=== PATIENT | male | born 1945 | race African-American/Black ===

== ENCOUNTER 2017-07-18 14:09 | Outpatient (CLI) | payer MEDICARE, MEDICAID ==
[~2017-07-18 14:09] MED LIST: ACETAMINOPHEN-1 EAC1 ORAL; ATIVAN2 MG ORAL; IBUPROFEN600 MG ORAL; LISINOPRIL5 MG ORAL; NORCO 10-325 T1 EACH ORAL; REMERON30 MG ORAL; TAGAMET400 MG ORAL; VALIUM5 MG ORAL; sleeping pill PO
[2017-07-18 15:18] LABS: BASOPHILS % (AUTO) 2.7 % (0.0-2.0); EOSINOPHILS % (AUTO) 3.3 % (0.0-3.0); HEMATOCRIT 39.8 % (42.0-52.0); HEMOGLOBIN 13.4 G/DL (14.2-18.0); LYMPHOCYTES % (AUTO) 46.1 % (20.0-45.0); MEAN CORPUSCULAR VOLUME 85 FL (80-99); MONOCYTES % (AUTO) 5.3 % (1.0-10.0); NEUTROPHILS % (AUTO) 42.6 % (45.0-75.0); PLATELET COUNT 197 K/UL (150-450); RED BLOOD COUNT 4.71 M/UL (4.70-6.10); RED CELL DISTRIBUTION WIDTH 11.8 % (11.6-14.8); WHITE BLOOD COUNT 6.4 K/UL (4.8-10.8)
[2017-07-18 15:56] LABS: ALANINE AMINOTRANSFERASE 28 U/L (12-78); ALBUMIN 3.4 G/DL (3.4-5.0); ALBUMIN/GLOBULIN RATIO 0.8 (1.0-2.7); ALKALINE PHOSPHATASE 64 U/L (46-116); ANION GAP 9 mmol/L (5-15); ASPARTATE AMINO TRANSFERASE 15 U/L (15-37); BILIRUBIN,TOTAL 0.6 MG/DL (0.2-1.0); BLOOD UREA NITROGEN 17 mg/dL (7-18); CARBON DIOXIDE 27 MMOL/L (21-32); CHLORIDE 99 MMOL/L (98-107); CREATININE 1.3 MG/DL (0.55-1.30); POTASSIUM 4.1 MMOL/L (3.5-5.1); SODIUM 135 MMOL/L (136-145)
== END 2017-07-18 16:09 | disposition home or self-care (01) ==
LOC: CAR 14:09
DX: M19.90 Unspecified osteoarthritis, unspecified site (principal); I70.90 Unspecified atherosclerosis
CPT/HCPCS: 36415; 80053; 82306; 82607; 83735; 84443; 85025; 85651; 93005

== ENCOUNTER 2019-10-22 18:00 | Inpatient (IN) | payer MEDICAID, MEDICARE ==
[~2019-10-22] VITALS: Ht 185.4 cm; Wt 89.8 kg
[~2019-10-22 18:00] MED LIST changes: +DOCUSATE SODIU100 MG ORAL; +FLUTICASONE PRO16 G1 NASAL; +ICY HOT CREAM35.4 GM TP; +LISINOPRIL20 MG ORAL; +MILK OF MA400 MG/51 ORAL
--- NOTE | 2019-10-22 18:24 | Emergency Room Report ---
History of Present Illness General Chief Complaint: Dyspnea/Respdistress Source: Patient, PMD Present Illness HPI Disclaimer: Please note that this report is being documented using [employer] technology. This can lead to erroneous entry secondary to incorrect interpretation by the dictating instrument. HPI: 74-year-old male with a history of prediabetes, chronic pain and anxiety presents for evaluation of shortness of breath. Patient recently tested positive for COVID-19 by PCR test and negative for antibodies by his PMD. He was at a [employer] party approximately 1 week ago and several days later developed shortness of breath, fatigue and low-grade fevers. Visiting nurse was sent to his house today found him saturating 90% on room air dropping into the 80s with ambulation. He reports dyspnea on exertion, dry cough, fatigue. Denies vomiting or diarrhea. Denies headache, sore throat, nasal congestion. Denies history of asthma, COPD. States he is a non-smoker. Currently feeling comfortable but states he is unable to perform even minimal exertion PMH: Prediabetes, chronic pain, anxiety PSH: Cholecystectomy Allergies: Denies Social Hx: Denies Allergies: Coded Allergies: No Known Allergies (Unverified , 08/10/14) Nursing Documentation-PMH Hx Cardiac Problems: No Hx Cancer: No Hx Gastrointestinal Problems: Yes Hx Neurological Problems: No Review of Systems All Other Systems: negative except mentioned in HPI Physical Exam General: Awake and alert, no acute distress HEENT: NC/AT. EOMI. PERRLA. Cardiovascular: Tachycardic. S1 and S2 normal. No murmur appreciated Resp: Mild tachypnea with respiratory rate in the low 30s, saturating 90% on room air. 96% on nasal cannula. Intermittent nonproductive cough. Bilateral rales Abdomen: Abdomen is soft, nondistended. Nontender Skin: Intact. No abrasions, laceration or rash over the exposed skin MSK: Normal tone and bulk. Moving all extremities. No obvious deformity. No significant lower extremity edema. Neuro: Awake and alert. Mentating appropriately. Medical Decision Making Diagnostic Impression: Primary Impression: COVID-19 Additional Impression: Pneumonia due to COVID-19 virus ER Course Is a 74-year-old male recently tested positive for COVID-19 presenting with hypoxia and dyspnea on exertion. Patient is currently saturating 95% on 2 L nasal cannula no respiratory distress at this time that he does, mildly tachycardic and tachypneic. Will start treatment with IV fluids, IV steroids, empiric antibiotics. Have ordered chest x-ray, broad labs including blood cultures, lactic and ABG. He will be admitted to his PMD, Dr. Jim Zee. 1920: Labs show slight decreased p.o. to and saturation on ABG, CBC within normal limits. White count and differential largely unremarkable. Chemistry shows hyponatremia, hypochloremia and elevated BUN/creatinine consistent with acute kidney injury and dehydration. Glucose elevated to 44 and elevated lactate slightly at 2.2. The patient receiving IV fluids though withheld the full 30 cc /kg sepsis bolus given the patient's chest x-ray showing signs of fluid overload and pulmonary congestion. Ferritin, CRP elevated consistent with diagnosis of COVID-19. Troponin slightly elevated 0.059 aspirin was given. Dimer slightly elevated 0.52 and patient was given Lovenox. He received ceftriaxone, azithromycin and dexamethasone. Patient will be admitted to the SDU. Laboratory Tests Test 10/22/19 18:27 10/22/19 18:30 Arterial Blood pH 7.408 (7.350-7.450) Arterial Blood Partial Pressure CO2 34.2 mmHg (35.0-45.0) L Arterial Blood Partial Pressure O2 71.3 mmHg (75.0-100.0) L Arterial Blood HCO3 21.1 mmol/L (22.0-26.0) L Arterial Blood Oxygen Saturation 94.1 % (95-100) L Arterial Blood Base Excess -2.9 (-2-2) L Sharad Test Positive White Blood Count 6.8 K/UL (4.8-10.8) Red Blood Count 4.68 M/UL (4.70-6.10) L Hemoglobin 13.2 G/DL (14.2-18.0) L Hematocrit 40.8 % (42.0-52.0) L Mean Corpuscular Volume 87 FL (80-99) Mean Corpuscular Hemoglobin 28.3 PG (27.0-31.0) Mean Corpuscular Hemoglobin Concent 32.5 G/DL (32.0-36.0) Red Cell Distribution Width 12.8 % (11.6-14.8) Platelet Count 187 K/UL (150-450) Mean Platelet Volume 7.2 FL (6.5-10.1) Neutrophils (%) (Auto) 61.2 % (45.0-75.0) Lymphocytes (%) (Auto) 31.8 % (20.0-45.0) Monocytes (%) (Auto) 6.1 % (1.0-10.0) Eosinophils (%) (Auto) 0.1 % (0.0-3.0) Basophils (%) (Auto) 0.8 % (0.0-2.0) Prothrombin Time 10.7 SEC (9.30-11.50) Prothrombin Time INR 1.0 (0.9-1.1) Activated Partial Thromboplast Time 34 SEC (23-33) H D-Dimer 0.52 mg/L FEU (0.00-0.49) H Sodium Level 128 MMOL/L (136-145) L Potassium Level 4.4 MMOL/L (3.5-5.1) Chloride Level 90 MMOL/L (98-107) L Carbon Dioxide Level 26 MMOL/L (21-32) Anion Gap 12 mmol/L (5-15) Blood Urea Nitrogen 24 mg/dL (7-18) H Creatinine 1.7 MG/DL (0.55-1.30) H Estimated Glomerular Filtration Rate 48.2 mL/min (>60) Glucose Level 244 MG/DL (74-106) H Lactic Acid Level 2.20 mmol/L (0.4-2.0) H Calcium Level 8.3 MG/DL (8.5-10.1) L Phosphorus Level 2.8 MG/DL (2.5-4.9) Magnesium Level 1.9 MG/DL (1.8-2.4) Ferritin 828 NG/ML (8-388) H Total Bilirubin 0.7 MG/DL (0.2-1.0) Aspartate Amino Transferase (AST) 100 U/L (15-37) H Alanine Aminotransferase (ALT) 58 U/L (12-78) Alkaline Phosphatase 59 U/L (46-116) Total Creatine Kinase 4625 U/L (26-308) H Creatine Kinase MB 2.9 NG/ML (0.0-3.6) Creatine Kinase MB Relative Index 0.0 Troponin I 0.059 ng/mL (0.000-0.056) C-Reactive Protein, Quantitative 24.8 mg/dL (0.00-0.90) H Pro-B-Type Natriuretic Peptide 509 pg/mL (0-125) H Total Protein 8.7 G/DL (6.4-8.2) H Albumin 3.5 G/DL (3.4-5.0) Globulin 5.2 g/dL Albumin/Globulin Ratio 0.7 (1.0-2.7) L EKG Diagnostic Results EKG Time: 18:18 Rate: normal Rhythm: NSR ST Segments: no acute changes Other Impression Sinus rhythm, normal rate, normal axis, normal intervals, no ST segment changes. PACs present. ASA given to the pt in ED: Yes Rhythm Strip Diag. Results Rhythm Strip Time: 18:18 EP Interpretation: yes Rate: 95 Rhythm: NSR, no PVC's, other - Occasional PACs Chest X-Ray Diagnostic Results Chest X-Ray Diagnostic Results : Chest X-Ray Ordered: Yes # of Views/Limited/Complete: 1 View Indication: Shortness of Breath EP Interpretation: Yes PA Xray: Interpretation reviewed Interpretation: other - Bilateral pulmonary congestion. Questionable left lower lobe effusion. Questionable consolidations bilaterally in the lower lobes. Impression: Other - Bilateral pulmonary congestion and edema, possible consolidation Electronically Signed by: Electronically signed by Dr. Bob Yang Reevaluation Time: 20:33 Reevaluation Impression Sepsis reevaluation: I, Dr. Bob Yang, reevaluated the patient Capillary refill: Less than 2 seconds MAP: 92 Heart rate: 95 Respiratory rate: 30 Initial Lactate: 2.2 Repeat Lactate: 1.6 Pressors: Not indicated No signs of fluid overload Disposition: ADMITTED INPATIENT Condition: Serious Bob Yang MD Oct 22, 2019 18:24
[2019-10-22] MEDS ORDERED: dexAMETHasone 10mg/ml Inj IV ONE (18:30)
[2019-10-22] MEDS ORDERED: Azithromycin 500 MG in NS 275 ML IV ONE (18:30)
[2019-10-22] MEDS ORDERED: cefTRIAXone 1 GM in NS 55 ML IVPB ONE (18:30)
--- NOTE | 2019-10-22 18:30 | NUR ---
ED Nurse Note: Patient walked in to ER from home due to SOB and cough since Saturday night. per pt, he attended to [employer] party on Saturday and went home and took a shower and symptoms started on Saturday night. pt aao x4 and ambulatory but was assisted by WC from waiting room due to general weakness and persistant dry cough. no cardiac issue noted but SOB and labored breathing noted. pt saturating at 95% in room air. no fever noted at this time. pt denied N/V/D or fever at home. pt is in gown and on registered nurse cardiac telemetry. the most recent vital signs reported to ERMD.
[2019-10-22] MEDS ORDERED: METFORMIN HCL500 M1 ORAL (18:35)
--- NOTE | 2019-10-22 18:38 | NUR ---
ED Nurse Note: x-ray at bedside.
[2019-10-22 18:40] VITALS: BP 126/74
[2019-10-22 18:44] LABS: BASOPHILS % (AUTO) 0.8 % (0.0-2.0); EOSINOPHILS % (AUTO) 0.1 % (0.0-3.0); HEMATOCRIT 40.8 % (42.0-52.0); HEMOGLOBIN 13.2 G/DL (14.2-18.0); LYMPHOCYTES % (AUTO) 31.8 % (20.0-45.0); MEAN CORPUSCULAR VOLUME 87 FL (80-99); MONOCYTES % (AUTO) 6.1 % (1.0-10.0); NEUTROPHILS % (AUTO) 61.2 % (45.0-75.0); PLATELET COUNT 187 K/UL (150-450); RED BLOOD COUNT 4.68 M/UL (4.70-6.10); RED CELL DISTRIBUTION WIDTH 12.8 % (11.6-14.8); WHITE BLOOD COUNT 6.8 K/UL (4.8-10.8)
--- NOTE | 2019-10-22 18:49 | NUR ---
ED Nurse Note: pt desaturated to 89 to 90% in room air. put pt on 2L/min via NC. ERMD made aware.
--- NOTE | 2019-10-22 18:50 | NUR ---
ED Nurse Note: per ERMD, we should aim for around 95% of O2 sat.
[2019-10-22 18:51] LABS: ANION GAP 12 mmol/L (5-15); BLOOD UREA NITROGEN 24 mg/dL (7-18); CALCIUM 8.3 MG/DL (8.5-10.1); CARBON DIOXIDE 26 MMOL/L (21-32); CHLORIDE 90 MMOL/L (98-107); CREATININE 1.7 MG/DL (0.55-1.30); POTASSIUM 4.4 MMOL/L (3.5-5.1); SODIUM 128 MMOL/L (136-145)
[2019-10-22] MEDS ORDERED: Aspirin Baby 81mg ORAL ONE (19:00)
[2019-10-22 19:06] LABS: ALANINE AMINOTRANSFERASE 58 U/L (12-78); ALBUMIN 3.5 G/DL (3.4-5.0); ALBUMIN/GLOBULIN RATIO 0.7 (1.0-2.7); ALKALINE PHOSPHATASE 59 U/L (46-116); ASPARTATE AMINO TRANSFERASE 100 U/L (15-37); BILIRUBIN,TOTAL 0.7 MG/DL (0.2-1.0); CKMB 2.9 NG/ML (0.0-3.6); CREATINE KINASE 4625 U/L (26-308); FERRITIN 828 NG/ML (8-388); PHOSPHORUS 2.8 MG/DL (2.5-4.9)
--- NOTE | 2019-10-22 19:08 | NUR ---
ED Nurse Note: received report from Jessi METCALF. Pt on youth nutritional monitor. IV patent and intact.
--- NOTE | 2019-10-22 19:09 | NUR ---
HAND-OFF: Report given to Mark Connelly RN. urine needs to be collected. pt has urinal and will urinate when he is able to.
[2019-10-22 19:10] VITALS: BP 132/77
--- NOTE | 2019-10-22 19:12 | Diagnostic Imaging Report ---
EXAM: XR Chest, 1 View CLINICAL HISTORY: SOB TECHNIQUE: Frontal view of the chest. COMPARISON: No relevant prior studies available. FINDINGS: Lungs: Reduced lung volumes. Mild patchy infiltrates in the lower lung lee, left greater than right. Pleural space: Unremarkable. No pneumothorax. Heart: Unremarkable. No cardiomegaly. Mediastinum: Unremarkable. Bones/joints: No acute fracture. Other findings: Query old granulomatous disease. IMPRESSION: Reduced lung volumes. Mild patchy infiltrates in the lower lung lee, left greater than right.
--- NOTE | 2019-10-22 19:52 | NUR ---
ED Nurse Note: urine and repeat lactic collected and sent to lab.
[2019-10-22] MEDS ORDERED: Promethazine Plain 6.25mg/5ml ORAL PRN (20:15)
[2019-10-22 20:34] LABS: APPEARANCE,URINE SLIGHTLY CLOUDY; BILIRUBIN, URINE NEGATIVE (NEGATIVE); GLUCOSE, URINE (UA) 2+ (NEGATIVE); KETONES,URINE NEGATIVE (NEGATIVE); LEUKOCYTE ESTERASE ,URINE 3+ (NEGATIVE); NITRITE,URINE NEGATIVE (NEGATIVE); PH,URINE 6 (4.5-8.0); PROTEIN,URINE 3+ (NEGATIVE); UROBILINOGEN,URINE NORMAL MG/DL (0.0-1.0)
[2019-10-22 20:35] LABS: COLOR,URINE YELLOW
[2019-10-22 20:37] VITALS: BP 145/81
[2019-10-22 21:00] VITALS: BP 137/83
[2019-10-22] MEDS ORDERED: Enoxaparin 100mg Inj SUBQ SCH (21:00)
--- NOTE | 2019-10-22 21:00 | NUR ---
ED Nurse Note: gave report to Kylah METCALF
--- NOTE | 2019-10-22 21:15 | NUR ---
TRANSFER TO FLOOR: Patient transferred to [facility] via [facility] in stable condition via transport 19 protocol as ordered, per dr. Zee. Report given to Kylah METCALF. Belongings sent with patient.
[2019-10-22 21:20] VITALS: BP 139/74
--- NOTE | 2019-10-22 21:20 | NUR ---
NURSE NOTES: Received report from Mark Connelly RN. Patient admitted from ED to SDU via gurney direct to room 242 bed 2. Patient is alert and oriented x4 upon assessment, and able to make needs known. PERRLA. Upon arrival on unit, patient is placed on 5-lead tele monitor. Patient noted to be SR with HR of 91. No s/s of acute distress noted. Patient observed with Nasal Canula running 2L with 96% O2 saturation. No respiratory distress noted. Right A/C 18 gauge IV noted upon arrival. Initial vitals show 139/74, 91 BPM, 96% O2, 18 RR, and afebrile at 98.9 axil. Performed 12-Lead EKG secondary to elevated troponin. EKG showed Sinus Rhythm with premature atrial complexes. Bounding pulses palpated along radial points. Cap refill <3 seconds. Diminished lung sounds heard upon auscultation of lungs. Skin is cool to touch and remains intact on upper extremities. Patient states he 'prefers to leave his pants, socks, and shoes on' and would not allow for assessment of lower extremities. Hypoactive bowel sounds auscultated on all 4 quadrants upon assessment of abdomen. Taught patient to utilize call light if needing assistance. Bed in lowest and locked position with bed alarm on and activated. Side rails up x2, call light within reach. Will call MD for admitting order. Will continue to monitor throughout shift.
--- NOTE | 2019-10-22 22:34 | NUR ---
NURSE NOTES: Spoke with Dr Zee regarding patient condition and current assessment findings. Discussed laboratory results and plan of care. Orders obtained for the following: Admit to SDU, if AM lab values improve and patient condition improves possible downgrade to tele Diet: CCHO, No added salt; no texture modifications noted to be necessary after bedside swallow assessment Code Status: Full Code O2- NC, draw ABG if RR >25/min CBC, CMP A1C, CRP and ABG 10/23/19 Repeat EKG Consult: Alkaspgraciela Troponin series Medication orders for NS, Novolog-sensitive scale, no coverage <200, Lovenox, Dexamethasone, Ativan and [place] obtained Will carry out orders. Will continue to monitor.
--- NOTE | 2019-10-22 22:54 | NUR ---
NURSE NOTES: Spoke with Dr Fraser regarding patient condition and current assessment findings. Discussed laboratory results and plan of care. Orders obtained for the following: Remdesivir 200mg IV X 1 Dose Remdesivir 100mg IV daily X 4doses Will carry out orders. Will continue to monitor.
[2019-10-22] MEDS ORDERED: LORazepam Inj 2mg/ml 1ml IV PRN (23:00)
[2019-10-22] MEDS ORDERED: HYDROcodone/Acetamin 10/325 tab ORAL PRN (23:00)
--- NOTE | 2019-10-22 23:15 | NUR ---
NURSE NOTES: Unable to located Remdesivir in [facility]. Called [facility] for assistance and was informed that we are unable to order Remdesivir without onsite pharmacy being present. Confirmed protocol with pharmacist Margie. Will contact onsite pharmacy at 0700. Will carry out orders.
[2019-10-22] MEDS ORDERED: LORazepam 1mg tab ORAL PRN (23:45)
[2019-10-22] MEDS: guaiFENesin 100mg/5ml Liq ud ORAL PRN (23:50)
[2019-10-23] VITALS (7 sets, daily range): BP systolic 120–146; BP diastolic 66–85
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
--- NOTE | 2019-10-23 01:00 | NUR ---
NURSE NOTES: Bedside assessment performed, assessed pt for pain in which he currently denies.. Pt provided with a partial bed bath and linen change. Pt tolerated care well. Pt assisted with repositioning for comfort and safety. VS noted to be stable at this time. O2 saturation of 97% noted with a RR of 22. Fall, Aspiration and Skin precautions observed. Pt remains resting in bed; Bed remains in the lowest position with the safety wheels engaged, call light within reach, side rails up x3 and bed alarm activated. Will continue plan of care. Will continue to monitor.
[2019-10-23] MEDS: guaiFENesin 100mg/5ml Liq ud ORAL PRN ×3 (05:29→20:38)
[2019-10-23] MEDS: NovoLOG Insulin Flexpen SUBQ SCH ×4 (05:30→21:04)
[2019-10-23 05:50] LABS: BASOPHILS % (AUTO) 0.4 % (0.0-2.0); HEMATOCRIT 40.3 % (42.0-52.0); HEMOGLOBIN 12.8 G/DL (14.2-18.0); LYMPHOCYTES % (AUTO) 23.9 % (20.0-45.0); MEAN CORPUSCULAR VOLUME 89 FL (80-99); MONOCYTES % (AUTO) 3.3 % (1.0-10.0); NEUTROPHILS % (AUTO) 72.4 % (45.0-75.0); PLATELET COUNT 184 K/UL (150-450); RED BLOOD COUNT 4.52 M/UL (4.70-6.10); RED CELL DISTRIBUTION WIDTH 12.7 % (11.6-14.8); WHITE BLOOD COUNT 5.7 K/UL (4.8-10.8)
--- NOTE | 2019-10-23 06:00 | NUR ---
NURSE NOTES: Bedside assessment performed, assessed pt for pain in which he currently denies. Pt requests Robitussin for cough; PRN Robitussin administered as ordered for cough. No adverse effects noted at this time. R AC IV catheter noted to be occluded. R Wrist 24g IV catheter placed on second attempt without incident. AM lab draw performed without incident. EKG performed and results consistent with previous reported EKG, ST with PAC. Pt tolerated care well. Pt assisted with repositioning for comfort and safety. VS noted to be stable at this time. Fall, Aspiration and Skin precautions observed. Pt remains resting in bed; Bed remains in the lowest position with the safety wheels engaged, call light within reach, side rails up x3 and bed alarm activated. Will continue plan of care. Will continue to monitor.
[2019-10-23 06:33] LABS: CREATINE KINASE 4820 U/L (26-308)
[2019-10-23 06:44] LABS: ALANINE AMINOTRANSFERASE 82 U/L (12-78); ALBUMIN 2.7 G/DL (3.4-5.0); ALBUMIN/GLOBULIN RATIO 0.5 (1.0-2.7); ALKALINE PHOSPHATASE 53 U/L (46-116); ANION GAP 10 mmol/L (5-15); ASPARTATE AMINO TRANSFERASE 134 U/L (15-37); BILIRUBIN,TOTAL 0.5 MG/DL (0.2-1.0); BLOOD UREA NITROGEN 25 mg/dL (7-18); CALCIUM 8.1 MG/DL (8.5-10.1); CARBON DIOXIDE 23 MMOL/L (21-32); CHLORIDE 95 MMOL/L (98-107); CREATININE 1.5 MG/DL (0.55-1.30); POTASSIUM 4.7 MMOL/L (3.5-5.1); SODIUM 128 MMOL/L (136-145)
--- NOTE | 2019-10-23 07:01 | NUR ---
NURSE NOTES: Spoke with PharmChapis Fleming. Unable to carry out order for Rendesmivir due to elevated liver enzymes. Per Lonnie, pt does not meet criteria. Left message for Dr. Gomez. Awaiting call back. Will continue to monitor.
--- NOTE | 2019-10-23 07:20 | NUR ---
HAND-OFF: Report given to TEA Cox. Pt in stable condition upon shift change.
--- NOTE | 2019-10-23 07:25 | NUR ---
NURSE NOTES: Report received from Nelli Velázquez RN/Kylah Joseph RN.Pt awake,alert sitting up on bed eating breakfast,noted no resp distress denies any c/o pain or sob,SR on the monitor,skin warm and dry ,IV site to RT Wrist intact with IVF NS at 60 ml/hr,SR up x2,call light within reach ,bed lock in lowest position will continue with plans of care.
[2019-10-23] MEDS ORDERED: Enoxaparin 100mg Inj SUBQ SCH ×2 (09:00→21:00)
[2019-10-23] MEDS ORDERED: dexAMETHasone 10mg/ml Inj IV SCH (09:00)
[2019-10-23] MEDS ORDERED: metFORMIN 500mg tab ORAL SCH (09:00)
[2019-10-23] MEDS ORDERED: Albuterol 90mcg Inhaler 8gm INH PRN ×2 (11:15→18:00)
--- NOTE | 2019-10-23 11:24 | Consultation ---
Adam Valencia TERMITE EXTERMINATOR HELPER 10/23/19 1124: History of Present Illness General Date patient seen: Oct 23, 2019 Time patient seen: 10:00 Chief Complaint: Dyspnea/Respdistress Referring physician: DR Zee Reason for Consultation: PNA, COVID 19 Present Illness HPI 74 years old male with past medical history of DM with diabetic neuropathy, hypertension, HTN, osteoarthritis, chronic pain syndrome, anxiety disorder , presented with shortness of breath and nonproductive cough . Patient apparently attended outdoor gathering about 1.5 -2 weeks ago. Patient reported wearing a mask. According to patient , one of the participant was tested positive for COVID 19. About a week ago he developed nonproductive cough, SOB, anorexia and nausea. Patient was scheduled for office visit, and in preparation was tested for COVID 19. Rapid Ab testing for IgG and IgM was negative , but positive COVID-19 by PCR Patient was apparently hypoxic with ambulation but saturation returned to normal with rest. Patient was monitored at home by home health nursing. However shortness of breath and dyspnea increased . Patient 's daughter reported pulse oximetry fropped to mid 80s . Subsequently patient was recommended by hid primary doctor to come to emergency room for evaluation. On evaluation in ED patient had no fevers. Pulse oximetry was stable on oxygen 2 L via nasal cannula , mild tachypnea with respiratory rate 23. Laboratory work-up revealed no leukocytosis, hemoglobin 13.2, hematocrit 40.8 , platelet count 187. D-dimer mildly elevated 0.52. Sodium 128. BUN 24, creatinine 1.7. This am creatinine down to 1.5 Glucose 244. Lactic acid 2.2, repeated 1.6. AST 100 , ALT 58. This am AST 134, ALT 82. Troponin 0.059 , this am down to 0.039; pro BNP 519. EKG revealed sinus rhythm , no acute ischemic changes , some PAC. CRP 24.8, this am 25.4 . ferritin 828. CK 4625. Albumin 3.5 ABG in ED and this am stable on o2 via NC, no evidence of acidosis. Chest x-ray demonstrated reduced lung volumes. Mild patchy infiltrates in the lower lung lee , left greater than right. Urinalysis revealed evidence of pyuria , moderate bacteria, +3 protein, +3 leukocyte esterase. In the emergency department patient received IV fluids, Lovenox patient , pancultured, started on empiric antibiotics /ceftriaxone and azithromycin for pneumonia as well as steroid/ dexamethasone and subsequently admitted to stepdown for further management. Pulmonology consult was requested to assist in management of this patient. Allergies: Coded Allergies: No Known Allergies (Unverified , 08/10/14) Medication History Scheduled Metformin Hcl* (Metformin Hcl*), 500 MG ORAL TWICE A DAY, (Reported) Scheduled PRN Lorazepam* (Ativan*), 2 MG ORAL Q6H PRN for For Anxiety, (Reported) Discontinued Medications Docusate Sodium* (Docusate Sodium*), 100 MG ORAL DAILY PRN for Constipation, ( Reported) Discontinued Reason: MD discontinued med Fluticasone Propionate* (Fluticasone Propionate*), 1 SPRAY NASAL TWICE A DAY, ( Reported) Discontinued Reason: MD discontinued med Hydrocodone Bit/Acetaminophen 10-325* ([place] 10-325*), 1 TAB ORAL Q6H PRN for For Pain, (Reported) Discontinued Reason: MD discontinued med Lisinopril (Lisinopril*), 20 MG ORAL DAILY, (Reported) Discontinued Reason: MD discontinued med Magnesium Hydroxide* (Milk Of Magnesia*), 5 ML ORAL DAILY PRN for Constipation, (Reported) Discontinued Reason: MD discontinued med Methyl Salicylate/Menthol (Icy Hot Cream), 35.4 GM TP for For Pain, (Reported) Discontinued Reason: MD discontinued med Mirtazapine* (Remeron*), 30 MG ORAL BEDTIME, (Reported) Discontinued Reason: MD discontinued med Patient History History Provided By: Patient, Medical Record Healthcare decision maker Resuscitation status Full code Advanced Directive on File Past Medical/Surgical History Past Medical/Surgical History: (1) Hypertension (2) Anxiety disorder (3) Chronic pain disorder (4) Diabetes type 2, uncontrolled (5) Diabetic neuropathy associated with type 2 diabetes mellitus (6) GERD (gastroesophageal reflux disease) (7) Chronic back pain Review of Systems Constitutional: Reports: weakness, other - fatigue Eye: Reports: other - hx of cataract ENT: Reports: no symptoms Respiratory: Reports: see HPI Cardiovascular: Reports: no symptoms Gastrointestinal: Reports: constipation Genitourinary: Reports: no symptoms Musculoskeletal: Reports: joint pain, other - arthritis, chr back pain Skin: Reports: no symptoms Psychiatric: Reports: no symptoms Neurological: Reports: no symptoms Endocrine: Reports: other - DM OOC Hematologic/Lymphatic: Reports: no symptoms Physical Exam General Appearance: no apparent distress, alert - awake, responsive male in NAD Lines, tubes and drains: peripheral HEENT: normocephalic, atraumatic, anicteric, mucous membranes moist, PERRL, pharynx normal, supple, no JVD Neck: non-tender, normal alignment, supple Respiratory/Chest: chest wall non-tender, no respiratory distress, no accessory muscle use, rhonchi - bilaterally - few isolated rhonchi Cardiovascular/Chest: normal peripheral pulses, normal rate Abdomen: normal bowel sounds, non tender, soft Extremities: non-tender, no calf tenderness, normal capillary refill Skin Exam: warm/dry Neurologic: no motor/sensory deficits, alert, oriented x 3, responsive Musculoskeletal: normal muscle bulk Last 24 Hour Vital Signs Date Time Temp Pulse Resp B/P (MAP) Pulse Ox O2 Delivery O2 Flow Rate FiO2 10/23/19 08:00 98.2 80 20 132/72 (92) 96 10/23/19 04:00 Nasal Cannula 2.0 10/23/19 04:00 97.5 97 18 142/85 (104) 99 10/23/19 03:31 75 10/23/19 00:00 Nasal Cannula 2.0 10/23/19 00:00 99.1 96 24 120/67 (84) 99 10/22/19 23:37 86 10/22/19 22:06 Nasal Cannula 2.0 10/22/19 21:28 96 10/22/19 21:20 98.9 91 22 139/74 (95) 95 10/22/19 21:15 98.6 91 20 145/81 95 Nasal Cannula 2.0 10/22/19 21:00 98.6 88 20 137/83 96 Nasal Cannula 2.0 10/22/19 20:37 98.6 94 20 145/81 95 Nasal Cannula 2.0 10/22/19 19:10 98.8 83 20 132/77 97 Nasal Cannula 2.0 10/22/19 18:40 91 22 Nasal Cannula 2.0 10/22/19 18:40 99.0 91 23 126/74 100 Nasal Cannula 2.0 10/22/19 18:35 99.0 93 23 127/72 (90) 100 Nasal Cannula 2.0 Intake and Output 10/22/19 10/23/19 19:00 07:00 Intake Total 1429 ml Output Total 1300 ml Balance 129 ml Intake Oral 60 ml IV Total 1369 ml Output Urine Total 1300 ml # Voids 1 Laboratory Tests Test 10/22/19 18:27 10/22/19 18:30 10/22/19 19:45 10/23/19 04:00 Arterial Blood pH 7.408 (7.350-7.450) Arterial Blood Partial Pressure CO2 34.2 mmHg (35.0-45.0) L Arterial Blood Partial Pressure O2 71.3 mmHg (75.0-100.0) L Arterial Blood HCO3 21.1 mmol/L (22.0-26.0) L Arterial Blood Oxygen Saturation 94.1 % (95-100) L Arterial Blood Base Excess -2.9 (-2-2) L Sharad Test Positive White Blood Count 6.8 K/UL (4.8-10.8) 5.7 K/UL (4.8-10.8) Red Blood Count 4.68 M/UL (4.70-6.10) L 4.52 M/UL (4.70-6.10) L Hemoglobin 13.2 G/DL (14.2-18.0) L 12.8 G/DL (14.2-18.0) L Hematocrit 40.8 % (42.0-52.0) L 40.3 % (42.0-52.0) L Mean Corpuscular Volume 87 FL (80-99) 89 FL (80-99) Mean Corpuscular Hemoglobin 28.3 PG (27.0-31.0) 28.4 PG (27.0-31.0) Mean Corpuscular Hemoglobin Concent 32.5 G/DL (32.0-36.0) 31.9 G/DL (32.0-36.0) L Red Cell Distribution Width 12.8 % (11.6-14.8) 12.7 % (11.6-14.8) Platelet Count 187 K/UL (150-450) 184 K/UL (150-450) Mean Platelet Volume 7.2 FL (6.5-10.1) 6.4 FL (6.5-10.1) L Neutrophils (%) (Auto) 61.2 % (45.0-75.0) 72.4 % (45.0-75.0) Lymphocytes (%) (Auto) 31.8 % (20.0-45.0) 23.9 % (20.0-45.0) Monocytes (%) (Auto) 6.1 % (1.0-10.0) 3.3 % (1.0-10.0) Eosinophils (%) (Auto) 0.1 % (0.0-3.0) 0.0 % (0.0-3.0) Basophils (%) (Auto) 0.8 % (0.0-2.0) 0.4 % (0.0-2.0) Prothrombin Time 10.7 SEC (9.30-11.50) Prothromb Time International Ratio 1.0 (0.9-1.1) Activated Partial Thromboplast Time 34 SEC (23-33) H D-Dimer 0.52 mg/L FEU (0.00-0.49) H Sodium Level 128 MMOL/L (136-145) L 128 MMOL/L (136-145) L Potassium Level 4.4 MMOL/L (3.5-5.1) 4.7 MMOL/L (3.5-5.1) Chloride Level 90 MMOL/L (98-107) L 95 MMOL/L (98-107) L Carbon Dioxide Level 26 MMOL/L (21-32) 23 MMOL/L (21-32) Anion Gap 12 mmol/L (5-15) 10 mmol/L (5-15) Blood Urea Nitrogen 24 mg/dL (7-18) H 25 mg/dL (7-18) H Creatinine 1.7 MG/DL (0.55-1.30) H 1.5 MG/DL (0.55-1.30) H Estimat Glomerular Filtration Rate 48.2 mL/min (>60) 55.8 mL/min (>60) Glucose Level 244 MG/DL (74-106) H 303 MG/DL (74-106) H Lactic Acid Level 2.20 mmol/L (0.4-2.0) H 1.60 mmol/L (0.66-2.22) Calcium Level 8.3 MG/DL (8.5-10.1) L 8.1 MG/DL (8.5-10.1) L Phosphorus Level 2.8 MG/DL (2.5-4.9) Magnesium Level 1.9 MG/DL (1.8-2.4) Ferritin 828 NG/ML (8-388) H Total Bilirubin 0.7 MG/DL (0.2-1.0) 0.5 MG/DL (0.2-1.0) Aspartate Amino Transf (AST/SGOT) 100 U/L (15-37) H 134 U/L (15-37) H Alanine Aminotransferase (ALT/SGPT) 58 U/L (12-78) 82 U/L (12-78) H Alkaline Phosphatase 59 U/L (46-116) 53 U/L (46-116) Total Creatine Kinase 4625 U/L (26-308) H 4820 U/L (26-308) H Creatine Kinase MB 2.9 NG/ML (0.0-3.6) Creatine Kinase MB Relative Index 0.0 Troponin I 0.059 ng/mL (0.000-0.056) 0.039 ng/mL (0.000-0.056) C-Reactive Protein, Quantitative 24.8 mg/dL (0.00-0.90) H 26.4 mg/dL (0.00-0.90) H Pro-B-Type Natriuretic Peptide 509 pg/mL (0-125) H Total Protein 8.7 G/DL (6.4-8.2) H 7.7 G/DL (6.4-8.2) Albumin 3.5 G/DL (3.4-5.0) 2.7 G/DL (3.4-5.0) L Globulin 5.2 g/dL 5.0 g/dL Albumin/Globulin Ratio 0.7 (1.0-2.7) L 0.5 (1.0-2.7) L Urine Color Yellow Urine Appearance Slightly cloudy Urine pH 6 (4.5-8.0) Urine Specific [place] 1.020 (1.005-1.035) Urine Protein 3+ (NEGATIVE) H Urine Glucose (UA) 2+ (NEGATIVE) H Urine Ketones Negative (NEGATIVE) Urine Blood 5+ (NEGATIVE) H Urine Nitrite Negative (NEGATIVE) Urine Bilirubin Negative (NEGATIVE) Urine Urobilinogen Normal MG/DL (0.0-1.0) Urine Leukocyte Esterase 3+ (NEGATIVE) H Urine RBC 15-20 /HPF (0 - 0) H Urine WBC 30-40 /HPF (0 - 0) H Urine Squamous Epithelial Cells Few /LPF (NONE/OCC) Urine Bacteria Moderate /HPF (NONE) H Hemoglobin A1c 9.1 % (4.3-6.0) H Test 10/23/19 05:04 10/23/19 07:56 10/23/19 08:40 POC Whole Blood Glucose 280 MG/DL (74-106) H Arterial Blood pH 7.415 (7.350-7.450) Arterial Blood Partial Pressure CO2 34.5 mmHg (35.0-45.0) L Arterial Blood Partial Pressure O2 69.8 mmHg (75.0-100.0) L Arterial Blood HCO3 21.6 mmol/L (22.0-26.0) L Arterial Blood Oxygen Saturation 94.0 % (95-100) L Arterial Blood Base Excess -2.3 (-2-2) L Sharad Test Positive D-Dimer 0.43 mg/L FEU (0.00-0.49) Microbiology Date/Time Source Procedure Growth Status 10/22/19 19:45 Urine,Clean Catch Urine Culture - Preliminary NO GROWTH Resulted Height (Feet): 6 Height (Inches): 1.00 Weight (Pounds): 218 Medications Current Medications Medications (Trade) Dose Ordered Sig/Jenny Route PRN Reason Start Time Stop Time Status Last Admin Dose Admin Acetaminophen/ Hydrocodone Bitart ([place] 10/325) 1 tab Q6H PRN ORAL For Pain 10/22/19 23:00 10/29/19 22:59 10/23/19 10:00 Azithromycin 500 mg/Dextrose 275 ml @ 275 mls/hr Q24HRS IV 10/23/19 20:00 10/29/19 20:59 Ceftriaxone Sodium 1 gm/ Dextrose 55 ml @ 110 mls/hr Q24H IVPB 10/23/19 18:00 10/30/19 17:59 Dexamethasone Sodium Phosphate (Decadron 10mg/ ml Inj) 6 mg DAILY IV 10/23/19 09:00 01/21/20 08:59 10/23/19 10:01 Dextrose (Dextrose 50%) 25 ml Q30M PRN IV Hypoglycemia 10/22/19 23:00 01/20/20 22:59 Dextrose (Dextrose 50%) 50 ml Q30M PRN IV Hypoglycemia 10/22/19 23:00 01/20/20 22:59 Enoxaparin Sodium (Lovenox) 100 mg Q12HR SUBQ 10/23/19 09:00 01/21/20 08:59 10/23/19 10:04 Guaifenesin (Robitussin) 100 mg Q4H PRN ORAL For Cough 10/22/19 23:15 01/20/20 23:14 10/23/19 05:29 Insulin Aspart (NovoLOG) BEFORE MEALS AND HS SUBQ 10/23/19 06:30 01/21/20 06:29 10/23/19 05:30 Lorazepam (Ativan) 2 mg Q12H PRN ORAL For Anxiety 10/22/19 23:45 10/29/19 23:44 Metformin HCl (Glucophage) 500 mg BID ORAL 10/23/19 09:00 11/22/19 08:59 10/23/19 09:59 Sodium Chloride 1,000 ml @ 60 mls/hr [id number] IV 10/22/19 23:00 11/21/19 22:59 10/22/19 23:51 Assessment/Plan Assessment/Plan: ASSESSMENT COVID 19 infection, recently diagnosed PNA, probably due to COVID 19 vs CAP Mild hypoxia Minimally elevated troponin ( resolved already) CECI with proteinuria ? diabetic nephropathy DM OOC with diabetic neuropathy Pyuria, possible UTI Hypo Na Hx of HTN Transaminitis Low albumin, possible malnutrition Chronic pain PLAN OF CARE KWAN isolation O2 titrate to keep sat > 90 ( currently on O2 via NC), aa inhaler Albuterol prn ABG stable on O2 via NC-> no acidosis fup with CXR in few days agree with empiric abx: Ceftriaxone and Azithromycin SCX if able continue steroid, can probably transitioned to oral , add GI prophylaxis repeat COVID 19 testing later fup with inflammatory markers: CRP, LDH, ferritin to access a risk for cytokine storm a/tussive prn monitor volumes full a/c with Lovenox for now , consider taper soon second troponin down to normal min elevation possibly due to CECI , hypoperfusion monitor renal parameters, avoid nephrotoxics, creat down to 1.5 hypo Na persist hypo Na w/up - per primary UCX NGTD UA+ pyuria, mod bacteria, on ceftriaxone already BS management with metformin ( lactic acid down to normal) and SSI, may need higher coverage from SSI ( given steroids) HgA1c - 9.1 not at goal, trend CK, LFT BP stable w/out any a/HTN at this tome pain management dietary eval supportive care Thank you for this consultation! case discussed and evaluated by supervising physician New Morales MD 10/23/19 1525: History of Present Illness General Chief Complaint: Dyspnea/Respdistress Present Illness Allergies: Coded Allergies: No Known Allergies (Unverified , 08/10/14) Medication History Scheduled Metformin Hcl* (Metformin Hcl*), 500 MG ORAL TWICE A DAY, (Reported) Scheduled PRN Lorazepam* (Ativan*), 2 MG ORAL Q6H PRN for For Anxiety, (Reported) Discontinued Medications Docusate Sodium* (Docusate Sodium*), 100 MG ORAL DAILY PRN for Constipation, ( Reported) Discontinued Reason: MD discontinued med Fluticasone Propionate* (Fluticasone Propionate*), 1 SPRAY NASAL TWICE A DAY, ( Reported) Discontinued Reason: MD discontinued med Hydrocodone Bit/Acetaminophen 10-325* ([place] 10-325*), 1 TAB ORAL Q6H PRN for For Pain, (Reported) Discontinued Reason: MD discontinued med Lisinopril (Lisinopril*), 20 MG ORAL DAILY, (Reported) Discontinued Reason: discontinued med Magnesium Hydroxide* (Milk Of Magnesia*), 5 ML ORAL DAILY PRN for Constipation, (Reported) Discontinued Reason: discontinued med Methyl Salicylate/Menthol (Icy Hot Cream), 35.4 GM TP for For Pain, (Reported) Discontinued Reason: discontinued med Mirtazapine* (Remeron*), 30 MG ORAL BEDTIME, (Reported) Discontinued Reason: MD discontinued med Assessment/Plan Assessment/Plan: Patient seen and examined with TERMITE EXTERMINATOR HELPER. Agree with above A&P as it reflects our joint deliberations. COVID-19 acute respiratory illness with hypoxia but only on 2lpm for now. Cont empiric abx. Has been started on dexamethasone. Remdesivir should be started, will discuss with Valencia Bueno NP Oct 23, 2019 11:24 New Morales MD Oct 23, 2019 15:25
--- NOTE | 2019-10-23 11:48 | NUR ---
CASE MANAGEMENT: INITIAL REVIEW 74 YO M PRESENTED TO OUR ED FROM HOME CC: DYSPNEA PMHx: Prediabetes, chronic pain, anxiety SI:COVID. HYPOXIA. T 99 HR 93 RR 23 B/P 127/72 SATS 100% ON 2L/NC LABS: NA 128 CL 90 BUN 24 CR 1.7 GLU 244 CA 8.3 AST 100 TOTAL CK 4625 TROPONIN 0.059 BNP 509 IS: DEXAMETHASONE IV X1 CEFTRIAXONE IV X1 AZITHROMYCIN IV X1 CXR Impression: Other - Bilateral pulmonary congestion and edema, possible consolidation PATIENT ADMITTED TO SDU 10/22/2019 @ 1836 DCP: HOME PLAN OF CARE: COVID SWAB
--- NOTE | 2019-10-23 12:00 | NUR ---
NURSE NOTES: Pt stable,noresp distress presented,with on and off non prod coughing.
--- NOTE | 2019-10-23 16:58 | Geriatric Progress Note ---
Assessment/Plan Problems: (1) Transaminasemia (2) SIRS (systemic inflammatory response syndrome) (3) Urinary tract infection (4) Chronic back pain (5) Cataract (6) Pneumonia due to COVID-19 virus (7) Diabetes type 2, uncontrolled (8) Diabetic neuropathy associated with type 2 diabetes mellitus (9) Chronic pain disorder (10) Anxiety disorder (11) Acute kidney injury (12) Rhabdomyolysis due to COVID-19 (13) Chronic rhinitis (14) Hypertension (15) Volume depletion (16) Nausea Assessment/Plan Although CK, CRP suggest ongoing inflammatory process, D-dimer slightly improved. Clinically, patient appears improved, but respiratory status still compromised. The majority of the constellation of clinical changes seem related to COVID at this point. Overall there is a mild improvement, but given the patient's underlying conditions, and the time course of of his illness, he remains in a somewhat high risk status. Therefore, the current medications and treatment will be continued. The probability of a bacterial pneumonia or UTI contributing seems somewhat lower, but antibiotics will be continued until the patient demonstrates clear improvement. The renal parameters are marginally improved and gentle IV hydration will be continued. As discussed with Dr. Luevano, a course of remdesivir seems appropriate to improve the likelihood that the patient will not develop progressive pulmonary compromise. Blood sugars remain elevated, likely in part due to dexamethasone, but will not increase coverage unless sugars drift higher. Clinical status and treatment were reviewed with the patient. Continue monitoring labs. Discussed with: patient, hospital staff Subjective Interval Events Patient feeling slightly better. Coughing with production of clear phlegm. No pain, muscle soreness, except upper abdomen when coughing. Reports feeling slightly better. Discussed with Dr. Luevano, given risk-benefit, expect to start remdesivir , despite mild elevation of transaminases. Interval laboratories reveal persistent hyperglycemia, likely associated with dexamethasone use. Troponin has normalized. Renal function mildly improved. Total CK remains the same, and transaminases are slightly higher. D-dimer now normalized. Normal WBC, without current lymphopenia. Fluid balance probably slightly negative when insensible losses are included. Constitutional: Reports: pain - chronic right hip discomfort., malaise, weakness; Denies: chills, sweats, fever Eye: Reports: no symptoms ENT: Denies: throat pain Respiratory: Reports: cough, shortness of breath, POTTER/SOB, sputum; Denies: orthopnea, stridor, wheezing, hemoptysis Cardiovascular: Denies: chest pain, edema, palpitations Gastrointestinal/Abdominal: Reports: abdominal pain - with coughing, nausea - mild; Denies: constipation, diarrhea Genitourinary: Denies: dysuria Musculoskeletal: Reports: back pain; Denies: gout Skin: Denies: ulcer/breakdown Neurologic: Denies: focal weakness Geriatric Geriatric Last 24 Hour Vital Signs Date Time Temp Pulse Resp B/P (MAP) Pulse Ox O2 Delivery O2 Flow Rate FiO2 10/23/19 16:00 Nasal Cannula 2.0 10/23/19 12:00 97.5 73 19 138/80 (99) 95 10/23/19 12:00 Nasal Cannula 2.0 10/23/19 11:51 84 10/23/19 08:00 98.2 80 20 132/72 (92) 96 10/23/19 08:00 Nasal Cannula 2.0 10/23/19 07:38 97 10/23/19 04:00 Nasal Cannula 2.0 10/23/19 04:00 97.5 97 18 142/85 (104) 99 10/23/19 03:31 75 10/23/19 00:00 Nasal Cannula 2.0 10/23/19 00:00 99.1 96 24 120/67 (84) 99 10/22/19 23:37 86 10/22/19 22:06 Nasal Cannula 2.0 10/22/19 21:28 96 10/22/19 21:20 98.9 91 22 139/74 (95) 95 10/22/19 21:15 98.6 91 20 145/81 95 Nasal Cannula 2.0 10/22/19 21:00 98.6 88 20 137/83 96 Nasal Cannula 2.0 10/22/19 20:37 98.6 94 20 145/81 95 Nasal Cannula 2.0 10/22/19 19:10 98.8 83 20 132/77 97 Nasal Cannula 2.0 10/22/19 18:40 91 22 Nasal Cannula 2.0 10/22/19 18:40 99.0 91 23 126/74 100 Nasal Cannula 2.0 10/22/19 18:35 99.0 93 23 127/72 (90) 100 Nasal Cannula 2.0 Intake and Output 10/22/19 10/23/19 19:00 07:00 Intake Total 1489 ml Output Total 1300 ml Balance 189 ml Intake Oral 60 ml IV Total 1429 ml Output Urine Total 1300 ml # Voids 1 Laboratory Tests Test 10/22/19 18:27 10/22/19 18:30 10/22/19 19:45 10/23/19 04:00 Arterial Blood pH 7.408 (7.350-7.450) Arterial Blood Partial Pressure CO2 34.2 mmHg (35.0-45.0) L Arterial Blood Partial Pressure O2 71.3 mmHg (75.0-100.0) L Arterial Blood HCO3 21.1 mmol/L (22.0-26.0) L Arterial Blood Oxygen Saturation 94.1 % (95-100) L Arterial Blood Base Excess -2.9 (-2-2) L Sharad Test Positive White Blood Count 6.8 K/UL (4.8-10.8) 5.7 K/UL (4.8-10.8) Red Blood Count 4.68 M/UL (4.70-6.10) L 4.52 M/UL (4.70-6.10) L Hemoglobin 13.2 G/DL (14.2-18.0) L 12.8 G/DL (14.2-18.0) L Hematocrit 40.8 % (42.0-52.0) L 40.3 % (42.0-52.0) L Mean Corpuscular Volume 87 FL (80-99) 89 FL (80-99) Mean Corpuscular Hemoglobin 28.3 PG (27.0-31.0) 28.4 PG (27.0-31.0) Mean Corpuscular Hemoglobin Concent 32.5 G/DL (32.0-36.0) 31.9 G/DL (32.0-36.0) L Red Cell Distribution Width 12.8 % (11.6-14.8) 12.7 % (11.6-14.8) Platelet Count 187 K/UL (150-450) 184 K/UL (150-450) Mean Platelet Volume 7.2 FL (6.5-10.1) 6.4 FL (6.5-10.1) L Neutrophils (%) (Auto) 61.2 % (45.0-75.0) 72.4 % (45.0-75.0) Lymphocytes (%) (Auto) 31.8 % (20.0-45.0) 23.9 % (20.0-45.0) Monocytes (%) (Auto) 6.1 % (1.0-10.0) 3.3 % (1.0-10.0) Eosinophils (%) (Auto) 0.1 % (0.0-3.0) 0.0 % (0.0-3.0) Basophils (%) (Auto) 0.8 % (0.0-2.0) 0.4 % (0.0-2.0) Prothrombin Time 10.7 SEC (9.30-11.50) Prothromb Time International Ratio 1.0 (0.9-1.1) Activated Partial Thromboplast Time 34 SEC (23-33) H D-Dimer 0.52 mg/L FEU (0.00-0.49) H Sodium Level 128 MMOL/L (136-145) L 128 MMOL/L (136-145) L Potassium Level 4.4 MMOL/L (3.5-5.1) 4.7 MMOL/L (3.5-5.1) Chloride Level 90 MMOL/L (98-107) L 95 MMOL/L (98-107) L Carbon Dioxide Level 26 MMOL/L (21-32) 23 MMOL/L (21-32) Anion Gap 12 mmol/L (5-15) 10 mmol/L (5-15) Blood Urea Nitrogen 24 mg/dL (7-18) H 25 mg/dL (7-18) H Creatinine 1.7 MG/DL (0.55-1.30) H 1.5 MG/DL (0.55-1.30) H Estimat Glomerular Filtration Rate 48.2 mL/min (>60) 55.8 mL/min (>60) Glucose Level 244 MG/DL (74-106) H 303 MG/DL (74-106) H Lactic Acid Level 2.20 mmol/L (0.4-2.0) H 1.60 mmol/L (0.66-2.22) Calcium Level 8.3 MG/DL (8.5-10.1) L 8.1 MG/DL (8.5-10.1) L Phosphorus Level 2.8 MG/DL (2.5-4.9) Magnesium Level 1.9 MG/DL (1.8-2.4) Ferritin 828 NG/ML (8-388) H Total Bilirubin 0.7 MG/DL (0.2-1.0) 0.5 MG/DL (0.2-1.0) Aspartate Amino Transf (AST/SGOT) 100 U/L (15-37) H 134 U/L (15-37) H Alanine Aminotransferase (ALT/SGPT) 58 U/L (12-78) 82 U/L (12-78) H Alkaline Phosphatase 59 U/L (46-116) 53 U/L (46-116) Total Creatine Kinase 4625 U/L (26-308) H 4820 U/L (26-308) H Creatine Kinase MB 2.9 NG/ML (0.0-3.6) Creatine Kinase MB Relative Index 0.0 Troponin I 0.059 ng/mL (0.000-0.056) 0.039 ng/mL (0.000-0.056) C-Reactive Protein, Quantitative 24.8 mg/dL (0.00-0.90) H 26.4 mg/dL (0.00-0.90) H Pro-B-Type Natriuretic Peptide 509 pg/mL (0-125) H Total Protein 8.7 G/DL (6.4-8.2) H 7.7 G/DL (6.4-8.2) Albumin 3.5 G/DL (3.4-5.0) 2.7 G/DL (3.4-5.0) L Globulin 5.2 g/dL 5.0 g/dL Albumin/Globulin Ratio 0.7 (1.0-2.7) L 0.5 (1.0-2.7) L Urine Color Yellow Urine Appearance Slightly cloudy Urine pH 6 (4.5-8.0) Urine Specific [place] 1.020 (1.005-1.035) Urine Protein 3+ (NEGATIVE) H Urine Glucose (UA) 2+ (NEGATIVE) H Urine Ketones Negative (NEGATIVE) Urine Blood 5+ (NEGATIVE) H Urine Nitrite Negative (NEGATIVE) Urine Bilirubin Negative (NEGATIVE) Urine Urobilinogen Normal MG/DL (0.0-1.0) Urine Leukocyte Esterase 3+ (NEGATIVE) H Urine RBC 15-20 /HPF (0 - 0) H Urine WBC 30-40 /HPF (0 - 0) H Urine Squamous Epithelial Cells Few /LPF (NONE/OCC) Urine Bacteria Moderate /HPF (NONE) H Hemoglobin A1c 9.1 % (4.3-6.0) H Test 10/23/19 05:04 10/23/19 07:56 10/23/19 08:40 10/23/19 12:08 POC Whole Blood Glucose 280 MG/DL (74-106) H Pending Arterial Blood pH 7.415 (7.350-7.450) Arterial Blood Partial Pressure CO2 34.5 mmHg (35.0-45.0) L Arterial Blood Partial Pressure O2 69.8 mmHg (75.0-100.0) L Arterial Blood HCO3 21.6 mmol/L (22.0-26.0) L Arterial Blood Oxygen Saturation 94.0 % (95-100) L Arterial Blood Base Excess -2.3 (-2-2) L Sharad Test Positive D-Dimer 0.43 mg/L FEU (0.00-0.49) Test 10/23/19 16:34 POC Whole Blood Glucose Pending Current Medications Medications (Trade) Dose Ordered Sig/Jenny Route PRN Reason Start Time Stop Time Status Last Admin Dose Admin Acetaminophen/ Hydrocodone Bitart ([place] 10/325) 1 tab Q6H PRN ORAL For Pain 10/22/19 23:00 10/29/19 22:59 10/23/19 10:00 Albuterol Sulfate (Proventil MDI) 2 puff Q4H PRN INH Shortness of Breath 10/23/19 11:15 01/21/20 11:14 Azithromycin 500 mg/Dextrose 275 ml @ 275 mls/hr Q24HRS IV 10/23/19 20:00 10/29/19 20:59 Ceftriaxone Sodium 1 gm/ Dextrose 55 ml @ 110 mls/hr Q24H IVPB 10/23/19 18:00 10/30/19 17:59 Dexamethasone Sodium Phosphate (Decadron 10mg/ ml Inj) 6 mg DAILY IV 10/23/19 09:00 01/21/20 08:59 10/23/19 10:01 Dextrose (Dextrose 50%) 25 ml Q30M PRN IV Hypoglycemia 10/22/19 23:00 01/20/20 22:59 Dextrose (Dextrose 50%) 50 ml Q30M PRN IV Hypoglycemia 10/22/19 23:00 01/20/20 22:59 Enoxaparin Sodium (Lovenox) 100 mg Q12HR SUBQ 10/23/19 09:00 01/21/20 08:59 10/23/19 10:04 Guaifenesin (Robitussin) 100 mg Q4H PRN ORAL For Cough 10/22/19 23:15 01/20/20 23:14 10/23/19 15:48 Insulin Aspart (NovoLOG) BEFORE MEALS AND HS SUBQ 10/23/19 06:30 01/21/20 06:29 10/23/19 16:38 Lorazepam (Ativan) 2 mg Q12H PRN ORAL For Anxiety 10/22/19 23:45 10/29/19 23:44 Metformin HCl (Glucophage) 500 mg BID ORAL 10/23/19 09:00 11/22/19 08:59 10/23/19 09:59 Miscellaneous Medication (Remdesivir Fact Sheet) 1 ea ONCE MISC 10/23/19 17:00 10/23/19 17:01 Pantoprazole (Protonix) 40 mg DAILY ORAL 10/24/19 09:00 11/23/19 08:59 Remdesivir 100 mg/ Sodium Chloride 250 ml @ 250 mls/hr Q24H IV 10/24/19 18:00 10/27/19 18:59 Remdesivir 200 mg/ Sodium Chloride 250 ml @ 125 mls/hr ONCE IV 10/23/19 18:00 10/23/19 19:59 Sodium Chloride 1,000 ml @ 60 mls/hr [id number] IV 10/22/19 23:00 11/21/19 22:59 10/23/19 15:49 Height (Feet): 6 Height (Inches): 1.00 Weight (Pounds): 218 General Appearance: well nourished, alert Head: normocephalic, atraumatic ENT: normal voice Neck: full range of motion, no mass Respiratory: chest non-tender, no wheezing, speaking full sentences, other - coarse breath sounds, with possibly some mild crackles in lower lung lee. Cardiovascular: regular rate, rhythm Gastrointestinal: normal bowel sounds, non tender, soft, no mass, no organomegaly Musculoskeletal: normal range of motion, no calf tenderness Edema: no edema noted Generalized Neurologic: alert, oriented x3, responsive, no new focality Jim Zee MD Oct 23, 2019 16:58
[2019-10-23] MEDS ORDERED: Remdesivir Fact Sheet MISC SCH (17:00)
--- NOTE | 2019-10-23 17:20 | NUR ---
NURSE NOTES: pt transfer from [facility] in stable condition. belonging sheet was signed for, pt has $317 cerna that does not want to put inside safe. He wants to keep wallet with him. Pt on radiation monitor no signs of cardiac or respiratory distress at this time. bed locked and in lowest position, call light within reach. urinal at bedside. will continue to monitor pt.
[2019-10-23] MEDS: metFORMIN 500mg tab ORAL SCH (17:54)
[2019-10-23] MEDS: cefTRIAXone 1 GM in D5W 55 ML IVPB SCH (17:54)
[2019-10-23] MEDS ORDERED: REMDESIVIR IV ONE (18:00)
[2019-10-23] MEDS ORDERED: NS IV ONE (18:00)
[2019-10-23] MEDS ORDERED: Loading Dose:Remdesivir 200mg/NS 210ml IV SCH ×2 (18:00)
[2019-10-23] MEDS ORDERED: cefTRIAXone 1 GM in D5W 55 ML IVPB SCH (18:00)
--- NOTE | 2019-10-23 18:24 | Infectious Diseases Prog Note ---
Assessment/Plan Assessment/Plan Full consult dictated: A) 1) covid-19 infection with pna, ? cap, ? uti, + ua, hypoxia 2) pmh noted 3) allergies - nkda P) 1) dexamethasone, remdesivir, ceftriaxone, azithromycin 2) d/w Dr. Zee 3) monitor clinically, labs and chest x-ray 4) thank you Subjective Allergies: Coded Allergies: No Known Allergies (Unverified , 08/10/14) Objective Last 24 Hour Vital Signs Date Time Temp Pulse Resp B/P (MAP) Pulse Ox O2 Delivery O2 Flow Rate FiO2 10/23/19 16:00 Nasal Cannula 2.0 10/23/19 12:00 97.5 73 19 138/80 (99) 95 10/23/19 12:00 Nasal Cannula 2.0 10/23/19 11:51 84 10/23/19 08:00 98.2 80 20 132/72 (92) 96 10/23/19 08:00 Nasal Cannula 2.0 10/23/19 07:38 97 10/23/19 04:00 Nasal Cannula 2.0 10/23/19 04:00 97.5 97 18 142/85 (104) 99 10/23/19 03:31 75 10/23/19 00:00 Nasal Cannula 2.0 10/23/19 00:00 99.1 96 24 120/67 (84) 99 10/22/19 23:37 86 10/22/19 22:06 Nasal Cannula 2.0 10/22/19 21:28 96 10/22/19 21:20 98.9 91 22 139/74 (95) 95 10/22/19 21:15 98.6 91 20 145/81 95 Nasal Cannula 2.0 10/22/19 21:00 98.6 88 20 137/83 96 Nasal Cannula 2.0 10/22/19 20:37 98.6 94 20 145/81 95 Nasal Cannula 2.0 10/22/19 19:10 98.8 83 20 132/77 97 Nasal Cannula 2.0 10/22/19 18:40 91 22 Nasal Cannula 2.0 10/22/19 18:40 99.0 91 23 126/74 100 Nasal Cannula 2.0 10/22/19 18:35 99.0 93 23 127/72 (90) 100 Nasal Cannula 2.0 Height (Feet): 6 Height (Inches): 1.00 Weight (Pounds): 218 Microbiology Date/Time Source Procedure Growth Status 10/22/19 19:45 Urine,Clean Catch Urine Culture - Preliminary NO GROWTH Resulted Laboratory Tests Test 10/22/19 18:27 10/22/19 18:30 10/22/19 19:45 10/23/19 04:00 Arterial Blood pH 7.408 (7.350-7.450) Arterial Blood Partial Pressure CO2 34.2 mmHg (35.0-45.0) L Arterial Blood Partial Pressure O2 71.3 mmHg (75.0-100.0) L Arterial Blood HCO3 21.1 mmol/L (22.0-26.0) L Arterial Blood Oxygen Saturation 94.1 % (95-100) L Arterial Blood Base Excess -2.9 (-2-2) L Sharad Test Positive White Blood Count 6.8 K/UL (4.8-10.8) 5.7 K/UL (4.8-10.8) Red Blood Count 4.68 M/UL (4.70-6.10) L 4.52 M/UL (4.70-6.10) L Hemoglobin 13.2 G/DL (14.2-18.0) L 12.8 G/DL (14.2-18.0) L Hematocrit 40.8 % (42.0-52.0) L 40.3 % (42.0-52.0) L Mean Corpuscular Volume 87 FL (80-99) 89 FL (80-99) Mean Corpuscular Hemoglobin 28.3 PG (27.0-31.0) 28.4 PG (27.0-31.0) Mean Corpuscular Hemoglobin Concent 32.5 G/DL (32.0-36.0) 31.9 G/DL (32.0-36.0) L Red Cell Distribution Width 12.8 % (11.6-14.8) 12.7 % (11.6-14.8) Platelet Count 187 K/UL (150-450) 184 K/UL (150-450) Mean Platelet Volume 7.2 FL (6.5-10.1) 6.4 FL (6.5-10.1) L Neutrophils (%) (Auto) 61.2 % (45.0-75.0) 72.4 % (45.0-75.0) Lymphocytes (%) (Auto) 31.8 % (20.0-45.0) 23.9 % (20.0-45.0) Monocytes (%) (Auto) 6.1 % (1.0-10.0) 3.3 % (1.0-10.0) Eosinophils (%) (Auto) 0.1 % (0.0-3.0) 0.0 % (0.0-3.0) Basophils (%) (Auto) 0.8 % (0.0-2.0) 0.4 % (0.0-2.0) Prothrombin Time 10.7 SEC (9.30-11.50) Prothromb Time International Ratio 1.0 (0.9-1.1) Activated Partial Thromboplast Time 34 SEC (23-33) H D-Dimer 0.52 mg/L FEU (0.00-0.49) H Sodium Level 128 MMOL/L (136-145) L 128 MMOL/L (136-145) L Potassium Level 4.4 MMOL/L (3.5-5.1) 4.7 MMOL/L (3.5-5.1) Chloride Level 90 MMOL/L (98-107) L 95 MMOL/L (98-107) L Carbon Dioxide Level 26 MMOL/L (21-32) 23 MMOL/L (21-32) Anion Gap 12 mmol/L (5-15) 10 mmol/L (5-15) Blood Urea Nitrogen 24 mg/dL (7-18) H 25 mg/dL (7-18) H Creatinine 1.7 MG/DL (0.55-1.30) H 1.5 MG/DL (0.55-1.30) H Estimat Glomerular Filtration Rate 48.2 mL/min (>60) 55.8 mL/min (>60) Glucose Level 244 MG/DL (74-106) H 303 MG/DL (74-106) H Lactic Acid Level 2.20 mmol/L (0.4-2.0) H 1.60 mmol/L (0.66-2.22) Calcium Level 8.3 MG/DL (8.5-10.1) L 8.1 MG/DL (8.5-10.1) L Phosphorus Level 2.8 MG/DL (2.5-4.9) Magnesium Level 1.9 MG/DL (1.8-2.4) Ferritin 828 NG/ML (8-388) H Total Bilirubin 0.7 MG/DL (0.2-1.0) 0.5 MG/DL (0.2-1.0) Aspartate Amino Transf (AST/SGOT) 100 U/L (15-37) H 134 U/L (15-37) H Alanine Aminotransferase (ALT/SGPT) 58 U/L (12-78) 82 U/L (12-78) H Alkaline Phosphatase 59 U/L (46-116) 53 U/L (46-116) Total Creatine Kinase 4625 U/L (26-308) H 4820 U/L (26-308) H Creatine Kinase MB 2.9 NG/ML (0.0-3.6) Creatine Kinase MB Relative Index 0.0 Troponin I 0.059 ng/mL (0.000-0.056) 0.039 ng/mL (0.000-0.056) C-Reactive Protein, Quantitative 24.8 mg/dL (0.00-0.90) H 26.4 mg/dL (0.00-0.90) H Pro-B-Type Natriuretic Peptide 509 pg/mL (0-125) H Total Protein 8.7 G/DL (6.4-8.2) H 7.7 G/DL (6.4-8.2) Albumin 3.5 G/DL (3.4-5.0) 2.7 G/DL (3.4-5.0) L Globulin 5.2 g/dL 5.0 g/dL Albumin/Globulin Ratio 0.7 (1.0-2.7) L 0.5 (1.0-2.7) L Urine Color Yellow Urine Appearance Slightly cloudy Urine pH 6 (4.5-8.0) Urine Specific [place] 1.020 (1.005-1.035) Urine Protein 3+ (NEGATIVE) H Urine Glucose (UA) 2+ (NEGATIVE) H Urine Ketones Negative (NEGATIVE) Urine Blood 5+ (NEGATIVE) H Urine Nitrite Negative (NEGATIVE) Urine Bilirubin Negative (NEGATIVE) Urine Urobilinogen Normal MG/DL (0.0-1.0) Urine Leukocyte Esterase 3+ (NEGATIVE) H Urine RBC 15-20 /HPF (0 - 0) H Urine WBC 30-40 /HPF (0 - 0) H Urine Squamous Epithelial Cells Few /LPF (NONE/OCC) Urine Bacteria Moderate /HPF (NONE) H Hemoglobin A1c 9.1 % (4.3-6.0) H Test 10/23/19 05:04 10/23/19 07:56 10/23/19 08:40 10/23/19 12:08 POC Whole Blood Glucose 280 MG/DL (74-106) H Pending Arterial Blood pH 7.415 (7.350-7.450) Arterial Blood Partial Pressure CO2 34.5 mmHg (35.0-45.0) L Arterial Blood Partial Pressure O2 69.8 mmHg (75.0-100.0) L Arterial Blood HCO3 21.6 mmol/L (22.0-26.0) L Arterial Blood Oxygen Saturation 94.0 % (95-100) L Arterial Blood Base Excess -2.3 (-2-2) L Sharad Test Positive D-Dimer 0.43 mg/L FEU (0.00-0.49) Test 10/23/19 16:34 POC Whole Blood Glucose Pending Current Medications Medications (Trade) Dose Ordered Sig/Jenny Route PRN Reason Start Time Stop Time Status Last Admin Dose Admin Acetaminophen/ Hydrocodone Bitart ([place] 10/325) 1 tab Q6H PRN ORAL For Pain 10/23/19 18:00 10/29/19 17:59 Albuterol Sulfate (Proventil MDI) 2 puff Q4H PRN INH Shortness of Breath 10/23/19 18:00 01/21/20 17:59 Azithromycin 500 mg/Dextrose 275 ml @ 275 mls/hr Q24HRS IV 10/23/19 20:00 10/29/19 20:59 Ceftriaxone Sodium 1 gm/ Dextrose 55 ml @ 110 mls/hr Q24H IVPB 10/23/19 18:00 10/30/19 17:59 10/23/19 17:54 Dexamethasone Sodium Phosphate (Decadron 4mg/ml vial) 6 mg DAILY IVP 10/24/19 09:00 01/21/20 08:59 Dextrose (Dextrose 50%) 25 ml Q30M PRN IV Hypoglycemia 10/23/19 17:30 01/20/20 22:59 Dextrose (Dextrose 50%) 50 ml Q30M PRN IV Hypoglycemia 10/23/19 17:30 01/20/20 22:59 Enoxaparin Sodium (Lovenox) 100 mg Q12HR SUBQ 10/23/19 21:00 01/21/20 08:59 Guaifenesin (Robitussin) 100 mg Q4H PRN ORAL For Cough 10/23/19 19:15 01/20/20 23:14 Insulin Aspart (NovoLOG) BEFORE MEALS AND HS SUBQ 10/23/19 21:00 01/21/20 06:29 Lorazepam (Ativan) 2 mg Q12H PRN ORAL For Anxiety 10/23/19 18:00 10/29/19 17:59 Metformin HCl (Glucophage) 500 mg BID ORAL 10/23/19 18:00 11/22/19 08:59 10/23/19 17:54 Pantoprazole (Protonix) 40 mg DAILY ORAL 10/24/19 09:00 11/23/19 08:59 Remdesivir 100 mg/ Sodium Chloride 250 ml @ 250 mls/hr Q24H IV 10/24/19 18:00 10/27/19 18:59 Remdesivir 200 mg/ Sodium Chloride 250 ml @ 125 mls/hr ONCE ONCE IV 10/23/19 18:00 10/23/19 19:59 10/23/19 17:54 Sodium Chloride 1,000 ml @ 60 mls/hr [id number] IV 10/23/19 17:30 11/21/19 22:59 10/23/19 17:30 Jayne Luevano MD Oct 23, 2019 18:24
--- NOTE | 2019-10-23 19:30 | NUR ---
HAND-OFF: Report given to Betty/RN pt in stable condition, endorsed plan of care.
--- NOTE | 2019-10-23 19:35 | NUR ---
NURSE NOTES: Received report from Felix Daniels. Patient is awake alert and oriented x4. On 2 LPM via nasal canula. No SoB. citizen participation specialist is intact and functioning. Bed is locked and at lowest position with siderails up. Call light and bedside table within reach. Will continue plan of care.
[2019-10-23] MEDS ORDERED: Azithromycin 500 MG in D5W 275 ML IV SCH (20:00)
[2019-10-23] MEDS: Enoxaparin 100mg Inj SUBQ SCH (20:41)
[2019-10-23] MEDS: Azithromycin 500 MG in D5W 275 ML IV SCH (22:19)
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
--- NOTE | 2019-10-23 23:49 | NUR ---
NURSE NOTES: Called and left a message regarding pts request for a sleeping pill. Awaiting call back.
[2019-10-24] VITALS: BP 155/77
[2019-10-24] MEDS: LORazepam 1mg tab ORAL PRN ×3 (00:02→20:51)
[2019-10-24] MEDS: guaiFENesin 100mg/5ml Liq ud ORAL PRN ×4 (01:39→20:51)
[2019-10-24 04:00] VITALS: BP 116/66
[2019-10-24] MEDS: NovoLOG Insulin Flexpen SUBQ SCH ×4 (06:57→20:54)
--- NOTE | 2019-10-24 07:20 | NUR ---
NURSE NOTES: Nurse report given by TEA Herr. Patient's in stable condition, AO x 4, c/o chest discomfort and shortness of breath. Patient's on 2L nasal cannula, saturated at 98%. Bed low and locked, call light within reach, side rails x 2, bed alarm is armed, patient fall education given. IV is running fluid, no s/s of infiltration or tenderness. Will continue to monitor.
[2019-10-24 08:00] VITALS: BP 123/67
[2019-10-24 08:02] LABS: BASOPHILS % (AUTO) 0.5 % (0.0-2.0); HEMATOCRIT 39.3 % (42.0-52.0); HEMOGLOBIN 12.6 G/DL (14.2-18.0); LYMPHOCYTES % (AUTO) 14.8 % (20.0-45.0); MEAN CORPUSCULAR VOLUME 88 FL (80-99); MONOCYTES % (AUTO) 3.7 % (1.0-10.0); NEUTROPHILS % (AUTO) 80.9 % (45.0-75.0); PLATELET COUNT 205 K/UL (150-450); RED BLOOD COUNT 4.44 M/UL (4.70-6.10); RED CELL DISTRIBUTION WIDTH 12.4 % (11.6-14.8); WHITE BLOOD COUNT 10.6 K/UL (4.8-10.8)
[2019-10-24 08:23] LABS: ALANINE AMINOTRANSFERASE 75 U/L (12-78); ALBUMIN 2.9 G/DL (3.4-5.0); ALBUMIN/GLOBULIN RATIO 0.6 (1.0-2.7); ALKALINE PHOSPHATASE 55 U/L (46-116); ANION GAP 11 mmol/L (5-15); ASPARTATE AMINO TRANSFERASE 85 U/L (15-37); BILIRUBIN,TOTAL 0.4 MG/DL (0.2-1.0); BLOOD UREA NITROGEN 28 mg/dL (7-18); CALCIUM 7.8 MG/DL (8.5-10.1); CARBON DIOXIDE 23 MMOL/L (21-32); CHLORIDE 100 MMOL/L (98-107); CREATININE 1.2 MG/DL (0.55-1.30); FERRITIN 895 NG/ML (8-388); LACTATE DEHYDROGENASE 605 U/L (81-234); POTASSIUM 4.4 MMOL/L (3.5-5.1); SODIUM 134 MMOL/L (136-145)
[2019-10-24] MEDS ORDERED: Tubing IV Blood Pump IV ONE (08:24)
[2019-10-24] MEDS ORDERED: Tubing IV Secondary IV ONE (08:24)
[2019-10-24] MEDS ORDERED: NS 275ml ONE (08:24)
[2019-10-24] MEDS: metFORMIN 500mg tab ORAL SCH ×2 (08:37→17:14)
[2019-10-24] MEDS: Enoxaparin 100mg Inj SUBQ SCH ×2 (08:37→20:52)
--- NOTE | 2019-10-24 10:12 | Pulmonology Progress Note ---
Valencia Medina COLLEGE INTERN 10/24/19 1012: Subjective Allergies: Coded Allergies: No Known Allergies (Unverified , 08/10/14) Subjective transferred to [facility] started on Remdesivir + SOB, minimally productive cough, no CP no fevers, Objective Last 24 Hour Vital Signs Date Time Temp Pulse Resp B/P (MAP) Pulse Ox O2 Delivery O2 Flow Rate FiO2 10/24/19 09:00 Nasal Cannula 2.0 10/24/19 08:00 97.9 88 18 123/67 (85) 96 88 10/24/19 08:00 88 10/24/19 04:00 Nasal Cannula 2.0 10/24/19 04:00 97.5 78 18 116/66 (83) 99 78 10/24/19 04:00 74 10/24/19 01:33 Nasal Cannula 2.0 10/24/19 00:00 96.9 85 22 155/77 (103) 96 85 10/24/19 00:00 Nasal Cannula 2.0 10/24/19 00:00 89 10/23/19 20:00 98.7 84 21 146/66 (92) 94 10/23/19 20:00 Nasal Cannula 2.0 10/23/19 20:00 84 10/23/19 16:00 75 10/23/19 16:00 98.8 88 20 140/81 (100) 93 10/23/19 16:00 Nasal Cannula 2.0 10/23/19 12:00 97.5 73 19 138/80 (99) 95 10/23/19 12:00 Nasal Cannula 2.0 10/23/19 11:51 84 Intake and Output 10/23/19 10/24/19 19:00 07:00 Intake Total 1250 ml Output Total 850 ml Balance 400 ml Intake Oral 720 ml IV Total 530 ml Output Urine Total 850 ml # Voids 4 2 Objective General Appearance: no apparent distress, alert , awake, responsive male in NAD Lines, tubes and drains: peripheral HEENT: normocephalic, atraumatic, anicteric, mucous membranes moist, PERRL, pharynx normal, supple, no JVD Neck: non-tender, normal alignment, supple Respiratory/Chest: chest wall non-tender, no respiratory distress, no accessory muscle use, few isolated rhonchi Cardiovascular/Chest: normal peripheral pulses, normal rate Abdomen: normal bowel sounds, non tender, soft Extremities: non-tender, no calf tenderness, normal capillary refill Skin Exam: warm/dry Neurologic: no motor/sensory deficits, alert, oriented x 3, responsive Musculoskeletal: normal muscle bulk Microbiology Date/Time Source Procedure Growth Status 10/22/19 18:30 Blood Blood Culture - Preliminary NO GROWTH AFTER 24 HOURS Resulted 10/22/19 18:15 Blood Blood Culture - Preliminary NO GROWTH AFTER 24 HOURS Resulted 10/22/19 19:45 Urine,Clean Catch Urine Culture - Final Complete Laboratory Tests 10/23/19 12:08: POC Whole Blood Glucose [Pending] 10/23/19 16:34: POC Whole Blood Glucose [Pending] 10/24/19 06:10: White Blood Count 10.6#, Red Blood Count 4.44L, Hemoglobin 12.6L, Hematocrit 39.3L, Mean Corpuscular Volume 88, Mean Corpuscular Hemoglobin 28.4, Mean Corpuscular Hemoglobin Concent 32.1, Red Cell Distribution Width 12.4, Platelet Count 205, Mean Platelet Volume 5.8L, Neutrophils (%) (Auto) 80.9H, Lymphocytes (%) (Auto) 14.8L, Monocytes (%) (Auto) 3.7, Eosinophils (%) (Auto) 0.0, Basophils (%) (Auto) 0.5, Sodium Level 134L, Potassium Level 4.4, Chloride Level 100, Carbon Dioxide Level 23, Anion Gap 11, Blood Urea Nitrogen 28H, Creatinine 1.2, Estimat Glomerular Filtration Rate > 60, Glucose Level 296H, Calcium Level 7.8L, Ferritin 895H, Total Bilirubin 0.4, Direct Bilirubin 0.2, Aspartate Amino Transf (AST/SGOT) 85H, Alanine Aminotransferase (ALT/SGPT) 75, Alkaline Phosphatase 55, Lactate Dehydrogenase 605H, C-Reactive Protein, Quantitative 9.7H, Total Protein 7.7, Albumin 2.9L, Globulin 4.8, Albumin/ Globulin Ratio 0.6L Current Medications Medications (Trade) Dose Ordered Sig/Jenny Route PRN Reason Start Time Stop Time Status Last Admin Dose Admin Acetaminophen/ Hydrocodone Bitart ([place] 10/325) 1 tab Q6H PRN ORAL For Pain 10/23/19 18:00 10/29/19 17:59 Albuterol Sulfate (Proventil MDI) 2 puff Q4H PRN INH Shortness of Breath 10/23/19 18:00 01/21/20 17:59 Azithromycin 500 mg/Dextrose 275 ml @ 275 mls/hr Q24HRS IV 10/23/19 20:00 10/29/19 20:59 10/23/19 22:19 Ceftriaxone Sodium 1 gm/ Dextrose 55 ml @ 110 mls/hr Q24H IVPB 10/23/19 18:00 10/30/19 17:59 10/23/19 17:54 Dexamethasone Sodium Phosphate (Decadron 4mg/ml vial) 6 mg DAILY IVP 10/24/19 09:00 01/21/20 08:59 10/24/19 08:37 Dextrose (Dextrose 50%) 25 ml Q30M PRN IV Hypoglycemia 10/23/19 17:30 01/20/20 22:59 Dextrose (Dextrose 50%) 50 ml Q30M PRN IV Hypoglycemia 10/23/19 17:30 01/20/20 22:59 Enoxaparin Sodium (Lovenox) 100 mg Q12HR SUBQ 10/23/19 21:00 01/21/20 08:59 10/24/19 08:37 Guaifenesin (Robitussin) 100 mg Q4H PRN ORAL For Cough 10/23/19 19:15 01/20/20 23:14 10/24/19 06:58 Insulin Aspart (NovoLOG) BEFORE MEALS AND HS SUBQ 10/23/19 21:00 01/21/20 06:29 10/24/19 06:57 Lorazepam (Ativan) 2 mg Q12H PRN ORAL For Anxiety 10/23/19 18:00 10/29/19 17:59 10/24/19 00:02 Metformin HCl (Glucophage) 500 mg BID ORAL 10/23/19 18:00 11/22/19 08:59 10/24/19 08:37 Pantoprazole (Protonix) 40 mg DAILY ORAL 10/24/19 09:00 11/23/19 08:59 10/24/19 08:37 Remdesivir 100 mg/ Sodium Chloride 250 ml @ 250 mls/hr Q24H IV 10/24/19 18:00 10/27/19 18:59 Sodium Chloride 1,000 ml @ 60 mls/hr [id number] IV 10/23/19 17:30 11/21/19 22:59 10/23/19 17:30 Assessment/Plan Assessment/Plan ASSESSMENT COVID 19 infection, recently diagnosed PNA, probably due to COVID 19 vs CAP Mild hypoxia Minimally elevated troponin ( resolved already) CECI with proteinuria ? diabetic nephropathy DM OOC with diabetic neuropathy Pyuria, possible UTI Hypo Na Hx of HTN Transaminitis Low albumin, possible malnutrition Chronic pain PLAN OF CARE tele isolation O2 titrate to keep sat > 90 ( currently on O2 2 L via NC), + MDI Albuterol prn ABG stable on O2 via NC-> no acidosis fup with CXR in few days agree with empiric abx: Ceftriaxone and Azithromycin SCX if able continue steroid, can probably transitioned to oral , added GI prophylaxis started on Remdesivir ID follows repeat COVID 19 testing later fup with inflammatory markers: CRP, LDH, ferritin to access a risk for cytokine storm LDH 605, ferritin 895, CRP though trending down 9.7 - still high risk for cytokine storm a/tussive prn monitor volumes full a/c with Lovenox for now , consider taper soon second troponin down to normal min elevation possibly due to CECI , hypoperfusion monitor renal parameters, avoid nephrotoxics, creat down to 1.2 Na better 134 UCX 7/2 NGTD UA+ pyuria, mod bacteria, on ceftriaxone already BCX 7/2 NGTD BS management with metformin ( lactic acid down to normal) and SSI, may need higher coverage from SSI ( given steroids) HgA1c - 9.1 not at goal, trend CK, LFT BP stable w/out any a/HTN at this tome pain management dietary eval supportive care Thank you for this consultation! case discussed and evaluated by supervising physician New Morales MD 10/25/19 1435: Subjective Allergies: Coded Allergies: No Known Allergies (Unverified , 08/10/14) Assessment/Plan Assessment/Plan Patient seen and examined with [employer]LE[employer]N. Agree with above A&P as it reflects our joint deliberations. Valencia Medina COLLEGE INTERN Oct 24, 2019 10:12 New Morales MD Oct 25, 2019 14:35
[2019-10-24 12:00] VITALS: BP 134/76
--- NOTE | 2019-10-24 14:45 | NUR ---
HAND-OFF: Report given to TEA Fermin. Patient's stable, plan of care endorsed .
--- NOTE | 2019-10-24 14:45 | NUR ---
NURSE NOTES: Received report from Nazia/RN. Patient AAO x4. Lying semi-conn's, resting comfortably. on 2L NC No signs of distress. Breathing is regular and unlabored. Able to make needs Known, Nesha pain at this time. Bed low position and locked, side rails x2 raised, call light within reach, fall education provided. Encouraged to use call light when needed. Will continue plan of care.
[2019-10-24 16:00] VITALS: BP 135/87
--- NOTE | 2019-10-24 16:15 | Geriatric Progress Note ---
Assessment/Plan Problems: (1) Transaminasemia (2) SIRS (systemic inflammatory response syndrome) (3) Urinary tract infection (4) Chronic back pain (5) Cataract (6) Pneumonia due to COVID-19 virus (7) Diabetes type 2, uncontrolled (8) Diabetic neuropathy associated with type 2 diabetes mellitus (9) Chronic pain disorder (10) Anxiety disorder (11) Acute kidney injury (12) Rhabdomyolysis due to COVID-19 (13) Chronic rhinitis (14) Hypertension (15) Volume depletion (16) Nausea Assessment/Plan Most inflammatory parameters improved, but ferritin remains in same range. Mild lymphopenia due to ? COVID or steroids. Overall picture appears to suggest improvement on present therapy. CECI essentially resolved. Hyponatremia resolved given hyperglycemia. Anxiety manifestation in closed door isolation room. No indication of bacterial sepsis in blood or urine C&S. Will recheck labs including repeat CK for rhabdomyolysis f/u. Recheck u/a to see if sediment remains active. D/c IVF tomorrow am. Patient reassured re status, care. Increase sliding scale doses slightly. Continue other treatment for now. Discussed with: patient, hospital staff Subjective Interval Events Patient somewhat anxious, c/o not quick enough response to call button. However, when directed to focus on his own symptoms, reports his chest is feeling better. Coughing at times. No other new symptoms. Fluid balance neutral to slightly negative. Cr now at baseline. LFTs improved. CRP decreased. LDH 603. Blood and urine C&S NGTD. Mild lymphopenia, 14.8%. Glucoses continue to be high in 200-300s. Respiratory rate decreased somewhat. Staff reports no other clinical changes. Constitutional: Denies: chills, pain, sweats Respiratory: Reports: cough, shortness of breath; Denies: orthopnea, wheezing Cardiovascular: Denies: chest pain Gastrointestinal/Abdominal: Denies: constipation, diarrhea, nausea Genitourinary: Denies: dysuria Geriatric Geriatric Last 24 Hour Vital Signs Date Time Temp Pulse Resp B/P (MAP) Pulse Ox O2 Delivery O2 Flow Rate FiO2 10/24/19 12:00 98.4 84 17 134/76 (95) 99 84 10/24/19 12:00 84 10/24/19 09:00 Nasal Cannula 2.0 10/24/19 08:00 97.9 88 18 123/67 (85) 96 88 10/24/19 08:00 88 10/24/19 04:00 Nasal Cannula 2.0 10/24/19 04:00 97.5 78 18 116/66 (83) 99 78 10/24/19 04:00 74 10/24/19 01:33 Nasal Cannula 2.0 10/24/19 00:00 96.9 85 22 155/77 (103) 96 85 10/24/19 00:00 Nasal Cannula 2.0 10/24/19 00:00 89 10/23/19 20:00 98.7 84 21 146/66 (92) 94 10/23/19 20:00 Nasal Cannula 2.0 10/23/19 20:00 84 Intake and Output 10/23/19 10/24/19 19:00 07:00 Intake Total 1250 ml Output Total 850 ml Balance 400 ml Intake Oral 720 ml IV Total 530 ml Output Urine Total 850 ml # Voids 4 2 Laboratory Tests Test 10/23/19 16:34 10/24/19 06:10 10/24/19 11:10 POC Whole Blood Glucose Pending 329 MG/DL (74-106) H White Blood Count 10.6 K/UL (4.8-10.8) # Red Blood Count 4.44 M/UL (4.70-6.10) L Hemoglobin 12.6 G/DL (14.2-18.0) L Hematocrit 39.3 % (42.0-52.0) L Mean Corpuscular Volume 88 FL (80-99) Mean Corpuscular Hemoglobin 28.4 PG (27.0-31.0) Mean Corpuscular Hemoglobin Concent 32.1 G/DL (32.0-36.0) Red Cell Distribution Width 12.4 % (11.6-14.8) Platelet Count 205 K/UL (150-450) Mean Platelet Volume 5.8 FL (6.5-10.1) L Neutrophils (%) (Auto) 80.9 % (45.0-75.0) H Lymphocytes (%) (Auto) 14.8 % (20.0-45.0) L Monocytes (%) (Auto) 3.7 % (1.0-10.0) Eosinophils (%) (Auto) 0.0 % (0.0-3.0) Basophils (%) (Auto) 0.5 % (0.0-2.0) Sodium Level 134 MMOL/L (136-145) L Potassium Level 4.4 MMOL/L (3.5-5.1) Chloride Level 100 MMOL/L (98-107) Carbon Dioxide Level 23 MMOL/L (21-32) Anion Gap 11 mmol/L (5-15) Blood Urea Nitrogen 28 mg/dL (7-18) H Creatinine 1.2 MG/DL (0.55-1.30) Estimat Glomerular Filtration Rate > 60 mL/min (>60) Glucose Level 296 MG/DL (74-106) H Calcium Level 7.8 MG/DL (8.5-10.1) L Ferritin 895 NG/ML (8-388) H Total Bilirubin 0.4 MG/DL (0.2-1.0) Direct Bilirubin 0.2 MG/DL (0.0-0.3) Aspartate Amino Transf (AST/SGOT) 85 U/L (15-37) H Alanine Aminotransferase (ALT/SGPT) 75 U/L (12-78) Alkaline Phosphatase 55 U/L (46-116) Lactate Dehydrogenase 605 U/L (81-234) H C-Reactive Protein, Quantitative 9.7 mg/dL (0.00-0.90) H Total Protein 7.7 G/DL (6.4-8.2) Albumin 2.9 G/DL (3.4-5.0) L Globulin 4.8 g/dL Albumin/Globulin Ratio 0.6 (1.0-2.7) L Current Medications Medications (Trade) Dose Ordered Sig/Jenny Route PRN Reason Start Time Stop Time Status Last Admin Dose Admin Acetaminophen/ Hydrocodone Bitart ([place] 10/325) 1 tab Q6H PRN ORAL For Pain 10/23/19 18:00 10/29/19 17:59 Albuterol Sulfate (Proventil MDI) 2 puff Q4H PRN INH Shortness of Breath 10/23/19 18:00 01/21/20 17:59 Azithromycin 500 mg/Dextrose 275 ml @ 275 mls/hr Q24HRS IV 10/23/19 20:00 10/29/19 20:59 10/23/19 22:19 Ceftriaxone Sodium 1 gm/ Dextrose 55 ml @ 110 mls/hr Q24H IVPB 10/23/19 18:00 10/30/19 17:59 10/23/19 17:54 Dexamethasone Sodium Phosphate (Decadron 4mg/ml vial) 6 mg DAILY IVP 10/24/19 09:00 01/21/20 08:59 10/24/19 08:37 Dextrose (Dextrose 50%) 25 ml Q30M PRN IV Hypoglycemia 10/23/19 17:30 01/20/20 22:59 Dextrose (Dextrose 50%) 50 ml Q30M PRN IV Hypoglycemia 10/23/19 17:30 01/20/20 22:59 Enoxaparin Sodium (Lovenox) 100 mg Q12HR SUBQ 10/23/19 21:00 01/21/20 08:59 10/24/19 08:37 Guaifenesin (Robitussin) 100 mg Q4H PRN ORAL For Cough 10/23/19 19:15 01/20/20 23:14 10/24/19 11:20 Insulin Aspart (NovoLOG) BEFORE MEALS AND HS SUBQ 10/23/19 21:00 01/21/20 06:29 10/24/19 11:19 Lorazepam (Ativan) 2 mg Q12H PRN ORAL For Anxiety 10/23/19 18:00 10/29/19 17:59 10/24/19 12:51 Metformin HCl (Glucophage) 500 mg BID ORAL 10/23/19 18:00 11/22/19 08:59 10/24/19 08:37 Pantoprazole (Protonix) 40 mg DAILY ORAL 10/24/19 09:00 11/23/19 08:59 10/24/19 08:37 Remdesivir 100 mg/ Sodium Chloride 250 ml @ 250 mls/hr Q24H IV 10/24/19 18:00 10/27/19 18:59 Sodium Chloride 1,000 ml @ 60 mls/hr [id number] IV 10/23/19 17:30 11/21/19 22:59 10/24/19 10:16 Height (Feet): 6 Height (Inches): 1.00 Weight (Pounds): 218 General Appearance: alert, other - slightly anxious Head: normocephalic, atraumatic Eyes: bilateral EOMI ENT: normal voice Neck: full range of motion, no mass Respiratory: other - coarse breath sounds. Cardiovascular: regular rate, rhythm, other - occasional PACs on monitor. Gastrointestinal: normal bowel sounds, non tender, no mass, no organomegaly Musculoskeletal: no calf tenderness Edema: no edema noted Generalized Neurologic: alert, oriented x3, no new focality Jim Zee MD Oct 24, 2019 16:15
[2019-10-24] MEDS: Remdesivir 100mg 100 MG in NS 230 ML IV SCH (17:14)
[2019-10-24] MEDS: cefTRIAXone 1 GM in D5W 55 ML IVPB SCH (17:14)
[2019-10-24] MEDS ORDERED: Maintenance Dose:Remdesivir 100mg/NS 230ml x 4 Doses IV SCH ×2 (18:00)
--- NOTE | 2019-10-24 19:32 | NUR ---
HAND-OFF: Report given to Caitlin/RN, Patient is in stable condition. Endorsed plan of care.
[2019-10-24 20:00] VITALS: BP 154/84
--- NOTE | 2019-10-24 20:10 | NUR ---
NURSE NOTES: Received patient report from TEA Fermin. patient shows no signs of distress or pain at the time. AOx4. Patient is on 2 L Nasal Canula. IV patent and flushed. There are no signs of erythema, infiltration, or bleeding. Bed is in the lowest position, call light within reach, side rails up x2. Patient is ambulatory.
[2019-10-24] MEDS: Azithromycin 500 MG in D5W 275 ML IV SCH (20:27)
[2019-10-25] VITALS: BP 152/79
[2019-10-25 04:00] VITALS: BP 150/71
[2019-10-25 05:38] LABS: BASOPHILS % (AUTO) 0.6 % (0.0-2.0); HEMATOCRIT 36.5 % (42.0-52.0); HEMOGLOBIN 11.7 G/DL (14.2-18.0); LYMPHOCYTES % (AUTO) 15.6 % (20.0-45.0); MEAN CORPUSCULAR VOLUME 88 FL (80-99); MONOCYTES % (AUTO) 4.1 % (1.0-10.0); NEUTROPHILS % (AUTO) 79.7 % (45.0-75.0); PLATELET COUNT 230 K/UL (150-450); RED BLOOD COUNT 4.13 M/UL (4.70-6.10); RED CELL DISTRIBUTION WIDTH 11.9 % (11.6-14.8); WHITE BLOOD COUNT 9.5 K/UL (4.8-10.8)
[2019-10-25 06:10] LABS: ALANINE AMINOTRANSFERASE 56 U/L (12-78); ALBUMIN 2.7 G/DL (3.4-5.0); ALBUMIN/GLOBULIN RATIO 0.6 (1.0-2.7); ALKALINE PHOSPHATASE 56 U/L (46-116); ANION GAP 11 mmol/L (5-15); ASPARTATE AMINO TRANSFERASE 54 U/L (15-37); BILIRUBIN,DIRECT 0.1 MG/DL (0.0-0.3); BILIRUBIN,TOTAL 0.4 MG/DL (0.2-1.0); BLOOD UREA NITROGEN 26 mg/dL (7-18); CALCIUM 7.6 MG/DL (8.5-10.1); CARBON DIOXIDE 22 MMOL/L (21-32); CHLORIDE 103 MMOL/L (98-107); CREATININE 1.2 MG/DL (0.55-1.30); POTASSIUM 4.2 MMOL/L (3.5-5.1); SODIUM 136 MMOL/L (136-145)
[2019-10-25 06:13] LABS: CREATINE KINASE 1437 U/L (26-308)
[2019-10-25] MEDS: NovoLOG Insulin Flexpen SUBQ SCH ×4 (06:39→21:36)
--- NOTE | 2019-10-25 07:15 | NUR ---
NURSE NOTES: Nurse report given by TEA Tucker. Patient's in stable condition, no s/s of distress or SOB, AO x4. Bed low and locked, call light within reach, side rails x2, bed alarm is armed. IV is running fluid, no s/s of tenderness or infiltration. Will continue to monitor.
--- NOTE | 2019-10-25 07:18 | NUR ---
HAND-OFF: Report given to TEA Mandujano. Patient shows no signs of distress or pain. Endorsed plan of care.
[2019-10-25 07:49] LABS: APPEARANCE,URINE CLEAR; BILIRUBIN, URINE NEGATIVE (NEGATIVE); COLOR,URINE PALE YELLOW; GLUCOSE, URINE (UA) 2+ (NEGATIVE); KETONES,URINE NEGATIVE (NEGATIVE); LEUKOCYTE ESTERASE ,URINE 1+ (NEGATIVE); NITRITE,URINE NEGATIVE (NEGATIVE); PH,URINE 7 (4.5-8.0); PROTEIN,URINE 3+ (NEGATIVE); UROBILINOGEN,URINE 4 MG/DL (0.0-1.0)
[2019-10-25 08:00] VITALS: BP 150/80
[2019-10-25] MEDS: LORazepam 1mg tab ORAL PRN ×3 (09:14→21:34)
[2019-10-25] MEDS: guaiFENesin 100mg/5ml Liq ud ORAL PRN ×2 (09:14→15:59)
[2019-10-25] MEDS: metFORMIN 500mg tab ORAL SCH ×2 (09:14→17:49)
[2019-10-25] MEDS: Enoxaparin 100mg Inj SUBQ SCH (09:16)
--- NOTE | 2019-10-25 09:53 | NUR ---
RD ASSESSMENT & RECOMMENDATIONS SEE CARE ACTIVITY FOR COMPLETE ASSESSMENT DAILY ESTIMATED NEEDS: Needs based on DM, pulmonary 88kg abw 25-30 kcals/kg [id number] total kcals 1-1.5 g protein/kg 88-132 g total protein 25-30 mL/kg 4492-2464 total fluid mLs NUTRITION DIAGNOSIS: Altered nutrition related lab values r/t diabetes as evidenced by A1C 9.1, BG 200's, elev POC (223-323), u glu 2+ on adm. CURRENT DIET: KHANG/ CCHO LOW PO DIET RECOMMENDATIONS: KHANG/ CCHO LOW + DOUBLE PROTEIN PORTIONS ADDITIONAL RECOMMENDATIONS: Add high pro snacks in b/w meals + Glucerna 1 tetra qdaily Obtain a standing weight as able Monitor for continued good po intake Consider additional hypoglycemics for improved BG
--- NOTE | 2019-10-25 10:33 | Pulmonology Progress Note ---
Valencia Medina GREASE PRESS HELPER 10/25/19 1033: Subjective Allergies: Coded Allergies: No Known Allergies (Unverified , 08/10/14) Subjective on tele + SOB, minimally productive cough, no CP no fevers,no leukocytosis on O2 via NC , no sign resp distress Objective Last 24 Hour Vital Signs Date Time Temp Pulse Resp B/P (MAP) Pulse Ox O2 Delivery O2 Flow Rate FiO2 10/25/19 09:00 Nasal Cannula 2.0 10/25/19 08:00 97.5 88 22 150/80 (103) 90 88 10/25/19 08:00 93 10/25/19 04:00 79 10/25/19 04:00 97.9 79 18 150/71 (97) 95 79 10/25/19 00:00 82 10/25/19 00:00 96.5 85 18 152/79 (103) 93 85 10/24/19 21:00 Nasal Cannula 2.0 10/24/19 20:00 97.5 84 20 154/84 (107) 95 84 10/24/19 20:00 88 10/24/19 16:00 80 10/24/19 16:00 97.1 116 20 135/87 (103) 99 84 10/24/19 12:00 98.4 84 17 134/76 (95) 99 84 10/24/19 12:00 84 Intake and Output 10/24/19 10/25/19 19:00 07:00 Intake Total 740 ml Output Total 850 ml Balance -110 ml Intake Oral 740 ml Output Urine Total 850 ml # Voids 2 Objective General Appearance: no apparent distress, alert , awake, responsive male in NAD Lines, tubes and drains: peripheral HEENT: normocephalic, atraumatic, anicteric, mucous membranes moist, PERRL, pharynx normal, supple, no JVD Neck: non-tender, normal alignment, supple Respiratory/Chest: chest wall non-tender, no respiratory distress, no accessory muscle use, few isolated rhonchi Cardiovascular/Chest: normal peripheral pulses, normal rate Abdomen: normal bowel sounds, non tender, soft Extremities: non-tender, no calf tenderness, normal capillary refill Skin Exam: warm/dry Neurologic: no motor/sensory deficits, alert, oriented x 3, responsive Musculoskeletal: normal muscle bulk Microbiology Date/Time Source Procedure Growth Status 10/22/19 18:30 Blood Blood Culture - Preliminary NO GROWTH AFTER 48 HOURS Resulted 10/22/19 18:15 Blood Blood Culture - Preliminary NO GROWTH AFTER 48 HOURS Resulted 10/22/19 19:45 Urine,Clean Catch Urine Culture - Final Complete Laboratory Tests 10/24/19 11:10: POC Whole Blood Glucose 329H 10/25/19 04:00: White Blood Count 9.5, Red Blood Count 4.13L, Hemoglobin 11.7L, Hematocrit 36.5L , Mean Corpuscular Volume 88, Mean Corpuscular Hemoglobin 28.4, Mean Corpuscular Hemoglobin Concent 32.1, Red Cell Distribution Width 11.9, Platelet Count 230, Mean Platelet Volume 5.6L, Neutrophils (%) (Auto) 79.7H, Lymphocytes (%) (Auto) 15.6L, Monocytes (%) (Auto) 4.1, Eosinophils (%) (Auto) 0.0, Basophils (%) (Auto) 0.6, Sodium Level 136, Potassium Level 4.2, Chloride Level 103, Carbon Dioxide Level 22, Anion Gap 11, Blood Urea Nitrogen 26H, Creatinine 1.2, Estimat Glomerular Filtration Rate > 60, Glucose Level 204H, Calcium Level 7.6L, Total Bilirubin 0.4, Direct Bilirubin 0.1, Aspartate Amino Transf (AST/ SGOT) 54H, Alanine Aminotransferase (ALT/SGPT) 56, Alkaline Phosphatase 56, Total Creatine Kinase 1437H, Total Protein 6.9, Albumin 2.7L, Globulin 4.2, Albumin/Globulin Ratio 0.6L 10/25/19 07:30: Urine Color Pale yellow, Urine Appearance Clear, Urine pH 7, Urine Specific [place] 1.010, Urine Protein 3+H, Urine Glucose (UA) 2+H, Urine Ketones Negative , Urine Blood 3+H, Urine Nitrite Negative, Urine Bilirubin Negative, Urine Urobilinogen 4H, Urine Leukocyte Esterase 1+H, Urine RBC 2-4H, Urine WBC 2-4, Urine Squamous Epithelial Cells Occasional, Urine Bacteria Occasional Current Medications Medications (Trade) Dose Ordered Sig/Jenny Route PRN Reason Start Time Stop Time Status Last Admin Dose Admin Acetaminophen/ Hydrocodone Bitart ([place] 10/325) 1 tab Q6H PRN ORAL For Pain 10/23/19 18:00 10/29/19 17:59 Albuterol Sulfate (Proventil MDI) 2 puff Q4H PRN INH Shortness of Breath 10/23/19 18:00 01/21/20 17:59 Azithromycin 500 mg/Dextrose 275 ml @ 275 mls/hr Q24HRS IV 10/23/19 20:00 10/29/19 20:59 10/24/19 20:27 Ceftriaxone Sodium 1 gm/ Dextrose 55 ml @ 110 mls/hr Q24H IVPB 10/23/19 18:00 10/30/19 17:59 10/24/19 17:14 Dexamethasone Sodium Phosphate (Decadron 4mg/ml vial) 6 mg DAILY IVP 10/24/19 09:00 01/21/20 08:59 10/25/19 09:13 Dextrose (Dextrose 50%) 25 ml Q30M PRN IV Hypoglycemia 10/23/19 17:30 01/20/20 22:59 Dextrose (Dextrose 50%) 50 ml Q30M PRN IV Hypoglycemia 10/23/19 17:30 01/20/20 22:59 Enoxaparin Sodium (Lovenox) 100 mg Q12HR SUBQ 10/23/19 21:00 01/21/20 08:59 10/25/19 09:16 Guaifenesin (Robitussin) 100 mg Q4H PRN ORAL For Cough 10/23/19 19:15 01/20/20 23:14 10/25/19 09:14 Insulin Aspart (NovoLOG) BEFORE MEALS AND HS SUBQ 10/24/19 21:00 01/21/20 06:29 10/25/19 06:39 Lorazepam (Ativan) 1 mg Q6H PRN ORAL For Anxiety 10/24/19 20:00 10/31/19 19:59 10/24/19 20:51 Lorazepam (Ativan) 2 mg Q12H PRN ORAL For Anxiety 10/23/19 18:00 10/29/19 17:59 10/25/19 09:14 Metformin HCl (Glucophage) 500 mg BID ORAL 10/23/19 18:00 11/22/19 08:59 10/25/19 09:14 Pantoprazole (Protonix) 40 mg DAILY ORAL 10/24/19 09:00 11/23/19 08:59 10/25/19 09:14 Remdesivir 100 mg/ Sodium Chloride 250 ml @ 250 mls/hr Q24H IV 10/24/19 18:00 10/27/19 18:59 10/24/19 17:14 Assessment/Plan Assessment/Plan ASSESSMENT COVID 19 infection, recently diagnosed PNA, probably due to COVID 19 vs CAP Mild hypoxia Minimally elevated troponin ( resolved already) CECI with proteinuria ? diabetic nephropathy DM OOC with diabetic neuropathy Pyuria, possible UTI Hypo Na Hx of HTN Transaminitis Low albumin, possible malnutrition Chronic pain PLAN OF CARE tele isolation O2 titrate to keep sat > 90 ( currently on O2 2 L via NC), + MDI Albuterol prn ABG stable on O2 via NC-> no acidosis fup with CXR in few days/in am 10/25 agree with empiric abx: Ceftriaxone and Azithromycin SCX if able continue steroid, can probably transitioned to oral , added GI prophylaxis continue Remdesivir ID follows repeat COVID 19 testing later fup with inflammatory markers: CRP, LDH, ferritin to access a risk for cytokine storm LDH 605, ferritin 895, CRP though trending down 9.7 - still high risk for cytokine storm a/tussive prn monitor volumes full a/c with Lovenox for now , consider taper soon second troponin down to normal min elevation possibly due to CECI , hypoperfusion monitor renal parameters, avoid nephrotoxics, creat down to 1.2 Na better UCX 7/2 NGTD UA+ pyuria, mod bacteria, on ceftriaxone already BCX 7/2 NGTD BS management with metformin ( lactic acid down to normal) and SSI, may need higher coverage from SSI ( given steroids) HgA1c - 9.1 not at goal, trend CK, LFT CK and AST trending down BP stable w/out any a/HTN at this tome pain management dietary eval supportive care Thank you for this consultation! case discussed and evaluated by supervising physician New Morales MD 10/25/19 1435: Subjective Allergies: Coded Allergies: No Known Allergies (Unverified , 08/10/14) Assessment/Plan Assessment/Plan Patient seen and examined with GREASE PRESS HELPER. Agree with above A&P as it reflects our joint deliberations. Valencia Medina NP Oct 25, 2019 10:33 New Morales MD Oct 25, 2019 14:35
--- NOTE | 2019-10-25 11:17 | NUR ---
NURSE NOTES: Spoke to Doris at Dr. Zee's office to pass message regarding patient's O2 desaturated with 2L Nasal Cannula, still saturated at 88% when increased to 4L nasal cannula. Called respiratory therapist, and RT put patient's on venturi mask at 12L, 40% FIO2. Awaiting for response from .
[2019-10-25 12:00] VITALS: BP 165/91
--- NOTE | 2019-10-25 12:00 | NUR ---
NURSE NOTES: Spoke with DR. Zee and made MD aware that patient's on Venturi mask 14L 55% Fio2. MD ordered chest Xray and stat ABG on patient; position patient on prone position. MD also said to contact Dr. 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 Dr Delong informed to call Dr. Morales for consult.
--- NOTE | 2019-10-25 12:35 | Diagnostic Imaging Report ---
EXAM: XR Chest, 1 View CLINICAL HISTORY: SOB TECHNIQUE: Frontal view of the chest. COMPARISON: Chest radiograph on 10/22/2019 FINDINGS: Hardware: None. Lungs/pleura: Increased patchy opacities throughout the lungs. Difficult to exclude small pleural effusions. Heart/mediastinum: Mild enlargement of the cardiac silhouette. Soft tissues: Unremarkable. Bones: No acute fracture. Degenerative changes of the acromioclavicular joints and spine. Upper abdomen: Cholecystectomy clips in the right upper quadrant. IMPRESSION: Increased patchy opacities throughout the lungs, concerning for infectious/inflammatory process and/or pulmonary edema. Difficult to exclude small pleural effusions.
--- NOTE | 2019-10-25 12:59 | NUR ---
NURSE NOTES: Left message to Dr. Morales regarding patient's supervisor metal hanging consult. Awaiting for response.
[2019-10-25] MEDS ORDERED: Heparin 5000 units/ml inj IV ONE (15:45)
[2019-10-25] MEDS ORDERED: Heparin 25,000u/D5W 500ml 500 ML IV SCH ×2 (15:45→16:30)
--- NOTE | 2019-10-25 16:11 | Geriatric Progress Note ---
Assessment/Plan Problems: (1) Transaminasemia (2) SIRS (systemic inflammatory response syndrome) (3) Urinary tract infection (4) Chronic back pain (5) Cataract (6) Pneumonia due to COVID-19 virus (7) Diabetes type 2, uncontrolled (8) Diabetic neuropathy associated with type 2 diabetes mellitus (9) Chronic pain disorder (10) Anxiety disorder (11) Acute kidney injury (12) Rhabdomyolysis due to COVID-19 (13) Chronic rhinitis (14) Hypertension (15) Volume depletion (16) Nausea Assessment/Plan Patient with symptomatic worsening, coinciding with worsening CXR, increased need for O2 supplementation, despite decreased inflammatory parameters, resolution of CECI and transaminasemia. Differential worsening pneumonia, possible cytokine storm, multifocal PE, or CHF. Given current labs, I&O, clinical picture first is most likely with CHF unlikely. Discussed with Dr. Luevano, pulmonology informed of change. Will check D- dimer, BNP, recheck inflammatory parameters in am. Change Lovenox to full dose heparin. CT considered, but given change to heparin, not likely to help guide therapy. Reviewed possibility of tocilizumab or anakinra with Dr. Luevano, although Dr. Morales feels that cytokine storm less likely in view of improved inflammatory markers so far, and that this represents worsening of primary viral pneumonia. Discussed with: patient, hospital staff Subjective Interval Events Patient feeling well until late morning, developed increased SOB, desaturation. Placed on ventimask at 14 l/m with adequate oxygenation. Briefly proned with sats to 96%. Now reports he feels better on ventimask, but takes off frequently per nursing. Apparently HFNC not available except in isolation rooms. Reports increased joint pain, which he ascribes to not taking [place] around the clock while in hospital. Denies chest or pleuritic pain. VS with borderline tachycardia, increased respiratory rate after increased SOB. No fever, bp mildly hypertensive. I&O net negative with insensible losses. ABG on VM 55% with mildly decreased pCO2, adequate pO2. Wbc still normal, mild leukopenia per differential still persists. CK significantly lower. BUN/Cr about the same. Repeat CXR with increase diffuse patchy opacities. Accucheks slightly improved. Constitutional: Reports: pain - joint pain; Denies: chills, sweats Respiratory: Reports: cough - intermittent, non-productive., shortness of breath; Denies: wheezing Cardiovascular: Denies: chest pain, palpitations Gastrointestinal/Abdominal: Denies: abdominal pain Genitourinary: Denies: dysuria Geriatric Geriatric Last 24 Hour Vital Signs Date Time Temp Pulse Resp B/P (MAP) Pulse Ox O2 Delivery O2 Flow Rate FiO2 10/25/19 12:00 79 10/25/19 12:00 98.7 103 22 165/91 (115) 96 103 10/25/19 09:00 Venturi Mask 12.0 10/25/19 08:00 97.5 88 22 150/80 (103) 90 88 10/25/19 08:00 93 10/25/19 04:00 79 10/25/19 04:00 97.9 79 18 150/71 (97) 95 79 10/25/19 00:00 82 10/25/19 00:00 96.5 85 18 152/79 (103) 93 85 10/24/19 21:00 Nasal Cannula 2.0 10/24/19 20:00 97.5 84 20 154/84 (107) 95 84 10/24/19 20:00 88 10/24/19 16:00 80 10/24/19 16:00 97.1 116 20 135/87 (103) 99 84 Intake and Output 10/24/19 10/25/19 19:00 07:00 Intake Total 740 ml Output Total 850 ml Balance -110 ml Intake Oral 740 ml Output Urine Total 850 ml # Voids 2 Laboratory Tests Test 10/25/19 04:00 10/25/19 07:30 10/25/19 11:28 10/25/19 12:07 White Blood Count 9.5 K/UL (4.8-10.8) Red Blood Count 4.13 M/UL (4.70-6.10) L Hemoglobin 11.7 G/DL (14.2-18.0) L Hematocrit 36.5 % (42.0-52.0) L Mean Corpuscular Volume 88 FL (80-99) Mean Corpuscular Hemoglobin 28.4 PG (27.0-31.0) Mean Corpuscular Hemoglobin Concent 32.1 G/DL (32.0-36.0) Red Cell Distribution Width 11.9 % (11.6-14.8) Platelet Count 230 K/UL (150-450) Mean Platelet Volume 5.6 FL (6.5-10.1) L Neutrophils (%) (Auto) 79.7 % (45.0-75.0) H Lymphocytes (%) (Auto) 15.6 % (20.0-45.0) L Monocytes (%) (Auto) 4.1 % (1.0-10.0) Eosinophils (%) (Auto) 0.0 % (0.0-3.0) Basophils (%) (Auto) 0.6 % (0.0-2.0) Sodium Level 136 MMOL/L (136-145) Potassium Level 4.2 MMOL/L (3.5-5.1) Chloride Level 103 MMOL/L (98-107) Carbon Dioxide Level 22 MMOL/L (21-32) Anion Gap 11 mmol/L (5-15) Blood Urea Nitrogen 26 mg/dL (7-18) H Creatinine 1.2 MG/DL (0.55-1.30) Estimat Glomerular Filtration Rate > 60 mL/min (>60) Glucose Level 204 MG/DL (74-106) H Calcium Level 7.6 MG/DL (8.5-10.1) L Total Bilirubin 0.4 MG/DL (0.2-1.0) Direct Bilirubin 0.1 MG/DL (0.0-0.3) Aspartate Amino Transf (AST/SGOT) 54 U/L (15-37) H Alanine Aminotransferase (ALT/SGPT) 56 U/L (12-78) Alkaline Phosphatase 56 U/L (46-116) Total Creatine Kinase 1437 U/L (26-308) H Total Protein 6.9 G/DL (6.4-8.2) Albumin 2.7 G/DL (3.4-5.0) L Globulin 4.2 g/dL Albumin/Globulin Ratio 0.6 (1.0-2.7) L Urine Color Pale yellow Urine Appearance Clear Urine pH 7 (4.5-8.0) Urine Specific [place] 1.010 (1.005-1.035) Urine Protein 3+ (NEGATIVE) H Urine Glucose (UA) 2+ (NEGATIVE) H Urine Ketones Negative (NEGATIVE) Urine Blood 3+ (NEGATIVE) H Urine Nitrite Negative (NEGATIVE) Urine Bilirubin Negative (NEGATIVE) Urine Urobilinogen 4 MG/DL (0.0-1.0) H Urine Leukocyte Esterase 1+ (NEGATIVE) H Urine RBC 2-4 /HPF (0 - 0) H Urine WBC 2-4 /HPF (0 - 0) Urine Squamous Epithelial Cells Occasional /LPF Urine Bacteria Occasional /HPF (NONE) POC Whole Blood Glucose Pending Arterial Blood pH 7.421 (7.350-7.450) Arterial Blood Partial Pressure CO2 33.6 mmHg (35.0-45.0) L Arterial Blood Partial Pressure O2 95.0 mmHg (75.0-100.0) Arterial Blood HCO3 21.4 mmol/L (22.0-26.0) L Arterial Blood Oxygen Saturation 96.4 % (95-100) Arterial Blood Base Excess -2.3 (-2-2) L Sharad Test Positive Current Medications Medications (Trade) Dose Ordered Sig/Jenny Route PRN Reason Start Time Stop Time Status Last Admin Dose Admin Acetaminophen/ Hydrocodone Bitart ([place] 10/325) 1 tab Q6H PRN ORAL For Pain 10/23/19 18:00 10/29/19 17:59 Albuterol Sulfate (Proventil MDI) 2 puff Q4H PRN INH Shortness of Breath 10/23/19 18:00 01/21/20 17:59 Azithromycin 500 mg/Dextrose 275 ml @ 275 mls/hr Q24HRS IV 10/23/19 20:00 10/29/19 20:59 10/24/19 20:27 Ceftriaxone Sodium 1 gm/ Dextrose 55 ml @ 110 mls/hr Q24H IVPB 10/23/19 18:00 10/30/19 17:59 10/24/19 17:14 Dexamethasone Sodium Phosphate (Decadron 4mg/ml vial) 6 mg DAILY IVP 10/24/19 09:00 01/21/20 08:59 10/25/19 09:13 Dextrose (Dextrose 50%) 25 ml Q30M PRN IV Hypoglycemia 10/23/19 17:30 01/20/20 22:59 Dextrose (Dextrose 50%) 50 ml Q30M PRN IV Hypoglycemia 10/23/19 17:30 01/20/20 22:59 Enoxaparin Sodium (Lovenox) 100 mg Q12HR SUBQ 10/23/19 21:00 01/21/20 08:59 10/25/19 09:16 Guaifenesin (Robitussin) 100 mg Q4H PRN ORAL For Cough 10/23/19 19:15 01/20/20 23:14 10/25/19 09:14 Insulin Aspart (NovoLOG) BEFORE MEALS AND HS SUBQ 10/24/19 21:00 01/21/20 06:29 10/25/19 12:44 Lorazepam (Ativan) 1 mg Q6H PRN ORAL For Anxiety 10/24/19 20:00 10/31/19 19:59 10/24/19 20:51 Lorazepam (Ativan) 2 mg Q12H PRN ORAL For Anxiety 10/23/19 18:00 10/29/19 17:59 10/25/19 09:14 Metformin HCl (Glucophage) 500 mg BID ORAL 10/23/19 18:00 11/22/19 08:59 10/25/19 09:14 Pantoprazole (Protonix) 40 mg DAILY ORAL 10/24/19 09:00 11/23/19 08:59 10/25/19 09:14 Remdesivir 100 mg/ Sodium Chloride 250 ml @ 250 mls/hr Q24H IV 10/24/19 18:00 10/27/19 18:59 10/24/19 17:14 Height (Feet): 6 Height (Inches): 1.00 Weight (Pounds): 218 General Appearance: alert, mild distress Head: normocephalic, atraumatic Eyes: bilateral anicteric ENT: normal voice Neck: full range of motion, no mass Respiratory: lungs clear - coarse breath sounds Cardiovascular: regular rate, rhythm Gastrointestinal: normal bowel sounds, non tender, soft, no mass, no organomegaly, non-distended Musculoskeletal: no calf tenderness Edema: no edema noted Generalized Neurologic: alert, no new focality Jim Zee MD Oct 25, 2019 16:11
[2019-10-25 16:12] VITALS: BP_SYST 104; BP_SYST 171; BP_DIAS 34; BP_DIAS 80
[2019-10-25] MEDS ORDERED: Heparin 5000 units/ml inj IV SCH (16:30)
--- NOTE | 2019-10-25 16:30 | NUR ---
NURSE NOTES: Spoke to Dr. Zee. ordered to d/c Lovealexeyx, start patient's Heparin Drip at 18 Units/kg/hr. PTT , D-Dimer, BNP lab draw stat for this time. Repeat PTT timed tomorrow 10/26/2019 at 0000. Orders acknowledged and carried out. Patient has no active bleeding or bruises. Will continue to monitor.
[2019-10-25 16:43] LABS: BASOPHILS % (AUTO) 0.5 % (0.0-2.0); HEMOGLOBIN 12.3 G/DL (14.2-18.0); LYMPHOCYTES % (AUTO) 8.7 % (20.0-45.0); MEAN CORPUSCULAR VOLUME 87 FL (80-99); MONOCYTES % (AUTO) 5.9 % (1.0-10.0); NEUTROPHILS % (AUTO) 84.9 % (45.0-75.0); PLATELET COUNT 265 K/UL (150-450); RED BLOOD COUNT 4.26 M/UL (4.70-6.10); RED CELL DISTRIBUTION WIDTH 12.9 % (11.6-14.8); WHITE BLOOD COUNT 9.1 K/UL (4.8-10.8)
[2019-10-25] MEDS: cefTRIAXone 1 GM in D5W 55 ML IVPB SCH (17:49)
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
[2019-10-25] MEDS: Remdesivir 100mg 100 MG in NS 230 ML IV SCH (18:45)
--- NOTE | 2019-10-25 19:17 | NUR ---
HAND-OFF: Report given to TEA Tineo. Patient's stable, plan of care endorsed.
--- NOTE | 2019-10-25 19:50 | NUR ---
NURSE NOTES: Pt received from TEA Apple alert and oriented x4 with no acute s/s of distress noted. IV site asymptomatic and patent on R fa 22g, running to Heparin drip as ordered. Bed in lowest position, call light and belongings within reach. Addendum: 10/25/19 at 2226 by Pranay Borjas RN Patient's skin intact, ambulatory with steady gait.
[2019-10-25 20:00] VITALS: BP 135/71
[2019-10-25] MEDS: Azithromycin 500 MG in D5W 275 ML IV SCH (21:35)
[2019-10-26] VITALS: BP 142/74
--- NOTE | 2019-10-26 01:00 | NUR ---
NURSE NOTES: Received lab result of PTT over 150. Communicated with pipeline pharmacist who stated to hold Heparin drip for one hour (from [id number]), and restart Heparin drip at 14U/kg/hr at 0200. Enter timed PTT 6 hrs after restarting Heparin drip. Will continue as ordered.
[2019-10-26] MEDS: Heparin 25,000u/D5W 500ml 500 ML IV SCH ×2 (02:28→10:26)
--- NOTE | 2019-10-26 03:00 | NUR ---
HAND-OFF: Report given to TEA Lama. Plan of care endorsed.
[2019-10-26 04:00] VITALS: BP 159/87
[2019-10-26] MEDS: NovoLOG Insulin Flexpen SUBQ SCH ×4 (06:16→20:56)
[2019-10-26] MEDS: HYDROcodone/Acetamin 10/325 tab ORAL PRN ×2 (06:17→20:54)
--- NOTE | 2019-10-26 06:45 | NUR ---
NURSE NOTES: Per link trainer maintenance workerJoanne, morning blood drawn has been done.
--- NOTE | 2019-10-26 07:40 | NUR ---
NURSE NOTES: Patient sitting up in bed, semi-Jackson's position, awake and alert, watching television, non-rebreather mask 15 liters/100 percent, saturating at 99 percent, bed in lowest position, call light within reach, no c/o pain.
[2019-10-26 08:00] VITALS: BP 142/82
--- NOTE | 2019-10-26 08:03 | NUR ---
HAND-OFF: Report given to TEA Joshi. Plan of care endorsed.
[2019-10-26 08:55] LABS: BASOPHILS % (AUTO) 1.1 % (0.0-2.0); EOSINOPHILS % (AUTO) 0.1 % (0.0-3.0); HEMATOCRIT 37.8 % (42.0-52.0); HEMOGLOBIN 12.3 G/DL (14.2-18.0); LYMPHOCYTES % (AUTO) 20.9 % (20.0-45.0); MEAN CORPUSCULAR VOLUME 88 FL (80-99); NEUTROPHILS % (AUTO) 71.9 % (45.0-75.0); PLATELET COUNT 253 K/UL (150-450); RED BLOOD COUNT 4.32 M/UL (4.70-6.10); RED CELL DISTRIBUTION WIDTH 12.3 % (11.6-14.8); WHITE BLOOD COUNT 10.7 K/UL (4.8-10.8)
--- NOTE | 2019-10-26 09:05 | NUR ---
NURSE NOTES: PTT pending.
[2019-10-26 09:34] LABS: ALANINE AMINOTRANSFERASE 63 U/L (12-78); ALBUMIN 2.8 G/DL (3.4-5.0); ALBUMIN/GLOBULIN RATIO 0.6 (1.0-2.7); ALKALINE PHOSPHATASE 67 U/L (46-116); ANION GAP 11 mmol/L (5-15); ASPARTATE AMINO TRANSFERASE 55 U/L (15-37); BILIRUBIN,DIRECT 0.1 MG/DL (0.0-0.3); BILIRUBIN,TOTAL 0.5 MG/DL (0.2-1.0); BLOOD UREA NITROGEN 24 mg/dL (7-18); CALCIUM 7.9 MG/DL (8.5-10.1); CARBON DIOXIDE 23 MMOL/L (21-32); CHLORIDE 102 MMOL/L (98-107); CREATININE 1.2 MG/DL (0.55-1.30); FERRITIN 576 NG/ML (8-388); POTASSIUM 3.9 MMOL/L (3.5-5.1); SODIUM 136 MMOL/L (136-145)
--- NOTE | 2019-10-26 09:50 | NUR ---
CASE MANAGEMENT:REVIEW 10/26/19 SI: COVID PNA. SIRS. RHABDO SUSPECTED PULMONARY EMBOLI 99.7 85 20 142/82 97% ON VENTURI MASK BUN+24 GLUCOSE+193 D-DIMER+0.72 IS: HEPARIN GTT IV REMDESIVIR Q24 (DAY #4) IV DECADRON Q24 IV AZITHROMYCIN Q24 IV ROCEPHIN Q24 SS INSULIN AC+HS NORCO PO Q6HRS PRN : TELEMETRY STATUS DCP: PATIENT IS FROM HOME
[2019-10-26] MEDS: LORazepam 1mg tab ORAL PRN (10:08)
[2019-10-26] MEDS: metFORMIN 500mg tab ORAL SCH ×2 (10:10→17:23)
[2019-10-26 12:00] VITALS: BP 140/71
--- NOTE | 2019-10-26 12:04 | NUR ---
NURSE NOTES: Notified Valencia Medina of the Arterial Blood Gas results. Respiratory Therapist discontinued non-rebreather mask and placed nasal cannula at 4 liters.
--- NOTE | 2019-10-26 12:18 | Pulmonology Progress Note ---
Valencia Medina CLERICAL DENTIST ASSISTANT 10/26/19 1218: Subjective Constitutional: Reports: fever, other - on breathing mask Gastrointestinal/Abdominal: Denies: nausea, vomiting, diarrhea Psychiatric: Denies: depression Skin: Denies: rash Musculoskeletal: Denies: pain Allergies: Coded Allergies: No Known Allergies (Unverified , 08/10/14) Subjective on tele + SOB, minimally productive cough, yesterday 10/24 afternoon was on 55 % VM, this am saw on 100% NRM + SOB, + intermittent dry cough no CP no fevers,no leukocytosis Objective Last 24 Hour Vital Signs Date Time Temp Pulse Resp B/P (MAP) Pulse Ox O2 Delivery O2 Flow Rate FiO2 10/26/19 08:00 99.7 85 20 142/82 (102) 97 10/26/19 08:00 79 10/26/19 04:00 121 10/26/19 04:00 97.5 85 22 159/87 (111) 99 10/26/19 04:00 93 Venturi Mask 45 10/26/19 00:00 74 10/26/19 00:00 98.4 85 20 142/74 (96) 97 85 10/25/19 21:00 Venturi Mask 14.0 10/25/19 20:00 98.5 83 20 135/71 (92) 99 83 10/25/19 20:00 85 10/25/19 16:12 98.2 101 20 171/80 (110) 96 10/25/19 16:00 84 Intake and Output 10/25/19 10/26/19 19:00 07:00 Intake Total 590 ml 310.748 ml Output Total 500 ml Balance 590 ml -189.252 ml Intake Oral 590 ml 200 ml IV Total 110.748 ml Output Urine Total 500 ml # Voids 4 Objective General Appearance: no apparent distress, alert , awake, responsive male in NAD , 100% NRM on Lines, tubes and drains: peripheral HEENT: normocephalic, atraumatic, anicteric, mucous membranes moist, PERRL, pharynx normal, supple, no JVD Neck: non-tender, normal alignment, supple Respiratory/Chest: chest wall non-tender, no respiratory distress, + intermittent use of accessory muscle use, few isolated rhonchi Cardiovascular/Chest: normal peripheral pulses, normal rate Abdomen: normal bowel sounds, non tender, soft Extremities: non-tender, no calf tenderness, normal capillary refill Skin Exam: warm/dry Neurologic: no motor/sensory deficits, alert, oriented x 3, responsive Musculoskeletal: normal muscle bulk Laboratory Tests 10/25/19 16:04: POC Whole Blood Glucose 247H 10/25/19 16:05: White Blood Count 9.1, Red Blood Count 4.26L, Hemoglobin 12.3L, Hematocrit 37.0L , Mean Corpuscular Volume 87, Mean Corpuscular Hemoglobin 28.8, Mean Corpuscular Hemoglobin Concent 33.2, Red Cell Distribution Width 12.9, Platelet Count 265, Mean Platelet Volume 6.4L, Neutrophils (%) (Auto) 84.9H, Lymphocytes (%) (Auto) 8.7L, Monocytes (%) (Auto) 5.9, Eosinophils (%) (Auto) 0.0, Basophils (%) (Auto) 0.5, Activated Partial Thromboplast Time 30, D-Dimer 0.66H , Pro-B-Type Natriuretic Peptide 211H 10/25/19 20:36: POC Whole Blood Glucose 352H 10/26/19 00:00: Activated Partial Thromboplast Time > 150*H 10/26/19 06:11: POC Whole Blood Glucose [Pending] 10/26/19 08:35: White Blood Count 10.7, Red Blood Count 4.32L, Hemoglobin 12.3L, Hematocrit 37.8L, Mean Corpuscular Volume 88, Mean Corpuscular Hemoglobin 28.4, Mean Corpuscular Hemoglobin Concent 32.5, Red Cell Distribution Width 12.3, Platelet Count 253, Mean Platelet Volume 5.4L, Neutrophils (%) (Auto) 71.9, Lymphocytes ( %) (Auto) 20.9, Monocytes (%) (Auto) 6.0, Eosinophils (%) (Auto) 0.1, Basophils (%) (Auto) 1.1, Activated Partial Thromboplast Time 69H, D-Dimer 0.72H, Sodium Level 136, Potassium Level 3.9, Chloride Level 102, Carbon Dioxide Level 23, Anion Gap 11, Blood Urea Nitrogen 24H, Creatinine 1.2, Estimat Glomerular Filtration Rate > 60, Glucose Level 193H, Calcium Level 7.9L, Ferritin 576H, Total Bilirubin 0.5, Direct Bilirubin 0.1, Aspartate Amino Transf (AST/SGOT) 55H , Alanine Aminotransferase (ALT/SGPT) 63, Alkaline Phosphatase 67, Lactate Dehydrogenase 680H, C-Reactive Protein, Quantitative 3.8H, Total Protein 7.2, Albumin 2.8L, Globulin 4.4, Albumin/Globulin Ratio 0.6L 10/26/19 11:15: Arterial Blood pH 7.414, Arterial Blood Partial Pressure CO2 32.1L, Arterial Blood Partial Pressure O2 248.7H, Arterial Blood HCO3 20.1L, Arterial Blood Oxygen Saturation 98.8, Arterial Blood Base Excess -3.6L, Sharad Test Positive 10/26/19 11:56: POC Whole Blood Glucose 245H Current Medications Medications (Trade) Dose Ordered Sig/Jenny Route PRN Reason Start Time Stop Time Status Last Admin Dose Admin Acetaminophen/ Hydrocodone Bitart ([place] ) 1 tab Q6H PRN ORAL For Pain 10/23/19 18:00 10/29/19 17:59 10/26/19 06:17 Albuterol Sulfate (Proventil MDI) 2 puff Q4H PRN INH Shortness of Breath 10/23/19 18:00 01/21/20 17:59 Azithromycin 500 mg/Dextrose 275 ml @ 275 mls/hr Q24HRS IV 10/23/19 20:00 10/29/19 20:59 10/25/19 21:35 Ceftriaxone Sodium 1 gm/ Dextrose 55 ml @ 110 mls/hr Q24H IVPB 10/23/19 18:00 10/30/19 17:59 10/25/19 17:49 Dexamethasone Sodium Phosphate (Decadron 4mg/ml vial) 6 mg DAILY IVP 10/24/19 09:00 01/21/20 08:59 10/26/19 10:08 Dextrose (Dextrose 50%) 25 ml Q30M PRN IV Hypoglycemia 10/23/19 17:30 01/20/20 22:59 Dextrose (Dextrose 50%) 50 ml Q30M PRN IV Hypoglycemia 10/23/19 17:30 01/20/20 22:59 Guaifenesin (Robitussin) 100 mg Q4H PRN ORAL For Cough 10/23/19 19:15 01/20/20 23:14 10/25/19 15:59 Heparin Sodium/ Dextrose 500 ml @ 27.687 mls/ hr ADJUST PER PROTOCOL IV 10/26/19 02:30 11/25/19 02:29 10/26/19 10:26 Insulin Aspart (NovoLOG) BEFORE MEALS AND HS SUBQ 10/24/19 21:00 01/21/20 06:29 10/26/19 11:59 Lorazepam (Ativan) 1 mg Q6H PRN ORAL For Anxiety 10/24/19 20:00 10/31/19 19:59 10/25/19 21:34 Lorazepam (Ativan) 2 mg Q12H PRN ORAL For Anxiety 10/23/19 18:00 10/29/19 17:59 10/26/19 10:08 Metformin HCl (Glucophage) 500 mg BID ORAL 10/23/19 18:00 11/22/19 08:59 10/26/19 10:10 Pantoprazole (Protonix) 40 mg DAILY ORAL 10/24/19 09:00 11/23/19 08:59 10/26/19 10:10 Remdesivir 100 mg/ Sodium Chloride 250 ml @ 250 mls/hr Q24H IV 10/24/19 18:00 10/27/19 18:59 10/25/19 18:45 Assessment/Plan Assessment/Plan ASSESSMENT COVID 19 infection, recently diagnosed PNA, probably due to COVID 19 vs CAP Mild hypoxia Minimally elevated troponin ( resolved already) CECI with proteinuria ? diabetic nephropathy DM OOC with diabetic neuropathy Pyuria, possible UTI Hypo Na Hx of HTN Transaminitis Low albumin, possible malnutrition Chronic pain PLAN OF CARE tele isolation O2 titrate to keep sat > 90 ( currently on 100% NRM) MDI Albuterol prn stat ABG now -> stable RT downgraded to 4L O2 via NC CXR 10/25 - Increased patchy opacities throughout the lungs, concerning for infectious/inflammatory process and/or pulmonary edema. on abx: Ceftriaxone and Azithromycin SCX if able continue steroid, can probably transitioned to oral , added GI prophylaxis continue Remdesivir and Decadron ( started 10/23) ID follows repeat COVID 19 testing later fup with inflammatory markers to access a risk for cytokine storm latest LDH 680, ferritin 576 , CRP though trending down 3.8 - still high risk for cytokine storm IL 6 pending a/tussive prn monitor volumes full a/c, now on heparin gtt second troponin down to normal min elevation possibly due to CECI , hypoperfusion monitor renal parameters, avoid nephrotoxics, creat down to 1.2 Na better UCX 7/2 NGTD UA+ pyuria, mod bacteria, on ceftriaxone already BCX 7/2 NGTD BS management with metformin ( lactic acid down to normal) and SSI, may need higher coverage from SSI ( given steroids) HgA1c - 9.1 not at goal, trend CK, LFT CK and AST trending down BP management, may benefit from oral anti HTN at this time ( steroids contributing as well) - per primary pain management dietary eval noted supportive care Thank you for this consultation! case discussed and evaluated by supervising physician Solomon Delong MD 10/26/19 1250: Subjective Allergies: Coded Allergies: No Known Allergies (Unverified , 08/10/14) Assessment/Plan Assessment/Plan Patient seen and examined with CLERICAL DENTIST ASSISTANT. Agree with above A&P as it reflects our joint deliberations. COVID PNA on Remdesevir/Dex, PaO2 248 on NRB Taper O2 Supportive care Remdesevir/Dex Abx per ID IV Valencia Blount CLERICAL DENTIST ASSISTANT Oct 26, 2019 12:18 Solomon Delong MD Oct 26, 2019 12:50
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
[2019-10-26 16:00] VITALS: BP 161/92
[2019-10-26] MEDS: cefTRIAXone 1 GM in D5W 55 ML IVPB SCH (17:21)
[2019-10-26] MEDS: Remdesivir 100mg 100 MG in NS 230 ML IV SCH (17:35)
--- NOTE | 2019-10-26 19:38 | Geriatric Progress Note ---
Assessment/Plan Problems: (1) Transaminasemia (2) SIRS (systemic inflammatory response syndrome) (3) Urinary tract infection (4) Chronic back pain (5) Cataract (6) Pneumonia due to COVID-19 virus (7) Diabetes type 2, uncontrolled (8) Diabetic neuropathy associated with type 2 diabetes mellitus (9) Chronic pain disorder (10) Anxiety disorder (11) Acute kidney injury (12) Rhabdomyolysis due to COVID-19 (13) Chronic rhinitis (14) Hypertension (15) Volume depletion (16) Nausea Assessment/Plan Patient clinically and from laboratory point of view improved today. Discussed with Dr. Luevano. Given CXR, will extend remdesivir to 10d course, complete 7d course of azithromycin and ceftriaxone. Will attempt to add Cymbalta for pain control and to diminish anxiety. Course of Rozerem for delirium risk given anxiety level. Suspect bp elevation represents anxiety, but will add prn amlodipine if bp rises further. MiraLax for bowel regimen. Patient encouraged to stretch and mobilize in bed. Continue dexamethasone likely for 10d as well. Continue heparin for now. Discussed with: patient, hospital staff Subjective Interval Events Patient required Ventimask , then apparently overnight desaturated and required NRB. This morning ABG with pO2>280, and patient converted to nc @ 4l/m, with adequate sats. Unclear if patient experienced exacerbation or became anxious or some combination. Reports feeling better at present. Did not sleep well overnight, but slept today. However, on awakening, panicked and thought O2 had stopped when nc was displaced. Called exchange, but was reassured by staff. Denies pain except episodic headache. Not using [place], but requiring Ativan. When asked about Cymbalta, states he felt better with med. Staff reports good appetite, some anxiety, causing loss of IV. Bp running high. Patient requests assistance with b.m. All inflammatory markers somewhat improved. Relative lymphopenia resolved. Blood and urine C&S remain NG. Constitutional: Denies: chills, sweats Respiratory: Reports: cough, shortness of breath Cardiovascular: Denies: chest pain, palpitations Gastrointestinal/Abdominal: Denies: abdominal pain, constipation, diarrhea, nausea Genitourinary: Denies: dysuria Geriatric Geriatric Last 24 Hour Vital Signs Date Time Temp Pulse Resp B/P (MAP) Pulse Ox O2 Delivery O2 Flow Rate FiO2 10/26/19 18:50 97 Venturi Mask 10.0 45 10/26/19 16:00 89 10/26/19 16:00 97.8 83 19 161/92 (115) 96 10/26/19 12:00 87 10/26/19 12:00 98.7 80 18 140/71 (94) 96 10/26/19 09:00 Venturi Mask 12.0 10/26/19 08:00 99.7 85 20 142/82 (102) 97 10/26/19 08:00 79 10/26/19 04:00 121 10/26/19 04:00 97.5 85 22 159/87 (111) 99 10/26/19 04:00 93 Venturi Mask 45 10/26/19 00:00 74 10/26/19 00:00 98.4 85 20 142/74 (96) 97 85 10/25/19 21:00 Venturi Mask 14.0 10/25/19 20:00 98.5 83 20 135/71 (92) 99 83 10/25/19 20:00 85 Intake and Output 10/25/19 10/26/19 19:00 07:00 Intake Total 590 ml 310.748 ml Output Total 500 ml Balance 590 ml -189.252 ml Intake Oral 590 ml 200 ml IV Total 110.748 ml Output Urine Total 500 ml # Voids 4 Laboratory Tests Test 10/25/19 20:36 10/26/19 00:00 10/26/19 06:11 10/26/19 08:35 POC Whole Blood Glucose 352 MG/DL (74-106) H Pending Activated Partial Thromboplast Time > 150 SEC (23-33) *H 69 SEC (23-33) H White Blood Count 10.7 K/UL (4.8-10.8) Red Blood Count 4.32 M/UL (4.70-6.10) L Hemoglobin 12.3 G/DL (14.2-18.0) L Hematocrit 37.8 % (42.0-52.0) L Mean Corpuscular Volume 88 FL (80-99) Mean Corpuscular Hemoglobin 28.4 PG (27.0-31.0) Mean Corpuscular Hemoglobin Concent 32.5 G/DL (32.0-36.0) Red Cell Distribution Width 12.3 % (11.6-14.8) Platelet Count 253 K/UL (150-450) Mean Platelet Volume 5.4 FL (6.5-10.1) L Neutrophils (%) (Auto) 71.9 % (45.0-75.0) Lymphocytes (%) (Auto) 20.9 % (20.0-45.0) Monocytes (%) (Auto) 6.0 % (1.0-10.0) Eosinophils (%) (Auto) 0.1 % (0.0-3.0) Basophils (%) (Auto) 1.1 % (0.0-2.0) D-Dimer 0.72 mg/L FEU (0.00-0.49) H Sodium Level 136 MMOL/L (136-145) Potassium Level 3.9 MMOL/L (3.5-5.1) Chloride Level 102 MMOL/L (98-107) Carbon Dioxide Level 23 MMOL/L (21-32) Anion Gap 11 mmol/L (5-15) Blood Urea Nitrogen 24 mg/dL (7-18) H Creatinine 1.2 MG/DL (0.55-1.30) Estimat Glomerular Filtration Rate > 60 mL/min (>60) Glucose Level 193 MG/DL (74-106) H Calcium Level 7.9 MG/DL (8.5-10.1) L Ferritin 576 NG/ML (8-388) H Total Bilirubin 0.5 MG/DL (0.2-1.0) Direct Bilirubin 0.1 MG/DL (0.0-0.3) Aspartate Amino Transf (AST/SGOT) 55 U/L (15-37) H Alanine Aminotransferase (ALT/SGPT) 63 U/L (12-78) Alkaline Phosphatase 67 U/L (46-116) Lactate Dehydrogenase 680 U/L (81-234) H C-Reactive Protein, Quantitative 3.8 mg/dL (0.00-0.90) H Total Protein 7.2 G/DL (6.4-8.2) Albumin 2.8 G/DL (3.4-5.0) L Globulin 4.4 g/dL Albumin/Globulin Ratio 0.6 (1.0-2.7) L Test 10/26/19 11:15 10/26/19 11:56 Arterial Blood pH 7.414 (7.350-7.450) Arterial Blood Partial Pressure CO2 32.1 mmHg (35.0-45.0) L Arterial Blood Partial Pressure O2 248.7 mmHg (75.0-100.0) H Arterial Blood HCO3 20.1 mmol/L (22.0-26.0) L Arterial Blood Oxygen Saturation 98.8 % (95-100) Arterial Blood Base Excess -3.6 (-2-2) L Sharad Test Positive POC Whole Blood Glucose 245 MG/DL (74-106) H Current Medications Medications (Trade) Dose Ordered Sig/Jenny Route PRN Reason Start Time Stop Time Status Last Admin Dose Admin Acetaminophen/ Hydrocodone Bitart ([place] ) 1 tab Q6H PRN ORAL For Pain 10/23/19 18:00 10/29/19 17:59 10/26/19 06:17 Albuterol Sulfate (Proventil MDI) 2 puff Q4H PRN INH Shortness of Breath 10/23/19 18:00 01/21/20 17:59 Azithromycin 500 mg/Dextrose 275 ml @ 275 mls/hr Q24HRS IV 10/23/19 20:00 10/29/19 20:59 10/25/19 21:35 Ceftriaxone Sodium 1 gm/ Dextrose 55 ml @ 110 mls/hr Q24H IVPB 10/23/19 18:00 10/30/19 17:59 10/26/19 17:21 Dexamethasone Sodium Phosphate (Decadron 4mg/ml vial) 6 mg DAILY IVP 10/24/19 09:00 01/21/20 08:59 10/26/19 10:08 Dextrose (Dextrose 50%) 25 ml Q30M PRN IV Hypoglycemia 10/23/19 17:30 01/20/20 22:59 Dextrose (Dextrose 50%) 50 ml Q30M PRN IV Hypoglycemia 10/23/19 17:30 01/20/20 22:59 Guaifenesin (Robitussin) 100 mg Q4H PRN ORAL For Cough 10/23/19 19:15 01/20/20 23:14 10/25/19 15:59 Heparin Sodium/ Dextrose 500 ml @ 27.687 mls/ hr ADJUST PER PROTOCOL IV 10/26/19 02:30 11/25/19 02:29 10/26/19 10:26 Insulin Aspart (NovoLOG) BEFORE MEALS AND HS SUBQ 10/24/19 21:00 01/21/20 06:29 10/26/19 17:24 Lorazepam (Ativan) 1 mg Q6H PRN ORAL For Anxiety 10/24/19 20:00 10/31/19 19:59 10/25/19 21:34 Lorazepam (Ativan) 2 mg Q12H PRN ORAL For Anxiety 10/23/19 18:00 10/29/19 17:59 10/26/19 10:08 Metformin HCl (Glucophage) 500 mg BID ORAL 10/23/19 18:00 11/22/19 08:59 10/26/19 17:23 Pantoprazole (Protonix) 40 mg DAILY ORAL 10/24/19 09:00 11/23/19 08:59 10/26/19 10:10 Remdesivir 100 mg/ Sodium Chloride 250 ml @ 250 mls/hr Q24H IV 10/24/19 18:00 10/27/19 18:59 10/26/19 17:35 Height (Feet): 6 Height (Inches): 1.00 Weight (Pounds): 218 General Appearance: alert, non-toxic, other - mild anxiety Head: normocephalic, atraumatic Eyes: bilateral anicteric ENT: normal voice Neck: full range of motion, no mass Respiratory: decreased breath sounds Cardiovascular: regular rate, rhythm Gastrointestinal: normal bowel sounds, non tender, soft, no mass, no organomegaly Musculoskeletal: no calf tenderness Edema: no edema noted Generalized Neurologic: no new focality Jim Zee MD Oct 26, 2019 19:38
[2019-10-26 20:00] VITALS: BP 170/85
--- NOTE | 2019-10-26 20:00 | NUR ---
HAND-OFF: Report given to Fabby Carmona. Patient placed on Venturi Mask saturating at 98 percednt, bed in lowest position, call light within reach, no c/o pain, Remdesivir running, Heparin drip 27.687 ml/hour.
--- NOTE | 2019-10-26 20:08 | NUR ---
NURSE NOTES: Received patient report from TEA Perez. Patient is AO x 4. He shows no signs of distress or pain at the time. Patient is on a venturi mask at 10 L at 45% and saturating at 96%. Patient is also connected to Heparin drip running at 14units/kg/ hr at 27.687. IV sites are intact and running. There are no signs of erythema, infiltration, or bleeding. Bed is in the lowest position, call light within reach, side rails up x2. Will continue to monitor.
[2019-10-26] MEDS: Azithromycin 500 MG in D5W 275 ML IV SCH (20:41)
[2019-10-26] MEDS: Miralax 17gm pkt ORAL SCH (20:41)
[2019-10-27] VITALS: BP 158/75
[2019-10-27] MEDS: Heparin 25,000u/D5W 500ml 500 ML IV SCH (03:11)
[2019-10-27] MEDS: HYDROcodone/Acetamin 10/325 tab ORAL PRN (03:15)
[2019-10-27 04:00] VITALS: BP 153/77
[2019-10-27 04:08] LABS: BASOPHILS % (AUTO) 1.4 % (0.0-2.0); EOSINOPHILS % (AUTO) 0.1 % (0.0-3.0); HEMATOCRIT 40.7 % (42.0-52.0); LYMPHOCYTES % (AUTO) 18.6 % (20.0-45.0); MEAN CORPUSCULAR VOLUME 88 FL (80-99); MONOCYTES % (AUTO) 7.4 % (1.0-10.0); NEUTROPHILS % (AUTO) 72.6 % (45.0-75.0); PLATELET COUNT 292 K/UL (150-450); RED BLOOD COUNT 4.61 M/UL (4.70-6.10); RED CELL DISTRIBUTION WIDTH 12.2 % (11.6-14.8); WHITE BLOOD COUNT 10.8 K/UL (4.8-10.8)
[2019-10-27 04:25] LABS: ALANINE AMINOTRANSFERASE 89 U/L (12-78); ALBUMIN 2.6 G/DL (3.4-5.0); ALBUMIN/GLOBULIN RATIO 0.6 (1.0-2.7); ALKALINE PHOSPHATASE 68 U/L (46-116); ANION GAP 11 mmol/L (5-15); ASPARTATE AMINO TRANSFERASE 70 U/L (15-37); BILIRUBIN,DIRECT 0.2 MG/DL (0.0-0.3); BILIRUBIN,TOTAL 0.4 MG/DL (0.2-1.0); BLOOD UREA NITROGEN 23 mg/dL (7-18); CALCIUM 8.4 MG/DL (8.5-10.1); CARBON DIOXIDE 23 MMOL/L (21-32); CHLORIDE 104 MMOL/L (98-107); CREATININE 1.2 MG/DL (0.55-1.30); POTASSIUM 4.6 MMOL/L (3.5-5.1); SODIUM 138 MMOL/L (136-145)
[2019-10-27] MEDS ORDERED: Heparin 25,000u/D5W 500ml 500 ML IV SCH ×3 (04:45→19:48)
[2019-10-27] MEDS ORDERED: Heparin 5000 units/ml inj IV SCH ×2 (04:45→19:47)
[2019-10-27] MEDS: NovoLOG Insulin Flexpen SUBQ SCH ×4 (06:13→20:42)
--- NOTE | 2019-10-27 07:42 | NUR ---
HAND-OFF: Report given to TEA Serrato. Patient shows no signs of distress or pain at the time. Endorsed plan of care.
--- NOTE | 2019-10-27 07:45 | NUR ---
NURSE NOTES: Received patient from TEA Tucker. Patient is AAO x4. Denies any pain at the time. No s/s of respiratory distress or SOB noted. Patient is on venturi mask 10 L at 45% and saturating at 96% - 98%. Patient is on Heparin drip running at 16units/kg/ hr at 31.643. IV sites are intact, patent and running Heparin drip on right wrist and antibiotics on RAC. Bed is on lowest level with bedside rails up x2, brakes engaged for safety, call light within reach. Will continue with the plan of care.
[2019-10-27] MEDS: metFORMIN 500mg tab ORAL SCH ×2 (08:38→17:06)
[2019-10-27 09:00] VITALS: BP 165/88
--- NOTE | 2019-10-27 10:39 | NUR ---
RADIOLOGY: PCXR COMPLETED 0900HRS. NF
--- NOTE | 2019-10-27 11:40 | Diagnostic Imaging Report ---
Indication: Is upper Technique: One view of the chest Comparison: 10/25/2019 Findings: Bilateral infiltrates appear unchanged. Heart size is normal. Impression: Unchanged, over 2 days, findings as above.
[2019-10-27 12:00] VITALS: BP 172/90
--- NOTE | 2019-10-27 12:07 | NUR ---
NURSE NOTES: STOPPED HEPARIN DRIP FOR ONE HOUR PER PHARMACY. WILL RESTART AT 1307
--- NOTE | 2019-10-27 12:51 | Pulmonology Progress Note ---
Valencia Medina FURNACE FIRER 10/27/19 1251: Subjective Constitutional: Reports: other - on O2 support Gastrointestinal/Abdominal: Denies: nausea, vomiting, diarrhea Psychiatric: Denies: depression Skin: Denies: rash Musculoskeletal: Denies: pain Allergies: Coded Allergies: No Known Allergies (Unverified , 08/10/14) Subjective on tele + SOB, minimally productive cough, on VM 10L no CP no fevers,no leukocytosis + anxious Objective Last 24 Hour Vital Signs Date Time Temp Pulse Resp B/P (MAP) Pulse Ox O2 Delivery O2 Flow Rate FiO2 10/27/19 09:00 97.9 84 19 165/88 (113) 96 10/27/19 09:00 Venturi Mask 10.0 10/27/19 09:00 84 10/27/19 04:00 97.8 70 19 153/77 (102) 98 10/27/19 04:00 77 10/27/19 03:45 97.8 10/27/19 00:00 92 10/27/19 00:00 97.8 86 21 158/75 (102) 99 10/26/19 21:00 Venturi Mask 10.0 10/26/19 20:00 99 10/26/19 20:00 97.8 88 21 170/85 (113) 95 10/26/19 18:50 97 Venturi Mask 10.0 45 10/26/19 16:00 89 10/26/19 16:00 97.8 83 19 161/92 (115) 96 Intake and Output 10/26/19 10/27/19 19:00 07:00 Intake Total 389.183 ml 150 ml Output Total 500 ml Balance 389.183 ml -350 ml Intake Oral 140 ml 150 ml IV Total 249.183 ml Output Urine Total 500 ml Objective General Appearance: no apparent distress, alert , awake, responsive male in NAD , VM 10L Lines, tubes and drains: peripheral HEENT: normocephalic, atraumatic, anicteric, mucous membranes moist, PERRL, pharynx normal, supple, no JVD Neck: non-tender, normal alignment, supple Respiratory/Chest: chest wall non-tender, no respiratory distress, + intermittent use of accessory muscle use, few isolated rhonchi Cardiovascular/Chest: normal peripheral pulses, normal rate Abdomen: normal bowel sounds, non tender, soft Extremities: non-tender, no calf tenderness, normal capillary refill Skin Exam: warm/dry Neurologic: no motor/sensory deficits, alert, oriented x 3, responsive, anxious Musculoskeletal: normal muscle bulk Laboratory Tests 10/26/19 20:53: POC Whole Blood Glucose [Pending] 10/27/19 04:00: White Blood Count 10.8, Red Blood Count 4.61L, Hemoglobin 13.0L, Hematocrit 40.7L, Mean Corpuscular Volume 88, Mean Corpuscular Hemoglobin 28.1, Mean Corpuscular Hemoglobin Concent 31.9L, Red Cell Distribution Width 12.2, Platelet Count 292, Mean Platelet Volume 5.8L, Neutrophils (%) (Auto) 72.6, Lymphocytes (%) (Auto) 18.6L, Monocytes (%) (Auto) 7.4, Eosinophils (%) (Auto) 0.1, Basophils (%) (Auto) 1.4, Activated Partial Thromboplast Time 60H, Sodium Level 138, Potassium Level 4.6, Chloride Level 104, Carbon Dioxide Level 23, Anion Gap 11, Blood Urea Nitrogen 23H, Creatinine 1.2, Estimat Glomerular Filtration Rate > 60, Glucose Level 200H, Calcium Level 8.4L, Total Bilirubin 0.4, Direct Bilirubin 0.2, Aspartate Amino Transf (AST/SGOT) 70H, Alanine Aminotransferase (ALT/SGPT) 89H, Alkaline Phosphatase 68, Total Protein 7.2, Albumin 2.6L, Globulin 4.6, Albumin/Globulin Ratio 0.6L 10/27/19 10:50: Activated Partial Thromboplast Time 135H Current Medications Medications (Trade) Dose Ordered Sig/Jenny Route PRN Reason Start Time Stop Time Status Last Admin Dose Admin Acetaminophen/ Hydrocodone Bitart ([place] 10/325) 1 tab Q6H PRN ORAL For Pain 10/23/19 18:00 10/29/19 17:59 10/27/19 03:15 Albuterol Sulfate (Proventil MDI) 2 puff Q4H PRN INH Shortness of Breath 10/23/19 18:00 01/21/20 17:59 Amlodipine Besylate (Norvasc) 2.5 mg DAILYPRN PRN ORAL For High Blood Pressure 10/26/19 19:45 11/25/19 19:44 Azithromycin 500 mg/Dextrose 275 ml @ 275 mls/hr Q24HRS IV 10/23/19 20:00 10/29/19 20:59 10/26/19 20:41 Ceftriaxone Sodium 1 gm/ Dextrose 55 ml @ 110 mls/hr Q24H IVPB 10/23/19 18:00 10/30/19 17:59 10/26/19 17:21 Dexamethasone Sodium Phosphate (Decadron 4mg/ml vial) 6 mg DAILY IVP 10/24/19 09:00 01/21/20 08:59 10/27/19 08:39 Dextrose (Dextrose 50%) 25 ml Q30M PRN IV Hypoglycemia 10/23/19 17:30 01/20/20 22:59 Dextrose (Dextrose 50%) 50 ml Q30M PRN IV Hypoglycemia 10/23/19 17:30 01/20/20 22:59 Duloxetine HCl (Cymbalta) 20 mg DAILY ORAL 10/27/19 09:00 01/25/20 08:59 10/27/19 08:38 Guaifenesin (Robitussin) 100 mg Q4H PRN ORAL For Cough 10/23/19 19:15 01/20/20 23:14 10/25/19 15:59 Heparin Sodium/ Dextrose 500 ml @ 25.71 mls/ hr ADJUST PER PROTOCOL IV 10/27/19 13:00 11/26/19 12:59 Insulin Aspart (NovoLOG) BEFORE MEALS AND HS SUBQ 10/24/19 21:00 01/21/20 06:29 10/27/19 11:49 Lorazepam (Ativan) 1 mg Q6H PRN ORAL For Anxiety 10/24/19 20:00 10/31/19 19:59 10/25/19 21:34 Lorazepam (Ativan) 2 mg Q12H PRN ORAL For Anxiety 10/23/19 18:00 10/29/19 17:59 10/26/19 10:08 Metformin HCl (Glucophage) 500 mg BID ORAL 10/23/19 18:00 11/22/19 08:59 10/27/19 08:38 Mirtazapine (Remeron) 7.5 mg BEDTIME ORAL 10/26/19 21:00 01/24/20 20:59 10/26/19 20:41 Pantoprazole (Protonix) 40 mg DAILY ORAL 10/24/19 09:00 11/23/19 08:59 10/27/19 08:38 Polyethylene Glycol (Miralax) 17 gm BEDTIME ORAL 10/26/19 21:00 11/25/19 20:59 10/26/19 20:41 Remdesivir 100 mg/ Sodium Chloride 250 ml @ 250 mls/hr Q24H IV 10/24/19 18:00 10/27/19 18:59 10/26/19 17:35 Assessment/Plan Assessment/Plan ASSESSMENT COVID 19 infection, recently diagnosed PNA, probably due to COVID 19 vs CAP Mild hypoxia Minimally elevated troponin ( resolved already) CEIC with proteinuria ? diabetic nephropathy DM OOC with diabetic neuropathy Pyuria, possible UTI Hypo Na Hx of HTN Transaminitis Low albumin, possible malnutrition Chronic pain PLAN OF CARE tele isolation O2 titrate to keep sat > 90 ( currently on 100% NRM) MDI Albuterol prn repeat ABG in am CXR 10/25 - Increased patchy opacities throughout the lungs, concerning for infectious/inflammatory process and/or pulmonary edema. CXR 10/26 -> Bilateral infiltrates appear unchanged. Heart size is normal. on abx: Ceftriaxone and Azithromycin SCX if able continue steroid, can probably transitioned to oral , added GI prophylaxis continue Remdesivir and Decadron ( started 10/23) ID follows repeat COVID 19 testing later fup with inflammatory markers to access a risk for cytokine storm latest LDH 680, ferritin 576 , CRP though trending down 3.8 - still high risk for cytokine storm IL 6 pending a/tussive prn monitor volumes full a/c, now on heparin gtt second troponin down to normal min elevation possibly due to CECI , hypoperfusion monitor renal parameters, avoid nephrotoxics, creat down to 1.2 Na better UCX / NGTD UA+ pyuria, mod bacteria, on ceftriaxone already BCX / NGTD BS management with metformin ( lactic acid down to normal) and SSI, may need higher coverage from SSI ( given steroids) HgA1c - 9.1 not at goal, trend CK, LFT CK and AST trending down BP management, may benefit from oral anti HTN at this time ( steroids contributing as well) - per primary pain management dietary eval noted supportive care Thank you for this consultation! case discussed and evaluated by supervising physician Solomon Delong MD 10/27/19 1359: Subjective Allergies: Coded Allergies: No Known Allergies (Unverified , 08/10/14) Assessment/Plan Assessment/Plan Patient seen and examined with [facility]. Agree with above A&P as it reflects our joint deliberations. Valencia Medina NP Oct 27, 2019 12:51 Solomon Delong MD Oct 27, 2019 13:59
--- NOTE | 2019-10-27 15:10 | Geriatric Progress Note ---
Assessment/Plan Problems: (1) Transaminasemia (2) SIRS (systemic inflammatory response syndrome) (3) Urinary tract infection (4) Chronic back pain (5) Cataract (6) Pneumonia due to COVID-19 virus (7) Diabetes type 2, uncontrolled (8) Diabetic neuropathy associated with type 2 diabetes mellitus (9) Chronic pain disorder (10) Anxiety disorder (11) Acute kidney injury (12) Rhabdomyolysis due to COVID-19 (13) Chronic rhinitis (14) Hypertension (15) Volume depletion (16) Nausea Assessment/Plan Still requiring significant oxygen supplementation. Otherwise, currently not showing evidence of further decompensation. Attempt to use nc again, if patient can tolerate. Discussed with staff. Continue dexamethasone, remdesivir for 10d course. Follow labs. Mobilize with physical therapy. Will attempt to convert to [place] 5 with shorter interval. Diabetes with sugars in 200-300s, associated with dexamethasone use. Will not be stable for d/c until O2 requirement stabilized. Discussed with: patient, hospital staff Subjective Interval Events Patient c/o that VM airflow is uncomfortable. After being on nc last pm, desaturated and placed back on VM @ 10l/m. Sats today are in high 90s on VM. Reports mild SOB, no chest tightness, less cough with clear phlegm. No fever, chills. No chest pain or palpitations. No c/o B&B. Sleep still not optimal. Staff reports good po intake. Labs with adequate anticoagulation, minimal lymphopenia. Mild transaminasemia. Constitutional: Denies: chills, fever Respiratory: Reports: cough, shortness of breath; Denies: wheezing Cardiovascular: Denies: chest pain, palpitations Gastrointestinal/Abdominal: Denies: abdominal pain, constipation, diarrhea, nausea, vomiting Genitourinary: Denies: dysuria Geriatric Geriatric Last 24 Hour Vital Signs Date Time Temp Pulse Resp B/P (MAP) Pulse Ox O2 Delivery O2 Flow Rate FiO2 10/27/19 12:00 98.1 91 19 172/90 (117) 96 10/27/19 12:00 91 10/27/19 09:00 97.9 84 19 165/88 (113) 96 10/27/19 09:00 Venturi Mask 10.0 10/27/19 09:00 84 10/27/19 04:00 97.8 70 19 153/77 (102) 98 10/27/19 04:00 77 10/27/19 03:45 97.8 10/27/19 00:00 92 10/27/19 00:00 97.8 86 21 158/75 (102) 99 10/26/19 21:00 Venturi Mask 10.0 10/26/19 20:00 99 10/26/19 20:00 97.8 88 21 170/85 (113) 95 10/26/19 18:50 97 Venturi Mask 10.0 45 10/26/19 16:00 89 10/26/19 16:00 97.8 83 19 161/92 (115) 96 Intake and Output 10/26/19 10/27/19 19:00 07:00 Intake Total 389.183 ml 150 ml Output Total 500 ml Balance 389.183 ml -350 ml Intake Oral 140 ml 150 ml IV Total 249.183 ml Output Urine Total 500 ml Laboratory Tests Test 10/26/19 20:53 10/27/19 04:00 10/27/19 10:50 POC Whole Blood Glucose Pending White Blood Count 10.8 K/UL (4.8-10.8) Red Blood Count 4.61 M/UL (4.70-6.10) L Hemoglobin 13.0 G/DL (14.2-18.0) L Hematocrit 40.7 % (42.0-52.0) L Mean Corpuscular Volume 88 FL (80-99) Mean Corpuscular Hemoglobin 28.1 PG (27.0-31.0) Mean Corpuscular Hemoglobin Concent 31.9 G/DL (32.0-36.0) L Red Cell Distribution Width 12.2 % (11.6-14.8) Platelet Count 292 K/UL (150-450) Mean Platelet Volume 5.8 FL (6.5-10.1) L Neutrophils (%) (Auto) 72.6 % (45.0-75.0) Lymphocytes (%) (Auto) 18.6 % (20.0-45.0) L Monocytes (%) (Auto) 7.4 % (1.0-10.0) Eosinophils (%) (Auto) 0.1 % (0.0-3.0) Basophils (%) (Auto) 1.4 % (0.0-2.0) Activated Partial Thromboplast Time 60 SEC (23-33) H 135 SEC (23-33) H Sodium Level 138 MMOL/L (136-145) Potassium Level 4.6 MMOL/L (3.5-5.1) Chloride Level 104 MMOL/L (98-107) Carbon Dioxide Level 23 MMOL/L (21-32) Anion Gap 11 mmol/L (5-15) Blood Urea Nitrogen 23 mg/dL (7-18) H Creatinine 1.2 MG/DL (0.55-1.30) Estimat Glomerular Filtration Rate > 60 mL/min (>60) Glucose Level 200 MG/DL (74-106) H Calcium Level 8.4 MG/DL (8.5-10.1) L Total Bilirubin 0.4 MG/DL (0.2-1.0) Direct Bilirubin 0.2 MG/DL (0.0-0.3) Aspartate Amino Transf (AST/SGOT) 70 U/L (15-37) H Alanine Aminotransferase (ALT/SGPT) 89 U/L (12-78) H Alkaline Phosphatase 68 U/L (46-116) Total Protein 7.2 G/DL (6.4-8.2) Albumin 2.6 G/DL (3.4-5.0) L Globulin 4.6 g/dL Albumin/Globulin Ratio 0.6 (1.0-2.7) L Current Medications Medications (Trade) Dose Ordered Sig/Jenny Route PRN Reason Start Time Stop Time Status Last Admin Dose Admin Acetaminophen/ Hydrocodone Bitart ([place] 5/325) 1 tab Q4H PRN ORAL Moderate Pain (Pain Scale 4-6) 10/27/19 14:45 11/03/19 14:44 UNV Albuterol Sulfate (Proventil MDI) 2 puff Q4H PRN INH Shortness of Breath 10/23/19 18:00 01/21/20 17:59 Amlodipine Besylate (Norvasc) 2.5 mg DAILYPRN PRN ORAL For High Blood Pressure 10/26/19 19:45 11/25/19 19:44 Azithromycin 500 mg/Dextrose 275 ml @ 275 mls/hr Q24HRS IV 10/23/19 20:00 10/29/19 20:59 10/26/19 20:41 Ceftriaxone Sodium 1 gm/ Dextrose 55 ml @ 110 mls/hr Q24H IVPB 10/23/19 18:00 10/30/19 17:59 10/26/19 17:21 Dexamethasone Sodium Phosphate (Decadron 4mg/ml vial) 6 mg DAILY IVP 10/24/19 09:00 01/21/20 08:59 10/27/19 08:39 Dextrose (Dextrose 50%) 25 ml Q30M PRN IV Hypoglycemia 10/23/19 17:30 01/20/20 22:59 Dextrose (Dextrose 50%) 50 ml Q30M PRN IV Hypoglycemia 10/23/19 17:30 01/20/20 22:59 Duloxetine HCl (Cymbalta) 20 mg DAILY ORAL 10/27/19 09:00 01/25/20 08:59 10/27/19 08:38 Guaifenesin (Robitussin) 100 mg Q4H PRN ORAL For Cough 10/23/19 19:15 01/20/20 23:14 10/25/19 15:59 Heparin Sodium/ Dextrose 500 ml @ 25.71 mls/ hr ADJUST PER PROTOCOL IV 10/27/19 13:00 11/26/19 12:59 10/27/19 13:14 Insulin Aspart (NovoLOG) BEFORE MEALS AND HS SUBQ 10/24/19 21:00 01/21/20 06:29 10/27/19 11:49 Lorazepam (Ativan) 1 mg Q6H PRN ORAL For Anxiety 10/24/19 20:00 10/31/19 19:59 10/25/19 21:34 Lorazepam (Ativan) 2 mg Q12H PRN ORAL For Anxiety 10/23/19 18:00 10/29/19 17:59 10/26/19 10:08 Metformin HCl (Glucophage) 500 mg BID ORAL 10/23/19 18:00 11/22/19 08:59 10/27/19 08:38 Mirtazapine (Remeron) 7.5 mg BEDTIME ORAL 10/26/19 21:00 01/24/20 20:59 10/26/19 20:41 Pantoprazole (Protonix) 40 mg DAILY ORAL 10/24/19 09:00 11/23/19 08:59 10/27/19 08:38 Polyethylene Glycol (Miralax) 17 gm BEDTIME ORAL 10/26/19 21:00 11/25/19 20:59 10/26/19 20:41 Remdesivir 100 mg/ Sodium Chloride 250 ml @ 250 mls/hr Q24H IV 10/27/19 18:00 11/01/19 18:59 UNV Height (Feet): 6 Height (Inches): 1.00 Weight (Pounds): 218 General Appearance: alert, non-toxic Head: normocephalic, atraumatic Eyes: bilateral anicteric ENT: normal voice Neck: full range of motion, no mass Respiratory: decreased breath sounds Cardiovascular: regular rate, rhythm Gastrointestinal: normal bowel sounds, non tender, soft, no mass, no organomegaly Musculoskeletal: no calf tenderness Edema: no edema noted Generalized Neurologic: alert, no new focality Jim Zee MD Oct 27, 2019 15:10
[2019-10-27 16:00] VITALS: BP 161/90
[2019-10-27] MEDS: cefTRIAXone 1 GM in D5W 55 ML IVPB SCH (17:05)
[2019-10-27] MEDS: Remdesivir 100mg 100 MG in NS 230 ML IV SCH (18:21)
--- NOTE | 2019-10-27 19:34 | NUR ---
HAND-OFF: Report given to Caitlin METCALF. Patient is in astable condition.
--- NOTE | 2019-10-27 19:46 | NUR ---
NURSE NOTES: Received patient report from TEA Serrato. Patient shows no signs of distress or pain at the time. Patient is on 6L Nasal Canula and saturating at 97%. Patient shows no signs of respiratory distress. IV is patent and running heparin drip at 13 unit/kg/ hr. Awaiting for pahrmacy to call for new dose. Bed is in the lowest position, call light is within reach, side rails up x 3. Will continue to monitor.
--- NOTE | 2019-10-27 19:51 | NUR ---
NURSE NOTES: Patients PTT came back at 56. Pharmacy adjusted rate at 15 units/ kg/ hr at 29.665. with 4,000 untits of heparin bolus.
[2019-10-27 20:00] VITALS: BP 186/102
[2019-10-27] MEDS: Azithromycin 500 MG in D5W 275 ML IV SCH (20:22)
[2019-10-27] MEDS: Miralax 17gm pkt ORAL SCH (20:25)
[2019-10-27] MEDS: HYDROcodone/Acetamin 5/325 tab ORAL PRN (20:25)
--- NOTE | 2019-10-27 20:56 | NUR ---
NURSE NOTES: On heart monitor patient showed a new sinus rhythm [address] Zee to inform of new change. Awaiting call back. Patients blood pressure also went up to 186/102. Gave amlodepine and blood pressure went down to 155/ 85. Will continue to monitor.
--- NOTE | 2019-10-27 21:01 | NUR ---
NURSE NOTES: Dr. Zee called back, informed him of sinus rhythm first degree with .28 DC interval and of BP 186/102. Dr. Zee ordered EKG to be done in the AM.
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
[2019-10-28] VITALS: BP 140/88
[2019-10-28] MEDS ORDERED: Heparin 5000 units/ml inj IV SCH (02:00)
[2019-10-28] MEDS ORDERED: Heparin 25,000u/D5W 500ml 500 ML IV SCH (02:00)
[2019-10-28] MEDS: HYDROcodone/Acetamin 5/325 tab ORAL PRN ×2 (03:13→07:07)
--- NOTE | 2019-10-28 03:43 | NUR ---
HAND-OFF: Report given to TEA Crawford and TEA Alfonso. Patient shows no signs of distress or pain. Endorsed plan of care.
[2019-10-28 04:00] VITALS: BP 149/87
--- NOTE | 2019-10-28 04:00 | NUR ---
NURSE NOTES: Received patient report from TEA Tucker. Pt is alert and oriented x4, Patient shows no signs of distress or pain at the time, is on 6 L NC has been told not to remove it as he was not wearing it when I entered his room. Pt is saturating at 94-97%. Patient shows no signs of respiratory distress at this time, complained of a headache 8/10 and was just given pain medication by previous nurse, Caitlin. will reassess pain. IV is patent and running heparin drip at 19 unit/kg/hr- The rate was changed from 15 u/kg/hour to 19 u/kg/hour at 0230 with 8000 unit bolus. No signs of bleeding, dosing per pharmacy protocol. PTT timed next draw will be at 0800. Bed is in the lowest position, call light is within reach, side rails up x 3. Will continue to monitor.
[2019-10-28 04:53] LABS: BASOPHILS % (AUTO) 0.3 % (0.0-2.0); EOSINOPHILS % (AUTO) 0.1 % (0.0-3.0); HEMOGLOBIN 12.6 G/DL (14.2-18.0); LYMPHOCYTES % (AUTO) 19.1 % (20.0-45.0); MEAN CORPUSCULAR VOLUME 88 FL (80-99); MONOCYTES % (AUTO) 6.2 % (1.0-10.0); NEUTROPHILS % (AUTO) 74.3 % (45.0-75.0); PLATELET COUNT 351 K/UL (150-450); RED BLOOD COUNT 4.42 M/UL (4.70-6.10); RED CELL DISTRIBUTION WIDTH 12.5 % (11.6-14.8); WHITE BLOOD COUNT 10.2 K/UL (4.8-10.8)
[2019-10-28 05:18] LABS: ALANINE AMINOTRANSFERASE 68 U/L (12-78); ALBUMIN 2.6 G/DL (3.4-5.0); ALBUMIN/GLOBULIN RATIO 0.6 (1.0-2.7); ALKALINE PHOSPHATASE 71 U/L (46-116); ANION GAP 11 mmol/L (5-15); ASPARTATE AMINO TRANSFERASE 30 U/L (15-37); BILIRUBIN,DIRECT 0.1 MG/DL (0.0-0.3); BILIRUBIN,TOTAL 0.4 MG/DL (0.2-1.0); BLOOD UREA NITROGEN 25 mg/dL (7-18); CALCIUM 8.1 MG/DL (8.5-10.1); CARBON DIOXIDE 24 MMOL/L (21-32); CHLORIDE 99 MMOL/L (98-107); CREATININE 1.3 MG/DL (0.55-1.30); POTASSIUM 4.7 MMOL/L (3.5-5.1); SODIUM 134 MMOL/L (136-145)
[2019-10-28] MEDS: NovoLOG Insulin Flexpen SUBQ SCH ×4 (07:11→22:07)
[2019-10-28 08:00] VITALS: BP 154/76
--- NOTE | 2019-10-28 08:00 | NUR ---
HAND-OFF: Report given to TEA Serrato. Pt was removing oxygen and was desaturating, called RT placed on mask with O2@, told him and his daughter via facetime to not remove the oxygen or mask as the patient was removing it. stat ABGs ordered and drawn
--- NOTE | 2019-10-28 08:00 | NUR ---
NURSE NOTES: Wt is 89.7 kg, a change from previously, endorsed to day shift
[2019-10-28] MEDS: metFORMIN 500mg tab ORAL SCH ×2 (08:24→17:18)
--- NOTE | 2019-10-28 08:30 | NUR ---
NURSE NOTES: Received patient from TEA Crawford. Patient is AAO x4 with episode of confusion. Denies any pain at the time. Patient is saturating at 88%, notified Dr. Zee. Patient is non-rebreather mask. Patient is on Heparin drip running at 19units/kg/ hr. IV sites are intact, patent and running Heparin drip on right wrist and antibiotics on RAC. Bed is on lowest level with bedside rails up x2, brakes engaged for safety, call light within reach. Will continue with the plan of care. Patient is stable.
[2019-10-28] MEDS: Heparin 25,000u/D5W 500ml 500 ML IV SCH ×2 (10:55→18:18)
--- NOTE | 2019-10-28 11:30 | NUR ---
PT EVALUATION NOTE Patient seen for initial evaluation and treatment initiated. Patient presents with generalized weakness and c/o SOB which limits patient's activity tolerance and impairs functional mobility. Patient able to come to sitting at the EOB with SBA. OOB activities deferred due to RN request. Patient will benefit from skilled inpatient PT intervention to address strength and proper breathing techniques for improved activity tolerance and level of functional mobility. Anticipate discharge home once medically cleared by MD. No DME needs identified at this time. Addendum: 10/28/19 at 1308 by DARIO SAMANIEGO PT Amended: Links added.
[2019-10-28 12:00] VITALS: BP 162/88
--- NOTE | 2019-10-28 14:50 | NUR ---
CASE MANAGEMENT:REVIEW 10/28/19 SI: COVID PNA. SIRS. RHABDO SUSPECTED PULMONARY EMBOLI 98.8 80 22 162/88 100% ON 6L/NC H/H-12.6/39.0 IS: HEPARIN GTT IV REMDESIVIR Q24 (DAY #6) IV DECADRON Q24 IV AZITHROMYCIN Q24 IV ROCEPHIN Q24 SS INSULIN AC+HS NORCO PO Q6HRS PRN : TELEMETRY STATUS DCP: PATIENT IS FROM HOME
--- NOTE | 2019-10-28 15:01 | Pulmonology Progress Note ---
Valencia Medina RECRUITMENT AND OUTREACH ASSISTANT 10/28/19 1501: Subjective Constitutional: Reports: other - less sob, on 6 liters O2; Denies: fever Gastrointestinal/Abdominal: Denies: nausea, vomiting, diarrhea Psychiatric: Denies: depression Skin: Denies: rash Musculoskeletal: Denies: pain Allergies: Coded Allergies: No Known Allergies (Unverified , 08/10/14) Subjective on tele + SOB, minimally productive cough, on NRM, ABG stable +SOB, + occ cough, no wheezing no CP no fevers,no leukocytosis + anxious Objective Last 24 Hour Vital Signs Date Time Temp Pulse Resp B/P (MAP) Pulse Ox O2 Delivery O2 Flow Rate FiO2 10/28/19 12:00 98.8 80 22 162/88 (112) 100 10/28/19 12:00 80 10/28/19 09:30 98 10/28/19 09:00 Nasal Cannula 6.0 10/28/19 08:00 97.8 86 22 154/76 (102) 80 10/28/19 08:00 86 10/28/19 07:37 97.5 10/28/19 04:00 96.8 79 21 149/87 (107) 94 10/28/19 04:00 80 10/28/19 00:00 97.5 79 20 140/88 (105) 98 10/28/19 00:00 81 10/27/19 21:00 Nasal Cannula 6.0 10/27/19 20:26 86 186/102 10/27/19 20:00 97.9 86 20 186/102 (130) 95 10/27/19 16:00 97.6 101 18 161/90 (113) 97 10/27/19 16:00 101 Intake and Output 10/27/19 10/28/19 19:00 07:00 Intake Total 302.5 ml 1034.130 ml Output Total 550 ml Balance 302.5 ml 484.130 ml Intake Oral 140 ml 200 ml IV Total 162.5 ml 834.130 ml Output Urine Total 550 ml Objective General Appearance: no apparent distress, alert , awake, responsive male in NAD , on NRM Lines, tubes and drains: peripheral HEENT: normocephalic, atraumatic, anicteric, mucous membranes moist, PERRL, pharynx normal, supple, no JVD Neck: non-tender, normal alignment, supple Respiratory/Chest: chest wall non-tender, no respiratory distress, + intermittent use of accessory muscle use, few isolated rhonchi Cardiovascular/Chest: normal peripheral pulses, normal rate Abdomen: normal bowel sounds, non tender, soft Extremities: non-tender, no calf tenderness, normal capillary refill Skin Exam: warm/dry Neurologic: no motor/sensory deficits, alert, oriented x 3, responsive, anxious Musculoskeletal: normal muscle bulk Laboratory Tests 10/27/19 19:15: Activated Partial Thromboplast Time 56H 10/27/19 20:02: POC Whole Blood Glucose 279H 10/28/19 01:06: Activated Partial Thromboplast Time 39H, D-Dimer 0.67H 10/28/19 04:30: White Blood Count 10.2, Red Blood Count 4.42L, Hemoglobin 12.6L, Hematocrit 39.0L, Mean Corpuscular Volume 88, Mean Corpuscular Hemoglobin 28.5, Mean Corpuscular Hemoglobin Concent 32.4, Red Cell Distribution Width 12.5, Platelet Count 351, Mean Platelet Volume 5.5L, Neutrophils (%) (Auto) 74.3, Lymphocytes ( %) (Auto) 19.1L, Monocytes (%) (Auto) 6.2, Eosinophils (%) (Auto) 0.1, Basophils (%) (Auto) 0.3, Sodium Level 134L, Potassium Level 4.7, Chloride Level 99, Carbon Dioxide Level 24, Anion Gap 11, Blood Urea Nitrogen 25H, Creatinine 1.3, Estimat Glomerular Filtration Rate > 60, Glucose Level 175H, Calcium Level 8.1L, Total Bilirubin 0.4, Direct Bilirubin 0.1, Aspartate Amino Transf (AST/SGOT) 30, Alanine Aminotransferase (ALT/SGPT) 68, Alkaline Phosphatase 71, Lactate Dehydrogenase 570H, C-Reactive Protein, Quantitative 8.1H, Total Protein 7.2, Albumin 2.6L, Globulin 4.6, Albumin/Globulin Ratio 0.6L 10/28/19 08:05: Activated Partial Thromboplast Time > 150*H 10/28/19 08:11: Arterial Blood pH 7.437, Arterial Blood Partial Pressure CO2 30.4L, Arterial Blood Partial Pressure O2 115.1H, Arterial Blood HCO3 20.0L, Arterial Blood Oxygen Saturation 97.8, Arterial Blood Base Excess -3.1L, Sharad Test Positive Current Medications Medications (Trade) Dose Ordered Sig/Jenny Route PRN Reason Start Time Stop Time Status Last Admin Dose Admin Acetaminophen/ Hydrocodone Bitart ([place] 5/325) 1 tab Q4H PRN ORAL Moderate Pain (Pain Scale 4-6) 10/27/19 14:45 11/03/19 14:44 10/28/19 07:07 Albuterol Sulfate (Proventil MDI) 2 puff Q4H PRN INH Shortness of Breath 10/23/19 18:00 01/21/20 17:59 Amlodipine Besylate (Norvasc) 2.5 mg DAILYPRN PRN ORAL For High Blood Pressure 10/26/19 19:45 11/25/19 19:44 10/27/19 20:26 Azithromycin 500 mg/Dextrose 275 ml @ 275 mls/hr Q24HRS IV 10/23/19 20:00 10/29/19 20:59 10/27/19 20:22 Ceftriaxone Sodium 1 gm/ Dextrose 55 ml @ 110 mls/hr Q24H IVPB 10/23/19 18:00 10/30/19 17:59 10/27/19 17:05 Dexamethasone Sodium Phosphate (Decadron 4mg/ml vial) 6 mg DAILY IVP 10/24/19 09:00 01/21/20 08:59 10/28/19 08:24 Dextrose (Dextrose 50%) 25 ml Q30M PRN IV Hypoglycemia 10/23/19 17:30 01/20/20 22:59 Dextrose (Dextrose 50%) 50 ml Q30M PRN IV Hypoglycemia 10/23/19 17:30 01/20/20 22:59 Duloxetine HCl (Cymbalta) 20 mg DAILY ORAL 10/27/19 09:00 01/25/20 08:59 10/28/19 08:24 Guaifenesin (Robitussin) 100 mg Q4H PRN ORAL For Cough 10/23/19 19:15 01/20/20 23:14 10/25/19 15:59 Heparin Sodium/ Dextrose 500 ml @ 26.97 mls/ hr ADJUST PER PROTOCOL IV 10/28/19 10:35 11/27/19 10:34 10/28/19 10:55 Insulin Aspart (NovoLOG) BEFORE MEALS AND HS SUBQ 10/24/19 21:00 01/21/20 06:29 10/28/19 11:40 Lorazepam (Ativan) 1 mg Q6H PRN ORAL For Anxiety 10/24/19 20:00 10/31/19 19:59 10/25/19 21:34 Lorazepam (Ativan) 2 mg Q12H PRN ORAL For Anxiety 10/23/19 18:00 10/29/19 17:59 10/26/19 10:08 Metformin HCl (Glucophage) 500 mg BID ORAL 10/23/19 18:00 11/22/19 08:59 10/28/19 08:24 Mirtazapine (Remeron) 7.5 mg BEDTIME ORAL 10/26/19 21:00 01/24/20 20:59 10/27/19 20:25 Pantoprazole (Protonix) 40 mg DAILY ORAL 10/24/19 09:00 11/23/19 08:59 10/28/19 08:24 Polyethylene Glycol (Miralax) 17 gm BEDTIME ORAL 10/26/19 21:00 11/25/19 20:59 10/27/19 20:25 Remdesivir 100 mg/ Sodium Chloride 250 ml @ 250 mls/hr Q24H IV 10/27/19 18:00 11/01/19 18:59 10/27/19 18:21 Assessment/Plan Assessment/Plan ASSESSMENT COVID 19 infection, recently diagnosed PNA, probably due to COVID 19 vs CAP Mild hypoxia Minimally elevated troponin ( resolved already) CECI with proteinuria ? diabetic nephropathy DM OOC with diabetic neuropathy Pyuria, possible UTI Hypo Na Hx of HTN Transaminitis Low albumin, possible malnutrition Chronic pain PLAN OF CARE tele isolation ABG this am on NRM stable, titrate O2 to keep sat > 90 ( currently on 100% NRM) MDI Albuterol prn repeat ABG in am CXR 10/25 - Increased patchy opacities throughout the lungs, concerning for infectious/inflammatory process and/or pulmonary edema. CXR 10/26 -> Bilateral infiltrates appear unchanged. Heart size is normal. fup CXR in am on abx: Ceftriaxone and Azithromycin SCX if able ID follows continue steroid, can probably transitioned to oral , added GI prophylaxis continue Remdesivir and Decadron ( started 10/23) agree for a 10 days course, giving persistent hypoxia repeat COVID 19 testing later fup with inflammatory markers to access a risk for cytokine storm latest LDH 570 (trendign down), CRP 8.1 ( up from the last one), ferritin 576 , - still high risk for cytokine storm IL 6 -15.6 a/tussive prn monitor volumes full a/c, now on heparin gtt second troponin down to normal min elevation possibly due to CECI , hypoperfusion monitor renal parameters, avoid nephrotoxics, creat down to 1.2 Na better UCX 7/2 NGTD UA+ pyuria, mod bacteria, on ceftriaxone already BCX 7/2 NGTD BS management with metformin ( lactic acid down to normal) and SSI, may need higher coverage from SSI ( given steroids) HgA1c - 9.1 not at goal, trend CK, LFT CK and AST trending down BP management with CCB ECHO with pEF 60%, mild diastolic dysfunction, monitor volumes pain management dietary eval noted supportive care Thank you for this consultation! case discussed and evaluated by supervising physician Solomon Delong MD 10/29/19 1448: Subjective Allergies: Coded Allergies: No Known Allergies (Unverified , 08/10/14) Assessment/Plan Assessment/Plan Patient seen and examined with RECRUITMENT AND OUTREACH ASSISTANT. Agree with above A&P as it reflects our joint deliberations. Valencia Medina NP Oct 28, 2019 15:01 Solomon Delong MD Oct 29, 2019 14:48
[2019-10-28 16:00] VITALS: BP 145/76
[2019-10-28] MEDS: cefTRIAXone 1 GM in D5W 55 ML IVPB SCH (17:17)
[2019-10-28 17:50] LABS: HEMATOCRIT 37.7 % (42.0-52.0); HEMOGLOBIN 12.4 G/DL (14.2-18.0); MEAN CORPUSCULAR VOLUME 86 FL (80-99); PLATELET COUNT 392 K/UL (150-450); RED BLOOD COUNT 4.39 M/UL (4.70-6.10); RED CELL DISTRIBUTION WIDTH 12.8 % (11.6-14.8)
[2019-10-28 17:57] LABS: EOSINOPHILS % (AUTO) 0.1 % (0.0-3.0); LYMPHOCYTES % (AUTO) 9.4 % (20.0-45.0); NEUTROPHILS % (AUTO) 86.6 % (45.0-75.0)
[2019-10-28] MEDS: Remdesivir 100mg 100 MG in NS 230 ML IV SCH (18:15)
--- NOTE | 2019-10-28 18:23 | Cardiology Progress Note ---
Assessment/Plan Assessment/Plan [id number] Objective Last 24 Hour Vital Signs Date Time Temp Pulse Resp B/P (MAP) Pulse Ox O2 Delivery O2 Flow Rate FiO2 10/28/19 16:00 96.6 89 22 145/76 (99) 95 10/28/19 12:00 98.8 80 22 162/88 (112) 100 10/28/19 12:00 80 10/28/19 09:30 98 10/28/19 09:00 Nasal Cannula 6.0 10/28/19 08:00 97.8 86 22 154/76 (102) 80 10/28/19 08:00 86 10/28/19 07:37 97.5 10/28/19 04:00 96.8 79 21 149/87 (107) 94 10/28/19 04:00 80 10/28/19 00:00 97.5 79 20 140/88 (105) 98 10/28/19 00:00 81 10/27/19 21:00 Nasal Cannula 6.0 10/27/19 20:26 86 186/102 10/27/19 20:00 97.9 86 20 186/102 (130) 95 Intake and Output 10/27/19 10/28/19 19:00 07:00 Intake Total 302.5 ml 1034.130 ml Output Total 550 ml Balance 302.5 ml 484.130 ml Intake Oral 140 ml 200 ml IV Total 162.5 ml 834.130 ml Output Urine Total 550 ml Laboratory Tests Test 10/27/19 19:15 10/27/19 20:02 10/28/19 01:06 10/28/19 04:30 Activated Partial Thromboplast Time 56 SEC (23-33) H 39 SEC (23-33) H POC Whole Blood Glucose 279 MG/DL (74-106) H D-Dimer 0.67 mg/L FEU (0.00-0.49) H White Blood Count 10.2 K/UL (4.8-10.8) Red Blood Count 4.42 M/UL (4.70-6.10) L Hemoglobin 12.6 G/DL (14.2-18.0) L Hematocrit 39.0 % (42.0-52.0) L Mean Corpuscular Volume 88 FL (80-99) Mean Corpuscular Hemoglobin 28.5 PG (27.0-31.0) Mean Corpuscular Hemoglobin Concent 32.4 G/DL (32.0-36.0) Red Cell Distribution Width 12.5 % (11.6-14.8) Platelet Count 351 K/UL (150-450) Mean Platelet Volume 5.5 FL (6.5-10.1) L Neutrophils (%) (Auto) 74.3 % (45.0-75.0) Lymphocytes (%) (Auto) 19.1 % (20.0-45.0) L Monocytes (%) (Auto) 6.2 % (1.0-10.0) Eosinophils (%) (Auto) 0.1 % (0.0-3.0) Basophils (%) (Auto) 0.3 % (0.0-2.0) Sodium Level 134 MMOL/L (136-145) L Potassium Level 4.7 MMOL/L (3.5-5.1) Chloride Level 99 MMOL/L (98-107) Carbon Dioxide Level 24 MMOL/L (21-32) Anion Gap 11 mmol/L (5-15) Blood Urea Nitrogen 25 mg/dL (7-18) H Creatinine 1.3 MG/DL (0.55-1.30) Estimat Glomerular Filtration Rate > 60 mL/min (>60) Glucose Level 175 MG/DL (74-106) H Calcium Level 8.1 MG/DL (8.5-10.1) L Total Bilirubin 0.4 MG/DL (0.2-1.0) Direct Bilirubin 0.1 MG/DL (0.0-0.3) Aspartate Amino Transf (AST/SGOT) 30 U/L (15-37) Alanine Aminotransferase (ALT/SGPT) 68 U/L (12-78) Alkaline Phosphatase 71 U/L (46-116) Lactate Dehydrogenase 570 U/L (81-234) H C-Reactive Protein, Quantitative 8.1 mg/dL (0.00-0.90) H Total Protein 7.2 G/DL (6.4-8.2) Albumin 2.6 G/DL (3.4-5.0) L Globulin 4.6 g/dL Albumin/Globulin Ratio 0.6 (1.0-2.7) L Test 10/28/19 07:08 10/28/19 08:05 10/28/19 08:11 10/28/19 10:58 POC Whole Blood Glucose 275 MG/DL (74-106) H 279 MG/DL (74-106) H Activated Partial Thromboplast Time > 150 SEC (23-33) *H Arterial Blood pH 7.437 (7.350-7.450) Arterial Blood Partial Pressure CO2 30.4 mmHg (35.0-45.0) L Arterial Blood Partial Pressure O2 115.1 mmHg (75.0-100.0) H Arterial Blood HCO3 20.0 mmol/L (22.0-26.0) L Arterial Blood Oxygen Saturation 97.8 % (95-100) Arterial Blood Base Excess -3.1 (-2-2) L Sharad Test Positive Test 10/28/19 17:00 10/28/19 17:02 White Blood Count 11.0 K/UL (4.8-10.8) H Red Blood Count 4.39 M/UL (4.70-6.10) L Hemoglobin 12.4 G/DL (14.2-18.0) L Hematocrit 37.7 % (42.0-52.0) L Mean Corpuscular Volume 86 FL (80-99) Mean Corpuscular Hemoglobin 28.3 PG (27.0-31.0) Mean Corpuscular Hemoglobin Concent 33.0 G/DL (32.0-36.0) Red Cell Distribution Width 12.8 % (11.6-14.8) Platelet Count 392 K/UL (150-450) Mean Platelet Volume 5.5 FL (6.5-10.1) L Neutrophils (%) (Auto) 86.6 % (45.0-75.0) H Lymphocytes (%) (Auto) 9.4 % (20.0-45.0) L Monocytes (%) (Auto) 3.0 % (1.0-10.0) Eosinophils (%) (Auto) 0.1 % (0.0-3.0) Basophils (%) (Auto) 1.0 % (0.0-2.0) Activated Partial Thromboplast Time Pending POC Whole Blood Glucose 343 MG/DL (74-106) H Al Emanuel MD Oct 28, 2019 18:23
[2019-10-28] MEDS ORDERED: Furosemide 40mg tab ORAL SCH (18:35)
--- NOTE | 2019-10-28 19:22 | Geriatric Progress Note ---
Assessment/Plan Problems: (1) Transaminasemia (2) SIRS (systemic inflammatory response syndrome) (3) Urinary tract infection (4) Chronic back pain (5) Cataract (6) Pneumonia due to COVID-19 virus (7) Diabetes type 2, uncontrolled (8) Diabetic neuropathy associated with type 2 diabetes mellitus (9) Chronic pain disorder (10) Anxiety disorder (11) Acute kidney injury (12) Rhabdomyolysis due to COVID-19 (13) Chronic rhinitis (14) Hypertension (15) Volume depletion (16) Nausea Assessment/Plan Still requiring significant oxygen supplementation. Otherwise, currently not showing evidence of further decompensation. Attempt to use nc again, if patient can tolerate. Discussed with staff. Continue dexamethasone, remdesivir for 10d course. Follow labs. Mobilize with physical therapy. Will attempt to convert to [place] 5 with shorter interval. Diabetes with sugars in 200-300s, associated with dexamethasone use. Will not be stable for d/c until O2 requirement stabilized. Subjective Interval Events Patient with episodes of anxiety through the day. Pulled out IV. Reports he is anxious to go home because dtr has symptomatic with COVID-19, and she is caring for two children. Patient repeatedly c/o SOB, and is placed back on NRB, which he takes off and on. Also has inadvertently pulled out another IV. On ROS does not report specific symptoms. Staff reports patient's anxiety leads to recurrent calls, inadvertent non- compliance. Constitutional: Denies: chills, sweats, fever Respiratory: Denies: cough, shortness of breath Cardiovascular: Denies: chest pain, palpitations Gastrointestinal/Abdominal: Denies: abdominal pain, nausea, vomiting Genitourinary: Denies: dysuria Geriatric Geriatric Last 24 Hour Vital Signs Date Time Temp Pulse Resp B/P (MAP) Pulse Ox O2 Delivery O2 Flow Rate FiO2 10/28/19 16:00 88 10/28/19 16:00 96.6 89 22 145/76 (99) 95 10/28/19 12:00 98.8 80 22 162/88 (112) 100 10/28/19 12:00 80 10/28/19 09:30 98 10/28/19 09:00 Nasal Cannula 6.0 10/28/19 08:00 97.8 86 22 154/76 (102) 80 10/28/19 08:00 86 10/28/19 07:37 97.5 7/8/20 04:00 96.8 79 21 149/87 (107) 94 10/28/19 04:00 80 10/28/19 00:00 97.5 79 20 140/88 (105) 98 10/28/19 00:00 81 10/27/19 21:00 Nasal Cannula 6.0 10/27/19 20:26 86 186/102 10/27/19 20:00 97.9 86 20 186/102 (130) 95 Intake and Output 10/27/19 10/28/19 19:00 07:00 Intake Total 302.5 ml 1034.130 ml Output Total 550 ml Balance 302.5 ml 484.130 ml Intake Oral 140 ml 200 ml IV Total 162.5 ml 834.130 ml Output Urine Total 550 ml Laboratory Tests Test 10/27/19 20:02 10/28/19 01:06 10/28/19 04:30 10/28/19 07:08 POC Whole Blood Glucose 279 MG/DL (74-106) H 275 MG/DL (74-106) H Activated Partial Thromboplast Time 39 SEC (23-33) H D-Dimer 0.67 mg/L FEU (0.00-0.49) H White Blood Count 10.2 K/UL (4.8-10.8) Red Blood Count 4.42 M/UL (4.70-6.10) L Hemoglobin 12.6 G/DL (14.2-18.0) L Hematocrit 39.0 % (42.0-52.0) L Mean Corpuscular Volume 88 FL (80-99) Mean Corpuscular Hemoglobin 28.5 PG (27.0-31.0) Mean Corpuscular Hemoglobin Concent 32.4 G/DL (32.0-36.0) Red Cell Distribution Width 12.5 % (11.6-14.8) Platelet Count 351 K/UL (150-450) Mean Platelet Volume 5.5 FL (6.5-10.1) L Neutrophils (%) (Auto) 74.3 % (45.0-75.0) Lymphocytes (%) (Auto) 19.1 % (20.0-45.0) L Monocytes (%) (Auto) 6.2 % (1.0-10.0) Eosinophils (%) (Auto) 0.1 % (0.0-3.0) Basophils (%) (Auto) 0.3 % (0.0-2.0) Sodium Level 134 MMOL/L (136-145) L Potassium Level 4.7 MMOL/L (3.5-5.1) Chloride Level 99 MMOL/L (98-107) Carbon Dioxide Level 24 MMOL/L (21-32) Anion Gap 11 mmol/L (5-15) Blood Urea Nitrogen 25 mg/dL (7-18) H Creatinine 1.3 MG/DL (0.55-1.30) Estimat Glomerular Filtration Rate > 60 mL/min (>60) Glucose Level 175 MG/DL (74-106) H Calcium Level 8.1 MG/DL (8.5-10.1) L Total Bilirubin 0.4 MG/DL (0.2-1.0) Direct Bilirubin 0.1 MG/DL (0.0-0.3) Aspartate Amino Transf (AST/SGOT) 30 U/L (15-37) Alanine Aminotransferase (ALT/SGPT) 68 U/L (12-78) Alkaline Phosphatase 71 U/L (46-116) Lactate Dehydrogenase 570 U/L (81-234) H C-Reactive Protein, Quantitative 8.1 mg/dL (0.00-0.90) H Total Protein 7.2 G/DL (6.4-8.2) Albumin 2.6 G/DL (3.4-5.0) L Globulin 4.6 g/dL Albumin/Globulin Ratio 0.6 (1.0-2.7) L Test 10/28/19 08:05 10/28/19 08:11 10/28/19 10:58 10/28/19 17:00 Activated Partial Thromboplast Time > 150 SEC (23-33) *H Pending Arterial Blood pH 7.437 (7.350-7.450) Arterial Blood Partial Pressure CO2 30.4 mmHg (35.0-45.0) L Arterial Blood Partial Pressure O2 115.1 mmHg (75.0-100.0) H Arterial Blood HCO3 20.0 mmol/L (22.0-26.0) L Arterial Blood Oxygen Saturation 97.8 % (95-100) Arterial Blood Base Excess -3.1 (-2-2) L Sharad Test Positive POC Whole Blood Glucose 279 MG/DL (74-106) H White Blood Count 11.0 K/UL (4.8-10.8) H Red Blood Count 4.39 M/UL (4.70-6.10) L Hemoglobin 12.4 G/DL (14.2-18.0) L Hematocrit 37.7 % (42.0-52.0) L Mean Corpuscular Volume 86 FL (80-99) Mean Corpuscular Hemoglobin 28.3 PG (27.0-31.0) Mean Corpuscular Hemoglobin Concent 33.0 G/DL (32.0-36.0) Red Cell Distribution Width 12.8 % (11.6-14.8) Platelet Count 392 K/UL (150-450) Mean Platelet Volume 5.5 FL (6.5-10.1) L Neutrophils (%) (Auto) 86.6 % (45.0-75.0) H Lymphocytes (%) (Auto) 9.4 % (20.0-45.0) L Monocytes (%) (Auto) 3.0 % (1.0-10.0) Eosinophils (%) (Auto) 0.1 % (0.0-3.0) Basophils (%) (Auto) 1.0 % (0.0-2.0) Test 10/28/19 17:02 POC Whole Blood Glucose 343 MG/DL (74-106) H Current Medications Medications (Trade) Dose Ordered Sig/Jenny Route PRN Reason Start Time Stop Time Status Last Admin Dose Admin Acetaminophen/ Hydrocodone Bitart ([place] 5/325) 1 tab Q4H PRN ORAL Moderate Pain (Pain Scale 4-6) 10/27/19 14:45 11/03/19 14:44 10/28/19 07:07 Albuterol Sulfate (Proventil MDI) 2 puff Q4H PRN INH Shortness of Breath 10/23/19 18:00 01/21/20 17:59 Amlodipine Besylate (Norvasc) 2.5 mg DAILYPRN PRN ORAL For High Blood Pressure 10/26/19 19:45 11/25/19 19:44 10/27/19 20:26 Azithromycin 500 mg/Dextrose 275 ml @ 275 mls/hr Q24HRS IV 10/23/19 20:00 10/29/19 20:59 10/27/19 20:22 Ceftriaxone Sodium 1 gm/ Dextrose 55 ml @ 110 mls/hr Q24H IVPB 10/23/19 18:00 10/30/19 17:59 10/28/19 17:17 Dexamethasone Sodium Phosphate (Decadron 4mg/ml vial) 6 mg DAILY IVP 10/24/19 09:00 01/21/20 08:59 10/28/19 08:24 Dextrose (Dextrose 50%) 25 ml Q30M PRN IV Hypoglycemia 10/23/19 17:30 01/20/20 22:59 Dextrose (Dextrose 50%) 50 ml Q30M PRN IV Hypoglycemia 10/23/19 17:30 01/20/20 22:59 Duloxetine HCl (Cymbalta) 20 mg DAILY ORAL 10/27/19 09:00 01/25/20 08:59 10/28/19 08:24 Furosemide (Lasix) 40 mg ONCE ORAL 10/28/19 18:35 10/28/19 20:00 Furosemide (Lasix) 40 mg ONCE ORAL 10/29/19 09:00 10/29/19 11:00 Guaifenesin (Robitussin) 100 mg Q4H PRN ORAL For Cough 10/23/19 19:15 01/20/20 23:14 10/25/19 15:59 Heparin Sodium/ Dextrose 500 ml @ 26.97 mls/ hr ADJUST PER PROTOCOL IV 10/28/19 10:35 11/27/19 10:34 10/28/19 18:18 Insulin Aspart (NovoLOG) BEFORE MEALS AND HS SUBQ 10/24/19 21:00 01/21/20 06:29 10/28/19 17:11 Lorazepam (Ativan) 1 mg Q6H PRN ORAL For Anxiety 10/24/19 20:00 10/31/19 19:59 10/25/19 21:34 Lorazepam (Ativan) 2 mg Q12H PRN ORAL For Anxiety 10/23/19 18:00 10/29/19 17:59 10/26/19 10:08 Metformin HCl (Glucophage) 500 mg BID ORAL 10/23/19 18:00 11/22/19 08:59 10/28/19 17:18 Mirtazapine (Remeron) 7.5 mg BEDTIME ORAL 10/26/19 21:00 01/24/20 20:59 10/27/19 20:25 Pantoprazole (Protonix) 40 mg DAILY ORAL 10/24/19 09:00 11/23/19 08:59 10/28/19 08:24 Polyethylene Glycol (Miralax) 17 gm BEDTIME ORAL 10/26/19 21:00 11/25/19 20:59 10/27/19 20:25 Remdesivir 100 mg/ Sodium Chloride 250 ml @ 250 mls/hr Q24H IV 10/27/19 18:00 11/01/19 18:59 10/28/19 18:15 Height (Feet): 6 Height (Inches): 1.00 Weight (Pounds): 198 General Appearance: alert - anxious Eyes: bilateral anicteric ENT: normal voice Neck: full range of motion, no mass Respiratory: decreased breath sounds Cardiovascular: regular rate, rhythm Gastrointestinal: normal bowel sounds, non tender, soft, no mass, no organomegaly Musculoskeletal: no calf tenderness Edema: no edema noted Generalized Neurologic: alert, no new focality Jim Zee MD Oct 28, 2019 19:22
--- NOTE | 2019-10-28 19:44 | NUR ---
HAND-OFF: Report given to Rajnai and Naty RN'S. Endorsed that Dr. Zee would like the oxygen to be titrated to nasal cannula. Patient is in stable condition.
--- NOTE | 2019-10-28 19:53 | NUR ---
NURSE NOTES: Received report from TEA Serrato. Patient is awake lying semi-conn's; resting comfortably. No signs of acute distress noted; denies pain at this time. On 15L non-rebreather mask saturating at 93%. AOx4 with periods of confusion. Ambulates with some assistance. Checked IV site; patent and flushed. No erythema, bleeding, or infiltration noted. Urinal easily accessible. Bed at lowest position, brakes on, siderails up x3. Bed alarms activated following fall precautions. Call light within reach. Will continue to monitor.
[2019-10-28 20:00] VITALS: BP 144/76
[2019-10-28] MEDS: Azithromycin 500 MG in D5W 275 ML IV SCH (21:59)
[2019-10-28] MEDS: Miralax 17gm pkt ORAL SCH (22:06)
[2019-10-28] MEDS: Enoxaparin 100mg Inj SUBQ SCH (22:37)
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
[2019-10-28] MEDS: LORazepam 1mg tab ORAL PRN (22:48)
[2019-10-29] VITALS: BP 131/74
[2019-10-29 04:00] VITALS: BP 133/74
[2019-10-29] MEDS: NovoLOG Insulin Flexpen SUBQ SCH ×4 (06:11→20:54)
--- NOTE | 2019-10-29 07:06 | Pulmonology Progress Note ---
Valnecia Medina [employer] 10/29/19 0706: Subjective Constitutional: Reports: other - less sob, on 6 liters O2; Denies: fever Gastrointestinal/Abdominal: Denies: nausea, vomiting, diarrhea Psychiatric: Denies: depression Skin: Denies: rash Musculoskeletal: Denies: pain Allergies: Coded Allergies: No Known Allergies (Unverified , 08/10/14) Subjective on tele + SOB, minimally productive cough, on NRM, pulse ox in 90 ABG for this am pending eating breakfast now w/out mask for short times, no resp difficulties +SOB, + occ cough, no wheezing no CP no fevers Objective Last 24 Hour Vital Signs Date Time Temp Pulse Resp B/P (MAP) Pulse Ox O2 Delivery O2 Flow Rate FiO2 10/29/19 04:00 96 10/29/19 04:00 97.7 74 19 133/74 (93) 93 10/29/19 00:00 83 10/29/19 00:00 97.9 88 20 131/74 (93) 94 10/28/19 21:00 Non-Rebreather 15.0 10/28/19 20:00 93 10/28/19 20:00 98.6 86 24 144/76 (98) 93 10/28/19 19:00 94 Venturi Mask 10.0 45 10/28/19 16:00 88 10/28/19 16:00 96.6 89 22 145/76 (99) 95 10/28/19 12:00 98.8 80 22 162/88 (112) 100 10/28/19 12:00 80 10/28/19 09:30 98 10/28/19 09:00 Nasal Cannula 6.0 10/28/19 08:00 97.8 86 22 154/76 (102) 80 10/28/19 08:00 86 10/28/19 07:37 97.5 Intake and Output 10/28/19 10/29/19 19:00 07:00 Intake Total 120 ml Output Total 1050 ml 700 ml Balance -930 ml -700 ml Intake Oral 120 ml Output Urine Total 1050 ml 700 ml Objective General Appearance: no apparent distress, alert , awake, responsive male in NAD , on NRM Lines, tubes and drains: peripheral HEENT: normocephalic, atraumatic, anicteric, mucous membranes moist, PERRL, pharynx normal, supple, no JVD Neck: non-tender, normal alignment, supple Respiratory/Chest: chest wall non-tender, no respiratory distress, + intermittent use of accessory muscle use, few isolated rhonchi Cardiovascular/Chest: normal peripheral pulses, normal rate Abdomen: normal bowel sounds, non tender, soft Extremities: non-tender, no calf tenderness, normal capillary refill Skin Exam: warm/dry Neurologic: no motor/sensory deficits, alert, oriented x 3, responsive, Musculoskeletal: normal muscle bulk Laboratory Tests 10/28/19 07:08: POC Whole Blood Glucose 275H 10/28/19 08:05: Activated Partial Thromboplast Time > 150*H 10/28/19 08:11: Arterial Blood pH 7.437, Arterial Blood Partial Pressure CO2 30.4L, Arterial Blood Partial Pressure O2 115.1H, Arterial Blood HCO3 20.0L, Arterial Blood Oxygen Saturation 97.8, Arterial Blood Base Excess -3.1L, Sharad Test Positive 10/28/19 10:58: POC Whole Blood Glucose 279H 10/28/19 17:00: White Blood Count 11.0H, Red Blood Count 4.39L, Hemoglobin 12.4L, Hematocrit 37.7L, Mean Corpuscular Volume 86, Mean Corpuscular Hemoglobin 28.3, Mean Corpuscular Hemoglobin Concent 33.0, Red Cell Distribution Width 12.8, Platelet Count 392, Mean Platelet Volume 5.5L, Neutrophils (%) (Auto) 86.6H, Lymphocytes (%) (Auto) 9.4L, Monocytes (%) (Auto) 3.0, Eosinophils (%) (Auto) 0.1, Basophils (%) (Auto) 1.0, Activated Partial Thromboplast Time 71H 10/28/19 17:02: POC Whole Blood Glucose 343H 10/29/19 06:29: White Blood Count [Pending], Red Blood Count [Pending], Hemoglobin [Pending], Hematocrit [Pending], Mean Corpuscular Volume [Pending], Mean Corpuscular Hemoglobin [Pending], Mean Corpuscular Hemoglobin Concent [Pending], Red Cell Distribution Width [Pending], Platelet Count [Pending], Mean Platelet Volume [ Pending], Neutrophils (%) (Auto) [Pending], Lymphocytes (%) (Auto) [Pending], Monocytes (%) (Auto) [Pending], Eosinophils (%) (Auto) [Pending], Basophils (%) (Auto) [Pending], Sodium Level [Pending], Potassium Level [Pending], Chloride Level [Pending], Carbon Dioxide Level [Pending], Blood Urea Nitrogen [Pending], Creatinine [Pending], Estimat Glomerular Filtration Rate [Pending], Glucose Level [Pending], Calcium Level [Pending], Magnesium Level [Pending], Total Bilirubin [Pending], Direct Bilirubin [Pending], Aspartate Amino Transf (AST/ SGOT) [Pending], Alanine Aminotransferase (ALT/SGPT) [Pending], Alkaline Phosphatase [Pending], Total Creatine Kinase [Pending], Pro-B-Type Natriuretic Peptide [Pending], Total Protein [Pending], Albumin [Pending], Globulin [Pending ] Current Medications Medications (Trade) Dose Ordered Sig/Jenny Route PRN Reason Start Time Stop Time Status Last Admin Dose Admin Acetaminophen/ Hydrocodone Bitart ([place] 5/325) 1 tab Q4H PRN ORAL Moderate Pain (Pain Scale 4-6) 10/27/19 14:45 11/03/19 14:44 10/28/19 07:07 Albuterol Sulfate (Proventil MDI) 2 puff Q4H PRN INH Shortness of Breath 10/23/19 18:00 01/21/20 17:59 Amlodipine Besylate (Norvasc) 2.5 mg DAILYPRN PRN ORAL For High Blood Pressure 10/26/19 19:45 11/25/19 19:44 10/27/19 20:26 Azithromycin 500 mg/Dextrose 275 ml @ 275 mls/hr Q24HRS IV 10/23/19 20:00 10/29/19 20:59 10/28/19 21:59 Ceftriaxone Sodium 1 gm/ Dextrose 55 ml @ 110 mls/hr Q24H IVPB 10/23/19 18:00 10/30/19 17:59 10/28/19 17:17 Dexamethasone Sodium Phosphate (Decadron 4mg/ml vial) 6 mg DAILY IVP 10/24/19 09:00 01/21/20 08:59 10/28/19 08:24 Dextrose (Dextrose 50%) 25 ml Q30M PRN IV Hypoglycemia 10/23/19 17:30 01/20/20 22:59 Dextrose (Dextrose 50%) 50 ml Q30M PRN IV Hypoglycemia 10/23/19 17:30 01/20/20 22:59 Duloxetine HCl (Cymbalta) 20 mg DAILY ORAL 10/27/19 09:00 01/25/20 08:59 10/28/19 08:24 Enoxaparin Sodium (Lovenox) 90 mg EVERY 12 HOURS SUBQ 10/28/19 23:00 01/26/20 22:59 10/28/19 22:37 Furosemide (Lasix) 40 mg ONCE ORAL 10/29/19 09:00 10/29/19 11:00 Guaifenesin (Robitussin) 100 mg Q4H PRN ORAL For Cough 10/23/19 19:15 01/20/20 23:14 10/25/19 15:59 Insulin Aspart (NovoLOG) BEFORE MEALS AND HS SUBQ 10/24/19 21:00 01/21/20 06:29 10/29/19 06:11 Lorazepam (Ativan) 1 mg Q6H PRN ORAL For Anxiety 10/24/19 20:00 10/31/19 19:59 10/28/19 22:48 Lorazepam (Ativan) 2 mg Q12H PRN ORAL For Anxiety 10/23/19 18:00 10/29/19 17:59 10/26/19 10:08 Metformin HCl (Glucophage) 500 mg BID ORAL 10/23/19 18:00 11/22/19 08:59 10/28/19 17:18 Mirtazapine (Remeron) 7.5 mg BEDTIME ORAL 10/26/19 21:00 01/24/20 20:59 10/28/19 22:00 Pantoprazole (Protonix) 40 mg DAILY ORAL 10/24/19 09:00 11/23/19 08:59 10/28/19 08:24 Polyethylene Glycol (Miralax) 17 gm BEDTIME ORAL 10/26/19 21:00 11/25/19 20:59 10/28/19 22:06 Remdesivir 100 mg/ Sodium Chloride 250 ml @ 250 mls/hr Q24H IV 10/27/19 18:00 11/01/19 18:59 10/28/19 18:15 Assessment/Plan Assessment/Plan ASSESSMENT COVID 19 infection, recently diagnosed PNA, probably due to COVID 19 Mild hypoxia Minimally elevated troponin ( resolved already) CECI with proteinuria ? diabetic nephropathy DM OOC with diabetic neuropathy Pyuria, possible UTI Hypo Na Hx of HTN Transaminitis Low albumin, possible malnutrition Chronic pain PLAN OF CARE tele isolation ABG and CXR pending for this am, f/up with results remains on NRM, titrate O2 to keep sat > 90 ( currently on 100% NRM) but eating breakfast w/ out resp difficulties MDI Albuterol prn fup with ABG in am CXR 10/25 - Increased patchy opacities throughout the lungs, concerning for infectious/inflammatory process and/or pulmonary edema. CXR 10/26 -> Bilateral infiltrates appear unchanged. Heart size is normal. CXR 10/28 pending on abx: Ceftriaxone and Azithromycin SCX if able ID follows continue steroid, can probably transitioned to oral , added GI prophylaxis continue Remdesivir and Decadron ( started 10/23) agree with a 10 days course, giving persistent hypoxia repeat COVID 19 testing later fup with inflammatory markers to access a risk for cytokine storm latest LDH 570 (trending down), CRP 8.1 ( up from the last one), ferritin 576 , - still high risk for cytokine storm IL 6 -15.6 a/tussive prn monitor volumes full a/c, s/p heparin gtt, now on Lovenox bid since 10/27 second troponin down to normal min elevation possibly due to CECI , hypoperfusion cardio on board now ECHO with pEF 60%, mild diastolic dysfunction monitor renal parameters, avoid nephrotoxics, creat down to 1.2 Na better UCX 7/2 NGTD UA+ pyuria, mod bacteria, on ceftriaxone already BCX 7/2 NGTD BS management with metformin ( lactic acid down to normal) and SSI, may need higher coverage from SSI ( given steroids) HgA1c - 9.1 not at goal, trend CK, LFT CK and AST trending down BP management with CCB, now started on oral Lasix, monitor volumes pain management dietary eval noted supportive care Thank you for this consultation! case discussed and evaluated by supervising physician Solomon Delong MD 10/29/19 1449: Subjective Allergies: Coded Allergies: No Known Allergies (Unverified , 08/10/14) Assessment/Plan Assessment/Plan Patient seen and examined with [employer]. Agree with above A&P as it reflects our joint deliberations. D/W Dr. Zee 100% on 15L NRB Dex/Remd/Abx Wean O2 LMWH Valencia Medina NP Oct 29, 2019 07:06 Solomon Delong MD Oct 29, 2019 14:49
[2019-10-29 07:09] LABS: ALANINE AMINOTRANSFERASE 50 U/L (12-78); ALBUMIN 2.6 G/DL (3.4-5.0); ALBUMIN/GLOBULIN RATIO 0.6 (1.0-2.7); ALKALINE PHOSPHATASE 69 U/L (46-116); ANION GAP 10 mmol/L (5-15); ASPARTATE AMINO TRANSFERASE 23 U/L (15-37); BILIRUBIN,DIRECT 0.2 MG/DL (0.0-0.3); BILIRUBIN,TOTAL 0.5 MG/DL (0.2-1.0); BLOOD UREA NITROGEN 22 mg/dL (7-18); CALCIUM 8.9 MG/DL (8.5-10.1); CARBON DIOXIDE 24 MMOL/L (21-32); CHLORIDE 102 MMOL/L (98-107); CREATININE 1.2 MG/DL (0.55-1.30); POTASSIUM 4.8 MMOL/L (3.5-5.1); SODIUM 136 MMOL/L (136-145)
[2019-10-29 07:14] LABS: BASOPHILS % (AUTO) 1.7 % (0.0-2.0); HEMATOCRIT 39.2 % (42.0-52.0); HEMOGLOBIN 12.7 G/DL (14.2-18.0); LYMPHOCYTES % (AUTO) 15.4 % (20.0-45.0); MEAN CORPUSCULAR VOLUME 88 FL (80-99); MONOCYTES % (AUTO) 5.4 % (1.0-10.0); NEUTROPHILS % (AUTO) 76.5 % (45.0-75.0); PLATELET COUNT 406 K/UL (150-450); RED BLOOD COUNT 4.46 M/UL (4.70-6.10); RED CELL DISTRIBUTION WIDTH 12.6 % (11.6-14.8); WHITE BLOOD COUNT 9.7 K/UL (4.8-10.8)
--- NOTE | 2019-10-29 07:15 | NUR ---
NURSE NOTES: Received Pt report from TEA Medeiros. Pt is found in room resting semi fowlers. AO x4, no signs of distress, verbalizes 0/10 pain. Pt is on non rebreather saturating at 92%. IV site is clean, dry and intact. No pain, erythema, infiltration or bleeding. Bed is in lowest position, call light in reach, rails x2 up. Will continue to monitor.
[2019-10-29 07:43] LABS: CREATINE KINASE 206 U/L (26-308)
--- NOTE | 2019-10-29 07:49 | NUR ---
HAND-OFF: Report given to TEA Mandujano and TEA Almazan. Patient is awake lying semi-conn's; resting comfortably. On 15L non-rebreather mask and educated patient regarding the importance of keeping it on; verbalized understanding. In stable condition otherwise.
[2019-10-29 08:27] VITALS: BP 114/70
[2019-10-29] MEDS: metFORMIN 500mg tab ORAL SCH ×2 (08:57→17:22)
[2019-10-29] MEDS ORDERED: Furosemide 40mg tab ORAL SCH (09:00)
[2019-10-29] MEDS: Enoxaparin 100mg Inj SUBQ SCH ×2 (09:02→20:39)
--- NOTE | 2019-10-29 10:38 | NUR ---
RADIOLOGY DEPT., CHEST X-RAY DONE.-P.DYE
[2019-10-29 11:50] VITALS: BP 140/75
--- NOTE | 2019-10-29 14:09 | Diagnostic Imaging Report ---
Indication: Shortness of breath Technique: One view of the chest Comparison: 10/27/2019 Findings: Bilateral peripheral infiltrates appears slightly worsened, particularly on the left. The heart size is upper limits of normal. There is suggestion of slight rightward tracheal deviation, upper mediastinal mass possible. Impression: Worsening bilateral infiltrates Slight rightward tracheal deviation, upper mediastinal mass possible
[2019-10-29 16:22] VITALS: BP 126/73
--- NOTE | 2019-10-29 16:59 | NUR ---
NURSE NOTES: Pt O2 titrated from 15L to 13L on NRB. Pt tolerated well, maintaining SpO2 of 95% and reports no SOB or distress at this time. RT notified. Will continue to monitor.
--- NOTE | 2019-10-29 17:09 | Geriatric Progress Note ---
Assessment/Plan Problems: (1) Transaminasemia (2) SIRS (systemic inflammatory response syndrome) (3) Urinary tract infection (4) Chronic back pain (5) Cataract (6) Pneumonia due to COVID-19 virus (7) Diabetes type 2, uncontrolled (8) Diabetic neuropathy associated with type 2 diabetes mellitus (9) Chronic pain disorder (10) Anxiety disorder (11) Acute kidney injury (12) Rhabdomyolysis due to COVID-19 (13) Chronic rhinitis (14) Hypertension (15) Volume depletion (16) Nausea Assessment/Plan Still high O2 requirement. Spoke with Dr. Delong who feels likely due to residual COVID pneumonitis. Recommends continue current regimen for few more days. Will recheck inflammatory markers again to rule any late cytokine exacerbation. If no evidence, likely slow stabilization will be required. ? pulmonary rehab. Due to anxiety will increase Remeron to 15mg qhs. Considered making lorazepam routine, but nurses did report slowed respiratory rate with some drop of saturations after last prn dose. Continue mobilizing as tolerated by P.T. Diuresed, uncertain response so far. Monitor. Blood sugars minimally improved. Bp improved with Lasix. Reviewed status with patient. Discussed with: patient, hospital staff Subjective Interval Events Patient reports feeling better. On nrb mask again at 12 l/m, with good saturations. At times takes mask off. Otherwise feels well. Decreased cough. Good appetite, bowel, bladder function. Participated with P.T. in mobilization. Staff reports no new issues. Heparin drip stopped due to patient recurrently pulling out IV. Placed on therapeutic Lovenox. I&O negative 2liters on Lasix, with no increase in BUN/Cr. Mild lymphopenia. CXR ? worsened. infiltrates. Constitutional: Denies: chills, sweats, fever Respiratory: Reports: cough - minimal, now non-productive. Cardiovascular: Denies: chest pain, palpitations Gastrointestinal/Abdominal: Denies: abdominal pain, constipation, diarrhea, nausea, vomiting Genitourinary: Denies: dysuria Geriatric Geriatric Last 24 Hour Vital Signs Date Time Temp Pulse Resp B/P (MAP) Pulse Ox O2 Delivery O2 Flow Rate FiO2 10/29/19 16:50 97 10/29/19 16:22 96.6 69 18 126/73 (90) 96 10/29/19 12:30 82 10/29/19 11:50 97.9 89 18 140/75 (96) 97 10/29/19 09:10 Non-Rebreather 15.0 10/29/19 08:29 101 10/29/19 08:27 97.9 88 19 114/70 (85) 92 10/29/19 07:20 95 Non-Rebreather 15.0 100 10/29/19 04:00 96 10/29/19 04:00 97.7 74 19 133/74 (93) 93 10/29/19 00:00 83 10/29/19 00:00 97.9 88 20 131/74 (93) 94 10/28/19 21:00 Non-Rebreather 15.0 10/28/19 20:00 93 10/28/19 20:00 98.6 86 24 144/76 (98) 93 10/28/19 19:00 94 Venturi Mask 10.0 45 Intake and Output 10/28/19 10/29/19 19:00 07:00 Intake Total 120 ml 240 ml Output Total 1050 ml 1400 ml Balance -930 ml -1160 ml Intake Oral 120 ml 240 ml Output Urine Total 1050 ml 1400 ml # Bowel Movements 1 Laboratory Tests Test 10/28/19 17:00 10/28/19 17:02 10/28/19 22:04 10/29/19 06:09 White Blood Count 11.0 K/UL (4.8-10.8) H Red Blood Count 4.39 M/UL (4.70-6.10) L Hemoglobin 12.4 G/DL (14.2-18.0) L Hematocrit 37.7 % (42.0-52.0) L Mean Corpuscular Volume 86 FL (80-99) Mean Corpuscular Hemoglobin 28.3 PG (27.0-31.0) Mean Corpuscular Hemoglobin Concent 33.0 G/DL (32.0-36.0) Red Cell Distribution Width 12.8 % (11.6-14.8) Platelet Count 392 K/UL (150-450) Mean Platelet Volume 5.5 FL (6.5-10.1) L Neutrophils (%) (Auto) 86.6 % (45.0-75.0) H Lymphocytes (%) (Auto) 9.4 % (20.0-45.0) L Monocytes (%) (Auto) 3.0 % (1.0-10.0) Eosinophils (%) (Auto) 0.1 % (0.0-3.0) Basophils (%) (Auto) 1.0 % (0.0-2.0) Activated Partial Thromboplast Time 71 SEC (23-33) H POC Whole Blood Glucose 343 MG/DL (74-106) H Pending 211 MG/DL (74-106) H Test 10/29/19 06:29 10/29/19 07:45 10/29/19 11:56 10/29/19 16:10 White Blood Count 9.7 K/UL (4.8-10.8) Red Blood Count 4.46 M/UL (4.70-6.10) L Hemoglobin 12.7 G/DL (14.2-18.0) L Hematocrit 39.2 % (42.0-52.0) L Mean Corpuscular Volume 88 FL (80-99) Mean Corpuscular Hemoglobin 28.5 PG (27.0-31.0) Mean Corpuscular Hemoglobin Concent 32.4 G/DL (32.0-36.0) Red Cell Distribution Width 12.6 % (11.6-14.8) Platelet Count 406 K/UL (150-450) Mean Platelet Volume 5.6 FL (6.5-10.1) L Neutrophils (%) (Auto) 76.5 % (45.0-75.0) H Lymphocytes (%) (Auto) 15.4 % (20.0-45.0) L Monocytes (%) (Auto) 5.4 % (1.0-10.0) Eosinophils (%) (Auto) 1.0 % (0.0-3.0) Basophils (%) (Auto) 1.7 % (0.0-2.0) Sodium Level 136 MMOL/L (136-145) Potassium Level 4.8 MMOL/L (3.5-5.1) Chloride Level 102 MMOL/L (98-107) Carbon Dioxide Level 24 MMOL/L (21-32) Anion Gap 10 mmol/L (5-15) Blood Urea Nitrogen 22 mg/dL (7-18) H Creatinine 1.2 MG/DL (0.55-1.30) Estimat Glomerular Filtration Rate > 60 mL/min (>60) Glucose Level 179 MG/DL (74-106) H Calcium Level 8.9 MG/DL (8.5-10.1) Magnesium Level 2.3 MG/DL (1.8-2.4) Total Bilirubin 0.5 MG/DL (0.2-1.0) Direct Bilirubin 0.2 MG/DL (0.0-0.3) Aspartate Amino Transf (AST/SGOT) 23 U/L (15-37) Alanine Aminotransferase (ALT/SGPT) 50 U/L (12-78) Alkaline Phosphatase 69 U/L (46-116) Total Creatine Kinase 206 U/L (26-308) Pro-B-Type Natriuretic Peptide 92 pg/mL (0-125) Total Protein 7.3 G/DL (6.4-8.2) Albumin 2.6 G/DL (3.4-5.0) L Globulin 4.7 g/dL Albumin/Globulin Ratio 0.6 (1.0-2.7) L Arterial Blood pH 7.430 (7.350-7.450) Arterial Blood Partial Pressure CO2 33.0 mmHg (35.0-45.0) L Arterial Blood Partial Pressure O2 67.1 mmHg (75.0-100.0) L Arterial Blood HCO3 21.4 mmol/L (22.0-26.0) L Arterial Blood Oxygen Saturation 92.9 % (95-100) L Arterial Blood Base Excess -2.1 (-2-2) L Sharad Test Positive POC Whole Blood Glucose 251 MG/DL (74-106) H 275 MG/DL (74-106) H Current Medications Medications (Trade) Dose Ordered Sig/Jenny Route PRN Reason Start Time Stop Time Status Last Admin Dose Admin Acetaminophen/ Hydrocodone Bitart ([place] 5/325) 1 tab Q4H PRN ORAL Moderate Pain (Pain Scale 4-6) 10/27/19 14:45 11/03/19 14:44 10/28/19 07:07 Albuterol Sulfate (Proventil MDI) 2 puff Q4H PRN INH Shortness of Breath 10/23/19 18:00 01/21/20 17:59 Amlodipine Besylate (Norvasc) 2.5 mg DAILYPRN PRN ORAL For High Blood Pressure 10/26/19 19:45 11/25/19 19:44 10/27/19 20:26 Azithromycin 500 mg/Sodium Chloride 275 ml @ 275 mls/hr Q24HRS IV 10/29/19 20:00 10/29/19 20:59 Ceftriaxone Sodium 1 gm/ Sodium Chloride 55 ml @ 110 mls/hr Q24H IVPB 10/29/19 18:00 10/30/19 17:59 Dexamethasone Sodium Phosphate (Decadron 4mg/ml vial) 6 mg DAILY IVP 10/24/19 09:00 01/21/20 08:59 10/29/19 08:59 Dextrose (Dextrose 50%) 25 ml Q30M PRN IV Hypoglycemia 10/23/19 17:30 01/20/20 22:59 Dextrose (Dextrose 50%) 50 ml Q30M PRN IV Hypoglycemia 10/23/19 17:30 01/20/20 22:59 Duloxetine HCl (Cymbalta) 20 mg DAILY ORAL 10/27/19 09:00 01/25/20 08:59 10/29/19 08:57 Enoxaparin Sodium (Lovenox) 90 mg EVERY 12 HOURS SUBQ 10/28/19 23:00 01/26/20 22:59 10/29/19 09:02 Guaifenesin (Robitussin) 100 mg Q4H PRN ORAL For Cough 10/23/19 19:15 01/20/20 23:14 10/25/19 15:59 Insulin Aspart (NovoLOG) BEFORE MEALS AND HS SUBQ 10/24/19 21:00 01/21/20 06:29 10/29/19 16:27 Lorazepam (Ativan) 1 mg Q6H PRN ORAL For Anxiety 10/24/19 20:00 10/31/19 19:59 10/28/19 22:48 Lorazepam (Ativan) 2 mg Q12H PRN ORAL For Anxiety 10/23/19 18:00 10/29/19 17:59 10/26/19 10:08 Metformin HCl (Glucophage) 500 mg BID ORAL 10/23/19 18:00 11/22/19 08:59 10/29/19 08:57 Mirtazapine (Remeron) 15 mg BEDTIME ORAL 10/29/19 21:00 01/24/20 20:59 UNV Pantoprazole (Protonix) 40 mg DAILY ORAL 10/24/19 09:00 11/23/19 08:59 10/29/19 08:57 Polyethylene Glycol (Miralax) 17 gm BEDTIME ORAL 10/26/19 21:00 11/25/19 20:59 10/28/19 22:06 Remdesivir 100 mg/ Sodium Chloride 250 ml @ 250 mls/hr Q24H IV 10/27/19 18:00 11/01/19 18:59 10/28/19 18:15 Height (Feet): 6 Height (Inches): 1.00 Weight (Pounds): 198 General Appearance: no apparent distress, alert Head: normocephalic, atraumatic Eyes: bilateral anicteric ENT: normal voice Neck: full range of motion, no mass Respiratory: decreased breath sounds Cardiovascular: regular rate, rhythm - occasional ectopy, pacs on monitor. Gastrointestinal: normal bowel sounds, non tender, soft, no mass, no organomegaly Musculoskeletal: no calf tenderness Edema: no edema noted Generalized Neurologic: alert, no new focality Jim Zee MD Oct 29, 2019 17:09
--- NOTE | 2019-10-29 17:51 | Cardiology Progress Note ---
Assessment/Plan Assessment/Plan 1. COVID-19 infection / pneumonia . 2. Premature atrial contractions with some nonconducted. 3. Pneumonia. 4. Diastolic dysfunction mild 5. Diabetes mellitus is poor control. 6. Resolved acute renal failure. 7. Resolved transaminitis. 8. Rhabdomyolysis, improved. neg fluid status by 2100 cc so far yet worsening oxygenation now on nrb mask despite probnp 92 only cxr personally reviewed looks worse and radiologist agreed as well but reportedly is apparently able to come off the face mask intermittently and not be in distress and was able to participate in PT wbc is lower bp seem ok afebrile but he was never febrile i will not diurese further at this time his oxygen requirement have increased despite being in neg fluid status concerning for progression of pulm process and not of volume overload is on full anticoagualtion with full dose of lovenox as he removed his iv several times yest s/p course of remdesivir and dexamethasone Subjective Subjective per pulm pa + SOB, minimally productive cough, on NRM, pulse ox in 90 eating breakfast now w/out mask for short times, no resp difficulties perdr alonso Patient reports feeling better. On nrb mask again at 12 l/m, with good saturations. At times takes mask off. Otherwise feels well. Decreased cough. Good appetite, bowel, bladder function. Participated with P.T. in mobilization. Objective Last 24 Hour Vital Signs Date Time Temp Pulse Resp B/P (MAP) Pulse Ox O2 Delivery O2 Flow Rate FiO2 10/29/19 16:50 97 10/29/19 16:22 96.6 69 18 126/73 (90) 96 10/29/19 12:30 82 10/29/19 11:50 97.9 89 18 140/75 (96) 97 10/29/19 09:10 Non-Rebreather 15.0 10/29/19 08:29 101 10/29/19 08:27 97.9 88 19 114/70 (85) 92 10/29/19 07:20 95 Non-Rebreather 15.0 100 10/29/19 04:00 96 10/29/19 04:00 97.7 74 19 133/74 (93) 93 10/29/19 00:00 83 10/29/19 00:00 97.9 88 20 131/74 (93) 94 10/28/19 21:00 Non-Rebreather 15.0 10/28/19 20:00 93 10/28/19 20:00 98.6 86 24 144/76 (98) 93 10/28/19 19:00 94 Venturi Mask 10.0 45 Intake and Output 10/28/19 10/29/19 19:00 07:00 Intake Total 120 ml 240 ml Output Total 1050 ml 1400 ml Balance -930 ml -1160 ml Intake Oral 120 ml 240 ml Output Urine Total 1050 ml 1400 ml # Bowel Movements 1 Laboratory Tests Test 10/28/19 22:04 10/29/19 06:09 10/29/19 06:29 10/29/19 07:45 POC Whole Blood Glucose Pending 211 MG/DL (74-106) H White Blood Count 9.7 K/UL (4.8-10.8) Red Blood Count 4.46 M/UL (4.70-6.10) L Hemoglobin 12.7 G/DL (14.2-18.0) L Hematocrit 39.2 % (42.0-52.0) L Mean Corpuscular Volume 88 FL (80-99) Mean Corpuscular Hemoglobin 28.5 PG (27.0-31.0) Mean Corpuscular Hemoglobin Concent 32.4 G/DL (32.0-36.0) Red Cell Distribution Width 12.6 % (11.6-14.8) Platelet Count 406 K/UL (150-450) Mean Platelet Volume 5.6 FL (6.5-10.1) L Neutrophils (%) (Auto) 76.5 % (45.0-75.0) H Lymphocytes (%) (Auto) 15.4 % (20.0-45.0) L Monocytes (%) (Auto) 5.4 % (1.0-10.0) Eosinophils (%) (Auto) 1.0 % (0.0-3.0) Basophils (%) (Auto) 1.7 % (0.0-2.0) Sodium Level 136 MMOL/L (136-145) Potassium Level 4.8 MMOL/L (3.5-5.1) Chloride Level 102 MMOL/L (98-107) Carbon Dioxide Level 24 MMOL/L (21-32) Anion Gap 10 mmol/L (5-15) Blood Urea Nitrogen 22 mg/dL (7-18) H Creatinine 1.2 MG/DL (0.55-1.30) Estimat Glomerular Filtration Rate > 60 mL/min (>60) Glucose Level 179 MG/DL (74-106) H Calcium Level 8.9 MG/DL (8.5-10.1) Magnesium Level 2.3 MG/DL (1.8-2.4) Total Bilirubin 0.5 MG/DL (0.2-1.0) Direct Bilirubin 0.2 MG/DL (0.0-0.3) Aspartate Amino Transf (AST/SGOT) 23 U/L (15-37) Alanine Aminotransferase (ALT/SGPT) 50 U/L (12-78) Alkaline Phosphatase 69 U/L (46-116) Total Creatine Kinase 206 U/L (26-308) Pro-B-Type Natriuretic Peptide 92 pg/mL (0-125) Total Protein 7.3 G/DL (6.4-8.2) Albumin 2.6 G/DL (3.4-5.0) L Globulin 4.7 g/dL Albumin/Globulin Ratio 0.6 (1.0-2.7) L Arterial Blood pH 7.430 (7.350-7.450) Arterial Blood Partial Pressure CO2 33.0 mmHg (35.0-45.0) L Arterial Blood Partial Pressure O2 67.1 mmHg (75.0-100.0) L Arterial Blood HCO3 21.4 mmol/L (22.0-26.0) L Arterial Blood Oxygen Saturation 92.9 % (95-100) L Arterial Blood Base Excess -2.1 (-2-2) L Sharad Test Positive Test 10/29/19 11:56 10/29/19 16:10 POC Whole Blood Glucose 251 MG/DL (74-106) H 275 MG/DL (74-106) H Objective per dr gupta no apparent distress, alert Respiratory: decreased breath sounds Cardiovascular: regular rate, rhythm - occasional ectopy, pacs on monitor. Gastrointestinal: normal bowel sounds, non tender, soft, no mass, no organomegaly Musculoskeletal: no calf tenderness Edema: no edema noted Generalized per pulm PA General Appearance: no apparent distress, alert , awake, responsive male in NAD , on NRM Respiratory/Chest: chest wall non-tender, no respiratory distress, + intermittent use of accessory muscle use, few isolated rhonchi Cardiovascular/Chest: normal peripheral pulses, normal rate Abdomen: normal bowel sounds, non tender, soft Extremities: non-tender, no calf tenderness, normal capillary refill Al Emanuel MD Oct 29, 2019 17:51
[2019-10-29] MEDS ORDERED: cefTRIAXone 1 GM in NS 55 ML IVPB SCH (18:00)
[2019-10-29] MEDS: Remdesivir 100mg 100 MG in NS 230 ML IV SCH (18:17)
--- NOTE | 2019-10-29 18:33 | NUR ---
NURSE NOTES: Pt O2 titrated from 13L on NRB to 8L NC. Pt tolerated well, maintaining SpO2 of 96% and reports no SOB or distress at this time. Pt educated on how to use NC. RT notified. Will continue to monitor. Addendum: 10/29/19 at 1839 by Norah Rodriguez RN RN office notified as well.
--- NOTE | 2019-10-29 19:23 | NUR ---
HAND-OFF: Report given to TEA Leal and TEA Gamboa. Pt is stable and resting in bed with no reports or S/S of distress. Pt IV is dry and intact with no S/S of infection. Pt shown call light, bed at lowest position and with non slip socks on.
--- NOTE | 2019-10-29 19:25 | NUR ---
Nurses NOTES Received indorsement from Nazia RN, Norah RN. AXO 4, On O2 via NC at 6L/min no resp distress noted, sating at 93%. ekg monitor tech in place with normal sinus rhythm. IV in place on left AC, no s/s infiltration noted. Bed in low position, bed alarm on. call light with in reach.
[2019-10-29 20:00] VITALS: BP 155/86
[2019-10-29] MEDS ORDERED: Azithromycin 500 MG in NS 275 ML IV SCH (20:00)
[2019-10-29] MEDS: Miralax 17gm pkt ORAL SCH (20:40)
[2019-10-30] VITALS: BP 105/72
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
--- NOTE | 2019-10-30 03:04 | NUR ---
Nurses notes Pt on 6L of O2 via NC tolerating well, O2 sat 97%. No resp distress noted. Will continue to monitor.
[2019-10-30 04:00] VITALS: BP 124/68
[2019-10-30 06:30] LABS: BASOPHILS % (AUTO) 2.1 % (0.0-2.0); HEMATOCRIT 37.7 % (42.0-52.0); HEMOGLOBIN 12.3 G/DL (14.2-18.0); LYMPHOCYTES % (AUTO) 21.3 % (20.0-45.0); MEAN CORPUSCULAR VOLUME 88 FL (80-99); MONOCYTES % (AUTO) 5.3 % (1.0-10.0); NEUTROPHILS % (AUTO) 69.3 % (45.0-75.0); PLATELET COUNT 417 K/UL (150-450); RED BLOOD COUNT 4.31 M/UL (4.70-6.10); RED CELL DISTRIBUTION WIDTH 12.6 % (11.6-14.8); WHITE BLOOD COUNT 8.6 K/UL (4.8-10.8)
[2019-10-30] MEDS: NovoLOG Insulin Flexpen SUBQ SCH ×4 (06:43→20:49)
[2019-10-30 07:03] LABS: ALANINE AMINOTRANSFERASE 33 U/L (12-78); ALKALINE PHOSPHATASE 67 U/L (46-116); ANION GAP 11 mmol/L (5-15); ASPARTATE AMINO TRANSFERASE 21 U/L (15-37); BILIRUBIN,TOTAL 0.4 MG/DL (0.2-1.0); CALCIUM 8.3 MG/DL (8.5-10.1); CARBON DIOXIDE 20 MMOL/L (21-32); CHLORIDE 101 MMOL/L (98-107); CREATINE KINASE 176 U/L (26-308); FERRITIN 329 NG/ML (8-388); LACTATE DEHYDROGENASE 488 U/L (81-234); POTASSIUM 4.7 MMOL/L (3.5-5.1); SODIUM 132 MMOL/L (136-145)
[2019-10-30 07:10] LABS: ALBUMIN 2.5 G/DL (3.4-5.0); BLOOD UREA NITROGEN 29 mg/dL (7-18); CREATININE 1.3 MG/DL (0.55-1.30)
--- NOTE | 2019-10-30 07:27 | NUR ---
HAND-OFF: Report given to TEA Leija. Plan of care endorsed.
--- NOTE | 2019-10-30 07:38 | NUR ---
NURSE NOTES: Received report from Mel RN and Bee RN. Pt is in room eating breakfast. Pt is stable and reports no SOB, distress or pain at this time. On 6 LPM humidified NC, saturating 97%. Will continue to monitor.
[2019-10-30] MEDS: metFORMIN 500mg tab ORAL SCH ×2 (08:17→18:23)
[2019-10-30] MEDS: Enoxaparin 100mg Inj SUBQ SCH ×2 (08:19→20:35)
[2019-10-30 08:40] VITALS: BP 131/64
--- NOTE | 2019-10-30 09:55 | NUR ---
PT NOTE Attempted to see patient for PT treatment. Patient on O2 via NC @ 6 l/min, O2 saturation at 88%, c/o SOB. Nazia METCALF notified, treatment deferred due to low O2 sat, will follow.
--- NOTE | 2019-10-30 10:14 | NUR ---
RD ASSESSMENT & RECOMMENDATIONS SEE CARE ACTIVITY FOR COMPLETE ASSESSMENT DAILY ESTIMATED NEEDS: Needs based on DM, pulmonary 88kg abw 25-30 kcals/kg 4170-2861 total kcals 1-1.5 g protein/kg 88-132 g total protein 25-30 mL/kg 1326-0748 total fluid mLs NUTRITION DIAGNOSIS: Altered nutrition related lab values r/t diabetes as evidenced by A1C 9.1, BG 187 179, elev POC (205-275), u glu 2+ on adm. CURRENT DIET: KHANG/ CCHO LOW PO DIET RECOMMENDATIONS: KHANG/ CCHO LOW + DOUBLE PROTEIN PORTIONS ADDITIONAL RECOMMENDATIONS: * Obtain a standing weight as able * Monitor for continued good po intake * Consider additional hypoglycemics for improved BG
--- NOTE | 2019-10-30 10:33 | NUR ---
NURSE NOTES: Spoke with Dr. Zee regarding patient's oxygen desaturated in the 77% with Nasal Cannula 6L. Prone position provided but O2 is still in the 79%. Venturi mask applied at 14L 50% but patient's O2 stays stable 88%. So RT applied nonrebreather 15L and patient's O2 saturation is at 93%. MD aware and no new orders at this time. Will continue to monitor.
--- NOTE | 2019-10-30 10:40 | NUR ---
CASE MANAGEMENT:REVIEW 10/30/19 SI: COVID PNA. SIRS. RHABDO SUSPECTED PULMONARY EMBOLI 97.7 84 21 131/64 92% ON NON REBREATHER BUN+29 GLUCOSE+187 CA-8.3 IS: LOVENOX SQ Q12 IV REMDESIVIR Q24 (DAY #10/29) IV DECADRON Q24 IV ROCEPHIN Q24 SS INSULIN AC+HS NORCO PO Q6HRS PRN : TELEMETRY STATUS DCP: PATIENT IS FROM HOME
--- NOTE | 2019-10-30 10:44 | Pulmonology Progress Note ---
Valencia Medina CARE TEAM COORDINATOR SCHEDULER 10/30/19 1044: Subjective Constitutional: Reports: fatigue; Denies: fever Gastrointestinal/Abdominal: Denies: nausea, vomiting, diarrhea Psychiatric: Denies: depression Skin: Denies: rash Musculoskeletal: Denies: pain Allergies: Coded Allergies: No Known Allergies (Unverified , 08/10/14) Subjective was on VM, desaturated not tolerated proning, now back on NRM, +SOB, + occ cough, no wheezing no CP no fevers Objective Last 24 Hour Vital Signs Date Time Temp Pulse Resp B/P (MAP) Pulse Ox O2 Delivery O2 Flow Rate FiO2 10/30/19 08:46 Nasal Cannula 8.0 Non-Rebreather 15.0 10/30/19 08:42 91 10/30/19 08:40 97.7 84 21 131/64 (86) 92 10/30/19 04:00 98.8 91 18 124/68 (86) 97 10/30/19 04:00 80 10/30/19 00:00 85 10/30/19 00:00 98.0 92 19 105/72 (83) 97 10/29/19 21:00 Non-Rebreather 15.0 Nasal Cannula 6.0 10/29/19 20:05 100 Nasal Cannula 5.0 40 10/29/19 20:00 96.4 89 19 155/86 (109) 93 10/29/19 20:00 91 10/29/19 16:50 97 10/29/19 16:22 96.6 69 18 126/73 (90) 96 10/29/19 12:30 82 10/29/19 11:50 97.9 89 18 140/75 (96) 97 Intake and Output 10/29/19 10/30/19 19:00 07:00 Intake Total 500 ml Balance 500 ml Intake Oral 500 ml # Voids 3 2 Objective General Appearance: no apparent distress, alert , awake, responsive male in NAD , on NRM Lines, tubes and drains: peripheral HEENT: normocephalic, atraumatic, anicteric, mucous membranes moist, PERRL, pharynx normal, supple, no JVD Neck: non-tender, normal alignment, supple Respiratory/Chest: chest wall non-tender, no respiratory distress, + intermittent use of accessory muscle use, few isolated rhonchi Cardiovascular/Chest: normal peripheral pulses, normal rate Abdomen: normal bowel sounds, non tender, soft Extremities: non-tender, no calf tenderness, normal capillary refill Skin Exam: warm/dry Neurologic: no motor/sensory deficits, alert, oriented x 3, responsive, Musculoskeletal: normal muscle bulk Laboratory Tests 10/29/19 11:56: POC Whole Blood Glucose 251H 10/29/19 16:10: POC Whole Blood Glucose 275H 10/29/19 20:24: POC Whole Blood Glucose 227H 10/30/19 06:15: White Blood Count 8.6, Red Blood Count 4.31L, Hemoglobin 12.3L, Hematocrit 37.7L , Mean Corpuscular Volume 88, Mean Corpuscular Hemoglobin 28.5, Mean Corpuscular Hemoglobin Concent 32.6, Red Cell Distribution Width 12.6, Platelet Count 417, Mean Platelet Volume 5.5L, Neutrophils (%) (Auto) 69.3, Lymphocytes ( %) (Auto) 21.3, Monocytes (%) (Auto) 5.3, Eosinophils (%) (Auto) 2.0, Basophils (%) (Auto) 2.1H, Sodium Level 132L, Potassium Level 4.7, Chloride Level 101, Carbon Dioxide Level 20L, Anion Gap 11, Blood Urea Nitrogen 29H, Creatinine 1.3 , Estimat Glomerular Filtration Rate > 60, Glucose Level 187H, Calcium Level 8.3L, Magnesium Level 2.3, Ferritin 329, Total Bilirubin 0.4, Aspartate Amino Transf (AST/SGOT) 21, Alanine Aminotransferase (ALT/SGPT) 33, Alkaline Phosphatase 67, Lactate Dehydrogenase 488H, Total Creatine Kinase 176, C- Reactive Protein, Quantitative 4.6H, Total Protein 7.2, Albumin 2.5L, Globulin 4.7 Current Medications Medications (Trade) Dose Ordered Sig/Jenny Route PRN Reason Start Time Stop Time Status Last Admin Dose Admin Acetaminophen/ Hydrocodone Bitart ([place] 5/325) 1 tab Q4H PRN ORAL Moderate Pain (Pain Scale 4-6) 10/27/19 14:45 11/03/19 14:44 10/28/19 07:07 Albuterol Sulfate (Proventil MDI) 2 puff Q4H PRN INH Shortness of Breath 10/23/19 18:00 01/21/20 17:59 Amlodipine Besylate (Norvasc) 2.5 mg DAILYPRN PRN ORAL For High Blood Pressure 10/26/19 19:45 11/25/19 19:44 10/27/19 20:26 Ceftriaxone Sodium 1 gm/ Sodium Chloride 55 ml @ 110 mls/hr Q24H IVPB 10/29/19 18:00 10/30/19 17:59 10/29/19 17:24 Dexamethasone Sodium Phosphate (Decadron 4mg/ml vial) 6 mg DAILY IVP 10/24/19 09:00 01/21/20 08:59 10/30/19 08:17 Dextrose (Dextrose 50%) 25 ml Q30M PRN IV Hypoglycemia 10/23/19 17:30 01/20/20 22:59 Dextrose (Dextrose 50%) 50 ml Q30M PRN IV Hypoglycemia 10/23/19 17:30 01/20/20 22:59 Duloxetine HCl (Cymbalta) 20 mg DAILY ORAL 10/27/19 09:00 01/25/20 08:59 10/30/19 08:17 Enoxaparin Sodium (Lovenox) 90 mg EVERY 12 HOURS SUBQ 10/28/19 23:00 01/26/20 22:59 10/30/19 08:19 Guaifenesin (Robitussin) 100 mg Q4H PRN ORAL For Cough 10/23/19 19:15 01/20/20 23:14 10/25/19 15:59 Insulin Aspart (NovoLOG) BEFORE MEALS AND HS SUBQ 10/24/19 21:00 01/21/20 06:29 10/30/19 06:43 Lorazepam (Ativan) 1 mg Q6H PRN ORAL For Anxiety 10/24/19 20:00 10/31/19 19:59 10/28/19 22:48 Metformin HCl (Glucophage) 500 mg BID ORAL 10/23/19 18:00 11/22/19 08:59 10/30/19 08:17 Mirtazapine (Remeron) 15 mg BEDTIME ORAL 10/29/19 21:00 01/24/20 20:59 10/29/19 20:39 Pantoprazole (Protonix) 40 mg DAILY ORAL 10/24/19 09:00 11/23/19 08:59 10/30/19 08:17 Polyethylene Glycol (Miralax) 17 gm BEDTIME ORAL 10/26/19 21:00 11/25/19 20:59 10/28/19 22:06 Remdesivir 100 mg/ Sodium Chloride 250 ml @ 250 mls/hr Q24H IV 10/27/19 18:00 11/01/19 18:59 10/29/19 18:17 Assessment/Plan Assessment/Plan ASSESSMENT COVID 19 infection, recently diagnosed PNA, probably due to COVID 19 Acute hypoxemic resp failure, requiring NRM Minimally elevated troponin ( resolved already) CECI with proteinuria ? diabetic nephropathy DM OOC with diabetic neuropathy Pyuria, possible UTI Hypo Na Hx of HTN Transaminitis Low albumin, possible malnutrition Chronic pain PLAN OF CARE tele isolation ABG and CXR pending for this am, f/up with results remains on NRM, titrate O2 to keep sat > 90 consider HF conduit helper MDI Albuterol prn fup with ABG in am CXR 10/28 -> Worsening bilateral infiltrates. Slight rightward tracheal deviation , upper mediastinal mass possible given persistent hypoxia, will proceed with CT chest on abx: Ceftriaxone ( completing today, 10/29) and Azithromycin ( completed 10/28) SCX if able ID follows continue steroid, can probably transitioned to oral , added GI prophylaxis continue Remdesivir and Decadron ( started 10/23) agree with a 10 days course, giving persistent hypoxia repeat COVID 19 testing later fup with inflammatory markers to access a risk for cytokine storm latest LDH 570 (trending down), CRP 4.6 ( trending down), ferritin 576 , IL 6 -15.6 a/tussive prn monitor volumes full a/c, s/p heparin gtt, now on Lovenox bid since 10/27 second troponin down to normal min elevation possibly due to CECI , hypoperfusion cardio on board now ECHO with pEF 60%, mild diastolic dysfunction monitor renal parameters, avoid nephrotoxics, creat down to 1.3 Na better UCX 7/2 NGTD UA+ pyuria, mod bacteria, on ceftriaxone already BCX 7/2 NGTD BS management with metformin ( lactic acid down to normal) and SSI, may need higher coverage from SSI ( given steroids) HgA1c - 9.1 not at goal, trend CK, LFT CK and AST trending down , CK 176 BP management with CCB, now started on oral Lasix, monitor volumes pain management dietary eval noted supportive care Thank you for this consultation! case discussed and evaluated by supervising physician Solomon Delong MD 10/30/19 1348: Subjective Allergies: Coded Allergies: No Known Allergies (Unverified , 08/10/14) Subjective Patient seen and examined with CARE TEAM COORDINATOR SCHEDULER, agree with above A&P as it reflects our joint deliberations. CXR noted, F/U CT chest, monitor O2, CCM o/w Valencia Medina NP Oct 30, 2019 10:44 Solomon Delong MD Oct 30, 2019 13:48
[2019-10-30 11:56] VITALS: BP 143/92
[2019-10-30] MEDS ORDERED: Miralax 17gm pkt ORAL SCH (14:15)
--- NOTE | 2019-10-30 14:15 | NUR ---
NURSE NOTES: Pt reports feeling very constipated, said he has not had a BM for 3-4 days and stated he needed something more to "help him go". Called and was ordered Miralax/polyethylene glycol 17g one time order.
[2019-10-30 16:00] VITALS: BP 143/74
--- NOTE | 2019-10-30 17:21 | NUR ---
NURSE NOTES: Pt is stable on 15L NRB transporting to CT scan.
--- NOTE | 2019-10-30 17:32 | NUR ---
NURSE NOTES: Pt returned to 2E from CT scan via transport. Patient is stable and resting. No sign or reports of distress at this time.
[2019-10-30] MEDS: Remdesivir 100mg 100 MG in NS 230 ML IV SCH (18:22)
--- NOTE | 2019-10-30 18:50 | Diagnostic Imaging Report ---
History: SOB Exam: CT CHEST Without Contrast Technique more: CTDI is 10.50 mGy and DLP is 407.10 mGy-cm. Technique more: One or more of the following dose reduction techniques were used: automated exposure control, adjustment of the mA and/or kV according to patient size, use of iterative reconstruction technique. Comparison: FINDINGS: Moderate to severe patchy multifocal areas of airspace opacities bilateral lungs may represent inflammatory, infectious process, clinically correlate. The central airways are patent. The thoracic aorta appears unremarkable on noncontrast imaging. LAD and right coronary calcification. No pericardial or pleural effusion. No axillary, mediastinal, hilar or subcarinal adenopathy. Status post cholecystectomy. IMPRESSION: Moderate to severe patchy multifocal areas of airspace opacities bilateral lungs may represent inflammatory, infectious process, clinically correlate. The central airways are patent. LAD and right coronary calcification.
--- NOTE | 2019-10-30 19:14 | NUR ---
HAND-OFF: Report given to Cirilo METCALF. Pt is stable watching television in bed. Pt on 15L NRB saturating at 97%. Pt has no S/S or reports of distress or SOB at this time. The bed is at lowest setting, call light in reach and nonslip socks on. Plan of care endorsed to Cirilo METCALF.
--- NOTE | 2019-10-30 19:15 | NUR ---
NURSE NOTES: Patient received from Nazia METCALF. Patient in stable condition. No s/s of distress and or pain. Vital signs stable. Alert and oriented x4. On non rebreather at 15L/miin saturating well at 97%. Bed in lowest position and locked. Bedside table and call light within reach. Will continue plan of care.
[2019-10-30 20:00] VITALS: BP 151/87
[2019-10-30] MEDS: Miralax 17gm pkt ORAL SCH (20:30)
--- NOTE | 2019-10-30 23:10 | Geriatric Progress Note ---
Assessment/Plan Problems: (1) Transaminasemia (2) SIRS (systemic inflammatory response syndrome) (3) Urinary tract infection (4) Chronic back pain (5) Cataract (6) Pneumonia due to COVID-19 virus (7) Diabetes type 2, uncontrolled (8) Diabetic neuropathy associated with type 2 diabetes mellitus (9) Chronic pain disorder (10) Anxiety disorder (11) Acute kidney injury (12) Rhabdomyolysis due to COVID-19 (13) Chronic rhinitis (14) Hypertension (15) Volume depletion (16) Nausea Assessment/Plan Infiltrates on CT are impressive and correlate to persistent need for significant O2 supplementation. Will need to complete dexamethasone and remdesivir courses. Inflammatory parameters normalizing on dexamethasone. Unclear if dexamethasone may be masking persistent inflammatory process which might benefit from tocilizumab or anakinra. Will review with Drs. Luevano and Baljeet. Suspect given extent of disease, patient will require pulmonary rehab before returning home due to high O2 need. Other issues adequately controlled on present therapy. Discussed with: patient, hospital staff Subjective Interval Events Patient reports "stress" got to him earlier today. Patient is inarticulate in distinguishing physical and emotional symptoms. Feels better now. Ate dinner well. Tolerated 6 l/m nc overnight, but this am desaturated to 77%, not responsive to proning, placed on nrbm with adequate oxygenation. Unable to tolerate P.T. today. No new symptoms otherwise, except constipation. Staff reports only issue with hypoxia and constipation. Labs show further improvement in markers of inflammation, with normalization of CK. CT scan shows diffuse patchy inflammatory infiltrates. Glucoses < 300. Constitutional: Denies: chills, sweats Respiratory: Reports: cough - clear phlegm production, shortness of breath; Denies: wheezing Cardiovascular: Denies: chest pain, palpitations Gastrointestinal/Abdominal: Reports: constipation; Denies: abdominal pain, diarrhea, nausea, vomiting Geriatric Geriatric Last 24 Hour Vital Signs Date Time Temp Pulse Resp B/P (MAP) Pulse Ox O2 Delivery O2 Flow Rate FiO2 10/30/19 21:00 Non-Rebreather 15.0 10/30/19 20:00 96.0 87 26 151/87 (108) 97 10/30/19 20:00 102 10/30/19 16:22 91 10/30/19 16:00 97.5 65 17 143/74 (97) 96 10/30/19 12:29 93 10/30/19 11:56 97.6 84 19 143/92 (109) 96 10/30/19 08:46 Nasal Cannula 8.0 Non-Rebreather 15.0 10/30/19 08:42 91 10/30/19 08:40 97.7 84 21 131/64 (86) 92 10/30/19 04:00 98.8 91 18 124/68 (86) 97 10/30/19 04:00 80 10/30/19 00:00 85 10/30/19 00:00 98.0 92 19 105/72 (83) 97 Intake and Output 10/29/19 10/30/19 19:00 07:00 Intake Total 500 ml Balance 500 ml Intake Oral 500 ml # Voids 3 2 Laboratory Tests Test 10/30/19 06:11 10/30/19 06:15 10/30/19 11:42 10/30/19 15:22 POC Whole Blood Glucose Pending 261 MG/DL (74-106) H 273 MG/DL (74-106) H White Blood Count 8.6 K/UL (4.8-10.8) Red Blood Count 4.31 M/UL (4.70-6.10) L Hemoglobin 12.3 G/DL (14.2-18.0) L Hematocrit 37.7 % (42.0-52.0) L Mean Corpuscular Volume 88 FL (80-99) Mean Corpuscular Hemoglobin 28.5 PG (27.0-31.0) Mean Corpuscular Hemoglobin Concent 32.6 G/DL (32.0-36.0) Red Cell Distribution Width 12.6 % (11.6-14.8) Platelet Count 417 K/UL (150-450) Mean Platelet Volume 5.5 FL (6.5-10.1) L Neutrophils (%) (Auto) 69.3 % (45.0-75.0) Lymphocytes (%) (Auto) 21.3 % (20.0-45.0) Monocytes (%) (Auto) 5.3 % (1.0-10.0) Eosinophils (%) (Auto) 2.0 % (0.0-3.0) Basophils (%) (Auto) 2.1 % (0.0-2.0) H Sodium Level 132 MMOL/L (136-145) L Potassium Level 4.7 MMOL/L (3.5-5.1) Chloride Level 101 MMOL/L (98-107) Carbon Dioxide Level 20 MMOL/L (21-32) L Anion Gap 11 mmol/L (5-15) Blood Urea Nitrogen 29 mg/dL (7-18) H Creatinine 1.3 MG/DL (0.55-1.30) Estimat Glomerular Filtration Rate > 60 mL/min (>60) Glucose Level 187 MG/DL (74-106) H Calcium Level 8.3 MG/DL (8.5-10.1) L Magnesium Level 2.3 MG/DL (1.8-2.4) Ferritin 329 NG/ML (8-388) Total Bilirubin 0.4 MG/DL (0.2-1.0) Aspartate Amino Transf (AST/SGOT) 21 U/L (15-37) Alanine Aminotransferase (ALT/SGPT) 33 U/L (12-78) Alkaline Phosphatase 67 U/L (46-116) Lactate Dehydrogenase 488 U/L (81-234) H Total Creatine Kinase 176 U/L (26-308) C-Reactive Protein, Quantitative 4.6 mg/dL (0.00-0.90) H Total Protein 7.2 G/DL (6.4-8.2) Albumin 2.5 G/DL (3.4-5.0) L Globulin 4.7 g/dL Test 10/30/19 20:38 POC Whole Blood Glucose Pending Current Medications Medications (Trade) Dose Ordered Sig/Jenny Route PRN Reason Start Time Stop Time Status Last Admin Dose Admin Acetaminophen/ Hydrocodone Bitart ([place] 5/325) 1 tab Q4H PRN ORAL Moderate Pain (Pain Scale 4-6) 10/27/19 14:45 11/03/19 14:44 10/28/19 07:07 Albuterol Sulfate (Proventil MDI) 2 puff Q4H PRN INH Shortness of Breath 10/23/19 18:00 01/21/20 17:59 Amlodipine Besylate (Norvasc) 2.5 mg DAILYPRN PRN ORAL For High Blood Pressure 10/26/19 19:45 11/25/19 19:44 10/27/19 20:26 Dexamethasone Sodium Phosphate (Decadron 4mg/ml vial) 6 mg DAILY IVP 10/24/19 09:00 01/21/20 08:59 10/30/19 08:17 Dextrose (Dextrose 50%) 25 ml Q30M PRN IV Hypoglycemia 10/23/19 17:30 01/20/20 22:59 Dextrose (Dextrose 50%) 50 ml Q30M PRN IV Hypoglycemia 10/23/19 17:30 01/20/20 22:59 Duloxetine HCl (Cymbalta) 20 mg DAILY ORAL 10/27/19 09:00 01/25/20 08:59 10/30/19 08:17 Enoxaparin Sodium (Lovenox) 90 mg EVERY 12 HOURS SUBQ 10/28/19 23:00 01/26/20 22:59 10/30/19 20:35 Guaifenesin (Robitussin) 100 mg Q4H PRN ORAL For Cough 10/23/19 19:15 01/20/20 23:14 10/25/19 15:59 Insulin Aspart (NovoLOG) BEFORE MEALS AND HS SUBQ 10/24/19 21:00 01/21/20 06:29 10/30/19 20:49 Lorazepam (Ativan) 1 mg Q6H PRN ORAL For Anxiety 10/24/19 20:00 10/31/19 19:59 10/28/19 22:48 Metformin HCl (Glucophage) 500 mg BID ORAL 10/23/19 18:00 11/22/19 08:59 10/30/19 18:23 Mirtazapine (Remeron) 15 mg BEDTIME ORAL 10/29/19 21:00 01/24/20 20:59 10/30/19 20:35 Pantoprazole (Protonix) 40 mg DAILY ORAL 10/24/19 09:00 11/23/19 08:59 10/30/19 08:17 Polyethylene Glycol (Miralax) 17 gm BEDTIME ORAL 10/26/19 21:00 11/25/19 20:59 10/30/19 20:30 Remdesivir 100 mg/ Sodium Chloride 250 ml @ 250 mls/hr Q24H IV 10/27/19 18:00 11/01/19 18:59 10/30/19 18:22 Height (Feet): 6 Height (Inches): 1.00 Weight (Pounds): 198 General Appearance: alert Head: normocephalic, atraumatic Eyes: bilateral anicteric ENT: normal voice - slightly hoarse Neck: full range of motion, no mass Respiratory: decreased breath sounds Cardiovascular: regular rate, rhythm Gastrointestinal: normal bowel sounds, non tender, soft, no mass, no organomegaly Musculoskeletal: no calf tenderness Edema: no edema noted Generalized Neurologic: alert, no new focality Jim eZe MD Oct 30, 2019 23:10
[2019-10-31] VITALS: BP 153/87
[2019-10-31 04:00] VITALS: BP 147/85
[2019-10-31] MEDS: LORazepam 1mg tab ORAL PRN (05:37)
[2019-10-31] MEDS: NovoLOG Insulin Flexpen SUBQ SCH ×4 (06:30→20:41)
--- NOTE | 2019-10-31 07:30 | NUR ---
NURSE NOTES: Received report from TEA Kerr. Observed pt sleeping, no s/sx of acute distress. Pt on 15L non-rebreather O2, with O2 sat 97%. IV site patent and asymptomatic. Bed on lowest position, call light within reach. Will continue plan of care.
--- NOTE | 2019-10-31 07:35 | NUR ---
HAND-OFF: Report given to Rajani METCALF.
[2019-10-31 08:00] VITALS: BP 144/84
[2019-10-31 08:02] LABS: BASOPHILS % (AUTO) 1.9 % (0.0-2.0); HEMATOCRIT 43.2 % (42.0-52.0); HEMOGLOBIN 13.7 G/DL (14.2-18.0); MEAN CORPUSCULAR VOLUME 88 FL (80-99); MONOCYTES % (AUTO) 4.9 % (1.0-10.0); NEUTROPHILS % (AUTO) 73.3 % (45.0-75.0); PLATELET COUNT 442 K/UL (150-450); RED BLOOD COUNT 4.88 M/UL (4.70-6.10); RED CELL DISTRIBUTION WIDTH 12.8 % (11.6-14.8); WHITE BLOOD COUNT 9.2 K/UL (4.8-10.8)
[2019-10-31 08:19] LABS: ALANINE AMINOTRANSFERASE 33 U/L (12-78); ALBUMIN 2.8 G/DL (3.4-5.0); ALBUMIN/GLOBULIN RATIO 0.5 (1.0-2.7); ALKALINE PHOSPHATASE 74 U/L (46-116); ANION GAP 11 mmol/L (5-15); ASPARTATE AMINO TRANSFERASE 19 U/L (15-37); BILIRUBIN,TOTAL 0.7 MG/DL (0.2-1.0); BLOOD UREA NITROGEN 24 mg/dL (7-18); CALCIUM 8.9 MG/DL (8.5-10.1); CARBON DIOXIDE 23 MMOL/L (21-32); CHLORIDE 99 MMOL/L (98-107); CREATININE 1.2 MG/DL (0.55-1.30); POTASSIUM 4.5 MMOL/L (3.5-5.1); SODIUM 133 MMOL/L (136-145)
--- NOTE | 2019-10-31 08:23 | Pulmonology Progress Note ---
Valencia Medina MOLECULAR PATHOLOGIST 10/31/19 0823: Subjective Constitutional: Reports: fatigue; Denies: fever Gastrointestinal/Abdominal: Denies: nausea, vomiting, diarrhea Psychiatric: Denies: depression Skin: Denies: rash Musculoskeletal: Denies: pain Allergies: Coded Allergies: No Known Allergies (Unverified , 08/10/14) Subjective on NRM, unable to down titrate for a long time CT chest no mass, + melania PNA reports +SOB, + occ dry cough, no wheezing no CP no fevers Objective Last 24 Hour Vital Signs Date Time Temp Pulse Resp B/P (MAP) Pulse Ox O2 Delivery O2 Flow Rate FiO2 10/31/19 07:20 98 Non-Rebreather 15.0 100 10/31/19 04:00 98.0 83 20 147/85 (105) 97 10/31/19 04:00 77 10/31/19 00:00 76 10/31/19 00:00 97.7 75 20 153/87 (109) 97 10/30/19 21:00 Non-Rebreather 15.0 10/30/19 20:05 97 Non-Rebreather 15.0 100 10/30/19 20:00 96.0 87 26 151/87 (108) 97 10/30/19 20:00 102 10/30/19 16:22 91 10/30/19 16:00 97.5 65 17 143/74 (97) 96 10/30/19 12:29 93 10/30/19 11:56 97.6 84 19 143/92 (109) 96 10/30/19 08:46 Nasal Cannula 8.0 Non-Rebreather 15.0 10/30/19 08:42 91 10/30/19 08:40 97.7 84 21 131/64 (86) 92 Intake and Output 10/30/19 10/31/19 19:00 07:00 Intake Total 1250 ml Output Total 1200 ml 400 ml Balance 50 ml -400 ml Intake Oral 1250 ml Output Urine Total 1200 ml 400 ml # Voids 5 Objective General Appearance: no apparent distress, alert , awake, responsive male in NAD , on NRM Lines, tubes and drains: peripheral HEENT: normocephalic, atraumatic, anicteric, mucous membranes moist, PERRL, pharynx normal, supple, no JVD Neck: non-tender, normal alignment, supple Respiratory/Chest: chest wall non-tender, no respiratory distress, + intermittent use of accessory muscle use, few isolated rhonchi Cardiovascular/Chest: normal peripheral pulses, normal rate Abdomen: normal bowel sounds, non tender, soft Extremities: non-tender, no calf tenderness, normal capillary refill Skin Exam: warm/dry Neurologic: no motor/sensory deficits, alert, oriented x 3, responsive, Musculoskeletal: normal muscle bulk Laboratory Tests 10/30/19 11:42: POC Whole Blood Glucose 261H 10/30/19 15:22: POC Whole Blood Glucose 273H 10/30/19 20:38: POC Whole Blood Glucose [Pending] 10/31/19 07:16: Arterial Blood pH 7.416, Arterial Blood Partial Pressure CO2 34.8L, Arterial Blood Partial Pressure O2 90.7, Arterial Blood HCO3 21.9L, Arterial Blood Oxygen Saturation 96.0, Arterial Blood Base Excess -2.0, Sharad Test Positive 10/31/19 07:30: White Blood Count 9.2, Red Blood Count 4.88, Hemoglobin 13.7L, Hematocrit 43.2, Mean Corpuscular Volume 88, Mean Corpuscular Hemoglobin 28.0, Mean Corpuscular Hemoglobin Concent 31.7L, Red Cell Distribution Width 12.8, Platelet Count 442, Mean Platelet Volume 5.7L, Neutrophils (%) (Auto) 73.3, Lymphocytes (%) (Auto) 17.0L, Monocytes (%) (Auto) 4.9, Eosinophils (%) (Auto) 3.0, Basophils (%) (Auto ) 1.9, Sodium Level [Pending], Potassium Level [Pending], Chloride Level [ Pending], Carbon Dioxide Level [Pending], Blood Urea Nitrogen [Pending], Creatinine [Pending], Estimat Glomerular Filtration Rate [Pending], Glucose Level [Pending], Calcium Level [Pending], Total Bilirubin [Pending], Aspartate Amino Transf (AST/SGOT) [Pending], Alanine Aminotransferase (ALT/SGPT) [Pending] , Alkaline Phosphatase [Pending], Total Protein [Pending], Albumin [Pending], Globulin [Pending] Current Medications Medications (Trade) Dose Ordered Sig/Jenny Route PRN Reason Start Time Stop Time Status Last Admin Dose Admin Acetaminophen/ Hydrocodone Bitart ([place] 5/325) 1 tab Q4H PRN ORAL Moderate Pain (Pain Scale 4-6) 10/27/19 14:45 11/03/19 14:44 10/28/19 07:07 Albuterol Sulfate (Proventil MDI) 2 puff Q4H PRN INH Shortness of Breath 10/23/19 18:00 01/21/20 17:59 Amlodipine Besylate (Norvasc) 2.5 mg DAILYPRN PRN ORAL For High Blood Pressure 10/26/19 19:45 11/25/19 19:44 10/27/19 20:26 Dexamethasone Sodium Phosphate (Decadron 4mg/ml vial) 6 mg DAILY IVP 10/24/19 09:00 01/21/20 08:59 10/30/19 08:17 Dextrose (Dextrose 50%) 25 ml Q30M PRN IV Hypoglycemia 10/23/19 17:30 01/20/20 22:59 Dextrose (Dextrose 50%) 50 ml Q30M PRN IV Hypoglycemia 10/23/19 17:30 01/20/20 22:59 Duloxetine HCl (Cymbalta) 20 mg DAILY ORAL 10/27/19 09:00 01/25/20 08:59 10/30/19 08:17 Enoxaparin Sodium (Lovenox) 90 mg EVERY 12 HOURS SUBQ 10/28/19 23:00 01/26/20 22:59 10/30/19 20:35 Guaifenesin (Robitussin) 100 mg Q4H PRN ORAL For Cough 10/23/19 19:15 01/20/20 23:14 10/25/19 15:59 Insulin Aspart (NovoLOG) BEFORE MEALS AND HS SUBQ 10/24/19 21:00 01/21/20 06:29 10/30/19 20:49 Lorazepam (Ativan) 1 mg Q6H PRN ORAL For Anxiety 10/24/19 20:00 10/31/19 19:59 10/31/19 05:37 Metformin HCl (Glucophage) 500 mg BID ORAL 10/23/19 18:00 11/22/19 08:59 10/30/19 18:23 Mirtazapine (Remeron) 15 mg BEDTIME ORAL 10/29/19 21:00 01/24/20 20:59 10/30/19 20:35 Pantoprazole (Protonix) 40 mg DAILY ORAL 10/24/19 09:00 11/23/19 08:59 10/30/19 08:17 Polyethylene Glycol (Miralax) 17 gm BEDTIME ORAL 10/26/19 21:00 11/25/19 20:59 10/30/19 20:30 Remdesivir 100 mg/ Sodium Chloride 250 ml @ 250 mls/hr Q24H IV 10/27/19 18:00 11/01/19 18:59 10/30/19 18:22 Assessment/Plan Assessment/Plan ASSESSMENT COVID 19 infection, recently diagnosed PNA, likely due to COVID 19 Acute hypoxemic resp failure, requiring NRM Minimally elevated troponin ( resolved already) CECI with proteinuria ? 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 Slight rightward tracheal deviation , upper mediastinal mass possible given persistent hypoxia, will proceed with CT chest CT chest 11/08 ->Moderate to severe patchy multifocal areas of airspace opacities bilateral lungs, may represent inflammatory, infectious process No mass was seen s/p abx: Ceftriaxone ( completed 10/29) and Azithromycin ( completed 10/28) SCX if able ID follows continue steroid, can probably transitioned to oral , added GI prophylaxis continue Remdesivir ( completing 10/31) and Decadron ( started 10/23) agree with 10 day course, giving persistent hypoxia repeat COVID 19 testing later fup with inflammatory markers to access a risk for cytokine storm latest LDH 4880 (trending down), CRP 4.6 ( trending down), ferritin 329 , IL 6 -15.6, will repeat in am a/tussive prn monitor volumes was on full a/c, s/p heparin gtt, now on Lovenox bid since 10/27 second troponin down to normal min elevation possibly due to CECI , hypoperfusion cardio on board now ECHO with pEF 60%, mild diastolic dysfunction venous Duplex BLE when able to do -pers hypoxia monitor renal parameters, avoid nephrotoxics, creat down to 1.3 Na better UCX 7/2 NGTD UA+ pyuria, mod bacteria, completed Ceftriaxone BCX 7/2 NGTD BS management with metformin ( lactic acid down to normal) and SSI, may need higher coverage from SSI ( given steroids) HgA1c - 9.1 not at goal, trend CK, LFT CK and AST trending down , CK 176 BP management with CCB, now started on oral Lasix, monitor volumes pain management dietary eval noted supportive care Thank you for this consultation! case discussed and evaluated by supervising physician Solomon Delong MD 10/31/19 1244: Subjective Allergies: Coded Allergies: No Known Allergies (Unverified , 08/10/14) Assessment/Plan Assessment/Plan Patient seen and examined with MOLECULAR PATHOLOGIST. Agree with above A&P as it reflects our joint deliberations. CT noted with multifocal infiltrates. Repeat IL-6 pending. On Dex/Rem/LMWH and 15L NRBFM. D/W Valencia Cerda MOLECULAR PATHOLOGIST Oct 31, 2019 08:23 Solomon Delong MD Oct 31, 2019 12:44
[2019-10-31] MEDS: Enoxaparin 100mg Inj SUBQ SCH ×2 (08:47→20:18)
[2019-10-31] MEDS: metFORMIN 500mg tab ORAL SCH ×3 (08:48→17:16)
--- NOTE | 2019-10-31 09:13 | NUR ---
NURSE NOTES: Pt refused all PO AM meds, explained risk and benefits. Pt still refused and stated that he just wanted to rest.
[2019-10-31 12:00] VITALS: BP 162/95
--- NOTE | 2019-10-31 15:00 | NUR ---
PT Note Attempted to see patient for treatment but patient refused.
[2019-10-31 16:00] VITALS: BP 135/79
--- NOTE | 2019-10-31 16:39 | NUR ---
NURSE NOTES: Dr Molina made aware that pt had an episode of SR with PVCs. Dr Molina aware of elevated BP at 1200.
--- NOTE | 2019-10-31 16:48 | Cardiology Progress Note ---
Assessment/Plan Problem List: (1) COVID-19 (2) Hypertension (3) Diabetes type 2, uncontrolled Status: stable, progressing Status Narrative Pt w/ Covid 19 pneumonia, bilateral infiltrates. Respiratory status appears slightly improved. He is on face mask oxygen and has been receiving remdesivir and iv steroids (decadron). BP is elevated, ? due to decadron Assessment/Plan Continue treatment for covid pneumonia per ID Will start losartan for HTN Subjective ROS Limited/Unobtainable: No Subjective Cardiology for Pt comfortable at rest on NRB mask o2. Objective Last 24 Hour Vital Signs Date Time Temp Pulse Resp B/P (MAP) Pulse Ox O2 Delivery O2 Flow Rate FiO2 10/31/19 12:00 99.3 90 20 162/95 (117) 100 10/31/19 11:45 88 10/31/19 09:00 Non-Rebreather 15.0 10/31/19 08:00 99.0 85 20 144/84 (104) 97 10/31/19 07:51 93 10/31/19 07:20 98 Non-Rebreather 15.0 100 10/31/19 04:00 98.0 83 20 147/85 (105) 97 10/31/19 04:00 77 10/31/19 00:00 76 10/31/19 00:00 97.7 75 20 153/87 (109) 97 10/30/19 21:00 Non-Rebreather 15.0 10/30/19 20:05 97 Non-Rebreather 15.0 100 10/30/19 20:00 96.0 87 26 151/87 (108) 97 10/30/19 20:00 102 General Appearance: WD/WN, no apparent distress, alert, other - NRB fm o2 EENT: PERRL/EOMI Neck: supple, no JVD Rhythm: NSR Cardiovascular: normal rate, no gallop/murmur Respiratory/Chest: other - fairly clear bilaterally. Abdomen: normal bowel sounds, non tender, soft Extremities: no swelling Intake and Output 10/30/19 10/31/19 19:00 07:00 Intake Total 1250 ml Output Total 1200 ml 400 ml Balance 50 ml -400 ml Intake Oral 1250 ml Output Urine Total 1200 ml 400 ml # Voids 5 Laboratory Tests Test 10/30/19 20:38 10/31/19 07:16 10/31/19 07:30 POC Whole Blood Glucose Pending Arterial Blood pH 7.416 (7.350-7.450) Arterial Blood Partial Pressure CO2 34.8 mmHg (35.0-45.0) L Arterial Blood Partial Pressure O2 90.7 mmHg (75.0-100.0) Arterial Blood HCO3 21.9 mmol/L (22.0-26.0) L Arterial Blood Oxygen Saturation 96.0 % (95-100) Arterial Blood Base Excess -2.0 (-2-2) Sharad Test Positive White Blood Count 9.2 K/UL (4.8-10.8) Red Blood Count 4.88 M/UL (4.70-6.10) Hemoglobin 13.7 G/DL (14.2-18.0) L Hematocrit 43.2 % (42.0-52.0) Mean Corpuscular Volume 88 FL (80-99) Mean Corpuscular Hemoglobin 28.0 PG (27.0-31.0) Mean Corpuscular Hemoglobin Concent 31.7 G/DL (32.0-36.0) L Red Cell Distribution Width 12.8 % (11.6-14.8) Platelet Count 442 K/UL (150-450) Mean Platelet Volume 5.7 FL (6.5-10.1) L Neutrophils (%) (Auto) 73.3 % (45.0-75.0) Lymphocytes (%) (Auto) 17.0 % (20.0-45.0) L Monocytes (%) (Auto) 4.9 % (1.0-10.0) Eosinophils (%) (Auto) 3.0 % (0.0-3.0) Basophils (%) (Auto) 1.9 % (0.0-2.0) Sodium Level 133 MMOL/L (136-145) L Potassium Level 4.5 MMOL/L (3.5-5.1) Chloride Level 99 MMOL/L (98-107) Carbon Dioxide Level 23 MMOL/L (21-32) Anion Gap 11 mmol/L (5-15) Blood Urea Nitrogen 24 mg/dL (7-18) H Creatinine 1.2 MG/DL (0.55-1.30) Estimat Glomerular Filtration Rate > 60 mL/min (>60) Glucose Level 145 MG/DL (74-106) H Calcium Level 8.9 MG/DL (8.5-10.1) Total Bilirubin 0.7 MG/DL (0.2-1.0) Aspartate Amino Transf (AST/SGOT) 19 U/L (15-37) Alanine Aminotransferase (ALT/SGPT) 33 U/L (12-78) Alkaline Phosphatase 74 U/L (46-116) Total Protein 8.0 G/DL (6.4-8.2) Albumin 2.8 G/DL (3.4-5.0) L Globulin 5.2 g/dL Albumin/Globulin Ratio 0.5 (1.0-2.7) L Isela Salazar MD Oct 31, 2019 16:48
[2019-10-31] MEDS: Remdesivir 100mg 100 MG in NS 230 ML IV SCH (17:38)
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
--- NOTE | 2019-10-31 18:52 | Geriatric Progress Note ---
Assessment/Plan Problems: (1) Transaminasemia (2) SIRS (systemic inflammatory response syndrome) (3) Urinary tract infection (4) Chronic back pain (5) Cataract (6) Pneumonia due to COVID-19 virus (7) Diabetes type 2, uncontrolled (8) Diabetic neuropathy associated with type 2 diabetes mellitus (9) Chronic pain disorder (10) Anxiety disorder (11) Acute kidney injury (12) Rhabdomyolysis due to COVID-19 (13) Chronic rhinitis (14) Hypertension (15) Volume depletion (16) Nausea Assessment/Plan Discussed with Drs. Delong and Chloé. Current consensus is that CT pathology represents residua of COVID pneumonia, without evidence of cytokine hyperactivity. Repeat IL-6 pending to rule out late increase in activity. If radiologic findings and hypoxic respiratory compromise is due to controlled infectious process, will need to maintain on high O2 supplementation and allow alveolar healing. Dr. Salazar add Losartan for persistent bp elevation. Constipation resolved. DM loosely controlled on dexamethasone. Steroid may be taperred after 10d course completed. Patient educated about disease process, need to comply with therapy to avoid progressive pulmonary dysfunction. Expresses willingness. Continue other therapy. Discussed with: patient, hospital staff Subjective Interval Events Patient reports feeling better currently. Earlier, felt weak, refused a.m. meds , P.T. Had large b.m., with relief. Now compliant. Staff reports no clinical change except as above. ABG OK on NRB 15 l/m Inflammatory parameters all slowly normalizing. IL-6 15.6, mildly elevated, on 10/25/19. Repeat ordered. CT chest from yesterday with significant patchy bilateral infiltrates. Constitutional: Denies: chills, sweats, fever Respiratory: Reports: cough - thick whitish sputum production per patient Cardiovascular: Denies: chest pain Gastrointestinal/Abdominal: Denies: abdominal pain Genitourinary: Denies: dysuria Geriatric Geriatric Last 24 Hour Vital Signs Date Time Temp Pulse Resp B/P (MAP) Pulse Ox O2 Delivery O2 Flow Rate FiO2 10/31/19 16:00 98.6 95 20 135/79 (97) 96 10/31/19 15:56 92 10/31/19 15:56 92 10/31/19 12:00 99.3 90 20 162/95 (117) 100 10/31/19 11:45 88 10/31/19 09:00 Non-Rebreather 15.0 10/31/19 08:00 99.0 85 20 144/84 (104) 97 10/31/19 07:51 93 10/31/19 07:20 98 Non-Rebreather 15.0 100 10/31/19 04:00 98.0 83 20 147/85 (105) 97 10/31/19 04:00 77 10/31/19 00:00 76 10/31/19 00:00 97.7 75 20 153/87 (109) 97 10/30/19 21:00 Non-Rebreather 15.0 10/30/19 20:05 97 Non-Rebreather 15.0 100 10/30/19 20:00 96.0 87 26 151/87 (108) 97 10/30/19 20:00 102 Intake and Output 10/30/19 10/31/19 19:00 07:00 Intake Total 1250 ml Output Total 1200 ml 400 ml Balance 50 ml -400 ml Intake Oral 1250 ml Output Urine Total 1200 ml 400 ml # Voids 5 Laboratory Tests Test 10/30/19 20:38 10/31/19 07:16 10/31/19 07:30 10/31/19 17:18 POC Whole Blood Glucose Pending Pending Arterial Blood pH 7.416 (7.350-7.450) Arterial Blood Partial Pressure CO2 34.8 mmHg (35.0-45.0) L Arterial Blood Partial Pressure O2 90.7 mmHg (75.0-100.0) Arterial Blood HCO3 21.9 mmol/L (22.0-26.0) L Arterial Blood Oxygen Saturation 96.0 % (95-100) Arterial Blood Base Excess -2.0 (-2-2) Sharad Test Positive White Blood Count 9.2 K/UL (4.8-10.8) Red Blood Count 4.88 M/UL (4.70-6.10) Hemoglobin 13.7 G/DL (14.2-18.0) L Hematocrit 43.2 % (42.0-52.0) Mean Corpuscular Volume 88 FL (80-99) Mean Corpuscular Hemoglobin 28.0 PG (27.0-31.0) Mean Corpuscular Hemoglobin Concent 31.7 G/DL (32.0-36.0) L Red Cell Distribution Width 12.8 % (11.6-14.8) Platelet Count 442 K/UL (150-450) Mean Platelet Volume 5.7 FL (6.5-10.1) L Neutrophils (%) (Auto) 73.3 % (45.0-75.0) Lymphocytes (%) (Auto) 17.0 % (20.0-45.0) L Monocytes (%) (Auto) 4.9 % (1.0-10.0) Eosinophils (%) (Auto) 3.0 % (0.0-3.0) Basophils (%) (Auto) 1.9 % (0.0-2.0) Sodium Level 133 MMOL/L (136-145) L Potassium Level 4.5 MMOL/L (3.5-5.1) Chloride Level 99 MMOL/L (98-107) Carbon Dioxide Level 23 MMOL/L (21-32) Anion Gap 11 mmol/L (5-15) Blood Urea Nitrogen 24 mg/dL (7-18) H Creatinine 1.2 MG/DL (0.55-1.30) Estimat Glomerular Filtration Rate > 60 mL/min (>60) Glucose Level 145 MG/DL (74-106) H Calcium Level 8.9 MG/DL (8.5-10.1) Total Bilirubin 0.7 MG/DL (0.2-1.0) Aspartate Amino Transf (AST/SGOT) 19 U/L (15-37) Alanine Aminotransferase (ALT/SGPT) 33 U/L (12-78) Alkaline Phosphatase 74 U/L (46-116) Total Protein 8.0 G/DL (6.4-8.2) Albumin 2.8 G/DL (3.4-5.0) L Globulin 5.2 g/dL Albumin/Globulin Ratio 0.5 (1.0-2.7) L Current Medications Medications (Trade) Dose Ordered Sig/Jenny Route PRN Reason Start Time Stop Time Status Last Admin Dose Admin Acetaminophen/ Hydrocodone Bitart ([place] 5/325) 1 tab Q4H PRN ORAL Moderate Pain (Pain Scale 4-6) 10/27/19 14:45 11/03/19 14:44 10/28/19 07:07 Albuterol Sulfate (Proventil MDI) 2 puff Q4H PRN INH Shortness of Breath 10/23/19 18:00 10/1/20 17:59 Amlodipine Besylate (Norvasc) 2.5 mg DAILYPRN PRN ORAL For High Blood Pressure 10/26/19 19:45 11/25/19 19:44 10/27/19 20:26 Dexamethasone Sodium Phosphate (Decadron 4mg/ml vial) 6 mg DAILY IVP 10/24/19 09:00 01/21/20 08:59 10/31/19 08:48 Dextrose (Dextrose 50%) 25 ml Q30M PRN IV Hypoglycemia 10/23/19 17:30 01/20/20 22:59 Dextrose (Dextrose 50%) 50 ml Q30M PRN IV Hypoglycemia 10/23/19 17:30 01/20/20 22:59 Duloxetine HCl (Cymbalta) 20 mg DAILY ORAL 10/27/19 09:00 01/25/20 08:59 10/30/19 08:17 Enoxaparin Sodium (Lovenox) 90 mg EVERY 12 HOURS SUBQ 10/28/19 23:00 01/26/20 22:59 10/31/19 08:47 Guaifenesin (Robitussin) 100 mg Q4H PRN ORAL For Cough 10/23/19 19:15 01/20/20 23:14 10/25/19 15:59 Insulin Aspart (NovoLOG) BEFORE MEALS AND HS SUBQ 10/24/19 21:00 01/21/20 06:29 10/31/19 16:30 Lorazepam (Ativan) 1 mg Q6H PRN ORAL For Anxiety 10/24/19 20:00 10/31/19 19:59 10/31/19 05:37 Losartan Potassium (Cozaar) 25 mg DAILY ORAL 11/01/19 09:00 12/01/19 08:59 Metformin HCl (Glucophage) 500 mg BID ORAL 10/23/19 18:00 11/22/19 08:59 10/31/19 17:16 Mirtazapine (Remeron) 15 mg BEDTIME ORAL 10/29/19 21:00 01/24/20 20:59 10/30/19 20:35 Pantoprazole (Protonix) 40 mg DAILY ORAL 10/24/19 09:00 11/23/19 08:59 10/30/19 08:17 Polyethylene Glycol (Miralax) 17 gm BEDTIME ORAL 10/26/19 21:00 11/25/19 20:59 10/30/19 20:30 Remdesivir 100 mg/ Sodium Chloride 250 ml @ 250 mls/hr Q24H IV 10/27/19 18:00 11/01/19 18:59 10/31/19 17:38 Height (Feet): 6 Height (Inches): 1.00 Weight (Pounds): 198 General Appearance: alert - anxious Head: normocephalic, atraumatic Eyes: bilateral anicteric ENT: normal voice Neck: full range of motion, no mass Respiratory: decreased breath sounds Cardiovascular: regular rate, rhythm Gastrointestinal: normal bowel sounds, non tender, soft, no mass, no organomegaly Musculoskeletal: no calf tenderness Edema: no edema noted Generalized Jim Zee MD Oct 31, 2019 18:52
--- NOTE | 2019-10-31 19:17 | NUR ---
HAND-OFF: Report given to TEA Kerr. Pt in stable condition. Endorsed plan of care.
--- NOTE | 2019-10-31 19:20 | NUR ---
NURSE NOTES: Patient received from Rajani METCALF. Patient in stable condition. On Non rebreather mask @ 15L/min saturating well at 100%. No s/s of distress or pain. IV site patent and intact on Left AC 22G saline locked. Bed in lowest position and locked. Will continue plan of care.
[2019-10-31 20:00] VITALS: BP 123/75
[2019-10-31] MEDS: Miralax 17gm pkt ORAL SCH (20:34)
[2019-11-01] VITALS: BP 123/62
--- NOTE | 2019-11-01 | NUR ---
NURSE NOTES: Patient on Non rebreather mask @ 15L/min saturating well at 100%. Titrated to 13L/min and saturation is at 99%. Will continue plan to titrate oxygen with oxygen saturation >90.
--- NOTE | 2019-11-01 02:00 | NUR ---
NURSE NOTES: Patient on non rebreather mask @ 13L/min with o2 sat @ 100%. Titrated to 10L/min and saturating well at 100%. Will reassess in 20mins.
--- NOTE | 2019-11-01 02:20 | NUR ---
NURSE NOTES: Patient O2 sat is at 100% with Non rebreather mask @ 10L/min.
[2019-11-01 04:00] VITALS: BP 116/74
[2019-11-01] MEDS: NovoLOG Insulin Flexpen SUBQ SCH ×4 (06:30→21:00)
--- NOTE | 2019-11-01 07:08 | NUR ---
HAND-OFF: Report given to Carmen METCALF. Patient in stable condition. Endorsed plan of care.
--- NOTE | 2019-11-01 07:15 | NUR ---
NURSE NOTES: Received report from TEA Kerr. Patient AAO x4. Breathing regular and unlabored with NRB 10 L. SPO2 98%. No acute distress. Denies pain. Call light in reach, bed low and locked, side rails raised x2, fall education provided
[2019-11-01 08:00] VITALS: BP 103/61
[2019-11-01 08:23] LABS: BASOPHILS % (AUTO) 2.3 % (0.0-2.0); HEMOGLOBIN 14.1 G/DL (14.2-18.0); LYMPHOCYTES % (AUTO) 25.2 % (20.0-45.0); MEAN CORPUSCULAR VOLUME 89 FL (80-99); MONOCYTES % (AUTO) 6.4 % (1.0-10.0); NEUTROPHILS % (AUTO) 64.2 % (45.0-75.0); PLATELET COUNT 457 K/UL (150-450); RED BLOOD COUNT 4.97 M/UL (4.70-6.10); RED CELL DISTRIBUTION WIDTH 12.9 % (11.6-14.8); WHITE BLOOD COUNT 9.2 K/UL (4.8-10.8)
--- NOTE | 2019-11-01 08:30 | Pulmonology Progress Note ---
Valencia Medina WEB INTERFACE DEVELOPER 11/01/19 0830: Subjective ROS Limited/Unobtainable: No Constitutional: Reports: other - on non-rebreather ; Denies: fever Gastrointestinal/Abdominal: Denies: nausea, vomiting Psychiatric: Denies: depression Skin: Denies: rash Musculoskeletal: Denies: pain Allergies: Coded Allergies: No Known Allergies (Unverified , 08/10/14) Subjective on NRM at this time but reported sleeping most of the night without it CT chest no mass, + melania PNA reports +SOB, + occ dry cough, no wheezing no CP no fevers labs pending for this am Objective Last 24 Hour Vital Signs Date Time Temp Pulse Resp B/P (MAP) Pulse Ox O2 Delivery O2 Flow Rate FiO2 11/01/19 04:00 96.4 90 20 116/74 (88) 100 11/01/19 04:00 88 11/01/19 00:00 80 11/01/19 00:00 96.4 84 20 123/62 (82) 100 10/31/19 21:00 Non-Rebreather 15.0 10/31/19 20:01 97 Non-Rebreather 15.0 100 10/31/19 20:00 88 10/31/19 20:00 97.5 80 20 123/75 (91) 100 10/31/19 16:00 98.6 95 20 135/79 (97) 96 10/31/19 15:56 92 10/31/19 15:56 92 10/31/19 12:00 99.3 90 20 162/95 (117) 100 10/31/19 11:45 88 10/31/19 09:00 Non-Rebreather 15.0 Intake and Output 10/31/19 11/01/19 19:00 07:00 Intake Total 600 ml 900 ml Output Total 900 ml 1100 ml Balance -300 ml -200 ml Intake Oral 600 ml 900 ml Output Urine Total 900 ml 1100 ml # Voids 4 4 # Bowel Movements 1 Objective General Appearance: no apparent distress, alert , awake, responsive male in NAD , on NRM Lines, tubes and drains: peripheral HEENT: normocephalic, atraumatic, anicteric, mucous membranes moist, PERRL, pharynx normal, supple, no JVD Neck: non-tender, normal alignment, supple Respiratory/Chest: chest wall non-tender, no respiratory distress, + intermittent use of accessory muscle use, few isolated rhonchi Cardiovascular/Chest: normal peripheral pulses, normal rate Abdomen: normal bowel sounds, non tender, soft Extremities: non-tender, no calf tenderness, normal capillary refill Skin Exam: warm/dry Neurologic: no motor/sensory deficits, alert, oriented x 3, responsive, Musculoskeletal: normal muscle bulk Laboratory Tests 10/31/19 11:55: POC Whole Blood Glucose [Pending] 10/31/19 17:18: POC Whole Blood Glucose [Pending] 10/31/19 20:21: POC Whole Blood Glucose [Pending] 11/01/19 06:29: POC Whole Blood Glucose [Pending] 11/01/19 07:50: White Blood Count [Pending], Red Blood Count [Pending], Hemoglobin [Pending], Hematocrit [Pending], Mean Corpuscular Volume [Pending], Mean Corpuscular Hemoglobin [Pending], Mean Corpuscular Hemoglobin Concent [Pending], Red Cell Distribution Width [Pending], Platelet Count [Pending], Mean Platelet Volume [ Pending], Neutrophils (%) (Auto) [Pending], Lymphocytes (%) (Auto) [Pending], Monocytes (%) (Auto) [Pending], Eosinophils (%) (Auto) [Pending], Basophils (%) (Auto) [Pending], Sodium Level [Pending], Potassium Level [Pending], Chloride Level [Pending], Carbon Dioxide Level [Pending], Blood Urea Nitrogen [Pending], Creatinine [Pending], Estimat Glomerular Filtration Rate [Pending], Glucose Level [Pending], Calcium Level [Pending], Total Bilirubin [Pending], Aspartate Amino Transf (AST/SGOT) [Pending], Alanine Aminotransferase (ALT/SGPT) [Pending] , Alkaline Phosphatase [Pending], Total Protein [Pending], Albumin [Pending], Globulin [Pending], Interleukin 6 (IL-6) [Pending] Current Medications Medications (Trade) Dose Ordered Sig/Jenny Route PRN Reason Start Time Stop Time Status Last Admin Dose Admin Acetaminophen/ Hydrocodone Bitart ([place] 5/325) 1 tab Q4H PRN ORAL Moderate Pain (Pain Scale 4-6) 10/27/19 14:45 11/03/19 14:44 10/28/19 07:07 Albuterol Sulfate (Proventil MDI) 2 puff Q4H PRN INH Shortness of Breath 10/23/19 18:00 01/21/20 17:59 Amlodipine Besylate (Norvasc) 2.5 mg DAILYPRN PRN ORAL For High Blood Pressure 10/26/19 19:45 11/25/19 19:44 10/27/19 20:26 Dexamethasone Sodium Phosphate (Decadron 4mg/ml vial) 6 mg DAILY IVP 10/24/19 09:00 01/21/20 08:59 10/31/19 08:48 Dextrose (Dextrose 50%) 25 ml Q30M PRN IV Hypoglycemia 10/23/19 17:30 01/20/20 22:59 Dextrose (Dextrose 50%) 50 ml Q30M PRN IV Hypoglycemia 10/23/19 17:30 01/20/20 22:59 Duloxetine HCl (Cymbalta) 20 mg DAILY ORAL 10/27/19 09:00 01/25/20 08:59 10/30/19 08:17 Enoxaparin Sodium (Lovenox) 90 mg EVERY 12 HOURS SUBQ 10/28/19 23:00 01/26/20 22:59 10/31/19 20:18 Guaifenesin (Robitussin) 100 mg Q4H PRN ORAL For Cough 10/23/19 19:15 01/20/20 23:14 10/25/19 15:59 Insulin Aspart (NovoLOG) BEFORE MEALS AND HS SUBQ 10/24/19 21:00 01/21/20 06:29 10/31/19 20:41 Lorazepam (Ativan) 1 mg Q6H PRN ORAL For Anxiety 10/31/19 19:00 11/07/19 18:59 Losartan Potassium (Cozaar) 25 mg DAILY ORAL 11/01/19 09:00 12/01/19 08:59 Metformin HCl (Glucophage) 500 mg BID ORAL 10/23/19 18:00 11/22/19 08:59 10/31/19 17:16 Mirtazapine (Remeron) 15 mg BEDTIME ORAL 10/29/19 21:00 01/24/20 20:59 10/31/19 20:18 Pantoprazole (Protonix) 40 mg DAILY ORAL 10/24/19 09:00 11/23/19 08:59 10/30/19 08:17 Polyethylene Glycol (Miralax) 17 gm BEDTIME ORAL 10/26/19 21:00 11/25/19 20:59 10/31/19 20:34 Remdesivir 100 mg/ Sodium Chloride 250 ml @ 250 mls/hr Q24H IV 10/27/19 18:00 11/01/19 18:59 10/31/19 17:38 Assessment/Plan Assessment/Plan ASSESSMENT COVID 19 infection, recently diagnosed PNA, likely due to COVID 19 Acute hypoxemic resp failure, requiring NRM Minimally elevated troponin ( resolved already) CECI with proteinuria ? 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 Slight rightward tracheal deviation , upper mediastinal mass possible given persistent hypoxia, will proceed with CT chest CT chest 10/29 ->Moderate to severe patchy multifocal areas of airspace opacities bilateral lungs, may represent inflammatory, infectious process No mass was seen fup with CXR in am s/p abx: Ceftriaxone ( completed 10/29) and Azithromycin ( completed 10/28) SCX if able ID follows continue steroid, can probably transitioned to oral , added GI prophylaxis completing 10 dats of Remdesivir today, 10/31) , also on Decadron ( started 10/23 ) on LMW Lovenox repeat COVID 19 testing later fup with inflammatory markers to access a risk for cytokine storm latest LDH 4880 (trending down), CRP 4.6 ( trending down), ferritin 329 , IL 6 -15.6, repeat IL pending a/tussive prn monitor volumes prior was on full a/c, s/p heparin gtt, now on Lovenox bid since 10/27 second troponin down to normal min elevation possibly due to CECI , hypoperfusion cardio on board now ECHO with pEF 60%, mild diastolic dysfunction venous Duplex BLE when able to do -pers hypoxia monitor renal parameters, avoid nephrotoxics, creat down to 1.3 Na better UCX 7/2 NGTD UA+ pyuria, mod bacteria, completed Ceftriaxone BCX 7/2 NGTD BS management with metformin ( lactic acid down to normal) and SSI, may need higher coverage from SSI ( given steroids) HgA1c - 9.1 not at goal, trend CK, LFT CK and AST trending down , CK 176 BP management with CCB, now started on oral Lasix, monitor volumes pain management dietary eval noted supportive care Thank you for this consultation! case discussed and evaluated by supervising physician Solomon Delong MD 11/01/19 1259: Subjective Allergies: Coded Allergies: No Known Allergies (Unverified , 08/10/14) Assessment/Plan Assessment/Plan Patient seen and examined with WEB INTERFACE DEVELOPER. Agree with above A&P as it reflects our joint deliberations. Valencia Medina NP Nov 01, 2019 08:30 Solomon Delong MD Nov 01, 2019 12:59
[2019-11-01] MEDS: Losartan 25mg tab ORAL SCH (09:00)
[2019-11-01 09:05] LABS: ALANINE AMINOTRANSFERASE 32 U/L (12-78); ALBUMIN 2.9 G/DL (3.4-5.0); ALBUMIN/GLOBULIN RATIO 0.6 (1.0-2.7); ALKALINE PHOSPHATASE 71 U/L (46-116); ANION GAP 12 mmol/L (5-15); ASPARTATE AMINO TRANSFERASE 19 U/L (15-37); BILIRUBIN,TOTAL 0.7 MG/DL (0.2-1.0); BLOOD UREA NITROGEN 31 mg/dL (7-18); CALCIUM 9.7 MG/DL (8.5-10.1); CARBON DIOXIDE 23 MMOL/L (21-32); CHLORIDE 99 MMOL/L (98-107); CREATININE 1.4 MG/DL (0.55-1.30); POTASSIUM 4.9 MMOL/L (3.5-5.1); SODIUM 134 MMOL/L (136-145)
[2019-11-01] MEDS: metFORMIN 500mg tab ORAL SCH ×2 (09:15→17:32)
[2019-11-01] MEDS: Enoxaparin 100mg Inj SUBQ SCH ×2 (09:18→21:00)
[2019-11-01 12:00] VITALS: BP 124/87
[2019-11-01 16:00] VITALS: BP 129/85
--- NOTE | 2019-11-01 16:39 | Cardiology Progress Note ---
Assessment/Plan Problem List: (1) COVID-19 (2) Hypertension (3) Diabetes type 2, uncontrolled Status: stable, unchanged Status Narrative Pt w/ Covid 19 pneumonia, bilateral infiltrates. Respiratory status appears unchanged. He is on NRB mask oxygen, with sats low 90s at rest. Remains on steroids and remdesivir BP coming under control w/ losartan Diabetes - glucoses elevated, likely due to steroids. Assessment/Plan Continue treatment for covid pneumonia per ID Continue losartan for BP control. Insulin adjustment per primary team Subjective ROS Limited/Unobtainable: No Subjective Cardiology for Pt on NRB mask. Comfortable at rest, but dyspneic w/ mild activity. + nonproductive cough Objective Last 24 Hour Vital Signs Date Time Temp Pulse Resp B/P (MAP) Pulse Ox O2 Delivery O2 Flow Rate FiO2 11/01/19 12:00 97.9 89 19 124/87 (99) 94 11/01/19 09:00 103/61 11/01/19 08:33 Non-Rebreather 10.0 Non-Rebreather 10.0 11/01/19 08:00 96.7 63 20 103/61 (75) 95 11/01/19 08:00 91 11/01/19 04:00 96.4 90 20 116/74 (88) 100 11/01/19 04:00 88 11/01/19 00:00 80 11/01/19 00:00 96.4 84 20 123/62 (82) 100 10/31/19 21:00 Non-Rebreather 15.0 10/31/19 20:01 97 Non-Rebreather 15.0 100 10/31/19 20:00 88 10/31/19 20:00 97.5 80 20 123/75 (91) 100 General Appearance: WD/WN, no apparent distress, alert EENT: PERRL/EOMI Neck: supple, no JVD Rhythm: NSR Cardiovascular: normal rate, regular rhythm, no gallop/murmur Respiratory/Chest: lungs clear, normal breath sounds, no accessory muscle use Abdomen: non tender, soft, no organomegaly Extremities: no swelling Neurologic: alert, oriented x 3 Intake and Output 10/31/19 11/01/19 19:00 07:00 Intake Total 600 ml 900 ml Output Total 900 ml 1100 ml Balance -300 ml -200 ml Intake Oral 600 ml 900 ml Output Urine Total 900 ml 1100 ml # Voids 4 4 # Bowel Movements 1 Laboratory Tests Test 10/31/19 17:18 10/31/19 20:21 11/01/19 06:29 11/01/19 07:50 POC Whole Blood Glucose Pending Pending Pending White Blood Count 9.2 K/UL (4.8-10.8) Red Blood Count 4.97 M/UL (4.70-6.10) Hemoglobin 14.1 G/DL (14.2-18.0) L Hematocrit 44.0 % (42.0-52.0) Mean Corpuscular Volume 89 FL (80-99) Mean Corpuscular Hemoglobin 28.3 PG (27.0-31.0) Mean Corpuscular Hemoglobin Concent 31.9 G/DL (32.0-36.0) L Red Cell Distribution Width 12.9 % (11.6-14.8) Platelet Count 457 K/UL (150-450) H Mean Platelet Volume 5.3 FL (6.5-10.1) L Neutrophils (%) (Auto) 64.2 % (45.0-75.0) Lymphocytes (%) (Auto) 25.2 % (20.0-45.0) Monocytes (%) (Auto) 6.4 % (1.0-10.0) Eosinophils (%) (Auto) 2.0 % (0.0-3.0) Basophils (%) (Auto) 2.3 % (0.0-2.0) H Sodium Level 134 MMOL/L (136-145) L Potassium Level 4.9 MMOL/L (3.5-5.1) Chloride Level 99 MMOL/L (98-107) Carbon Dioxide Level 23 MMOL/L (21-32) Anion Gap 12 mmol/L (5-15) Blood Urea Nitrogen 31 mg/dL (7-18) H Creatinine 1.4 MG/DL (0.55-1.30) H Estimat Glomerular Filtration Rate > 60 mL/min (>60) Glucose Level 172 MG/DL (74-106) H Calcium Level 9.7 MG/DL (8.5-10.1) Total Bilirubin 0.7 MG/DL (0.2-1.0) Aspartate Amino Transf (AST/SGOT) 19 U/L (15-37) Alanine Aminotransferase (ALT/SGPT) 32 U/L (12-78) Alkaline Phosphatase 71 U/L (46-116) Total Protein 8.0 G/DL (6.4-8.2) Albumin 2.9 G/DL (3.4-5.0) L Globulin 5.1 g/dL Albumin/Globulin Ratio 0.6 (1.0-2.7) L Interleukin 6 (IL-6) Pending Test 11/01/19 12:14 POC Whole Blood Glucose 335 MG/DL (74-106) Isela Valero MD Nov 01, 2019 16:39
--- NOTE | 2019-11-01 17:05 | Geriatric Progress Note ---
Assessment/Plan Problems: (1) Transaminasemia (2) SIRS (systemic inflammatory response syndrome) (3) Urinary tract infection (4) Chronic back pain (5) Cataract (6) Pneumonia due to COVID-19 virus (7) Diabetes type 2, uncontrolled (8) Diabetic neuropathy associated with type 2 diabetes mellitus (9) Chronic pain disorder (10) Anxiety disorder (11) Acute kidney injury (12) Rhabdomyolysis due to COVID-19 (13) Chronic rhinitis (14) Hypertension (15) Volume depletion (16) Nausea Assessment/Plan Mildly improved, but desaturates with even limited activity. Remdesivir, completing. Will switch dexamethasone to methylprednisolone and than slowly taper. Parenteral Vit C not available, will supplement p.o., along with thiamine. Continue O2 support, mobilize as tolerated. Monitor labs. Discussed with: patient, hospital staff Subjective Interval Events Patient calmer today. Apparently titrated to 7l/m normal fm with good sats. However, with limited movement with P.T. desaturated to 77% per staff. Patient asks about getting clothes from home, because "he gets cold". Discussed with staff, who will f/u. Patient also asks about reinstituting lorazepam and [place] at doses used at home. Discussed that previously, he has received that dose with desaturation and decreased respiratory rate. Explained he can not tolerate those doses at present. Laboratories with no significant abnormality. Bp OK. Glucoses variable. Remdesivir completing today. Dexamethasone x 10d. Constitutional: Denies: chills, pain, sweats Respiratory: Reports: cough - clear sputum production. Cardiovascular: Denies: chest pain, palpitations Gastrointestinal/Abdominal: Denies: abdominal pain Genitourinary: Denies: dysuria Geriatric Geriatric Last 24 Hour Vital Signs Date Time Temp Pulse Resp B/P (MAP) Pulse Ox O2 Delivery O2 Flow Rate FiO2 11/01/19 12:00 97.9 89 19 124/87 (99) 94 11/01/19 09:00 103/61 11/01/19 08:33 Non-Rebreather 10.0 Non-Rebreather 10.0 11/01/19 08:00 96.7 63 20 103/61 (75) 95 11/01/19 08:00 91 11/01/19 04:00 96.4 90 20 116/74 (88) 100 11/01/19 04:00 88 7/12/20 00:00 80 11/01/19 00:00 96.4 84 20 123/62 (82) 100 10/31/19 21:00 Non-Rebreather 15.0 10/31/19 20:01 97 Non-Rebreather 15.0 100 10/31/19 20:00 88 10/31/19 20:00 97.5 80 20 123/75 (91) 100 Intake and Output 10/31/19 11/01/19 19:00 07:00 Intake Total 600 ml 900 ml Output Total 900 ml 1100 ml Balance -300 ml -200 ml Intake Oral 600 ml 900 ml Output Urine Total 900 ml 1100 ml # Voids 4 4 # Bowel Movements 1 Laboratory Tests Test 10/31/19 17:18 10/31/19 20:21 11/01/19 06:29 11/01/19 07:50 POC Whole Blood Glucose Pending Pending Pending White Blood Count 9.2 K/UL (4.8-10.8) Red Blood Count 4.97 M/UL (4.70-6.10) Hemoglobin 14.1 G/DL (14.2-18.0) L Hematocrit 44.0 % (42.0-52.0) Mean Corpuscular Volume 89 FL (80-99) Mean Corpuscular Hemoglobin 28.3 PG (27.0-31.0) Mean Corpuscular Hemoglobin Concent 31.9 G/DL (32.0-36.0) L Red Cell Distribution Width 12.9 % (11.6-14.8) Platelet Count 457 K/UL (150-450) H Mean Platelet Volume 5.3 FL (6.5-10.1) L Neutrophils (%) (Auto) 64.2 % (45.0-75.0) Lymphocytes (%) (Auto) 25.2 % (20.0-45.0) Monocytes (%) (Auto) 6.4 % (1.0-10.0) Eosinophils (%) (Auto) 2.0 % (0.0-3.0) Basophils (%) (Auto) 2.3 % (0.0-2.0) H Sodium Level 134 MMOL/L (136-145) L Potassium Level 4.9 MMOL/L (3.5-5.1) Chloride Level 99 MMOL/L (98-107) Carbon Dioxide Level 23 MMOL/L (21-32) Anion Gap 12 mmol/L (5-15) Blood Urea Nitrogen 31 mg/dL (7-18) H Creatinine 1.4 MG/DL (0.55-1.30) H Estimat Glomerular Filtration Rate > 60 mL/min (>60) Glucose Level 172 MG/DL (74-106) H Calcium Level 9.7 MG/DL (8.5-10.1) Total Bilirubin 0.7 MG/DL (0.2-1.0) Aspartate Amino Transf (AST/SGOT) 19 U/L (15-37) Alanine Aminotransferase (ALT/SGPT) 32 U/L (12-78) Alkaline Phosphatase 71 U/L (46-116) Total Protein 8.0 G/DL (6.4-8.2) Albumin 2.9 G/DL (3.4-5.0) L Globulin 5.1 g/dL Albumin/Globulin Ratio 0.6 (1.0-2.7) L Interleukin 6 (IL-6) Pending Test 11/01/19 12:14 POC Whole Blood Glucose 335 MG/DL (74-106) H Current Medications Medications (Trade) Dose Ordered Sig/Jenny Route PRN Reason Start Time Stop Time Status Last Admin Dose Admin Acetaminophen/ Hydrocodone Bitart ([place] 5/325) 1 tab Q4H PRN ORAL Moderate Pain (Pain Scale 4-6) 10/27/19 14:45 11/03/19 14:44 10/28/19 07:07 Albuterol Sulfate (Proventil MDI) 2 puff Q4H PRN INH Shortness of Breath 10/23/19 18:00 01/21/20 17:59 Amlodipine Besylate (Norvasc) 2.5 mg DAILYPRN PRN ORAL For High Blood Pressure 10/26/19 19:45 11/25/19 19:44 10/27/19 20:26 Dexamethasone Sodium Phosphate (Decadron 4mg/ml vial) 6 mg DAILY IVP 10/24/19 09:00 01/21/20 08:59 11/01/19 09:15 Dextrose (Dextrose 50%) 25 ml Q30M PRN IV Hypoglycemia 10/23/19 17:30 01/20/20 22:59 Dextrose (Dextrose 50%) 50 ml Q30M PRN IV Hypoglycemia 10/23/19 17:30 01/20/20 22:59 Duloxetine HCl (Cymbalta) 20 mg DAILY ORAL 10/27/19 09:00 01/25/20 08:59 11/01/19 09:15 Enoxaparin Sodium (Lovenox) 90 mg EVERY 12 HOURS SUBQ 10/28/19 23:00 01/26/20 22:59 11/01/19 09:18 Guaifenesin (Robitussin) 100 mg Q4H PRN ORAL For Cough 10/23/19 19:15 01/20/20 23:14 10/25/19 15:59 Insulin Aspart (NovoLOG) BEFORE MEALS AND HS SUBQ 10/24/19 21:00 01/21/20 06:29 11/01/19 11:30 Lorazepam (Ativan) 1 mg Q6H PRN ORAL For Anxiety 10/31/19 19:00 11/07/19 18:59 Losartan Potassium (Cozaar) 25 mg DAILY ORAL 11/01/19 09:00 12/01/19 08:59 Metformin HCl (Glucophage) 500 mg BID ORAL 10/23/19 18:00 11/22/19 08:59 11/01/19 09:15 Mirtazapine (Remeron) 15 mg BEDTIME ORAL 10/29/19 21:00 01/24/20 20:59 10/31/19 20:18 Pantoprazole (Protonix) 40 mg DAILY ORAL 10/24/19 09:00 11/23/19 08:59 11/01/19 09:15 Polyethylene Glycol (Miralax) 17 gm BEDTIME ORAL 10/26/19 21:00 11/25/19 20:59 10/31/19 20:34 Remdesivir 100 mg/ Sodium Chloride 250 ml @ 250 mls/hr Q24H IV 10/27/19 18:00 11/01/19 18:59 10/31/19 17:38 Height (Feet): 6 Height (Inches): 1.00 Weight (Pounds): 198 General Appearance: alert Head: normocephalic, atraumatic Eyes: bilateral anicteric ENT: normal voice Neck: full range of motion, no mass Respiratory: decreased breath sounds Cardiovascular: regular rate, rhythm Gastrointestinal: normal bowel sounds, non tender, soft, no mass, no organomegaly Musculoskeletal: no calf tenderness Neurologic: alert, no new focality Jim Zee MD Nov 01, 2019 17:05
[2019-11-01] MEDS: Solu-MEDROL 40mg Inj IVP SCH ×2 (17:32→23:50)
[2019-11-01] MEDS: Remdesivir 100mg 100 MG in NS 230 ML IV SCH (17:32)
[2019-11-01] MEDS: Ascorbic Acid 500mg tab ORAL SCH ×2 (17:32→21:00)
--- NOTE | 2019-11-01 19:27 | NUR ---
HAND-OFF: Report given to TEA Branham.
--- NOTE | 2019-11-01 19:30 | NUR ---
NURSE NOTES: Got report from Carmen METCALF. Pt in stable condition. Denies any pain. Denies any n/v or SOB. Pt resting in bed comfortably. Pt is Covid +. Pt is fully oriented with unsteady gait. No skin issues noted. Pt on 9L Nonrebreather mask sating 95%. Pt has L AC 22g saline locked. Bed in low and locked position, call light within reach, bedside table within reach. Continue to monitor.
[2019-11-01 20:00] VITALS: BP 137/87
[2019-11-01] MEDS: D5W IVPB SCH (21:00)
[2019-11-01] MEDS: Miralax 17gm pkt ORAL SCH (21:00)
[2019-11-01] MEDS: THIAMINE HCL IVPB SCH (21:00)
[2019-11-02] VITALS: BP 129/86
[2019-11-02 04:00] VITALS: BP 120/84
[2019-11-02] MEDS: Solu-MEDROL 40mg Inj IVP SCH ×3 (06:07→17:49)
[2019-11-02] MEDS: NovoLOG Insulin Flexpen SUBQ SCH ×4 (06:26→22:56)
[2019-11-02 07:19] LABS: BASOPHILS % (AUTO) 2.6 % (0.0-2.0); EOSINOPHILS % (AUTO) 0.3 % (0.0-3.0); HEMATOCRIT 42.7 % (42.0-52.0); HEMOGLOBIN 13.6 G/DL (14.2-18.0); LYMPHOCYTES % (AUTO) 19.5 % (20.0-45.0); MEAN CORPUSCULAR VOLUME 89 FL (80-99); MONOCYTES % (AUTO) 6.3 % (1.0-10.0); NEUTROPHILS % (AUTO) 71.4 % (45.0-75.0); PLATELET COUNT 459 K/UL (150-450); RED BLOOD COUNT 4.79 M/UL (4.70-6.10); RED CELL DISTRIBUTION WIDTH 12.7 % (11.6-14.8); WHITE BLOOD COUNT 8.8 K/UL (4.8-10.8)
--- NOTE | 2019-11-02 07:50 | NUR ---
NURSE NOTES: Received report from TEA Branham. Pt is AOx4, stable resting and watching television. No complaints of distress or pain at this time. Pt is on 9L NRB. Will continue to monitor.
--- NOTE | 2019-11-02 07:50 | NUR ---
HAND-OFF: Report given to Nazia METCALF.
[2019-11-02 07:59] LABS: ANION GAP 8 mmol/L (5-15); BLOOD UREA NITROGEN 31 mg/dL (7-18); CARBON DIOXIDE 26 MMOL/L (21-32); CHLORIDE 100 MMOL/L (98-107); CREATININE 1.3 MG/DL (0.55-1.30); SODIUM 134 MMOL/L (136-145)
[2019-11-02 08:00] VITALS: BP 118/74
--- NOTE | 2019-11-02 08:23 | NUR ---
CASE MANAGEMENT:REVIEW 11/02/19 SI: COVID PNA. SIRS. RHABDO SUSPECTED PULMONARY EMBOLI 97.7 92 22 118/74 92% ON NON REBREATHER HGB-13.6 BUN+31 GLUCOSE+218 IS: LOVENOX SQ Q12 IV REMDESIVIR Q24~COMPLETED IV SOLUMEDROL Q6HRS SS INSULIN AC+HS NORCO PO Q6HRS PRN : TELEMETRY STATUS DCP: PATIENT IS FROM HOME PLAN: VIT C THIAMINE TAPER SOLUMEDROL
[2019-11-02] MEDS: Losartan 25mg tab ORAL SCH ×2 (09:00→09:37)
[2019-11-02] MEDS: metFORMIN 500mg tab ORAL SCH ×2 (09:36→17:48)
[2019-11-02] MEDS: Enoxaparin 100mg Inj SUBQ SCH ×2 (09:36→22:55)
[2019-11-02] MEDS: Ascorbic Acid 500mg tab ORAL SCH ×4 (09:37→22:53)
[2019-11-02] MEDS: THIAMINE HCL IVPB SCH ×2 (09:38→21:00)
[2019-11-02] MEDS: D5W IVPB SCH ×2 (09:38→21:00)
--- NOTE | 2019-11-02 09:38 | Pulmonology Progress Note ---
Valencia Medina [facility] P[facility]ER 11/02/19 0938: Subjective ROS Limited/Unobtainable: No Constitutional: Reports: other - on non-rebreather ; Denies: fever Gastrointestinal/Abdominal: Denies: nausea, vomiting Psychiatric: Denies: depression Skin: Denies: rash Musculoskeletal: Denies: pain Allergies: Coded Allergies: No Known Allergies (Unverified , 08/10/14) Subjective on VM now, weaned from 100% NRM reports feeling better less SOIB, less anxiety at this time no CP no fevers Objective Last 24 Hour Vital Signs Date Time Temp Pulse Resp B/P (MAP) Pulse Ox O2 Delivery O2 Flow Rate FiO2 11/02/19 08:00 97.7 92 22 118/74 (89) 92 11/02/19 04:00 98.4 86 18 120/84 (96) 95 11/02/19 04:00 78 11/02/19 00:00 81 11/02/19 00:00 97.8 85 20 129/86 (100) 99 11/01/19 21:00 Non-Rebreather 10.0 Non-Rebreather 10.0 11/01/19 20:00 100 11/01/19 20:00 97.2 81 20 137/87 (104) 95 11/01/19 16:00 84 11/01/19 16:00 96.7 102 19 129/85 (100) 95 11/01/19 12:00 97.9 89 19 124/87 (99) 94 11/01/19 12:00 94 Intake and Output 11/01/19 11/02/19 19:00 07:00 Intake Total 800 ml Output Total 3 ml 600 ml Balance 797 ml -600 ml Intake Oral 800 ml Output Urine Total 3 ml 600 ml # Voids 2 Objective General Appearance: no apparent distress, alert , awake, responsive male in NAD , on NRM Lines, tubes and drains: peripheral HEENT: normocephalic, atraumatic, anicteric, mucous membranes moist, PERRL, pharynx normal, supple, no JVD Neck: non-tender, normal alignment, supple Respiratory/Chest: chest wall non-tender, no respiratory distress, + intermittent use of accessory muscle use, few isolated rhonchi Cardiovascular/Chest: normal peripheral pulses, normal rate Abdomen: normal bowel sounds, non tender, soft Extremities: non-tender, no calf tenderness, normal capillary refill Skin Exam: warm/dry Neurologic: no motor/sensory deficits, alert, oriented x 3, responsive, Musculoskeletal: normal muscle bulk Laboratory Tests 11/01/19 12:14: POC Whole Blood Glucose 335H 11/01/19 17:22: POC Whole Blood Glucose 350H 11/02/19 06:59: White Blood Count 8.8, Red Blood Count 4.79, Hemoglobin 13.6L, Hematocrit 42.7, Mean Corpuscular Volume 89, Mean Corpuscular Hemoglobin 28.4, Mean Corpuscular Hemoglobin Concent 31.8L, Red Cell Distribution Width 12.7, Platelet Count 459H , Mean Platelet Volume 5.6L, Neutrophils (%) (Auto) 71.4, Lymphocytes (%) (Auto ) 19.5L, Monocytes (%) (Auto) 6.3, Eosinophils (%) (Auto) 0.3, Basophils (%) ( Auto) 2.6H, Sodium Level 134L, Potassium Level 5.0, Chloride Level 100, Carbon Dioxide Level 26, Anion Gap 8, Blood Urea Nitrogen 31H, Creatinine 1.3, Estimat Glomerular Filtration Rate > 60, Glucose Level 218H, Calcium Level 10.0 Current Medications Medications (Trade) Dose Ordered Sig/Jenny Route PRN Reason Start Time Stop Time Status Last Admin Dose Admin Acetaminophen/ Hydrocodone Bitart ([place] 5/325) 1 tab Q4H PRN ORAL Moderate Pain (Pain Scale 4-6) 10/27/19 14:45 11/03/19 14:44 10/28/19 07:07 Albuterol Sulfate (Proventil MDI) 2 puff Q4H PRN INH Shortness of Breath 10/23/19 18:00 01/21/20 17:59 Amlodipine Besylate (Norvasc) 2.5 mg DAILYPRN PRN ORAL For High Blood Pressure 10/26/19 19:45 11/25/19 19:44 10/27/19 20:26 Ascorbic Acid (Vitamin C) 500 mg QID ORAL 11/01/19 18:00 12/01/19 17:59 11/01/19 21:00 Dextrose (Dextrose 50%) 25 ml Q30M PRN IV Hypoglycemia 10/23/19 17:30 01/20/20 22:59 Dextrose (Dextrose 50%) 50 ml Q30M PRN IV Hypoglycemia 10/23/19 17:30 01/20/20 22:59 Duloxetine HCl (Cymbalta) 20 mg DAILY ORAL 10/27/19 09:00 01/25/20 08:59 11/01/19 09:15 Enoxaparin Sodium (Lovenox) 90 mg EVERY 12 HOURS SUBQ 10/28/19 23:00 01/26/20 22:59 11/01/19 21:00 Guaifenesin (Robitussin) 100 mg Q4H PRN ORAL For Cough 10/23/19 19:15 01/20/20 23:14 10/25/19 15:59 Insulin Aspart (NovoLOG) BEFORE MEALS AND HS SUBQ 10/24/19 21:00 01/21/20 06:29 11/02/19 06:26 Lorazepam (Ativan) 1 mg Q6H PRN ORAL For Anxiety 10/31/19 19:00 11/07/19 18:59 Losartan Potassium (Cozaar) 25 mg DAILY ORAL 11/01/19 09:00 12/01/19 08:59 Metformin HCl (Glucophage) 500 mg BID ORAL 10/23/19 18:00 11/22/19 08:59 11/01/19 17:32 Methylprednisolone Sodium Succinate (Solu-MEDROL) 20 mg EVERY 6 HOURS IVP 11/01/19 18:00 01/30/20 17:59 11/02/19 06:07 Mirtazapine (Remeron) 15 mg BEDTIME ORAL 10/29/19 21:00 01/24/20 20:59 11/01/19 21:00 Pantoprazole (Protonix) 40 mg DAILY ORAL 10/24/19 09:00 11/23/19 08:59 11/01/19 09:15 Polyethylene Glycol (Miralax) 17 gm BEDTIME ORAL 10/26/19 21:00 11/25/19 20:59 10/31/19 20:34 Thiamine HCl 200 mg/Dextrose 112 ml @ 220.087 mls/hr Q12HR IVPB 11/01/19 21:00 12/01/19 20:59 11/01/19 21:00 Assessment/Plan Assessment/Plan ASSESSMENT COVID 19 infection, recently diagnosed PNA, likely due to COVID 19 Acute hypoxemic resp failure, requiring NRM Minimally elevated troponin ( resolved already) CECI with proteinuria ? 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 Slight rightward tracheal deviation , upper mediastinal mass possible given persistent hypoxia, will proceed with CT chest CT chest 10/29 ->Moderate to severe patchy multifocal areas of airspace opacities bilateral lungs, may represent inflammatory, infectious process No mass was seen CXR pending for this am s/p abx: Ceftriaxone ( completed 10/29) and Azithromycin ( completed 10/28) SCX if able ID follows completed 10 days of Remdesivir and steroid today, 10/31) , now on IV Solumedrol per primary, would probably taper soon on LMW Lovenox Venous Dupelx BLE pending repeat COVID 19 -pending fup with inflammatory markers to access a risk for cytokine storm latest LDH 488 (trending down), CRP 4.6 ( trending down), ferritin 329 , IL 6 -15.6, repeated IL pending a/tussive prn monitor volumes prior was on full a/c, s/p heparin gtt, now on Lovenox bid since 10/27 second troponin down to normal min elevation possibly due to CECI , hypoperfusion cardio on board now ECHO with pEF 60%, mild diastolic dysfunction monitor renal parameters, avoid nephrotoxics, creat down UCX / NGTD UA+ pyuria, mod bacteria, completed Ceftriaxone BCX / NGTD BS management with metformin ( lactic acid down to normal) and SSI, may need higher coverage from SSI ( given steroids) HgA1c - 9.1 not at goal, trend CK, LFT CK and AST trending down , CK 176 BP management with CCB, now started on oral Lasix, monitor volumes pain management dietary eval noted supportive care Thank you for this consultation! case discussed and evaluated by supervising physician New Morales MD 11/02/192054: Subjective Allergies: Coded Allergies: No Known Allergies (Unverified , 08/10/14) Assessment/Plan Assessment/Plan Patient seen and examined with [facility]. Agree with above A&P as it reflects our joint deliberations. Valencia Medina NP Nov 02, 2019 09:38 New Morales MD Nov 02, 2019 20:55
--- NOTE | 2019-11-02 09:52 | Diagnostic Imaging Report ---
Indication: Reason For Exam: SOB Technique: One view of the chest Comparison: 10/29/2019 Findings: Bilateral infiltrates are again demonstrated, in a peripheral and peribronchial vascular distribution. These are unchanged from previous study. Heart size is borderline enlarged. The pleural spaces are grossly clear. The stomach is gas-filled. There are cholecystectomy clips Impression: Unchanged bilateral infiltrates, consistent with pneumonia, over 4 days
--- NOTE | 2019-11-02 10:04 | NUR ---
NURSE NOTES: Covid swab sent to lab
[2019-11-02 12:00] VITALS: BP 118/74
--- NOTE | 2019-11-02 14:02 | NUR ---
PT NOTE order for venous duplex BLE to R/O DVT. Will await results of scan prior to seeing patient for PT treatment. Nazia METCALF notified.
[2019-11-02 16:00] VITALS: BP 142/85
--- NOTE | 2019-11-02 18:45 | NUR ---
NURSE NOTES: Pt titrated down from 9 LPM to 7 LMP simple face mask. Pt saturates at 95% comfortably without complaints or S/S of distress. Will continue to monitor. Respiratory therapy notified.
--- NOTE | 2019-11-02 19:08 | Cardiology Progress Note ---
Assessment/Plan Assessment/Plan 1. COVID-19 infection / pneumonia . 2. Premature atrial contractions with some nonconducted. 3. Pneumonia. 4. Diastolic dysfunction mild 5. Diabetes mellitus is poor control. 6. Resolved acute renal failure. 7. Resolved transaminitis. 8. Rhabdomyolysis, improved. cxr personally reviewed looks better to me wbc is lower bp seem ok afebrile but he was never febrile his oxygen requirement have improved now on 9 liter is on full anticoagulation with full dose of lovenox as he removed his iv several times yest course of remdesivir and steroid per staff if more comfortabel tele personally reviewed sine pacs only Subjective Subjective per pulm pa on VM now, weaned from 100% NRM reports feeling better less SOIB, less anxiety at this time no CP no fevers Objective Last 24 Hour Vital Signs Date Time Temp Pulse Resp B/P (MAP) Pulse Ox O2 Delivery O2 Flow Rate FiO2 11/02/19 16:00 96 11/02/19 16:00 97.7 91 22 142/85 (104) 11/02/19 12:00 87 11/02/19 12:00 97.7 92 22 118/74 (89) 97 11/02/19 10:34 Non-Rebreather 9.0 Non-Rebreather 9.0 11/02/19 10:33 89 11/02/19 09:00 118/74 11/02/19 08:00 97.7 92 22 118/74 (89) 92 11/02/19 04:00 98.4 86 18 120/84 (96) 95 11/02/19 04:00 78 11/02/19 00:00 81 11/02/19 00:00 97.8 85 20 129/86 (100) 99 11/01/19 21:00 Non-Rebreather 10.0 Non-Rebreather 10.0 11/01/19 20:00 100 11/01/19 20:00 97.2 81 20 137/87 (104) 95 Intake and Output 11/01/19 11/02/19 19:00 07:00 Intake Total 800 ml Output Total 3 ml 600 ml Balance 797 ml -600 ml Intake Oral 800 ml Output Urine Total 3 ml 600 ml # Voids 2 Laboratory Tests Test 11/02/19 06:59 11/02/19 16:45 White Blood Count 8.8 K/UL (4.8-10.8) Red Blood Count 4.79 M/UL (4.70-6.10) Hemoglobin 13.6 G/DL (14.2-18.0) L Hematocrit 42.7 % (42.0-52.0) Mean Corpuscular Volume 89 FL (80-99) Mean Corpuscular Hemoglobin 28.4 PG (27.0-31.0) Mean Corpuscular Hemoglobin Concent 31.8 G/DL (32.0-36.0) L Red Cell Distribution Width 12.7 % (11.6-14.8) Platelet Count 459 K/UL (150-450) H Mean Platelet Volume 5.6 FL (6.5-10.1) L Neutrophils (%) (Auto) 71.4 % (45.0-75.0) Lymphocytes (%) (Auto) 19.5 % (20.0-45.0) L Monocytes (%) (Auto) 6.3 % (1.0-10.0) Eosinophils (%) (Auto) 0.3 % (0.0-3.0) Basophils (%) (Auto) 2.6 % (0.0-2.0) H Sodium Level 134 MMOL/L (136-145) L Potassium Level 5.0 MMOL/L (3.5-5.1) Chloride Level 100 MMOL/L (98-107) Carbon Dioxide Level 26 MMOL/L (21-32) Anion Gap 8 mmol/L (5-15) Blood Urea Nitrogen 31 mg/dL (7-18) H Creatinine 1.3 MG/DL (0.55-1.30) Estimat Glomerular Filtration Rate > 60 mL/min (>60) Glucose Level 218 MG/DL (74-106) H Calcium Level 10.0 MG/DL (8.5-10.1) POC Whole Blood Glucose 343 MG/DL (74-106) H Objective per Al Negron MD Nov 02, 2019 19:08
--- NOTE | 2019-11-02 19:21 | Geriatric Progress Note ---
Assessment/Plan Problems: (1) Transaminasemia (2) SIRS (systemic inflammatory response syndrome) (3) Urinary tract infection (4) Chronic back pain (5) Cataract (6) Pneumonia due to COVID-19 virus (7) Diabetes type 2, uncontrolled (8) Diabetic neuropathy associated with type 2 diabetes mellitus (9) Chronic pain disorder (10) Anxiety disorder (11) Acute kidney injury (12) Rhabdomyolysis due to COVID-19 (13) Chronic rhinitis (14) Hypertension (15) Volume depletion (16) Nausea Assessment/Plan Improving trend, but slow. No new issues, still requiring high flow O2 supplementation. Will wait for repeat IL-6 before attempting steroid taper. Hopefully, as inflammatory process recedes, O2 requirement will decrease sufficiently to facilitate discharge. Continue current regimen. Discussed with: patient, hospital staff Subjective Interval Events Patient tolerating filtered mask with 8-9 l/m O2. Reports feeling better. No new symptoms. Staff reports patient tolerating treatment well. Eating well. No further constipation. Losartan held again for controlled bp. Sugars slightly higher on q6 Solumedrol. Labs otherwise without significant change. Repeat IL-6 still pending. Venous duplex ordered, still pending. Participated with physical therapy. Constitutional: Denies: chills, sweats, fever Respiratory: Reports: cough - minimal today; Denies: wheezing Cardiovascular: Denies: chest pain Gastrointestinal/Abdominal: Denies: abdominal pain, constipation, diarrhea, nausea, vomiting Genitourinary: Denies: dysuria Geriatric Geriatric Last 24 Hour Vital Signs Date Time Temp Pulse Resp B/P (MAP) Pulse Ox O2 Delivery O2 Flow Rate FiO2 11/02/19 16:00 96 11/02/19 16:00 97.7 91 22 142/85 (104) 11/02/19 12:00 87 11/02/19 12:00 97.7 92 22 118/74 (89) 97 11/02/19 10:34 Non-Rebreather 9.0 Non-Rebreather 9.0 11/02/19 10:33 89 11/02/19 09:00 118/74 11/02/19 08:00 97.7 92 22 118/74 (89) 92 11/02/19 04:00 98.4 86 18 120/84 (96) 95 11/02/19 04:00 78 7/13/20 00:00 81 11/02/19 00:00 97.8 85 20 129/86 (100) 99 11/01/19 21:00 Non-Rebreather 10.0 Non-Rebreather 10.0 11/01/19 20:00 100 11/01/19 20:00 97.2 81 20 137/87 (104) 95 Intake and Output 11/01/19 11/02/19 19:00 07:00 Intake Total 800 ml Output Total 3 ml 600 ml Balance 797 ml -600 ml Intake Oral 800 ml Output Urine Total 3 ml 600 ml # Voids 2 Laboratory Tests Test 11/02/19 06:59 11/02/19 16:45 White Blood Count 8.8 K/UL (4.8-10.8) Red Blood Count 4.79 M/UL (4.70-6.10) Hemoglobin 13.6 G/DL (14.2-18.0) L Hematocrit 42.7 % (42.0-52.0) Mean Corpuscular Volume 89 FL (80-99) Mean Corpuscular Hemoglobin 28.4 PG (27.0-31.0) Mean Corpuscular Hemoglobin Concent 31.8 G/DL (32.0-36.0) L Red Cell Distribution Width 12.7 % (11.6-14.8) Platelet Count 459 K/UL (150-450) H Mean Platelet Volume 5.6 FL (6.5-10.1) L Neutrophils (%) (Auto) 71.4 % (45.0-75.0) Lymphocytes (%) (Auto) 19.5 % (20.0-45.0) L Monocytes (%) (Auto) 6.3 % (1.0-10.0) Eosinophils (%) (Auto) 0.3 % (0.0-3.0) Basophils (%) (Auto) 2.6 % (0.0-2.0) H Sodium Level 134 MMOL/L (136-145) L Potassium Level 5.0 MMOL/L (3.5-5.1) Chloride Level 100 MMOL/L (98-107) Carbon Dioxide Level 26 MMOL/L (21-32) Anion Gap 8 mmol/L (5-15) Blood Urea Nitrogen 31 mg/dL (7-18) H Creatinine 1.3 MG/DL (0.55-1.30) Estimat Glomerular Filtration Rate > 60 mL/min (>60) Glucose Level 218 MG/DL (74-106) H Calcium Level 10.0 MG/DL (8.5-10.1) POC Whole Blood Glucose 343 MG/DL (74-106) H Current Medications Medications (Trade) Dose Ordered Sig/Jenny Route PRN Reason Start Time Stop Time Status Last Admin Dose Admin Acetaminophen/ Hydrocodone Bitart ([place] 5/325) 1 tab Q4H PRN ORAL Moderate Pain (Pain Scale 4-6) 10/27/19 14:45 11/03/19 14:44 10/28/19 07:07 Albuterol Sulfate (Proventil MDI) 2 puff Q4H PRN INH Shortness of Breath 10/23/19 18:00 01/21/20 17:59 Amlodipine Besylate (Norvasc) 2.5 mg DAILYPRN PRN ORAL For High Blood Pressure 10/26/19 19:45 11/25/19 19:44 10/27/19 20:26 Ascorbic Acid (Vitamin C) 500 mg QID ORAL 11/01/19 18:00 12/01/19 17:59 11/02/19 17:48 Dextrose (Dextrose 50%) 25 ml Q30M PRN IV Hypoglycemia 10/23/19 17:30 01/20/20 22:59 Dextrose (Dextrose 50%) 50 ml Q30M PRN IV Hypoglycemia 10/23/19 17:30 01/20/20 22:59 Duloxetine HCl (Cymbalta) 20 mg DAILY ORAL 10/27/19 09:00 01/25/20 08:59 11/02/19 09:39 Enoxaparin Sodium (Lovenox) 90 mg EVERY 12 HOURS SUBQ 10/28/19 23:00 01/26/20 22:59 11/02/19 09:36 Guaifenesin (Robitussin) 100 mg Q4H PRN ORAL For Cough 10/23/19 19:15 01/20/20 23:14 10/25/19 15:59 Insulin Aspart (NovoLOG) BEFORE MEALS AND HS SUBQ 10/24/19 21:00 01/21/20 06:29 11/02/19 16:30 Lorazepam (Ativan) 1 mg Q6H PRN ORAL For Anxiety 10/31/19 19:00 11/07/19 18:59 Losartan Potassium (Cozaar) 25 mg DAILY ORAL 11/01/19 09:00 12/01/19 08:59 Metformin HCl (Glucophage) 500 mg BID ORAL 10/23/19 18:00 11/22/19 08:59 11/02/19 17:48 Methylprednisolone Sodium Succinate (Solu-MEDROL) 20 mg EVERY 6 HOURS IVP 11/01/19 18:00 01/30/20 17:59 11/02/19 17:49 Mirtazapine (Remeron) 15 mg BEDTIME ORAL 10/29/19 21:00 01/24/20 20:59 11/01/19 21:00 Pantoprazole (Protonix) 40 mg DAILY ORAL 10/24/19 09:00 11/23/19 08:59 11/02/19 09:36 Polyethylene Glycol (Miralax) 17 gm BEDTIME ORAL 10/26/19 21:00 11/25/19 20:59 10/31/19 20:34 Thiamine HCl 200 mg/Dextrose 112 ml @ 220.087 mls/hr Q12HR IVPB 11/01/19 21:00 12/01/19 20:59 11/02/19 09:38 Height (Feet): 6 Height (Inches): 1.00 Weight (Pounds): 198 General Appearance: alert Head: normocephalic, atraumatic Eyes: bilateral anicteric ENT: normal voice Neck: full range of motion, no mass Respiratory: decreased breath sounds Cardiovascular: regular rate, rhythm Gastrointestinal: normal bowel sounds, non tender, soft, no mass, no organomegaly Musculoskeletal: no calf tenderness Edema: no edema noted Generalized Jim Zee MD Nov 02, 2019 19:21
--- NOTE | 2019-11-02 19:33 | NUR ---
HAND-OFF: Report given to TEA Crawford. Patient's stable, plan of care endorsed.
--- NOTE | 2019-11-02 19:36 | NUR ---
NURSE NOTES: Received report from TEA Mandujano. Pt is AOx4, stable resting and talking on the telephone. Sitting up in bed, bed is locked, side rails x2, bed in lowest position, bed alarm on, urinal within reach No complaints of distress or pain at this time. Pt is on 7 L simple face mask. Will continue to monitor.
[2019-11-02 20:00] VITALS: BP 138/89
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
[2019-11-02] MEDS: Miralax 17gm pkt ORAL SCH (22:53)
[2019-11-03] VITALS: BP 130/75
[2019-11-03] MEDS: Solu-MEDROL 40mg Inj IVP SCH ×4 (00:59→17:29)
[2019-11-03 04:00] VITALS: BP 137/87
[2019-11-03] MEDS: NovoLOG Insulin Flexpen SUBQ SCH ×4 (06:28→21:00)
--- NOTE | 2019-11-03 07:45 | NUR ---
NURSE NOTES: Pt is seen sitting stable semi fowlers in room watching TV. Pt does not report or display any S/S of distress or SOB at this time. Bed in locked in lowest position, call light in reach, and non skid socks on. Pt is on 7 LMP simple face mask saturating at 95%, and lung sounds are clear. Will continue to monitor.
--- NOTE | 2019-11-03 07:54 | NUR ---
HAND-OFF: Report given to TEA Mandujano
[2019-11-03 08:00] VITALS: BP 119/67
[2019-11-03] MEDS: Losartan 25mg tab ORAL SCH ×2 (09:00→09:08)
[2019-11-03] MEDS: metFORMIN 500mg tab ORAL SCH ×2 (09:08→17:29)
[2019-11-03] MEDS: Ascorbic Acid 500mg tab ORAL SCH ×4 (09:08→21:00)
[2019-11-03] MEDS: THIAMINE HCL IVPB SCH ×2 (09:09→21:00)
[2019-11-03] MEDS: D5W IVPB SCH ×2 (09:09→21:00)
[2019-11-03] MEDS: Enoxaparin 100mg Inj SUBQ SCH ×2 (09:09→21:00)
--- NOTE | 2019-11-03 10:26 | Pulmonology Progress Note ---
Valencia Medina TECHNICAL EDITOR 11/03/19 1026: Subjective ROS Limited/Unobtainable: No Constitutional: Denies: fever Gastrointestinal/Abdominal: Denies: nausea, vomiting, diarrhea Psychiatric: Denies: depression Skin: Denies: rash Musculoskeletal: Denies: pain Allergies: Coded Allergies: No Known Allergies (Unverified , 08/10/14) Subjective on simple mask 7 L/min now, sitting in the chair, PT in the room to start treatment still desaturates easily reports feeling better though less SOB, less anxiety no CP no fevers Objective Last 24 Hour Vital Signs Date Time Temp Pulse Resp B/P (MAP) Pulse Ox O2 Delivery O2 Flow Rate FiO2 11/03/19 09:00 119/67 11/03/19 08:22 Simple Mask 7.0 Simple Mask 7.0 11/03/19 08:00 98.1 95 22 119/67 (84) 98 11/03/19 04:00 80 11/03/19 04:00 98.6 81 20 137/87 (104) 99 11/03/19 00:00 90 11/03/19 00:00 97.7 87 20 130/75 (93) 95 11/02/19 21:00 Non-Rebreather 8.0 Non-Rebreather 9.0 11/02/19 20:00 98.1 88 21 138/89 (105) 98 11/02/19 20:00 89 11/02/19 16:00 96 11/02/19 16:00 97.7 91 22 142/85 (104) 11/02/19 12:00 87 11/02/19 12:00 97.7 92 22 118/74 (89) 97 11/02/19 10:34 Non-Rebreather 9.0 Non-Rebreather 9.0 11/02/19 10:33 89 Intake and Output 11/02/19 11/03/19 19:00 07:00 Intake Total 1600 ml Output Total 1000 ml Balance 600 ml Intake Oral 1450 ml Other 150 ml Output Urine Total 1000 ml # Voids 5 1 Objective General Appearance: no apparent distress, alert , awake, responsive male in NAD , on FM 7L/min Lines, tubes and drains: peripheral HEENT: normocephalic, atraumatic, anicteric, mucous membranes moist, PERRL, pharynx normal, supple, no JVD Neck: non-tender, normal alignment, supple Respiratory/Chest: chest wall non-tender, no respiratory distress, + intermittent use of accessory muscle use, few isolated rhonchi Cardiovascular/Chest: normal peripheral pulses, normal rate Abdomen: normal bowel sounds, non tender, soft Extremities: non-tender, no calf tenderness, normal capillary refill Skin Exam: warm/dry Neurologic: no motor/sensory deficits, alert, oriented x 3, responsive, Musculoskeletal: normal muscle bulk Microbiology Date/Time Source Procedure Growth Status 11/02/19 09:36 Nasopharynx Coronavirus COVID-19 PCR ([facility]) - Final Complete Laboratory Tests 11/02/19 16:45: POC Whole Blood Glucose 343H 11/02/19 21:51: POC Whole Blood Glucose 330H 11/03/19 06:26: POC Whole Blood Glucose 240H Current Medications Medications (Trade) Dose Ordered Sig/Jenny Route PRN Reason Start Time Stop Time Status Last Admin Dose Admin Acetaminophen/ Hydrocodone Bitart ([place] 5/325) 1 tab Q4H PRN ORAL Moderate Pain (Pain Scale 4-6) 10/27/19 14:45 11/03/19 14:44 10/28/19 07:07 Albuterol Sulfate (Proventil MDI) 2 puff Q4H PRN INH Shortness of Breath 10/23/19 18:00 01/21/20 17:59 Amlodipine Besylate (Norvasc) 2.5 mg DAILYPRN PRN ORAL For High Blood Pressure 10/26/19 19:45 11/25/19 19:44 10/27/19 20:26 Ascorbic Acid (Vitamin C) 500 mg QID ORAL 11/01/19 18:00 12/01/19 17:59 11/03/19 09:08 Dextrose (Dextrose 50%) 25 ml Q30M PRN IV Hypoglycemia 10/23/19 17:30 01/20/20 22:59 Dextrose (Dextrose 50%) 50 ml Q30M PRN IV Hypoglycemia 10/23/19 17:30 01/20/20 22:59 Duloxetine HCl (Cymbalta) 20 mg DAILY ORAL 10/27/19 09:00 01/25/20 08:59 11/03/19 09:08 Enoxaparin Sodium (Lovenox) 90 mg EVERY 12 HOURS SUBQ 10/28/19 23:00 01/26/20 22:59 11/03/19 09:09 Guaifenesin (Robitussin) 100 mg Q4H PRN ORAL For Cough 10/23/19 19:15 01/20/20 23:14 10/25/19 15:59 Insulin Aspart (NovoLOG) BEFORE MEALS AND HS SUBQ 10/24/19 21:00 01/21/20 06:29 11/03/19 06:28 Lorazepam (Ativan) 1 mg Q6H PRN ORAL For Anxiety 10/31/19 19:00 11/07/19 18:59 Losartan Potassium (Cozaar) 25 mg DAILY ORAL 11/01/19 09:00 12/01/19 08:59 Metformin HCl (Glucophage) 500 mg BID ORAL 10/23/19 18:00 11/22/19 08:59 11/03/19 09:08 Methylprednisolone Sodium Succinate (Solu-MEDROL) 20 mg EVERY 6 HOURS IVP 11/01/19 18:00 01/30/20 17:59 11/03/19 06:03 Mirtazapine (Remeron) 15 mg BEDTIME ORAL 10/29/19 21:00 01/24/20 20:59 11/02/19 22:53 Pantoprazole (Protonix) 40 mg DAILY ORAL 10/24/19 09:00 11/23/19 08:59 11/03/19 09:09 Polyethylene Glycol (Miralax) 17 gm BEDTIME ORAL 10/26/19 21:00 11/25/19 20:59 11/02/19 22:53 Thiamine HCl 200 mg/Dextrose 112 ml @ 220.087 mls/hr Q12HR IVPB 11/01/19 21:00 12/01/19 20:59 11/03/19 09:09 Assessment/Plan Assessment/Plan ASSESSMENT COVID 19 infection, recently diagnosed PNA, likely due to COVID 19 Acute hypoxemic resp failure, requiring NRM Minimally elevated troponin ( resolved already) CECI with proteinuria ? diabetic nephropathy DM OOC with diabetic neuropathy Pyuria, possible UTI Hypo Na Hx of HTN Transaminitis Low albumin, possible malnutrition Chronic pain PLAN OF CARE tele isolation titrate O2 to keep sat > 90 attempt HF liquor blender MDI Albuterol prn now on VM , tolerates CXR 10/28 -> Worsening bilateral infiltrates. Slight rightward tracheal deviation , upper mediastinal mass possible given persistent hypoxia, will proceed with CT chest CT chest 10/29 ->Moderate to severe patchy multifocal areas of airspace opacities bilateral lungs, may represent inflammatory, infectious process No mass was seen CXR 11/01 Unchanged bilateral infiltrates, c/w PNA s/p abx: Ceftriaxone ( completed 10/29) and Azithromycin ( completed 10/28) SCX if able ID follows completed 10 days of Remdesivir and steroid today, 10/31) , now on IV Solumedrol per primary, would probably taper soon on LMW Lovenox Venous Duplex BLE still pending repeat COVID 19 11/01 -positive fup with inflammatory markers to access a risk for cytokine storm latest LDH 488 (trending down), CRP 4.6 ( trending down), ferritin 329 , IL 6 -15.6, repeated IL pending a/tussive prn monitor volumes prior was on full a/c, s/p heparin gtt, now on Lovenox bid since 10/27 second troponin down to normal min elevation possibly due to CECI , hypoperfusion cardio on board now ECHO with pEF 60%, mild diastolic dysfunction monitor renal parameters, avoid nephrotoxics, creat down UCX 7/2 NGTD UA+ pyuria, mod bacteria, completed Ceftriaxone BCX 10/21 NGTD BS management with metformin ( lactic acid down to normal) and SSI, may need higher coverage from SSI ( given steroids) HgA1c - 9.1 not at goal, trend CK, LFT CK and AST trending down , CK 176 BP management with CCB, now started on oral Lasix, monitor volumes pain management dietary eval noted supportive care Thank you for this consultation! case discussed and evaluated by supervising physician New Morales MD 11/03/19 2114: Subjective Allergies: Coded Allergies: No Known Allergies (Unverified , 08/10/14) Assessment/Plan Assessment/Plan Patient seen and examined with TECHNICAL EDITOR. Agree with above A&P as it reflects our joint deliberations. Valencia Medina TECHNICAL EDITOR Nov 03, 2019 10:26 New Morales MD Nov 03, 2019 21:14
[2019-11-03 12:01] VITALS: BP 114/63
--- NOTE | 2019-11-03 13:55 | NUR ---
NURSE NOTES: Pt titrated down from 7 LPM to 6 LMP simple face mask. Pt saturates at 97-98% comfortably without complaints or S/S of distress. Will continue to monitor. Respiratory therapy notified.
--- NOTE | 2019-11-03 14:47 | Cardiology Progress Note ---
Assessment/Plan Assessment/Plan 1. COVID-19 infection / pneumonia . 2. Premature atrial contractions with some nonconducted. 3. Pneumonia. 4. Diastolic dysfunction mild 5. Diabetes mellitus is poor control. 6. Resolved acute renal failure. 7. Resolved transaminitis. 8. Rhabdomyolysis, improved. cxr personally reviewed looks better to me form 11/01 bp seem ok afebrile but he was never febrile is on full anticoagulation with full dose of lovenox as he removed his iv several times yest course of remdesivir and steroid tele personally reviewed sinus / pacs only no pauses qt interval ok hr on the higher side now Pt titrated down from 7 LPM to 6 LMP simple face mask. Pt saturates at 97-98 % comfortably without complaints or S/S of distress over all better per above d/w dr gupta Subjective Subjective per pulm pa on simple mask 7 L/min now, sitting in the chair, PT in the room to start treatment still desaturates easily reports feeling better though less SOB, less anxiety no CP no fevers per rn : Pt titrated down from 7 LPM to 6 LMP simple face mask. Pt saturates at 97-98% comfortably without complaints or S/S of distress. Objective Last 24 Hour Vital Signs Date Time Temp Pulse Resp B/P (MAP) Pulse Ox O2 Delivery O2 Flow Rate FiO2 11/03/19 12:01 97.9 102 21 114/63 (80) 97 11/03/19 12:00 106 11/03/19 09:00 119/67 11/03/19 08:22 Simple Mask 7.0 Simple Mask 7.0 11/03/19 08:00 101 11/03/19 08:00 98.1 95 22 119/67 (84) 98 11/03/19 04:00 80 11/03/19 04:00 98.6 81 20 137/87 (104) 99 11/03/19 00:00 90 11/03/19 00:00 97.7 87 20 130/75 (93) 95 11/02/19 21:00 Non-Rebreather 8.0 Non-Rebreather 9.0 11/02/19 20:00 98.1 88 21 138/89 (105) 98 11/02/19 20:00 89 11/02/19 16:00 96 11/02/19 16:00 97.7 91 22 142/85 (104) Intake and Output 11/02/19 11/03/19 19:00 07:00 Intake Total 1600 ml Output Total 1000 ml Balance 600 ml Intake Oral 1450 ml Other 150 ml Output Urine Total 1000 ml # Voids 5 1 Laboratory Tests Test 11/02/19 16:45 11/02/19 21:51 11/03/19 06:26 POC Whole Blood Glucose 343 MG/DL (74-106) H 330 MG/DL (74-106) H 240 MG/DL (74-106) H Microbiology Date/Time Source Procedure Growth Status 11/02/19 09:36 Nasopharynx Coronavirus COVID-19 PCR ([facility]) - Final Complete Objective per pulm pa Respiratory/Chest: chest wall non-tender, no respiratory distress, + intermittent use of accessory muscle use, few isolated rhonchi Cardiovascular/Chest: normal peripheral pulses, normal rate Abdomen: normal bowel sounds, non tender, soft Extremities: non-tender, no calf tenderness, normal capillary refill Al Emanuel MD Nov 03, 2019 14:47
--- NOTE | 2019-11-03 15:50 | Geriatric Progress Note ---
Assessment/Plan Problems: (1) Transaminasemia (2) SIRS (systemic inflammatory response syndrome) (3) Urinary tract infection (4) Chronic back pain (5) Cataract (6) Pneumonia due to COVID-19 virus (7) Diabetes type 2, uncontrolled (8) Diabetic neuropathy associated with type 2 diabetes mellitus (9) Chronic pain disorder (10) Anxiety disorder (11) Acute kidney injury (12) Rhabdomyolysis due to COVID-19 (13) Chronic rhinitis (14) Hypertension (15) Volume depletion (16) Nausea Assessment/Plan Slow improvement but clearly with residual hypoxia with mobilization. With glucoses running higher will increase SSI dosing slightly. IL-6 only [address] elevated[address] Dr. Delong feels IL-6 blocking not indicated. Will review when steroid taper is appropriate. Continue to monitor inflammatory parameters. Continue other therapy. Patient educated re status, encouraged to mobilize as tolerated. Discussed with: patient, hospital staff Subjective Interval Events Patient reports feeling better. Now tolerating filtered mask at 7 l/m with good sats, but noted to desaturate into 80s with relatively little exertion. Patient reports diminished cough, productive of scant phlegm. No new symptoms otherwise. Staff reports eating well, no new issues. IL-6 55.5. Cr 1.4, sugars running higher on Solumedrol. Constitutional: Denies: chills, sweats, fever Respiratory: Reports: cough; Denies: wheezing Cardiovascular: Denies: chest pain Gastrointestinal/Abdominal: Denies: abdominal pain, constipation, diarrhea, nausea, vomiting Genitourinary: Denies: dysuria Geriatric Geriatric Last 24 Hour Vital Signs Date Time Temp Pulse Resp B/P (MAP) Pulse Ox O2 Delivery O2 Flow Rate FiO2 11/03/19 12:01 97.9 102 21 114/63 (80) 97 11/03/19 12:00 106 11/03/19 09:00 119/67 11/03/19 08:22 Simple Mask 7.0 Simple Mask 7.0 11/03/19 08:00 101 11/03/19 08:00 98.1 95 22 119/67 (84) 98 11/03/19 04:00 80 11/03/19 04:00 98.6 81 20 137/87 (104) 99 11/03/19 00:00 90 11/03/19 00:00 97.7 87 20 130/75 (93) 95 11/02/19 21:00 Non-Rebreather 8.0 Non-Rebreather 9.0 11/02/19 20:00 98.1 88 21 138/89 (105) 98 11/02/19 20:00 89 11/02/19 16:00 96 11/02/19 16:00 97.7 91 22 142/85 (104) Intake and Output 11/02/19 11/03/19 19:00 07:00 Intake Total 1600 ml Output Total 1000 ml Balance 600 ml Intake Oral 1450 ml Other 150 ml Output Urine Total 1000 ml # Voids 5 1 Laboratory Tests Test 11/02/19 16:45 11/02/19 21:51 11/03/19 06:26 POC Whole Blood Glucose 343 MG/DL (74-106) H 330 MG/DL (74-106) H 240 MG/DL (74-106) H Current Medications Medications (Trade) Dose Ordered Sig/Jenny Route PRN Reason Start Time Stop Time Status Last Admin Dose Admin Albuterol Sulfate (Proventil MDI) 2 puff Q4H PRN INH Shortness of Breath 10/23/19 18:00 01/21/20 17:59 Amlodipine Besylate (Norvasc) 2.5 mg DAILYPRN PRN ORAL For High Blood Pressure 10/26/19 19:45 11/25/19 19:44 10/27/19 20:26 Ascorbic Acid (Vitamin C) 500 mg QID ORAL 11/01/19 18:00 12/01/19 17:59 11/03/19 12:20 Dextrose (Dextrose 50%) 25 ml Q30M PRN IV Hypoglycemia 10/23/19 17:30 01/20/20 22:59 Dextrose (Dextrose 50%) 50 ml Q30M PRN IV Hypoglycemia 10/23/19 17:30 01/20/20 22:59 Duloxetine HCl (Cymbalta) 20 mg DAILY ORAL 10/27/19 09:00 01/25/20 08:59 11/03/19 09:08 Enoxaparin Sodium (Lovenox) 90 mg EVERY 12 HOURS SUBQ 10/28/19 23:00 01/26/20 22:59 11/03/19 09:09 Guaifenesin (Robitussin) 100 mg Q4H PRN ORAL For Cough 10/23/19 19:15 01/20/20 23:14 10/25/19 15:59 Insulin Aspart (NovoLOG) BEFORE MEALS AND HS SUBQ 10/24/19 21:00 01/21/20 06:29 11/03/19 11:50 Lorazepam (Ativan) 1 mg Q6H PRN ORAL For Anxiety 10/31/19 19:00 11/07/19 18:59 Losartan Potassium (Cozaar) 25 mg DAILY ORAL 11/01/19 09:00 12/01/19 08:59 Metformin HCl (Glucophage) 500 mg BID ORAL 10/23/19 18:00 11/22/19 08:59 11/03/19 09:08 Methylprednisolone Sodium Succinate (Solu-MEDROL) 20 mg EVERY 6 HOURS IVP 11/01/19 18:00 01/30/20 17:59 11/03/19 11:57 Mirtazapine (Remeron) 15 mg BEDTIME ORAL 10/29/19 21:00 01/24/20 20:59 11/02/19 22:53 Pantoprazole (Protonix) 40 mg DAILY ORAL 10/24/19 09:00 11/23/19 08:59 11/03/19 09:09 Polyethylene Glycol (Miralax) 17 gm BEDTIME ORAL 10/26/19 21:00 11/25/19 20:59 11/02/19 22:53 Thiamine HCl 200 mg/Dextrose 112 ml @ 220.087 mls/hr Q12HR IVPB 11/01/19 21:00 12/01/19 20:59 11/03/19 09:09 Height (Feet): 6 Height (Inches): 1.00 Weight (Pounds): 198 General Appearance: alert Head: normocephalic, atraumatic Eyes: bilateral anicteric ENT: normal voice Neck: full range of motion, no mass Respiratory: decreased breath sounds Cardiovascular: regular rate, rhythm - occasional ectopy Gastrointestinal: normal bowel sounds, non tender, soft, no mass, no organomegaly Musculoskeletal: no calf tenderness Edema: no edema noted Generalized Neurologic: alert, no new focality Jim Zee MD Nov 03, 2019 15:50
[2019-11-03 16:00] VITALS: BP 145/86
--- NOTE | 2019-11-03 17:20 | NUR ---
NURSE NOTES: Pt reports stomach pain that is 4/10 and "like he ate something wrong. Called Dr. Zee and was ordered TO/RB Mylanta 30 mL q 6hr PRN for stomach pain.
[2019-11-03] MEDS: LORazepam 1mg tab ORAL PRN (18:13)
--- NOTE | 2019-11-03 19:21 | NUR ---
NURSE NOTES:HAND-OFF: Report given to TEA Branham. Pt is stable and resting in bed with no S/S or reports of distress at this time. Plan of care endorsed.
--- NOTE | 2019-11-03 19:22 | NUR ---
NURSE NOTES: Received report from Nazia METCALF. Pt is AOx4. Pt in stable condition. Pt resting in bed comfortably. Bed is locked, side rails x2, bed in lowest position, bed alarm on, call light within reach, urinal within reach. No complaints of distress or pain at this time. Pt is on 7L simple face mask. Will continue to monitor.
[2019-11-03 20:00] VITALS: BP 147/91
[2019-11-03] MEDS: Miralax 17gm pkt ORAL SCH (21:00)
[2019-11-04] VITALS: BP 134/84
[2019-11-04] MEDS: Solu-MEDROL 40mg Inj IVP SCH ×4 (00:10→17:08)
[2019-11-04 04:00] VITALS: BP 138/80
[2019-11-04] MEDS: NovoLOG Insulin Flexpen SUBQ SCH ×4 (06:30→21:01)
--- NOTE | 2019-11-04 07:40 | NUR ---
HAND-OFF: Report given to Rajani METCALF.
[2019-11-04 08:00] VITALS: BP 112/64
--- NOTE | 2019-11-04 08:10 | NUR ---
NURSE NOTES: Received report from TEA Branham. Pt awake, A/O x4. Pt on 7L simple mask, mild SOB noted. Reinforced teaching regarding simple mask. No s/sx of acute distress, denies any pain. IV site on R FA patent and asymptomatic. Bed on lowest position, urinal and call light within reach. Will continue plan of care.
[2019-11-04] MEDS: Losartan 25mg tab ORAL SCH ×2 (09:00→09:17)
[2019-11-04] MEDS: THIAMINE HCL IVPB SCH ×2 (09:16→20:38)
[2019-11-04] MEDS: Enoxaparin 100mg Inj SUBQ SCH ×2 (09:16→20:43)
[2019-11-04] MEDS: D5W IVPB SCH ×2 (09:16→20:38)
[2019-11-04] MEDS: metFORMIN 500mg tab ORAL SCH ×2 (09:16→17:07)
[2019-11-04] MEDS: Ascorbic Acid 500mg tab ORAL SCH ×4 (09:17→20:39)
--- NOTE | 2019-11-04 10:44 | NUR ---
RD ASSESSMENT & RECOMMENDATIONS SEE CARE ACTIVITY FOR COMPLETE ASSESSMENT DAILY ESTIMATED NEEDS: Needs based on DM, pulmonary 88kg abw 25-30 kcals/kg 6994-5481 total kcals 1-1.5 g protein/kg 88-132 g total protein 25-30 mL/kg 0534-4015 total fluid mLs NUTRITION DIAGNOSIS: Altered nutrition related lab values r/t diabetes as evidenced by A1C 9.1, BG 218 172, elev POC (170-347), u glu 2+ on adm. CURRENT DIET: KHANG/ CCHO LOW PO DIET RECOMMENDATIONS: KHANG/ CCHO LOW + DOUBLE PROTEIN PORTIONS ADDITIONAL RECOMMENDATIONS: * Obtain a standing weight as able * Monitor for continued good po intake * Consider additional hypoglycemics while on solumedrol for improved BG * Updated chem panel as able
--- NOTE | 2019-11-04 11:15 | NUR ---
NURSE NOTES: Potassium level 2.8, Dr. Romero made aware. Awaiting orders. Addendum: 11/04/19 at 1518 by Oly Nixon RN documentation on wrong patient
[2019-11-04] MEDS: guaiFENesin 100mg/5ml Liq ud ORAL PRN (11:34)
[2019-11-04 12:00] VITALS: BP 108/68
--- NOTE | 2019-11-04 12:36 | Pulmonology Progress Note ---
Valencia Medina PHARMACIST TECHNICIAN 11/04/19 1236: Subjective ROS Limited/Unobtainable: No Constitutional: Denies: fever Gastrointestinal/Abdominal: Denies: nausea, vomiting, diarrhea Psychiatric: Denies: depression Skin: Denies: rash Musculoskeletal: Denies: pain Allergies: Coded Allergies: No Known Allergies (Unverified , 08/10/14) Subjective on simple mask 7 L/min now, sitting in the chair, reports feeling better t less SOB, less anxiety no CP no fevers Objective Last 24 Hour Vital Signs Date Time Temp Pulse Resp B/P (MAP) Pulse Ox O2 Delivery O2 Flow Rate FiO2 11/04/19 12:00 98.1 63 20 108/68 (81) 96 11/04/19 09:00 112/64 11/04/19 09:00 Simple Mask 7.0 Simple Mask 7.0 11/04/19 08:00 96.3 104 19 112/64 (80) 95 11/04/19 07:37 103 11/04/19 04:00 92 11/04/19 04:00 97.8 82 19 138/80 (99) 97 11/04/19 00:00 97.0 86 19 134/84 (101) 98 11/04/19 00:00 87 11/03/19 21:00 Simple Mask 7.0 Simple Mask 7.0 11/03/19 20:17 97 Simple Mask 6.0 44 11/03/19 20:00 88 11/03/19 20:00 98.4 87 19 147/91 (109) 98 11/03/19 16:00 98.7 100 20 145/86 (105) 98 11/03/19 16:00 93 Intake and Output 11/03/19 11/04/19 19:00 07:00 Intake Total 2830 ml Output Total 1250 ml 1250 ml Balance 1580 ml -1250 ml Intake Oral 1680 ml IV Total 1000 ml Other 150 ml Output Urine Total 1250 ml 1250 ml # Voids 6 Objective General Appearance: no apparent distress, alert , awake, responsive male in NAD , on FM 7L/min Lines, tubes and drains: peripheral HEENT: normocephalic, atraumatic, anicteric, mucous membranes moist, PERRL, pharynx normal, supple, no JVD Neck: non-tender, normal alignment, supple Respiratory/Chest: chest wall non-tender, no respiratory distress, + intermittent use of accessory muscle use, few isolated rhonchi Cardiovascular/Chest: normal peripheral pulses, normal rate Abdomen: normal bowel sounds, non tender, soft Extremities: non-tender, no calf tenderness, normal capillary refill Skin Exam: warm/dry Neurologic: no motor/sensory deficits, alert, oriented x 3, responsive, Musculoskeletal: normal muscle bulk Microbiology Date/Time Source Procedure Growth Status 11/02/19 09:36 Nasopharynx Coronavirus COVID-19 PCR ([facility]) - Final Complete Laboratory Tests 11/03/19 16:35: POC Whole Blood Glucose 320H 11/04/19 11:47: POC Whole Blood Glucose [Pending] Current Medications Medications (Trade) Dose Ordered Sig/Jenny Route PRN Reason Start Time Stop Time Status Last Admin Dose Admin Al Hydroxide/Mg Hydroxide (Mylanta) 30 ml Q6H PRN ORAL Abdominal cramps 11/03/19 17:00 12/03/19 16:59 11/03/19 17:29 Albuterol Sulfate (Proventil MDI) 2 puff Q4H PRN INH Shortness of Breath 10/23/19 18:00 01/21/20 17:59 Amlodipine Besylate (Norvasc) 2.5 mg DAILYPRN PRN ORAL For High Blood Pressure 10/26/19 19:45 11/25/19 19:44 10/27/19 20:26 Ascorbic Acid (Vitamin C) 500 mg QID ORAL 11/01/19 18:00 12/01/19 17:59 11/04/19 09:17 Dextrose (Dextrose 50%) 25 ml Q30M PRN IV Hypoglycemia 10/23/19 17:30 01/20/20 22:59 Dextrose (Dextrose 50%) 50 ml Q30M PRN IV Hypoglycemia 10/23/19 17:30 01/20/20 22:59 Duloxetine HCl (Cymbalta) 20 mg DAILY ORAL 10/27/19 09:00 01/25/20 08:59 11/04/19 09:17 Enoxaparin Sodium (Lovenox) 90 mg EVERY 12 HOURS SUBQ 10/28/19 23:00 01/26/20 22:59 11/04/19 09:16 Guaifenesin (Robitussin) 100 mg Q4H PRN ORAL For Cough 10/23/19 19:15 01/20/20 23:14 11/04/19 11:34 Insulin Aspart (NovoLOG) BEFORE MEALS AND HS SUBQ 11/03/19 16:30 01/21/20 06:29 11/04/19 11:54 Lorazepam (Ativan) 1 mg Q6H PRN ORAL For Anxiety 10/31/19 19:00 11/07/19 18:59 11/03/19 18:13 Losartan Potassium (Cozaar) 25 mg DAILY ORAL 11/01/19 09:00 12/01/19 08:59 Metformin HCl (Glucophage) 500 mg BID ORAL 10/23/19 18:00 11/22/19 08:59 11/04/19 09:16 Methylprednisolone Sodium Succinate (Solu-MEDROL) 20 mg EVERY 6 HOURS IVP 11/01/19 18:00 01/30/20 17:59 11/04/19 06:00 Mirtazapine (Remeron) 15 mg BEDTIME ORAL 10/29/19 21:00 01/24/20 20:59 11/03/19 21:00 Pantoprazole (Protonix) 40 mg DAILY ORAL 10/24/19 09:00 11/23/19 08:59 11/04/19 09:17 Polyethylene Glycol (Miralax) 17 gm BEDTIME ORAL 10/26/19 21:00 11/25/19 20:59 11/02/19 22:53 Thiamine HCl 200 mg/Dextrose 112 ml @ 220.087 mls/hr Q12HR IVPB 11/01/19 21:00 12/01/19 20:59 11/04/19 09:16 Assessment/Plan Assessment/Plan ASSESSMENT COVID 19 infection, recently diagnosed PNA, likely due to COVID 19 Acute hypoxemic resp failure, requiring NRM Minimally elevated troponin ( resolved already) CECI with proteinuria ? 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 Slight rightward tracheal deviation , upper mediastinal mass possible given persistent hypoxia, will proceed with CT chest CT chest 10/29 ->Moderate to severe patchy multifocal areas of airspace opacities bilateral lungs, may represent inflammatory, infectious process No mass was seen CXR 11/01 Unchanged bilateral infiltrates, c/w PNA s/p abx: Ceftriaxone ( completed 10/29) and Azithromycin ( completed 10/28) SCX if able ID follows completed 10 days of Remdesivir and steroid today, 10/31) , now on IV Solumedrol per primary, would probably taper soon on LMW Lovenox treatment dose Venous Duplex BLE still pending repeat COVID 19 11/01 -positive fup with inflammatory markers to access a risk for cytokine storm latest LDH 488 (trending down), CRP 4.6 ( trending down), ferritin 329 , IL 6 -15.6, repeated IL-6 10/31-55.5 a/tussive prn monitor volumes prior was on full a/c, s/p heparin gtt, now on Lovenox bid since 10/27 second troponin down to normal min elevation possibly due to CECI , hypoperfusion cardio on board ECHO with pEF 60%, mild diastolic dysfunction monitor renal parameters, avoid nephrotoxics, creat down UCX 7/2 NGTD UA+ pyuria, mod bacteria, completed Ceftriaxone BCX / NGTD BS management with metformin ( lactic acid down to normal) and SSI, may need higher coverage from SSI ( given steroids) HgA1c - 9.1 not at goal, trend CK, LFT CK and AST trending down , CK 176 BP management with CCB, now started on oral Lasix, monitor volumes pain management dietary eval noted supportive care Thank you for this consultation! case discussed and evaluated by supervising physician New Morales MD 11/04/19 1502: Subjective Allergies: Coded Allergies: No Known Allergies (Unverified , 08/10/14) Assessment/Plan Assessment/Plan Patient seen and examined with PHARMACIST TECHNICIAN. Agree with above A&P as it reflects our joint deliberations. Valencia Medina PHARMACIST TECHNICIAN Nov 04, 2019 12:36 New Morales MD Nov 04, 2019 15:02
[2019-11-04] MEDS ORDERED: IV Preparation Fee IV ONE (13:27)
--- NOTE | 2019-11-04 14:41 | NUR ---
PT NOTE Attempted to see patient for PT treatment, patient declining to participate. Rajani METCALF notified, will follow up tomorrow.
--- NOTE | 2019-11-04 14:44 | NUR ---
PT WEEKLY PROGRESS NOTE Patient is currently being seen by PT treatment for transfer training and therapeutic exercises. Patient transfers with supervision/SBA, no AD. Patient desaturates with minimal activity and has not been able to ambulate yet. Patient will continue to benefit from skilled inpatient PT intervention to increase strength and exercise tolerance with education on proper breathing techniques.
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
--- NOTE | 2019-11-04 15:37 | NUR ---
CASE MANAGEMENT:REVIEW 10/21/19 SI: COVID PNA. SIRS. RHABDO SUSPECTED PULMONARY EMBOLI 96.3 104 19 112/64 95% ON SIMPLE MASK 7L IS: IV THIAMINE Q12 IV SOLUMEDROL Q6HRS VIT C PO QID COZAAR PO QD LOVENOX SQ Q12 CYMBALTA PO QD PROTONIX PO QD METFORMIN PO BID : TELEMETRY STATUS DCP: PATIENT IS FROM HOME PLAN: TAPER STEROIDS AND OXYGEN
[2019-11-04 16:00] VITALS: BP 123/69
--- NOTE | 2019-11-04 17:33 | Geriatric Progress Note ---
Assessment/Plan Problems: (1) Transaminasemia (2) SIRS (systemic inflammatory response syndrome) (3) Urinary tract infection (4) Chronic back pain (5) Cataract (6) Pneumonia due to COVID-19 virus (7) Diabetes type 2, uncontrolled (8) Diabetic neuropathy associated with type 2 diabetes mellitus (9) Chronic pain disorder (10) Anxiety disorder (11) Acute kidney injury (12) Rhabdomyolysis due to COVID-19 (13) Chronic rhinitis (14) Hypertension (15) Volume depletion (16) Nausea Assessment/Plan Continued improvement, but gradual. Still dyspneic with minimal exertion. Using hydrocodone and lorazepam considerably less. Hope to be able to avoid continued use. Will await labs from tomorrow before tapering Solumedrol. Still PCR +, so SNF or acute rehab would not accept. Patient reports he is willing to consider d/c to rehab until his strength has returned. O2 supplementation is still high as well. Continue other therapy, mobilize as tolerated. Discussed with: patient, hospital staff Subjective Interval Events Patient reports feeling better, but still SOB with exertion. Does seem to become somewhat breathless with movement in bed. Denies other c/o. Staff reported GI upset, Mylanta ordered. Otherwise no clinical changes. [place] order lapsed. Still using occasional lorazepam. Glucose slightly better on increased SSI. Constitutional: Denies: chills, sweats, fever Respiratory: Reports: cough - minimal, shortness of breath Cardiovascular: Denies: chest pain, palpitations Gastrointestinal/Abdominal: Reports: abdominal pain - occasional cramping; Denies: constipation, diarrhea, nausea, vomiting Genitourinary: Denies: dysuria Geriatric Geriatric Last 24 Hour Vital Signs Date Time Temp Pulse Resp B/P (MAP) Pulse Ox O2 Delivery O2 Flow Rate FiO2 11/04/19 16:00 97.7 56 19 123/69 (87) 95 11/04/19 15:30 102 11/04/19 12:00 98.1 63 20 108/68 (81) 96 11/04/19 11:48 108 11/04/19 09:00 112/64 11/04/19 09:00 Simple Mask 7.0 Simple Mask 7.0 11/04/19 08:00 96.3 104 19 112/64 (80) 95 11/04/19 07:37 103 11/04/19 04:00 92 11/04/19 04:00 97.8 82 19 138/80 (99) 97 11/04/19 00:00 97.0 86 19 134/84 (101) 98 11/04/19 00:00 87 11/03/19 21:00 Simple Mask 7.0 Simple Mask 7.0 11/03/19 20:17 97 Simple Mask 6.0 44 11/03/19 20:00 88 11/03/19 20:00 98.4 87 19 147/91 (109) 98 Intake and Output 11/03/19 11/04/19 19:00 07:00 Intake Total 2830 ml Output Total 1250 ml 1250 ml Balance 1580 ml -1250 ml Intake Oral 1680 ml IV Total 1000 ml Other 150 ml Output Urine Total 1250 ml 1250 ml # Voids 6 Laboratory Tests Test 11/04/19 11:47 POC Whole Blood Glucose Pending Current Medications Medications (Trade) Dose Ordered Sig/Jenny Route PRN Reason Start Time Stop Time Status Last Admin Dose Admin Al Hydroxide/Mg Hydroxide (Mylanta) 30 ml Q6H PRN ORAL Abdominal cramps 11/03/19 17:00 12/03/19 16:59 11/03/19 17:29 Albuterol Sulfate (Proventil MDI) 2 puff Q4H PRN INH Shortness of Breath 10/23/19 18:00 01/21/20 17:59 Amlodipine Besylate (Norvasc) 2.5 mg DAILYPRN PRN ORAL For High Blood Pressure 10/26/19 19:45 11/25/19 19:44 10/27/19 20:26 Ascorbic Acid (Vitamin C) 500 mg QID ORAL 11/01/19 18:00 12/01/19 17:59 11/04/19 17:07 Dextrose (Dextrose 50%) 25 ml Q30M PRN IV Hypoglycemia 10/23/19 17:30 01/20/20 22:59 Dextrose (Dextrose 50%) 50 ml Q30M PRN IV Hypoglycemia 10/23/19 17:30 01/20/20 22:59 Duloxetine HCl (Cymbalta) 20 mg DAILY ORAL 10/27/19 09:00 01/25/20 08:59 11/04/19 09:17 Enoxaparin Sodium (Lovenox) 90 mg EVERY 12 HOURS SUBQ 10/28/19 23:00 01/26/20 22:59 11/04/19 09:16 Guaifenesin (Robitussin) 100 mg Q4H PRN ORAL For Cough 10/23/19 19:15 01/20/20 23:14 11/04/19 11:34 Insulin Aspart (NovoLOG) BEFORE MEALS AND HS SUBQ 11/03/19 16:30 01/21/20 06:29 11/04/19 11:54 Lorazepam (Ativan) 1 mg Q6H PRN ORAL For Anxiety 10/31/19 19:00 11/07/19 18:59 11/03/19 18:13 Losartan Potassium (Cozaar) 25 mg DAILY ORAL 11/01/19 09:00 12/01/19 08:59 Metformin HCl (Glucophage) 500 mg BID ORAL 10/23/19 18:00 11/22/19 08:59 11/04/19 17:07 Methylprednisolone Sodium Succinate (Solu-MEDROL) 20 mg EVERY 6 HOURS IVP 11/01/19 18:00 01/30/20 17:59 11/04/19 17:08 Mirtazapine (Remeron) 15 mg BEDTIME ORAL 10/29/19 21:00 01/24/20 20:59 11/03/19 21:00 Pantoprazole (Protonix) 40 mg DAILY ORAL 10/24/19 09:00 11/23/19 08:59 11/04/19 09:17 Polyethylene Glycol (Miralax) 17 gm BEDTIME ORAL 10/26/19 21:00 11/25/19 20:59 11/02/19 22:53 Thiamine HCl 200 mg/Dextrose 112 ml @ 220.087 mls/hr Q12HR IVPB 11/01/19 21:00 12/01/19 20:59 11/04/19 09:16 Height (Feet): 6 Height (Inches): 1.00 Weight (Pounds): 197 General Appearance: alert Head: normocephalic, atraumatic Eyes: bilateral anicteric ENT: normal voice Neck: full range of motion, no mass Respiratory: decreased breath sounds Cardiovascular: regular rate, rhythm Gastrointestinal: normal bowel sounds, non tender, soft, no mass, no organomegaly Musculoskeletal: no calf tenderness Edema: no edema noted Generalized Neurologic: alert, no new focality Jim Zee MD Nov 04, 2019 17:33
--- NOTE | 2019-11-04 19:28 | NUR ---
HAND-OFF: Report given to TEA Branham. Pt in stable condition, endorsed plan of care.
--- NOTE | 2019-11-04 19:30 | NUR ---
NURSE NOTES: Received report from Rajani METCALF. Pt is AOx4. Pt in stable condition. Pt resting in bed comfortably. Bed is locked, side rails x2, bed in lowest position, bed alarm on, call light within reach, urinal within reach. No complaints of distress or pain at this time. Denies any n/v or SOB. Pt has R FA 22g Slocked. Pt is on 7L simple face mask. Will continue to monitor.
[2019-11-04 20:00] VITALS: BP 118/70
--- NOTE | 2019-11-04 20:21 | Cardiology Progress Note ---
Assessment/Plan Assessment/Plan 1. COVID-19 infection / pneumonia . 2. Premature atrial contractions with some nonconducted. 3. Pneumonia. 4. Diastolic dysfunction mild 5. Diabetes mellitus is poor control. 6. Resolved acute renal failure. 7. Resolved transaminitis. 8. Rhabdomyolysis, improved. cxr personally reviewed looks better to me form 11/01 bp seem ok afebrile but he was never febrile is on full anticoagulation with full dose of lovenox as he removed his iv several times yest course of remdesivir and steroid tele personally reviewed sinus / pacs only no pauses qt interval ok hr on the higher side repain on 7 liter pcr is still + mild tachy may be related to albuterol Subjective Subjective remains in pulm isolation per dr gupta Patient reports feeling better, but still SOB with exertion. Does seem to become somewhat breathless with movement in bed. Denies other c/o. Constitutional: Denies: chills, sweats, fever Respiratory: Reports: cough - minimal, shortness of breath Cardiovascular: Denies: chest pain, palpitations Gastrointestinal/Abdominal: Reports: abdominal pain - occasional cramping; Denies: constipation, diarrhea, nausea, vomiting Objective Last 24 Hour Vital Signs Date Time Temp Pulse Resp B/P (MAP) Pulse Ox O2 Delivery O2 Flow Rate FiO2 11/04/19 16:00 97.7 56 19 123/69 (87) 95 11/04/19 15:30 102 11/04/19 12:00 98.1 63 20 108/68 (81) 96 11/04/19 11:48 108 11/04/19 09:00 112/64 11/04/19 09:00 Simple Mask 7.0 Simple Mask 7.0 11/04/19 08:00 96.3 104 19 112/64 (80) 95 11/04/19 07:37 103 11/04/19 04:00 92 11/04/19 04:00 97.8 82 19 138/80 (99) 97 11/04/19 00:00 97.0 86 19 134/84 (101) 98 11/04/19 00:00 87 11/03/19 21:00 Simple Mask 7.0 Simple Mask 7.0 Intake and Output 11/03/19 11/04/19 19:00 07:00 Intake Total 2830 ml Output Total 1250 ml 1250 ml Balance 1580 ml -1250 ml Intake Oral 1680 ml IV Total 1000 ml Other 150 ml Output Urine Total 1250 ml 1250 ml # Voids 6 Laboratory Tests Test 11/04/19 11:47 11/04/19 17:14 POC Whole Blood Glucose Pending 355 MG/DL (74-106) H Microbiology Date/Time Source Procedure Growth Status 11/02/19 09:36 Nasopharynx Coronavirus COVID-19 PCR ([facility]) - Final Complete Objective pe r dr gupta Respiratory: decreased breath sounds Cardiovascular: regular rate, rhythm Gastrointestinal: normal bowel sounds, non tender, soft, no mass, no organomegaly Musculoskeletal: no calf tenderness Edema: no edema noted Generalized Al Emanuel MD Nov 04, 2019 20:21
[2019-11-04] MEDS: Miralax 17gm pkt ORAL SCH (20:39)
[2019-11-05] VITALS: BP 120/73
[2019-11-05] MEDS: Solu-MEDROL 40mg Inj IVP SCH ×4 (00:05→21:18)
[2019-11-05 04:00] VITALS: BP 124/78
[2019-11-05] MEDS: NovoLOG Insulin Flexpen SUBQ SCH ×4 (06:30→21:00)
[2019-11-05 07:18] LABS: BASOPHILS % (AUTO) 1.1 % (0.0-2.0); EOSINOPHILS % (AUTO) 0.3 % (0.0-3.0); HEMATOCRIT 41.6 % (42.0-52.0); HEMOGLOBIN 13.1 G/DL (14.2-18.0); LYMPHOCYTES % (AUTO) 20.4 % (20.0-45.0); MEAN CORPUSCULAR VOLUME 89 FL (80-99); MONOCYTES % (AUTO) 6.8 % (1.0-10.0); NEUTROPHILS % (AUTO) 71.3 % (45.0-75.0); PLATELET COUNT 402 K/UL (150-450); RED BLOOD COUNT 4.67 M/UL (4.70-6.10); RED CELL DISTRIBUTION WIDTH 12.9 % (11.6-14.8); WHITE BLOOD COUNT 8.5 K/UL (4.8-10.8)
--- NOTE | 2019-11-05 07:20 | NUR ---
HAND-OFF: Report given to Rajani METCALF.
--- NOTE | 2019-11-05 07:30 | NUR ---
NURSE NOTES: Received pt from Yonas METCALF. Pt alert and oriented x4, in bed resting with simple face mask at 7L of oxygen, no acute respiratory distress noted. Pt reports 0/10 pain, IV patent and no indications of redness or swelling. Bed in lowest position and locked, call light within reach.
--- NOTE | 2019-11-05 07:36 | Pulmonology Progress Note ---
Valencia Medina PATIENT'S LIBRARIAN 11/05/19 0736: Subjective ROS Limited/Unobtainable: No Constitutional: Denies: fever Gastrointestinal/Abdominal: Denies: nausea, vomiting, diarrhea Psychiatric: Denies: depression Skin: Denies: rash Musculoskeletal: Denies: pain Allergies: Coded Allergies: No Known Allergies (Unverified , 08/10/14) Subjective no fevers , no leukocytosis on simple mask 7 L/min eating breakfasr, off amsk and nor desaturating reports feeling better less SOB, less anxiety no CP some labs still pending Objective Last 24 Hour Vital Signs Date Time Temp Pulse Resp B/P (MAP) Pulse Ox O2 Delivery O2 Flow Rate FiO2 11/05/19 04:00 97.3 84 17 124/78 (93) 98 11/05/19 04:00 83 11/05/19 00:00 97.3 91 18 120/73 (89) 98 11/05/19 00:00 88 11/04/19 21:00 Simple Mask 7.0 Simple Mask 7.0 11/04/19 20:00 103 11/04/19 20:00 95 Simple Mask 6.0 44 11/04/19 20:00 97.9 95 18 118/70 (86) 97 11/04/19 16:00 97.7 56 19 123/69 (87) 95 11/04/19 15:30 102 11/04/19 12:00 98.1 63 20 108/68 (81) 96 11/04/19 11:48 108 11/04/19 09:00 112/64 11/04/19 09:00 Simple Mask 7.0 Simple Mask 7.0 11/04/19 08:00 96.3 104 19 112/64 (80) 95 11/04/19 07:37 103 Intake and Output 11/04/19 11/05/19 19:00 07:00 Intake Total 600 ml 500 ml Output Total 800 ml 1400 ml Balance -200 ml -900 ml Intake Oral 600 ml Other 500 ml Output Urine Total 800 ml 1400 ml # Voids 4 Objective General Appearance: no apparent distress, alert , awake, responsive male in NAD , on FM 7L/min Lines, tubes and drains: peripheral HEENT: normocephalic, atraumatic, anicteric, mucous membranes moist, PERRL, pharynx normal, supple, no JVD Neck: non-tender, normal alignment, supple Respiratory/Chest: chest wall non-tender, no respiratory distress, no use of accessory muscle use, BS overall clear Cardiovascular/Chest: normal peripheral pulses, normal rate Abdomen: normal bowel sounds, non tender, soft Extremities: non-tender, no calf tenderness, normal capillary refill Skin Exam: warm/dry Neurologic: no motor/sensory deficits, alert, oriented x 3, responsive, Musculoskeletal: normal muscle bulk Microbiology Date/Time Source Procedure Growth Status 11/02/19 09:36 Nasopharynx Coronavirus COVID-19 PCR ([facility]) - Final Complete Laboratory Tests 11/04/19 11:47: POC Whole Blood Glucose [Pending] 11/04/19 17:14: POC Whole Blood Glucose 355H 11/05/19 05:45: White Blood Count 8.5, Red Blood Count 4.67L, Hemoglobin 13.1L, Hematocrit 41.6L , Mean Corpuscular Volume 89, Mean Corpuscular Hemoglobin 28.1, Mean Corpuscular Hemoglobin Concent 31.5L, Red Cell Distribution Width 12.9, Platelet Count 402, Mean Platelet Volume 6.0L, Neutrophils (%) (Auto) 71.3, Lymphocytes (%) (Auto) 20.4, Monocytes (%) (Auto) 6.8, Eosinophils (%) (Auto) 0.3, Basophils (%) (Auto) 1.1, D-Dimer [Pending], Sodium Level [Pending], Potassium Level [Pending], Chloride Level [Pending], Carbon Dioxide Level [ Pending], Blood Urea Nitrogen [Pending], Creatinine [Pending], Estimat Glomerular Filtration Rate [Pending], Glucose Level [Pending], Calcium Level [ Pending], Ferritin [Pending], Total Bilirubin [Pending], Aspartate Amino Transf (AST/SGOT) [Pending], Alanine Aminotransferase (ALT/SGPT) [Pending], Alkaline Phosphatase [Pending], C-Reactive Protein, Quantitative [Pending], Total Protein [Pending], Albumin [Pending], Globulin [Pending] Current Medications Medications (Trade) Dose Ordered Sig/Jenny Route PRN Reason Start Time Stop Time Status Last Admin Dose Admin Al Hydroxide/Mg Hydroxide (Mylanta) 30 ml Q6H PRN ORAL Abdominal cramps 11/03/19 17:00 12/03/19 16:59 11/03/19 17:29 Albuterol Sulfate (Proventil MDI) 2 puff Q4H PRN INH Shortness of Breath 10/23/19 18:00 01/21/20 17:59 Amlodipine Besylate (Norvasc) 2.5 mg DAILYPRN PRN ORAL For High Blood Pressure 10/26/19 19:45 11/25/19 19:44 10/27/19 20:26 Ascorbic Acid (Vitamin C) 500 mg QID ORAL 11/01/19 18:00 12/01/19 17:59 11/04/19 20:39 Dextrose (Dextrose 50%) 25 ml Q30M PRN IV Hypoglycemia 10/23/19 17:30 01/20/20 22:59 Dextrose (Dextrose 50%) 50 ml Q30M PRN IV Hypoglycemia 10/23/19 17:30 01/20/20 22:59 Duloxetine HCl (Cymbalta) 20 mg DAILY ORAL 10/27/19 09:00 01/25/20 08:59 11/04/19 09:17 Enoxaparin Sodium (Lovenox) 90 mg EVERY 12 HOURS SUBQ 10/28/19 23:00 01/26/20 22:59 11/04/19 20:43 Guaifenesin (Robitussin) 100 mg Q4H PRN ORAL For Cough 10/23/19 19:15 01/20/20 23:14 11/04/19 11:34 Insulin Aspart (NovoLOG) BEFORE MEALS AND HS SUBQ 11/03/19 16:30 01/21/20 06:29 11/04/19 21:01 Lorazepam (Ativan) 1 mg Q6H PRN ORAL For Anxiety 10/31/19 19:00 11/07/19 18:59 11/03/19 18:13 Losartan Potassium (Cozaar) 25 mg DAILY ORAL 11/01/19 09:00 12/01/19 08:59 Metformin HCl (Glucophage) 500 mg BID ORAL 10/23/19 18:00 11/22/19 08:59 11/04/19 17:07 Methylprednisolone Sodium Succinate (Solu-MEDROL) 20 mg EVERY 6 HOURS IVP 11/01/19 18:00 01/30/20 17:59 11/05/19 06:00 Mirtazapine (Remeron) 15 mg BEDTIME ORAL 10/29/19 21:00 01/24/20 20:59 11/04/19 20:39 Pantoprazole (Protonix) 40 mg DAILY ORAL 10/24/19 09:00 11/23/19 08:59 11/04/19 09:17 Polyethylene Glycol (Miralax) 17 gm BEDTIME ORAL 10/26/19 21:00 11/25/19 20:59 11/02/19 22:53 Thiamine HCl 200 mg/Dextrose 112 ml @ 220.087 mls/hr Q12HR IVPB 11/01/19 21:00 12/01/19 20:59 11/04/19 20:38 Assessment/Plan Assessment/Plan ASSESSMENT COVID 19 infection, recently diagnosed PNA, likely due to COVID 19 Acute hypoxemic resp failure, requiring NRM Minimally elevated troponin ( resolved already) CECI with proteinuria ? 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 Slight rightward tracheal deviation , upper mediastinal mass possible given persistent hypoxia, will proceed with CT chest CT chest 10/29 ->Moderate to severe patchy multifocal areas of airspace opacities bilateral lungs, may represent inflammatory, infectious process No mass was seen CXR 11/01 Unchanged bilateral infiltrates, c/w PNA repeat CXR in am 11/05 s/p abx: Ceftriaxone ( completed 10/29) and Azithromycin ( completed 10/28) SCX if able ID follows completed 10 days of Remdesivir and steroid today, 10/31) , now on IV Solumedrol per primary, consider taper soon on LMW Lovenox treatment dose Venous Duplex BLE still pending repeat COVID 19 11/01 -positive fup with inflammatory markers to access a risk for cytokine storm latest LDH 488 (trending down), CRP 4.6 ( trending down), ferritin 329 , IL 6 -15.6, repeated IL-6 10/31-55.5 a/tussive prn monitor volumes improving gradually prior was on full a/c, s/p heparin gtt, now on Lovenox bid since 10/27 second troponin down to normal min elevation possibly due to CECI , hypoperfusion cardio on board ECHO with pEF 60%, mild diastolic dysfunction monitor renal parameters, avoid nephrotoxics, creat down UCX 10/21 NGTD UA+ pyuria, mod bacteria, completed Ceftriaxone BCX 10/21 NGTD BS management with metformin ( lactic acid down to normal) and SSI, may need higher coverage from SSI ( given steroids) HgA1c - 9.1 not at goal, trend CK, LFT CK and AST trending down , CK 176 BP management with CCB, now started on oral Lasix, monitor volumes pain management dietary eval noted supportive care Thank you for this consultation! case discussed and evaluated by supervising physician New Morales MD 11/05/19 1747: Subjective Allergies: Coded Allergies: No Known Allergies (Unverified , 08/10/14) Assessment/Plan Assessment/Plan Patient seen and examined with PATIENT'S LIBRARIAN. Agree with above A&P as it reflects our joint deliberations. Valencia Medina NP Nov 05, 2019 07:36 New Morales MD Nov 05, 2019 17:47
[2019-11-05 08:00] VITALS: BP 134/78
[2019-11-05] MEDS: THIAMINE HCL IVPB SCH ×2 (08:40→21:17)
[2019-11-05] MEDS: D5W IVPB SCH ×2 (08:40→21:17)
[2019-11-05] MEDS: Enoxaparin 100mg Inj SUBQ SCH ×2 (08:43→21:17)
[2019-11-05] MEDS: metFORMIN 500mg tab ORAL SCH ×2 (08:43→17:09)
[2019-11-05] MEDS: Ascorbic Acid 500mg tab ORAL SCH ×2 (08:44→12:18)
[2019-11-05] MEDS: Losartan 25mg tab ORAL SCH (08:44)
[2019-11-05 09:01] LABS: ALANINE AMINOTRANSFERASE 25 U/L (12-78); ALBUMIN 2.6 G/DL (3.4-5.0); ALBUMIN/GLOBULIN RATIO 0.5 (1.0-2.7); ALKALINE PHOSPHATASE 62 U/L (46-116); ANION GAP 7 mmol/L (5-15); ASPARTATE AMINO TRANSFERASE 13 U/L (15-37); BILIRUBIN,TOTAL 0.5 MG/DL (0.2-1.0); BLOOD UREA NITROGEN 41 mg/dL (7-18); CALCIUM 9.6 MG/DL (8.5-10.1); CARBON DIOXIDE 27 MMOL/L (21-32); CHLORIDE 99 MMOL/L (98-107); CREATININE 1.4 MG/DL (0.55-1.30); FERRITIN 433 NG/ML (8-388); POTASSIUM 5.2 MMOL/L (3.5-5.1); SODIUM 133 MMOL/L (136-145)
--- NOTE | 2019-11-05 11:00 | NUR ---
NURSE NOTES: Called RT to ask how to correctly titrate pt's O2, since pt O2 sat >95% in 7L simple mask. Per RT, try to titrate O2 to 6L NC. Will continue to monitor O2 sat.
[2019-11-05 12:00] VITALS: BP 119/79
[2019-11-05] MEDS: LORazepam 1mg tab ORAL PRN (15:30)
[2019-11-05 16:00] VITALS: BP 120/61
--- NOTE | 2019-11-05 17:00 | NUR ---
NURSE NOTES: Dr Zee made aware of Na 133 and K 5.2. No new orders.
--- NOTE | 2019-11-05 18:53 | Geriatric Progress Note ---
Assessment/Plan Problems: (1) Transaminasemia (2) SIRS (systemic inflammatory response syndrome) (3) Urinary tract infection (4) Chronic back pain (5) Cataract (6) Pneumonia due to COVID-19 virus (7) Diabetes type 2, uncontrolled (8) Diabetic neuropathy associated with type 2 diabetes mellitus (9) Chronic pain disorder (10) Anxiety disorder (11) Acute kidney injury (12) Rhabdomyolysis due to COVID-19 (13) Chronic rhinitis (14) Hypertension (15) Volume depletion (16) Nausea Assessment/Plan Gradual improvement, still with hypoxia on exertion. O2 decreased but still greater than achievable at home, especially with exertional demands. Steroid taper initiated. Continue to monitor electrolytes, glucose. Decrease Vit C which could be exacerbating GI sxs. Recheck PCR for possible rehab d/c. Discussed with: patient, hospital staff Subjective Interval Events Patient sitting on side of bed. Reports feeling better. Some intermittent nausea, but adequate intake. Staff reports no other new issues. Tapered to 6-7 l/m NC. Still desaturates with mobilization. Solumedrol to 20 q8 per pulmonary. Labs with normalizing inflammatory markers. Mild hyponatremia, hyperkalemia with hyperglycemia. Monitor with tapering steroids. Constitutional: Denies: chills, sweats, fever Respiratory: Reports: shortness of breath Cardiovascular: Denies: chest pain Gastrointestinal/Abdominal: Denies: constipation, diarrhea Genitourinary: Denies: dysuria Geriatric Geriatric Last 24 Hour Vital Signs Date Time Temp Pulse Resp B/P (MAP) Pulse Ox O2 Delivery O2 Flow Rate FiO2 11/05/19 16:00 98.7 89 18 120/61 (80) 96 11/05/19 15:44 102 11/05/19 12:00 96.1 94 19 119/79 (92) 98 11/05/19 11:37 93 11/05/19 11:00 Nasal Cannula 6.0 Simple Mask 7.0 11/05/19 09:00 Simple Mask 7.0 Simple Mask 7.0 11/05/19 08:44 134/78 11/05/19 08:03 94 11/05/19 08:00 98.1 56 19 134/78 (96) 96 11/05/19 04:00 97.3 84 17 124/78 (93) 98 11/05/19 04:00 83 11/05/19 00:00 97.3 91 18 120/73 (89) 98 11/05/19 00:00 88 11/04/19 21:00 Simple Mask 7.0 Simple Mask 7.0 11/04/19 20:00 103 11/04/19 20:00 95 Simple Mask 6.0 44 11/04/19 20:00 97.9 95 18 118/70 (86) 97 Intake and Output 11/04/19 11/05/19 19:00 07:00 Intake Total 600 ml 500 ml Output Total 800 ml 1400 ml Balance -200 ml -900 ml Intake Oral 600 ml Other 500 ml Output Urine Total 800 ml 1400 ml # Voids 4 Laboratory Tests Test 11/05/19 05:45 11/05/19 11:42 11/05/19 17:09 White Blood Count 8.5 K/UL (4.8-10.8) Red Blood Count 4.67 M/UL (4.70-6.10) L Hemoglobin 13.1 G/DL (14.2-18.0) L Hematocrit 41.6 % (42.0-52.0) L Mean Corpuscular Volume 89 FL (80-99) Mean Corpuscular Hemoglobin 28.1 PG (27.0-31.0) Mean Corpuscular Hemoglobin Concent 31.5 G/DL (32.0-36.0) L Red Cell Distribution Width 12.9 % (11.6-14.8) Platelet Count 402 K/UL (150-450) Mean Platelet Volume 6.0 FL (6.5-10.1) L Neutrophils (%) (Auto) 71.3 % (45.0-75.0) Lymphocytes (%) (Auto) 20.4 % (20.0-45.0) Monocytes (%) (Auto) 6.8 % (1.0-10.0) Eosinophils (%) (Auto) 0.3 % (0.0-3.0) Basophils (%) (Auto) 1.1 % (0.0-2.0) D-Dimer 0.20 mg/L FEU (0.00-0.49) Sodium Level 133 MMOL/L (136-145) L Potassium Level 5.2 MMOL/L (3.5-5.1) H Chloride Level 99 MMOL/L (98-107) Carbon Dioxide Level 27 MMOL/L (21-32) Anion Gap 7 mmol/L (5-15) Blood Urea Nitrogen 41 mg/dL (7-18) H Creatinine 1.4 MG/DL (0.55-1.30) H Estimat Glomerular Filtration Rate > 60 mL/min (>60) Glucose Level 178 MG/DL (74-106) H Calcium Level 9.6 MG/DL (8.5-10.1) Ferritin 433 NG/ML (8-388) H Total Bilirubin 0.5 MG/DL (0.2-1.0) Aspartate Amino Transf (AST/SGOT) 13 U/L (15-37) L Alanine Aminotransferase (ALT/SGPT) 25 U/L (12-78) Alkaline Phosphatase 62 U/L (46-116) C-Reactive Protein, Quantitative 3.4 mg/dL (0.00-0.90) H Total Protein 7.6 G/DL (6.4-8.2) Albumin 2.6 G/DL (3.4-5.0) L Globulin 5.0 g/dL Albumin/Globulin Ratio 0.5 (1.0-2.7) L POC Whole Blood Glucose 203 MG/DL (74-106) H 379 MG/DL (74-106) H Current Medications Medications (Trade) Dose Ordered Sig/Jenny Route PRN Reason Start Time Stop Time Status Last Admin Dose Admin Al Hydroxide/Mg Hydroxide (Mylanta) 30 ml Q6H PRN ORAL Abdominal cramps 11/03/19 17:00 12/03/19 16:59 11/03/19 17:29 Albuterol Sulfate (Proventil MDI) 2 puff Q4H PRN INH Shortness of Breath 10/23/19 18:00 01/21/20 17:59 Amlodipine Besylate (Norvasc) 2.5 mg DAILYPRN PRN ORAL For High Blood Pressure 10/26/19 19:45 11/25/19 19:44 10/27/19 20:26 Ascorbic Acid (Vitamin C) 500 mg BID ORAL 11/06/19 09:00 12/01/19 17:59 Dextrose (Dextrose 50%) 25 ml Q30M PRN IV Hypoglycemia 10/23/19 17:30 01/20/20 22:59 Dextrose (Dextrose 50%) 50 ml Q30M PRN IV Hypoglycemia 10/23/19 17:30 01/20/20 22:59 Duloxetine HCl (Cymbalta) 20 mg DAILY ORAL 10/27/19 09:00 01/25/20 08:59 11/05/19 08:44 Enoxaparin Sodium (Lovenox) 90 mg EVERY 12 HOURS SUBQ 10/28/19 23:00 01/26/20 22:59 11/05/19 08:43 Guaifenesin (Robitussin) 100 mg Q4H PRN ORAL For Cough 10/23/19 19:15 01/20/20 23:14 11/04/19 11:34 Insulin Aspart (NovoLOG) BEFORE MEALS AND HS SUBQ 11/03/19 16:30 01/21/20 06:29 11/05/19 16:30 Lorazepam (Ativan) 1 mg Q6H PRN ORAL For Anxiety 10/31/19 19:00 11/07/19 18:59 11/05/19 15:30 Losartan Potassium (Cozaar) 25 mg DAILY ORAL 11/01/19 09:00 12/01/19 08:59 11/05/19 08:44 Metformin HCl (Glucophage) 500 mg BID ORAL 10/23/19 18:00 11/22/19 08:59 11/05/19 17:09 Methylprednisolone Sodium Succinate (Solu-MEDROL) 20 mg EVERY 8 HOURS IVP 11/05/19 22:00 01/30/20 17:59 Mirtazapine (Remeron) 15 mg BEDTIME ORAL 10/29/19 21:00 01/24/20 20:59 11/04/19 20:39 Pantoprazole (Protonix) 40 mg DAILY ORAL 10/24/19 09:00 11/23/19 08:59 11/05/19 08:43 Polyethylene Glycol (Miralax) 17 gm BEDTIME ORAL 10/26/19 21:00 11/25/19 20:59 11/02/19 22:53 Thiamine HCl 200 mg/Dextrose 112 ml @ 220.087 mls/hr Q12HR IVPB 11/01/19 21:00 12/01/19 20:59 11/05/19 08:40 Height (Feet): 6 Height (Inches): 1.00 Weight (Pounds): 197 General Appearance: alert Head: normocephalic, atraumatic Eyes: bilateral anicteric ENT: normal voice Neck: full range of motion, no mass Respiratory: decreased breath sounds Cardiovascular: regular rate, rhythm Gastrointestinal: normal bowel sounds, non tender, soft, no mass, no organomegaly Musculoskeletal: no calf tenderness Edema: no edema noted Generalized Neurologic: alert, no new focality Jim Zee MD Nov 05, 2019 18:53
--- NOTE | 2019-11-05 19:19 | NUR ---
HAND-OFF: Report given to Betty METCALF. Pt in stable condition, endorsed plan of care.
[2019-11-05 20:00] VITALS: BP 120/72
[2019-11-05] MEDS: Miralax 17gm pkt ORAL SCH (21:18)
--- NOTE | 2019-11-05 21:55 | NUR ---
NURSE NOTES: Received pt from TEA Gerard. Pt awake, alert. and talkative. Bed in lowest position. Call light within reach. Will continue to monitor.
[2019-11-06] VITALS: BP 105/62
[2019-11-06 04:00] VITALS: BP 101/73
[2019-11-06] MEDS: Solu-MEDROL 40mg Inj IVP SCH ×3 (06:26→21:29)
[2019-11-06] MEDS: NovoLOG Insulin Flexpen SUBQ SCH ×4 (06:33→20:48)
--- NOTE | 2019-11-06 07:33 | NUR ---
HAND-OFF: Report given to TEA Vera. Pt stable.
--- NOTE | 2019-11-06 07:40 | Pulmonology Progress Note ---
Valencia Medina CASTING OPERATOR 11/06/19 0740: Subjective ROS Limited/Unobtainable: No Constitutional: Denies: fever Gastrointestinal/Abdominal: Denies: nausea, vomiting, diarrhea Psychiatric: Denies: depression Skin: Denies: rash Musculoskeletal: Denies: pain Allergies: Coded Allergies: No Known Allergies (Unverified , 08/10/14) Subjective no fevers , no leukocytosis weaned to NC 4l/min , tolerates reports feeling better less SOB, less anxiety no CP CXR pending for this am Objective Last 24 Hour Vital Signs Date Time Temp Pulse Resp B/P (MAP) Pulse Ox O2 Delivery O2 Flow Rate FiO2 11/06/19 04:00 82 11/06/19 04:00 98.7 85 18 101/73 (82) 96 11/06/19 00:00 98.4 79 20 105/62 (76) 96 11/06/19 00:00 90 11/05/19 21:00 Nasal Cannula 6.0 Nasal Cannula 6.0 11/05/19 20:00 96 11/05/19 20:00 98.0 72 20 120/72 (88) 96 11/05/19 20:00 94 Nasal Cannula 4.0 36 11/05/19 16:00 98.7 89 18 120/61 (80) 96 11/05/19 15:44 102 11/05/19 12:00 96.1 94 19 119/79 (92) 98 11/05/19 11:37 93 11/05/19 11:00 Nasal Cannula 6.0 Simple Mask 7.0 11/05/19 09:00 Simple Mask 7.0 Simple Mask 7.0 11/05/19 08:44 134/78 11/05/19 08:03 94 11/05/19 08:00 98.1 56 19 134/78 (96) 96 Intake and Output 11/05/19 11/06/19 19:00 07:00 Intake Total 140 ml Output Total 1200 ml 400 ml Balance -1060 ml -400 ml Intake Oral 140 ml Output Urine Total 1200 ml 400 ml # Voids 3 2 Objective General Appearance: no apparent distress, alert , awake, responsive male in NAD , on NC Lines, tubes and drains: peripheral HEENT: normocephalic, atraumatic, anicteric, mucous membranes moist, PERRL, pharynx normal, supple, no JVD Neck: non-tender, normal alignment, supple Respiratory/Chest: chest wall non-tender, no respiratory distress, no use of accessory muscle use, BS overall clear Cardiovascular/Chest: normal peripheral pulses, normal rate Abdomen: normal bowel sounds, non tender, soft Extremities: non-tender, no calf tenderness, normal capillary refill Skin Exam: warm/dry Neurologic: no motor/sensory deficits, alert, oriented x 3, responsive, Musculoskeletal: normal muscle bulk Laboratory Tests 11/05/19 11:42: POC Whole Blood Glucose 203H 11/05/19 17:09: POC Whole Blood Glucose 379H Current Medications Medications (Trade) Dose Ordered Sig/Jenny Route PRN Reason Start Time Stop Time Status Last Admin Dose Admin Al Hydroxide/Mg Hydroxide (Mylanta) 30 ml Q6H PRN ORAL Abdominal cramps 11/03/19 17:00 12/03/19 16:59 11/03/19 17:29 Albuterol Sulfate (Proventil MDI) 2 puff Q4H PRN INH Shortness of Breath 10/23/19 18:00 01/21/20 17:59 Amlodipine Besylate (Norvasc) 2.5 mg DAILYPRN PRN ORAL For High Blood Pressure 10/26/19 19:45 11/25/19 19:44 10/27/19 20:26 Ascorbic Acid (Vitamin C) 500 mg BID ORAL 11/06/19 09:00 12/01/19 17:59 Dextrose (Dextrose 50%) 25 ml Q30M PRN IV Hypoglycemia 10/23/19 17:30 01/20/20 22:59 Dextrose (Dextrose 50%) 50 ml Q30M PRN IV Hypoglycemia 10/23/19 17:30 01/20/20 22:59 Duloxetine HCl (Cymbalta) 30 mg DAILY ORAL 11/06/19 09:00 02/04/20 08:59 Enoxaparin Sodium (Lovenox) 90 mg EVERY 12 HOURS SUBQ 10/28/19 23:00 01/26/20 22:59 11/05/19 21:17 Guaifenesin (Robitussin) 100 mg Q4H PRN ORAL For Cough 10/23/19 19:15 01/20/20 23:14 11/04/19 11:34 Insulin Aspart (NovoLOG) BEFORE MEALS AND HS SUBQ 11/03/19 16:30 01/21/20 06:29 11/06/19 06:33 Lorazepam (Ativan) 1 mg Q6H PRN ORAL For Anxiety 10/31/19 19:00 11/07/19 18:59 11/05/19 15:30 Losartan Potassium (Cozaar) 25 mg DAILY ORAL 11/01/19 09:00 12/01/19 08:59 11/05/19 08:44 Metformin HCl (Glucophage) 500 mg BID ORAL 10/23/19 18:00 11/22/19 08:59 11/05/19 17:09 Methylprednisolone Sodium Succinate (Solu-MEDROL) 20 mg EVERY 8 HOURS IVP 11/05/19 22:00 01/30/20 17:59 11/06/19 06:26 Mirtazapine (Remeron) 15 mg BEDTIME ORAL 10/29/19 21:00 01/24/20 20:59 11/05/19 21:17 Pantoprazole (Protonix) 40 mg DAILY ORAL 10/24/19 09:00 11/23/19 08:59 11/05/19 08:43 Polyethylene Glycol (Miralax) 17 gm BEDTIME ORAL 10/26/19 21:00 11/25/19 20:59 11/05/19 21:18 Thiamine HCl 200 mg/Dextrose 112 ml @ 220.087 mls/hr Q12HR IVPB 11/01/19 21:00 12/01/19 20:59 11/05/19 21:17 Assessment/Plan Assessment/Plan ASSESSMENT COVID 19 infection, recently diagnosed PNA, likely due to COVID 19 Acute hypoxemic resp failure, requiring NRM -resolving Minimally elevated troponin ( resolved already) CECI with proteinuria ? diabetic nephropathy DM OOC with diabetic neuropathy Pyuria, possible UTI Hypo Na Hx of HTN Transaminitis Low albumin, possible malnutrition Chronic pain PLAN OF CARE tele isolation titrate O2 to keep sat > 90 attempt HF honey blender MDI Albuterol prn now weaned from simple mask to NC, tolerates CXR 10/28 -> Worsening bilateral infiltrates. Slight rightward tracheal deviation , upper mediastinal mass possible given persistent hypoxia, will proceed with CT chest CT chest 10/29 ->Moderate to severe patchy multifocal areas of airspace opacities bilateral lungs, may represent inflammatory, infectious process No mass was seen CXR 11/01 Unchanged bilateral infiltrates, c/w PNA repeat CXR this am pending s/p abx: Ceftriaxone ( completed 10/29) and Azithromycin ( completed 10/28) SCX if able ID follows completed 10 days of Remdesivir and steroid today, 10/31) , now on IV Solumedrol per primary, tapered to q 8 hrs with further tapering on LMW Lovenox treatment dose Venous Duplex BLE still pending repeat COVID 19 11/01 -positive fup with inflammatory markers to access a risk for cytokine storm latest LDH 488 (trending down), CRP 4.6 ( trending down), ferritin 329 , IL 6 -15.6, repeated IL-6 10/31-55.5 a/tussive prn monitor volumes improving gradually prior was on full a/c, s/p heparin gtt, now on Lovenox treatment dose bid since 10/27 second troponin down to normal min elevation possibly due to CECI , hypoperfusion cardio on board ECHO with pEF 60%, mild diastolic dysfunction monitor renal parameters, avoid nephrotoxics, creat down UCX 10/21 NGTD UA+ pyuria, mod bacteria, completed Ceftriaxone BCX 10/21 NGTD BS management with metformin ( lactic acid down to normal) and SSI, HgA1c - 9.1 not at goal, trend CK, LFT CK and AST trending down , CK 176 BP management with CCB, now started on oral Lasix, monitor volumes pain management dietary eval noted supportive care Thank you for this consultation! case discussed and evaluated by supervising physician New Morales MD 11/06/192022: Subjective Allergies: Coded Allergies: No Known Allergies (Unverified , 08/10/14) Assessment/Plan Assessment/Plan Patient seen and examined with CASTING OPERATOR. Agree with above A&P as it reflects our joint deliberations. Valencia Medina NP Nov 06, 2019 07:40 New Morales MD Nov 06, 2019 20:23
--- NOTE | 2019-11-06 07:51 | NUR ---
NURSE NOTES: Received Addendum: 11/06/19 at 0753 by Marleen Pedraza RN Received report from Betty METCALF, pt in bed eating breakfast. No distress, sob, or pain noted. Bed in lowest position, call light within reach.
[2019-11-06 07:56] VITALS: BP 119/77
[2019-11-06] MEDS: Losartan 25mg tab ORAL SCH (08:31)
[2019-11-06 08:36] LABS: ANION GAP 7 mmol/L (5-15); BLOOD UREA NITROGEN 42 mg/dL (7-18); CALCIUM 9.5 MG/DL (8.5-10.1); CARBON DIOXIDE 28 MMOL/L (21-32); CHLORIDE 98 MMOL/L (98-107); CREATININE 1.4 MG/DL (0.55-1.30); POTASSIUM 5.4 MMOL/L (3.5-5.1); SODIUM 132 MMOL/L (136-145)
[2019-11-06] MEDS: Enoxaparin 100mg Inj SUBQ SCH ×2 (08:39→21:43)
[2019-11-06] MEDS: metFORMIN 500mg tab ORAL SCH ×2 (08:40→17:25)
[2019-11-06] MEDS: Ascorbic Acid 500mg tab ORAL SCH ×2 (08:40→17:26)
[2019-11-06] MEDS: DULoxetine 30mg cap ORAL SCH (08:40)
[2019-11-06] MEDS: D5W IVPB SCH ×2 (08:46→21:29)
[2019-11-06] MEDS: THIAMINE HCL IVPB SCH ×2 (08:46→21:29)
--- NOTE | 2019-11-06 10:27 | NUR ---
CASE MANAGEMENT:REVIEW 11/06/19 SI: COVID PNA. SIRS. RHABDO SUSPECTED PULMONARY EMBOLI 98.2 80 17 119/77 98% ON 6L/NC NA-132 K+5.4 BUN=42 CR=1.4 GLUCOSE+242 IS: IV THIAMINE Q12 IV SOLUMEDROL 20MG Q8HRS VIT C PO QID COZAAR PO QD LOVENOX SQ Q12 CYMBALTA PO QD PROTONIX PO QD METFORMIN PO BID : TELEMETRY STATUS DCP: PATIENT IS FROM HOME PLAN: CONTINUE TO TAPER STEROIDS AND OXYGEN
--- NOTE | 2019-11-06 10:58 | Diagnostic Imaging Report ---
Indication: Cough Technique: One view of the chest Comparison: 11/02/2019 Findings: Bilateral interstitial and airspace disease is again demonstrated, probably unchanged allowing for differences in exposure technique. The heart remains borderline enlarged.. Impression: Unchanged, over 4 days, findings as above.
[2019-11-06 12:00] VITALS: BP 113/67
[2019-11-06 15:42] VITALS: BP 123/76
--- NOTE | 2019-11-06 16:02 | Geriatric Progress Note ---
Assessment/Plan Problems: (1) Transaminasemia (2) SIRS (systemic inflammatory response syndrome) (3) Urinary tract infection (4) Chronic back pain (5) Cataract (6) Pneumonia due to COVID-19 virus (7) Diabetes type 2, uncontrolled (8) Diabetic neuropathy associated with type 2 diabetes mellitus (9) Chronic pain disorder (10) Anxiety disorder (11) Acute kidney injury (12) Rhabdomyolysis due to COVID-19 (13) Chronic rhinitis (14) Hypertension (15) Volume depletion (16) Nausea Assessment/Plan Continues to slowly improve, still requires 5l/m at rest and desaturates to 88% on standing. Tolerating Solumedrol taper, likely will taper further tomorrow. Still too weak and requiring too much O2 supplementation to return home. Reviewed with [facility], [facility] not accepting COVID + patients. Await COVID PCR result to see if referral available. Push fluids for mild electrolyte abnormalities and monitor. Continue other therapy. Discussed with: patient, hospital staff Subjective Interval Events Patient reports feeling better, able to stand for slightly longer without severe shortness of breath. No other issues. Staff reports tolerating 5l/m nc. No other clinical changes. Na 132, K 5.4, Cr 1.4. CXR interpreted as unchanged given difference in penetration, but lee appear slightly clearer to me. Glucoses in 200s. Constitutional: Denies: chills, sweats, fever Respiratory: Denies: cough, shortness of breath Cardiovascular: Denies: chest pain, palpitations Gastrointestinal/Abdominal: Denies: abdominal pain Genitourinary: Denies: dysuria Geriatric Geriatric Last 24 Hour Vital Signs Date Time Temp Pulse Resp B/P (MAP) Pulse Ox O2 Delivery O2 Flow Rate FiO2 11/06/19 15:42 98.1 82 18 123/76 (92) 99 11/06/19 12:00 79 11/06/19 12:00 98.0 82 18 113/67 (82) 99 11/06/19 09:00 Nasal Cannula 5.0 Nasal Cannula 5.0 11/06/19 08:31 119/77 11/06/19 08:00 90 11/06/19 07:56 98.2 80 17 119/77 (91) 98 11/06/19 04:00 82 11/06/19 04:00 98.7 85 18 101/73 (82) 96 11/06/19 00:00 98.4 79 20 105/62 (76) 96 11/06/19 00:00 90 11/05/19 21:00 Nasal Cannula 6.0 Nasal Cannula 6.0 11/05/19 20:00 96 11/05/19 20:00 98.0 72 20 120/72 (88) 96 11/05/19 20:00 94 Nasal Cannula 4.0 36 11/05/19 16:00 98.7 89 18 120/61 (80) 96 Intake and Output 11/05/19 11/06/19 19:00 07:00 Intake Total 140 ml Output Total 1200 ml 400 ml Balance -1060 ml -400 ml Intake Oral 140 ml Output Urine Total 1200 ml 400 ml # Voids 3 2 Laboratory Tests Test 11/05/19 17:09 11/06/19 08:10 POC Whole Blood Glucose 379 MG/DL (74-106) H Sodium Level 132 MMOL/L (136-145) L Potassium Level 5.4 MMOL/L (3.5-5.1) H Chloride Level 98 MMOL/L (98-107) Carbon Dioxide Level 28 MMOL/L (21-32) Anion Gap 7 mmol/L (5-15) Blood Urea Nitrogen 42 mg/dL (7-18) H Creatinine 1.4 MG/DL (0.55-1.30) H Estimat Glomerular Filtration Rate > 60 mL/min (>60) Glucose Level 242 MG/DL (74-106) H Calcium Level 9.5 MG/DL (8.5-10.1) Current Medications Medications (Trade) Dose Ordered Sig/Jenny Route PRN Reason Start Time Stop Time Status Last Admin Dose Admin Al Hydroxide/Mg Hydroxide (Mylanta) 30 ml Q6H PRN ORAL Abdominal cramps 11/03/19 17:00 12/03/19 16:59 11/03/19 17:29 Albuterol Sulfate (Proventil MDI) 2 puff Q4H PRN INH Shortness of Breath 10/23/19 18:00 01/21/20 17:59 Amlodipine Besylate (Norvasc) 2.5 mg DAILYPRN PRN ORAL For High Blood Pressure 10/26/19 19:45 11/25/19 19:44 10/27/19 20:26 Ascorbic Acid (Vitamin C) 500 mg BID ORAL 11/06/19 09:00 12/01/19 17:59 11/06/19 08:40 Dextrose (Dextrose 50%) 25 ml Q30M PRN IV Hypoglycemia 10/23/19 17:30 01/20/20 22:59 Dextrose (Dextrose 50%) 50 ml Q30M PRN IV Hypoglycemia 10/23/19 17:30 01/20/20 22:59 Duloxetine HCl (Cymbalta) 30 mg DAILY ORAL 11/06/19 09:00 02/04/20 08:59 11/06/19 08:40 Enoxaparin Sodium (Lovenox) 90 mg EVERY 12 HOURS SUBQ 10/28/19 23:00 01/26/20 22:59 11/06/19 08:39 Guaifenesin (Robitussin) 100 mg Q4H PRN ORAL For Cough 10/23/19 19:15 01/20/20 23:14 11/04/19 11:34 Insulin Aspart (NovoLOG) BEFORE MEALS AND HS SUBQ 11/03/19 16:30 01/21/20 06:29 11/06/19 12:27 Lorazepam (Ativan) 1 mg Q6H PRN ORAL For Anxiety 10/31/19 19:00 11/07/19 18:59 11/05/19 15:30 Losartan Potassium (Cozaar) 25 mg DAILY ORAL 11/01/19 09:00 12/01/19 08:59 11/05/19 08:44 Metformin HCl (Glucophage) 500 mg BID ORAL 10/23/19 18:00 11/22/19 08:59 11/06/19 08:40 Methylprednisolone Sodium Succinate (Solu-MEDROL) 20 mg EVERY 8 HOURS IVP 11/05/19 22:00 01/30/20 17:59 11/06/19 15:11 Mirtazapine (Remeron) 15 mg BEDTIME ORAL 10/29/19 21:00 01/24/20 20:59 11/05/19 21:17 Pantoprazole (Protonix) 40 mg DAILY ORAL 10/24/19 09:00 11/23/19 08:59 11/06/19 08:40 Polyethylene Glycol (Miralax) 17 gm BEDTIME ORAL 10/26/19 21:00 11/25/19 20:59 11/05/19 21:18 Thiamine HCl 200 mg/Dextrose 112 ml @ 220.087 mls/hr Q12HR IVPB 11/01/19 21:00 12/01/19 20:59 11/06/19 08:46 Height (Feet): 6 Height (Inches): 1.00 Weight (Pounds): 197 General Appearance: alert Head: normocephalic, atraumatic Eyes: bilateral anicteric ENT: normal voice Neck: full range of motion, no mass Respiratory: decreased breath sounds Cardiovascular: regular rate, rhythm Gastrointestinal: normal bowel sounds, non tender, soft, no mass, no organomegaly Musculoskeletal: no calf tenderness Edema: no edema noted Generalized Neurologic: alert, no new focality Jim Zee MD Nov 06, 2019 16:02
[2019-11-06] MEDS: LORazepam 1mg tab ORAL PRN (16:15)
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
--- NOTE | 2019-11-06 19:04 | Cardiology Progress Note ---
Assessment/Plan Assessment/Plan 1. COVID-19 infection / pneumonia . 2. Premature atrial contractions with some nonconducted. 3. Pneumonia. 4. Diastolic dysfunction mild 5. Diabetes mellitus is poor control. 6. Resolved acute renal failure. 7. Resolved transaminitis. 8. Rhabdomyolysis, improved. cxr 11/05 Bilateral interstitial and airspace disease is again demonstrated, probably unchanged bp seem ok afebrile but he was never febrile is on full anticoagulation with full dose of lovenox as he removed his iv several times yest course of remdesivir and now tapering steroids tele personally reviewed sinus / pacs only no pauses qt interval ok hr better now on 5 liter pcr is still + Subjective Subjective remains in pulm isolation per dr gupta Patient reports feeling better, able to stand for slightly longer without severe shortness of breath. No other issues. Staff reports tolerating 5l/m nc. No other clinical changes Objective Last 24 Hour Vital Signs Date Time Temp Pulse Resp B/P (MAP) Pulse Ox O2 Delivery O2 Flow Rate FiO2 11/06/19 18:57 95 Nasal Cannula 4.0 36 11/06/19 16:11 94 11/06/19 15:42 98.1 82 18 123/76 (92) 99 11/06/19 12:00 79 11/06/19 12:00 98.0 82 18 113/67 (82) 99 11/06/19 09:00 Nasal Cannula 5.0 Nasal Cannula 5.0 11/06/19 08:31 119/77 11/06/19 08:00 90 11/06/19 07:56 98.2 80 17 119/77 (91) 98 11/06/19 04:00 82 11/06/19 04:00 98.7 85 18 101/73 (82) 96 11/06/19 00:00 98.4 79 20 105/62 (76) 96 11/06/19 00:00 90 11/05/19 21:00 Nasal Cannula 6.0 Nasal Cannula 6.0 11/05/19 20:00 96 11/05/19 20:00 98.0 72 20 120/72 (88) 96 11/05/19 20:00 94 Nasal Cannula 4.0 36 Intake and Output 11/05/19 11/06/19 19:00 07:00 Intake Total 140 ml Output Total 1200 ml 400 ml Balance -1060 ml -400 ml Intake Oral 140 ml Output Urine Total 1200 ml 400 ml # Voids 3 2 Laboratory Tests Test 11/05/19 21:34 11/06/19 06:30 11/06/19 08:10 POC Whole Blood Glucose Pending 214 MG/DL (74-106) H Sodium Level 132 MMOL/L (136-145) L Potassium Level 5.4 MMOL/L (3.5-5.1) H Chloride Level 98 MMOL/L (98-107) Carbon Dioxide Level 28 MMOL/L (21-32) Anion Gap 7 mmol/L (5-15) Blood Urea Nitrogen 42 mg/dL (7-18) H Creatinine 1.4 MG/DL (0.55-1.30) H Estimat Glomerular Filtration Rate > 60 mL/min (>60) Glucose Level 242 MG/DL (74-106) H Calcium Level 9.5 MG/DL (8.5-10.1) Objective pe r dr gupta Respiratory: decreased breath sounds Cardiovascular: regular rate, rhythm Gastrointestinal: normal bowel sounds, non tender, soft, no mass, no organomegaly Musculoskeletal: no calf tenderness Edema: no edema noted Generalized Al Emanuel MD Nov 06, 2019 19:04
--- NOTE | 2019-11-06 19:09 | NUR ---
HAND-OFF: Report given to Sol METCALF. Patient stable. Plan of care endorsed.
--- NOTE | 2019-11-06 19:14 | NUR ---
HAND-OFF: Report given to Cirilo Green RN. Patient stable. Plan of care endorsed.
--- NOTE | 2019-11-06 19:15 | NUR ---
NURSE NOTES: Patient received from Ani RN. Patient in stable condition. Alert and oriented x4. No s/s of distress or pain. On O2 nasal cannula at 5L/min. On isolation precautions for (+) Covid. IV site patent and intact at the Left AC 22G saline locked. Bedside table and call light within reach. WIll continue plan of care.
[2019-11-06 20:00] VITALS: BP 122/76
[2019-11-06] MEDS: Miralax 17gm pkt ORAL SCH (21:30)
[2019-11-07] VITALS: BP 128/78
[2019-11-07 04:00] VITALS: BP 125/92
[2019-11-07 05:02] LABS: BASOPHILS % (AUTO) 0.6 % (0.0-2.0); EOSINOPHILS % (AUTO) 0.1 % (0.0-3.0); HEMATOCRIT 42.7 % (42.0-52.0); HEMOGLOBIN 13.7 G/DL (14.2-18.0); LYMPHOCYTES % (AUTO) 17.8 % (20.0-45.0); MEAN CORPUSCULAR VOLUME 89 FL (80-99); MONOCYTES % (AUTO) 4.5 % (1.0-10.0); PLATELET COUNT 384 K/UL (150-450); RED BLOOD COUNT 4.79 M/UL (4.70-6.10); RED CELL DISTRIBUTION WIDTH 12.4 % (11.6-14.8); WHITE BLOOD COUNT 9.3 K/UL (4.8-10.8)
[2019-11-07 05:26] LABS: ANION GAP 7 mmol/L (5-15); BLOOD UREA NITROGEN 39 mg/dL (7-18); CALCIUM 9.3 MG/DL (8.5-10.1); CARBON DIOXIDE 26 MMOL/L (21-32); CHLORIDE 96 MMOL/L (98-107); CREATININE 1.4 MG/DL (0.55-1.30); POTASSIUM 5.4 MMOL/L (3.5-5.1); SODIUM 129 MMOL/L (136-145)
[2019-11-07] MEDS: Solu-MEDROL 40mg Inj IVP SCH ×3 (05:41→22:02)
[2019-11-07] MEDS: NovoLOG Insulin Flexpen SUBQ SCH ×4 (05:42→22:05)
--- NOTE | 2019-11-07 07:16 | NUR ---
HAND-OFF: Report given to Skylar METCALF. Patient in stable condition. Endorsed plan of care.
[2019-11-07 08:00] VITALS: BP 133/84
--- NOTE | 2019-11-07 09:25 | Pulmonology Progress Note ---
Valencia Medina VETERINARY MICROBIOLOGIST 11/07/19 0925: Subjective ROS Limited/Unobtainable: No Constitutional: Denies: fever Gastrointestinal/Abdominal: Denies: nausea, vomiting, diarrhea Psychiatric: Denies: depression Skin: Denies: rash Musculoskeletal: Denies: pain Allergies: Coded Allergies: No Known Allergies (Unverified , 08/10/14) Subjective no fevers , no leukocytosis weaned to NC 4l/min , tolerates reports feeling better less SOB, less anxiety no CP Objective Last 24 Hour Vital Signs Date Time Temp Pulse Resp B/P (MAP) Pulse Ox O2 Delivery O2 Flow Rate FiO2 11/07/19 04:00 80 11/07/19 04:00 97.4 88 19 125/92 (103) 99 11/07/19 00:00 96.4 93 19 128/78 (95) 99 11/07/19 00:00 82 11/06/19 21:00 Nasal Cannula 5.0 Nasal Cannula 5.0 11/06/19 20:00 92 11/06/19 20:00 96.4 82 20 122/76 (91) 99 11/06/19 18:57 95 Nasal Cannula 4.0 36 11/06/19 16:11 94 11/06/19 15:42 98.1 82 18 123/76 (92) 99 11/06/19 12:00 79 11/06/19 12:00 98.0 82 18 113/67 (82) 99 Intake and Output 11/06/19 11/07/19 19:00 07:00 Intake Total 112 ml 350 ml Output Total 350 ml 600 ml Balance -238 ml -250 ml Intake Oral 350 ml IV Total 112 ml Output Urine Total 350 ml 600 ml # Voids 3 Objective General Appearance: no apparent distress, alert , awake, responsive male in NAD , on NC Lines, tubes and drains: peripheral HEENT: normocephalic, atraumatic, anicteric, mucous membranes moist, PERRL, pharynx normal, supple, no JVD Neck: non-tender, normal alignment, supple Respiratory/Chest: chest wall non-tender, no respiratory distress, no use of accessory muscle use, BS overall clear Cardiovascular/Chest: normal peripheral pulses, normal rate Abdomen: normal bowel sounds, non tender, soft Extremities: non-tender, no calf tenderness, normal capillary refill Skin Exam: warm/dry Neurologic: no motor/sensory deficits, alert, oriented x 3, responsive, Musculoskeletal: normal muscle bulk Laboratory Tests 11/06/19 20:43: POC Whole Blood Glucose 256H 11/07/19 04:00: White Blood Count 9.3, Red Blood Count 4.79, Hemoglobin 13.7L, Hematocrit 42.7, Mean Corpuscular Volume 89, Mean Corpuscular Hemoglobin 28.7, Mean Corpuscular Hemoglobin Concent 32.1, Red Cell Distribution Width 12.4, Platelet Count 384, Mean Platelet Volume 6.3L, Neutrophils (%) (Auto) 77.0H, Lymphocytes (%) (Auto) 17.8L, Monocytes (%) (Auto) 4.5, Eosinophils (%) (Auto) 0.1, Basophils (%) (Auto ) 0.6, Sodium Level 129L, Potassium Level 5.4H, Chloride Level 96L, Carbon Dioxide Level 26, Anion Gap 7, Blood Urea Nitrogen 39H, Creatinine 1.4H, Estimat Glomerular Filtration Rate > 60, Glucose Level 248H, Calcium Level 9.3 11/07/19 05:37: POC Whole Blood Glucose 234H Current Medications Medications (Trade) Dose Ordered Sig/Jenny Route PRN Reason Start Time Stop Time Status Last Admin Dose Admin Al Hydroxide/Mg Hydroxide (Mylanta) 30 ml Q6H PRN ORAL Abdominal cramps 11/03/19 17:00 12/03/19 16:59 11/03/19 17:29 Albuterol Sulfate (Proventil MDI) 2 puff Q4H PRN INH Shortness of Breath 10/23/19 18:00 01/21/20 17:59 Amlodipine Besylate (Norvasc) 2.5 mg DAILYPRN PRN ORAL For High Blood Pressure 10/26/19 19:45 11/25/19 19:44 10/27/19 20:26 Ascorbic Acid (Vitamin C) 500 mg BID ORAL 11/06/19 09:00 12/01/19 17:59 11/06/19 17:26 Dextrose (Dextrose 50%) 25 ml Q30M PRN IV Hypoglycemia 10/23/19 17:30 01/20/20 22:59 Dextrose (Dextrose 50%) 50 ml Q30M PRN IV Hypoglycemia 10/23/19 17:30 01/20/20 22:59 Duloxetine HCl (Cymbalta) 30 mg DAILY ORAL 11/06/19 09:00 02/04/20 08:59 11/06/19 08:40 Enoxaparin Sodium (Lovenox) 90 mg EVERY 12 HOURS SUBQ 10/28/19 23:00 01/26/20 22:59 11/06/19 21:43 Guaifenesin (Robitussin) 100 mg Q4H PRN ORAL For Cough 10/23/19 19:15 01/20/20 23:14 11/04/19 11:34 Insulin Aspart (NovoLOG) BEFORE MEALS AND HS SUBQ 11/03/19 16:30 01/21/20 06:29 11/07/19 05:42 Lorazepam (Ativan) 1 mg Q6H PRN ORAL For Anxiety 10/31/19 19:00 11/07/19 18:59 11/06/19 16:15 Losartan Potassium (Cozaar) 25 mg DAILY ORAL 11/01/19 09:00 12/01/19 08:59 11/05/19 08:44 Metformin HCl (Glucophage) 500 mg BID ORAL 10/23/19 18:00 11/22/19 08:59 11/06/19 17:25 Methylprednisolone Sodium Succinate (Solu-MEDROL) 20 mg EVERY 8 HOURS IVP 11/05/19 22:00 01/30/20 17:59 11/07/19 05:41 Mirtazapine (Remeron) 15 mg BEDTIME ORAL 10/29/19 21:00 01/24/20 20:59 11/06/19 21:30 Pantoprazole (Protonix) 40 mg DAILY ORAL 10/24/19 09:00 11/23/19 08:59 11/06/19 08:40 Polyethylene Glycol (Miralax) 17 gm BEDTIME ORAL 10/26/19 21:00 11/25/19 20:59 11/06/19 21:30 Thiamine HCl 200 mg/Dextrose 112 ml @ 220.087 mls/hr Q12HR IVPB 11/01/19 21:00 12/01/19 20:59 11/06/19 21:29 Assessment/Plan Assessment/Plan ASSESSMENT COVID 19 infection, recently diagnosed PNA, likely due to COVID 19 Acute hypoxemic resp failure, requiring NRM -resolving Minimally elevated troponin ( resolved already) CECI with proteinuria ? diabetic nephropathy DM OOC with diabetic neuropathy Pyuria, possible UTI Hypo Na Hx of HTN Transaminitis Low albumin, possible malnutrition Chronic pain PLAN OF CARE tele isolation titrate O2 to keep sat > 90 was attempted HF viral REDDY Albuterol prn now weaned from simple mask to NC, tolerates CXR 10/28 -> Worsening bilateral infiltrates. Slight rightward tracheal deviation , upper mediastinal mass possible given persistent hypoxia, will proceed with CT chest CT chest 10/29 ->Moderate to severe patchy multifocal areas of airspace opacities bilateral lungs, may represent inflammatory, infectious process No mass was seen CXR 11/01 Unchanged bilateral infiltrates, c/w PNA repeat CXR 11/05 with Bilateral interstitial and airspace disease is again demonstrated, unchanged clinically slowly improving s/p abx: Ceftriaxone ( completed 10/29) and Azithromycin ( completed 10/28) SCX if able ID follows completed 10 days of Remdesivir and steroid today, 10/31) , now on IV Solumedrol per primary, tapered to q 8 hrs with further tapering on LMW Lovenox treatment dose Venous Duplex BLE still pending repeat COVID 19 11/01 -positive fup with inflammatory markers to access a risk for cytokine storm latest LDH 488 (trending down), CRP 4.6 ( trending down), ferritin 329 , IL 6 -15.6, repeated IL-6 10/31-55.5 a/tussive prn monitor volumes improving gradually prior was on full a/c, s/p heparin gtt, now on Lovenox treatment dose bid since 10/27 second troponin down to normal min elevation possibly due to CECI , hypoperfusion cardio on board ECHO with pEF 60%, mild diastolic dysfunction monitor renal parameters, avoid nephrotoxics, creat down UCX 10/21 NGTD UA+ pyuria, mod bacteria, completed Ceftriaxone BCX 10/21 NGTD BS management with metformin ( lactic acid down to normal) and SSI, HgA1c - 9.1 not at goal, trend CK, LFT CK and AST trending down , CK 176 BP management with CCB, now started on oral Lasix, monitor volumes e/lyte imbalances noted - per primary pain management dietary eval noted supportive care Thank you for this consultation! case discussed and evaluated by supervising physician New Morales MD 11/07/19 1340: Subjective Allergies: Coded Allergies: No Known Allergies (Unverified , 08/10/14) Assessment/Plan Assessment/Plan Patient seen and examined with VETERINARY MICROBIOLOGIST. Agree with above A&P as it reflects our joint deliberations. Taper steroids to solumedrol 20 mg IV q12. Valencia Medina NP Nov 07, 2019 09:25 New Morales MD Nov 07, 2019 13:40
[2019-11-07] MEDS: metFORMIN 500mg tab ORAL SCH ×2 (09:33→18:11)
[2019-11-07] MEDS: DULoxetine 30mg cap ORAL SCH (09:34)
[2019-11-07] MEDS: Ascorbic Acid 500mg tab ORAL SCH ×2 (09:34→18:11)
[2019-11-07] MEDS: Losartan 25mg tab ORAL SCH (09:34)
[2019-11-07] MEDS: THIAMINE HCL IVPB SCH ×2 (09:35→22:03)
[2019-11-07] MEDS: D5W IVPB SCH ×2 (09:35→22:03)
[2019-11-07] MEDS: Enoxaparin 100mg Inj SUBQ SCH ×2 (09:35→22:02)
[2019-11-07 12:00] VITALS: BP 130/72
[2019-11-07] MEDS: LORazepam 1mg tab ORAL PRN ×2 (12:52→22:11)
[2019-11-07 16:00] VITALS: BP 139/88
--- NOTE | 2019-11-07 17:31 | Geriatric Progress Note ---
Assessment/Plan Problems: (1) Transaminasemia (2) SIRS (systemic inflammatory response syndrome) (3) Urinary tract infection (4) Chronic back pain (5) Cataract (6) Pneumonia due to COVID-19 virus (7) Diabetes type 2, uncontrolled (8) Diabetic neuropathy associated with type 2 diabetes mellitus (9) Chronic pain disorder (10) Anxiety disorder (11) Acute kidney injury (12) Rhabdomyolysis due to COVID-19 (13) Chronic rhinitis (14) Hypertension (15) Volume depletion (16) Nausea (17) SIADH (syndrome of inappropriate ADH production) Assessment/Plan Continues to improve, now tolerating 4 l/m, but desaturating with standing. Need stabilize to point of being able to move enough to care for self at home prior to d/c. However, definitely getting closer. Alternative is pulmonary rehab, but requires negative PCR. Hyponatremia ? related to SSRI, possibly due to lung pathology. Serum osmolarity, urine Na, urine osmolality ordered to evaluate. SSRI associated SIADH often improves after initial period, so if patient not symptomatic may be able to monitor on meds. Solumedrol being tapered. Awaiting repeat PCR. Otherwise continue current regimen. Discussed with: patient, hospital staff Subjective Interval Events Patient reports slow improvement. States he is tolerating nc well, sits on edge of bed before attempting to stand, and is tolerating standing better. Feels if he is stronger, might be able to go directly home. Staff reports patient tolerating 4l/m, less SOB with mobilization than before. Hyponatremia, mild hyperkalemia, mild increase in azotemia. Repeat COVID-19 PCR still pending. Sugars in 200-300s. Solumedrol decreased to 20mg q12 per pulmonology. Constitutional: Denies: chills, sweats, fever Respiratory: Reports: shortness of breath Cardiovascular: Denies: chest pain, palpitations Gastrointestinal/Abdominal: Denies: abdominal pain, constipation, diarrhea, nausea, vomiting Genitourinary: Denies: dysuria Geriatric Geriatric Last 24 Hour Vital Signs Date Time Temp Pulse Resp B/P (MAP) Pulse Ox O2 Delivery O2 Flow Rate FiO2 11/07/19 12:00 98.6 80 21 130/72 (91) 97 11/07/19 12:00 90 11/07/19 09:34 125/92 11/07/19 09:00 Nasal Cannula 5.0 Nasal Cannula 5.0 11/07/19 08:00 81 11/07/19 08:00 97.1 89 19 133/84 (100) 97 11/07/19 04:00 80 11/07/19 04:00 97.4 88 19 125/92 (103) 99 11/07/19 00:00 96.4 93 19 128/78 (95) 99 11/07/19 00:00 82 11/06/19 21:00 Nasal Cannula 5.0 Nasal Cannula 5.0 11/06/19 20:00 92 11/06/19 20:00 96.4 82 20 122/76 (91) 99 11/06/19 18:57 95 Nasal Cannula 4.0 36 Intake and Output 11/06/19 11/07/19 19:00 07:00 Intake Total 112 ml 350 ml Output Total 350 ml 600 ml Balance -238 ml -250 ml Intake Oral 350 ml IV Total 112 ml Output Urine Total 350 ml 600 ml # Voids 3 Laboratory Tests Test 11/06/19 20:43 11/07/19 04:00 11/07/19 05:37 11/07/19 11:48 POC Whole Blood Glucose 256 MG/DL (74-106) H 234 MG/DL (74-106) H 310 MG/DL (74-106) H White Blood Count 9.3 K/UL (4.8-10.8) Red Blood Count 4.79 M/UL (4.70-6.10) Hemoglobin 13.7 G/DL (14.2-18.0) L Hematocrit 42.7 % (42.0-52.0) Mean Corpuscular Volume 89 FL (80-99) Mean Corpuscular Hemoglobin 28.7 PG (27.0-31.0) Mean Corpuscular Hemoglobin Concent 32.1 G/DL (32.0-36.0) Red Cell Distribution Width 12.4 % (11.6-14.8) Platelet Count 384 K/UL (150-450) Mean Platelet Volume 6.3 FL (6.5-10.1) L Neutrophils (%) (Auto) 77.0 % (45.0-75.0) H Lymphocytes (%) (Auto) 17.8 % (20.0-45.0) L Monocytes (%) (Auto) 4.5 % (1.0-10.0) Eosinophils (%) (Auto) 0.1 % (0.0-3.0) Basophils (%) (Auto) 0.6 % (0.0-2.0) Sodium Level 129 MMOL/L (136-145) L Potassium Level 5.4 MMOL/L (3.5-5.1) H Chloride Level 96 MMOL/L (98-107) L Carbon Dioxide Level 26 MMOL/L (21-32) Anion Gap 7 mmol/L (5-15) Blood Urea Nitrogen 39 mg/dL (7-18) H Creatinine 1.4 MG/DL (0.55-1.30) H Estimat Glomerular Filtration Rate > 60 mL/min (>60) Glucose Level 248 MG/DL (74-106) H Osmolality 309 mOsm/kg (297-317) Calcium Level 9.3 MG/DL (8.5-10.1) Current Medications Medications (Trade) Dose Ordered Sig/Jenny Route PRN Reason Start Time Stop Time Status Last Admin Dose Admin Al Hydroxide/Mg Hydroxide (Mylanta) 30 ml Q6H PRN ORAL Abdominal cramps 11/03/19 17:00 12/03/19 16:59 11/03/19 17:29 Albuterol Sulfate (Proventil MDI) 2 puff Q4H PRN INH Shortness of Breath 10/23/19 18:00 01/21/20 17:59 Amlodipine Besylate (Norvasc) 2.5 mg DAILYPRN PRN ORAL For High Blood Pressure 10/26/19 19:45 11/25/19 19:44 10/27/19 20:26 Ascorbic Acid (Vitamin C) 500 mg BID ORAL 11/06/19 09:00 12/01/19 17:59 11/07/19 09:34 Dextrose (Dextrose 50%) 25 ml Q30M PRN IV Hypoglycemia 10/23/19 17:30 01/20/20 22:59 Dextrose (Dextrose 50%) 50 ml Q30M PRN IV Hypoglycemia 10/23/19 17:30 01/20/20 22:59 Duloxetine HCl (Cymbalta) 30 mg DAILY ORAL 11/06/19 09:00 02/04/20 08:59 11/07/19 09:34 Enoxaparin Sodium (Lovenox) 90 mg EVERY 12 HOURS SUBQ 10/28/19 23:00 01/26/20 22:59 11/07/19 09:35 Guaifenesin (Robitussin) 100 mg Q4H PRN ORAL For Cough 10/23/19 19:15 01/20/20 23:14 11/04/19 11:34 Insulin Aspart (NovoLOG) BEFORE MEALS AND HS SUBQ 11/03/19 16:30 01/21/20 06:29 11/07/19 11:51 Lorazepam (Ativan) 1 mg Q6H PRN ORAL For Anxiety 11/07/19 19:00 11/14/19 18:59 Losartan Potassium (Cozaar) 25 mg DAILY ORAL 11/01/19 09:00 12/01/19 08:59 11/07/19 09:34 Metformin HCl (Glucophage) 500 mg BID ORAL 10/23/19 18:00 11/22/19 08:59 11/07/19 09:33 Methylprednisolone Sodium Succinate (Solu-MEDROL) 20 mg Q12HR IVP 11/07/19 21:00 01/30/20 17:59 Mirtazapine (Remeron) 15 mg BEDTIME ORAL 10/29/19 21:00 01/24/20 20:59 11/06/19 21:30 Pantoprazole (Protonix) 40 mg DAILY ORAL 10/24/19 09:00 11/23/19 08:59 11/07/19 09:33 Polyethylene Glycol (Miralax) 17 gm BEDTIME ORAL 10/26/19 21:00 11/25/19 20:59 11/06/19 21:30 Thiamine HCl 200 mg/Dextrose 112 ml @ 220.087 mls/hr Q12HR IVPB 11/01/19 21:00 12/01/19 20:59 11/07/19 09:35 Height (Feet): 6 Height (Inches): 1.00 Weight (Pounds): 197 General Appearance: alert Eyes: bilateral anicteric ENT: normal voice Neck: full range of motion, no mass Respiratory: decreased breath sounds Cardiovascular: regular rate, rhythm Gastrointestinal: normal bowel sounds, non tender, soft, no mass, no organomegaly Musculoskeletal: no calf tenderness Edema: no edema noted Generalized Neurologic: alert, no new focality Jim Zee MD Nov 07, 2019 17:31
--- NOTE | 2019-11-07 19:30 | NUR ---
NURSE NOTES: Recivbed report from Skylar METCALF. patent alert oriented x4, able to make needs known. On 02 via NC at 4L/min sating at 97%, no resp distress noted. IV in place &patent on left AC. Bed in low position, bed alarm one, side rails up x2, Call light with in reach.
[2019-11-07 20:00] VITALS: BP 122/76
[2019-11-07] MEDS: Miralax 17gm pkt ORAL SCH (22:02)
[2019-11-08] VITALS (7 sets, daily range): BP systolic 104–137; BP diastolic 62–80
[2019-11-08] MEDS: LORazepam 1mg tab ORAL PRN ×2 (06:25→22:08)
[2019-11-08] MEDS: NovoLOG Insulin Flexpen SUBQ SCH ×4 (06:28→21:49)
--- NOTE | 2019-11-08 07:29 | NUR ---
HAND-OFF: Report given to TEA Wolff and TEA Kwan.
[2019-11-08 07:37] LABS: ANION GAP 7 mmol/L (5-15); BLOOD UREA NITROGEN 39 mg/dL (7-18); CALCIUM 9.3 MG/DL (8.5-10.1); CARBON DIOXIDE 26 MMOL/L (21-32); CHLORIDE 97 MMOL/L (98-107); CREATININE 1.3 MG/DL (0.55-1.30); SODIUM 130 MMOL/L (136-145)
--- NOTE | 2019-11-08 08:11 | NUR ---
NURSES NOTE Received report from Glenda METCALF. PT is A/O x4 and able to make needs known. Watching TV and eating breakfast. On 02 via NC at 2L/min sating at 96%. Pt shows no signs of SOB or acute distress noted. IV in place & patent on left AC. Bed in low position, side rails up x2. Call light given to pt and is within reach.
[2019-11-08] MEDS: Solu-MEDROL 40mg Inj IVP SCH ×2 (09:15→21:44)
[2019-11-08] MEDS: metFORMIN 500mg tab ORAL SCH ×2 (09:16→17:16)
[2019-11-08] MEDS: Ascorbic Acid 500mg tab ORAL SCH ×2 (09:16→17:16)
[2019-11-08] MEDS: Losartan 25mg tab ORAL SCH (09:17)
[2019-11-08] MEDS: DULoxetine 30mg cap ORAL SCH (09:17)
[2019-11-08] MEDS: Enoxaparin 100mg Inj SUBQ SCH ×2 (09:19→21:48)
[2019-11-08] MEDS: D5W IVPB SCH ×2 (09:33→21:45)
[2019-11-08] MEDS: THIAMINE HCL IVPB SCH ×2 (09:33→21:45)
--- NOTE | 2019-11-08 10:16 | Pulmonology Progress Note ---
Valencia Medina MANUSCRIPTS CURATOR 11/08/19 1016: Subjective ROS Limited/Unobtainable: No Constitutional: Denies: fever Gastrointestinal/Abdominal: Denies: nausea, vomiting, diarrhea Psychiatric: Denies: depression Skin: Denies: rash Musculoskeletal: Denies: pain Allergies: Coded Allergies: No Known Allergies (Unverified , 08/10/14) Subjective no fevers , no leukocytosis weaned to NC 4l/min , tolerates reports feeling better less SOB, less anxiety no CP Objective Last 24 Hour Vital Signs Date Time Temp Pulse Resp B/P (MAP) Pulse Ox O2 Delivery O2 Flow Rate FiO2 11/08/19 10:06 Nasal Cannula 4.0 Nasal Cannula 4.0 11/08/19 09:17 104/66 11/08/19 04:00 96.4 82 20 123/62 (82) 97 11/08/19 04:00 86 11/08/19 00:00 97.0 85 22 117/67 (84) 98 11/08/19 00:00 85 11/07/19 21:00 Nasal Cannula 4.0 Nasal Cannula 4.0 11/07/19 20:00 101 11/07/19 20:00 97.0 92 22 122/76 (91) 97 11/07/19 16:00 93 11/07/19 16:00 98.1 90 19 139/88 (105) 97 11/07/19 12:00 98.6 80 21 130/72 (91) 97 11/07/19 12:00 90 Intake and Output 11/07/19 11/08/19 19:00 07:00 Intake Total 720 ml 240 ml Balance 720 ml 240 ml Intake Oral 720 ml Other 240 ml # Voids 3 Objective General Appearance: no apparent distress, alert , awake, responsive male in NAD , on NC Lines, tubes and drains: peripheral HEENT: normocephalic, atraumatic, anicteric, mucous membranes moist, PERRL, pharynx normal, supple, no JVD Neck: non-tender, normal alignment, supple Respiratory/Chest: chest wall non-tender, no respiratory distress, no use of accessory muscle use, BS overall clear Cardiovascular/Chest: normal peripheral pulses, normal rate Abdomen: normal bowel sounds, non tender, soft Extremities: non-tender, no calf tenderness, normal capillary refill Skin Exam: warm/dry Neurologic: no motor/sensory deficits, alert, oriented x 3, responsive, Musculoskeletal: normal muscle bulk Microbiology Date/Time Source Procedure Growth Status 11/06/19 04:50 Nasopharynx Coronavirus COVID-19 PCR ([facility]) - Final Complete Laboratory Tests 11/07/19 11:48: POC Whole Blood Glucose 310H 11/07/19 18:12: POC Whole Blood Glucose 360H 11/07/19 18:30: Urine Osmolality 668H, Urine Random Sodium 59 11/07/19 20:58: POC Whole Blood Glucose 302H 11/08/19 05:49: POC Whole Blood Glucose 210H 11/08/19 06:00: Sodium Level 130L, Potassium Level 5.0, Chloride Level 97L, Carbon Dioxide Level 26, Anion Gap 7, Blood Urea Nitrogen 39H, Creatinine 1.3, Estimat Glomerular Filtration Rate > 60, Glucose Level 215H, Calcium Level 9.3 Current Medications Medications (Trade) Dose Ordered Sig/Jenny Route PRN Reason Start Time Stop Time Status Last Admin Dose Admin Al Hydroxide/Mg Hydroxide (Mylanta) 30 ml Q6H PRN ORAL Abdominal cramps 11/03/19 17:00 12/03/19 16:59 11/08/19 06:29 Albuterol Sulfate (Proventil MDI) 2 puff Q4H PRN INH Shortness of Breath 10/23/19 18:00 01/21/20 17:59 Amlodipine Besylate (Norvasc) 2.5 mg DAILYPRN PRN ORAL For High Blood Pressure 10/26/19 19:45 11/25/19 19:44 10/27/19 20:26 Ascorbic Acid (Vitamin C) 500 mg BID ORAL 11/06/19 09:00 12/01/19 17:59 11/08/19 09:16 Dextrose (Dextrose 50%) 25 ml Q30M PRN IV Hypoglycemia 10/23/19 17:30 01/20/20 22:59 Dextrose (Dextrose 50%) 50 ml Q30M PRN IV Hypoglycemia 10/23/19 17:30 01/20/20 22:59 Duloxetine HCl (Cymbalta) 30 mg DAILY ORAL 11/06/19 09:00 02/04/20 08:59 11/08/19 09:17 Enoxaparin Sodium (Lovenox) 90 mg EVERY 12 HOURS SUBQ 10/28/19 23:00 01/26/20 22:59 11/08/19 09:19 Guaifenesin (Robitussin) 100 mg Q4H PRN ORAL For Cough 10/23/19 19:15 01/20/20 23:14 11/04/19 11:34 Insulin Aspart (NovoLOG) BEFORE MEALS AND HS SUBQ 11/03/19 16:30 01/21/20 06:29 11/08/19 06:28 Lorazepam (Ativan) 1 mg Q6H PRN ORAL For Anxiety 11/07/19 19:00 11/14/19 18:59 11/08/19 06:25 Losartan Potassium (Cozaar) 25 mg DAILY ORAL 11/01/19 09:00 12/01/19 08:59 11/08/19 09:17 Metformin HCl (Glucophage) 500 mg BID ORAL 10/23/19 18:00 11/22/19 08:59 11/08/19 09:16 Methylprednisolone Sodium Succinate (Solu-MEDROL) 20 mg Q12HR IVP 11/07/19 21:00 01/30/20 17:59 11/08/19 09:15 Mirtazapine (Remeron) 15 mg BEDTIME ORAL 10/29/19 21:00 01/24/20 20:59 11/07/19 22:00 Pantoprazole (Protonix) 40 mg DAILY ORAL 10/24/19 09:00 11/23/19 08:59 11/08/19 09:16 Polyethylene Glycol (Miralax) 17 gm BEDTIME ORAL 10/26/19 21:00 11/25/19 20:59 11/07/19 22:02 Thiamine HCl 200 mg/Dextrose 112 ml @ 220.087 mls/hr Q12HR IVPB 11/01/19 21:00 12/01/19 20:59 11/08/19 09:33 Assessment/Plan Assessment/Plan ASSESSMENT COVID 19 infection, recently diagnosed PNA, likely due to COVID 19 Acute hypoxemic resp failure, requiring NRM -resolving Minimally elevated troponin ( resolved already) CECI with proteinuria ? diabetic nephropathy DM OOC with diabetic neuropathy Pyuria, possible UTI Hypo Na Hx of HTN Transaminitis Low albumin, possible malnutrition Chronic pain PLAN OF CARE tele isolation titrate O2 to keep sat > 90 was attempted HF coding team lead MDI Albuterol prn now weaned from simple mask to NC, tolerates CXR 10/28 -> Worsening bilateral infiltrates. Slight rightward tracheal deviation , upper mediastinal mass possible given persistent hypoxia, will proceed with CT chest CT chest 10/29 ->Moderate to severe patchy multifocal areas of airspace opacities bilateral lungs, may represent inflammatory, infectious process No mass was seen CXR 11/01 Unchanged bilateral infiltrates, c/w PNA repeat CXR 11/05 with Bilateral interstitial and airspace disease is again demonstrated, unchanged clinically slowly improving repeat CXR in am s/p abx: Ceftriaxone ( completed 10/29) and Azithromycin ( completed 10/28) SCX if able ID follows completed 10 days of Remdesivir and steroid today, 10/31) , now on IV Solumedrol per primary, tapered to q 8 hrs with further tapering on LMW Lovenox treatment dose Venous Duplex BLE still pending repeat COVID 19 11/01 -positive, 11/05 positive as well fup with inflammatory markers to access a risk for cytokine storm latest LDH 488 (trending down), CRP 4.6 ( trending down), ferritin 329 , IL 6 -15.6, repeated IL-6 10/31-55.5 a/tussive prn monitor volumes improving gradually prior was on full a/c, s/p heparin gtt, now on Lovenox treatment dose bid since 10/27 second troponin down to normal min elevation possibly due to CECI , hypoperfusion cardio on board ECHO with pEF 60%, mild diastolic dysfunction monitor renal parameters, avoid nephrotoxics, creat down UCX 10/21 NGTD UA+ pyuria, mod bacteria, completed Ceftriaxone BCX 10/21 NGTD BS management with metformin ( lactic acid down to normal) and SSI, HgA1c - 9.1 not at goal, trend CK, LFT CK and AST trending down , CK 176 BP management with CCB, now started on oral Lasix, monitor volumes e/lyte imbalances noted - per primary pain management dietary eval noted supportive care Thank you for this consultation! case discussed and evaluated by supervising physician New Morales MD 11/08/19 1047: Subjective Allergies: Coded Allergies: No Known Allergies (Unverified , 08/10/14) Assessment/Plan Assessment/Plan Patient seen and examined with MANUSCRIPTS CURATOR. Agree with above A&P as it reflects our joint deliberations. Valencia Medina NP Nov 08, 2019 10:16 New Morales MD Nov 08, 2019 10:47
--- NOTE | 2019-11-08 11:05 | NUR ---
PT NOTE Attempted to see patient for PT treatment. Patient not available, requesting to use bedpan, RN notified. Will re-attempt later as schedule permits.
[2019-11-08] MEDS ORDERED: Tubing IV Secondary IV ONE (13:29)
[2019-11-08] MEDS ORDERED: NS 275ml ONE (13:29)
[2019-11-08] MEDS: Miralax 17gm pkt ORAL SCH ×2 (13:32→21:45)
--- NOTE | 2019-11-08 13:45 | Cardiology Progress Note ---
Assessment/Plan Assessment/Plan 1. COVID-19 infection / pneumonia . 2. Premature atrial contractions with some nonconducted. 3. Pneumonia. 4. Diastolic dysfunction mild 5. Diabetes mellitus is poor control. 6. Resolved acute renal failure. 7. Resolved transaminitis. 8. Rhabdomyolysis, improved. 9. Hyponatremia cxr 11/05 Bilateral interstitial and airspace disease is again demonstrated, probably unchanged bp seem ok afebrile is on full anticoagulation with full dose of lovenox as he removed his iv several times yest course of remdesivir and now tapering steroids tele personally reviewed sinus / pacs only no pauses qt interval ok hr better now on 4 liter improved pcr is still + a 2nd time Subjective Subjective remains in pulm isolation per pulm pa no fevers , no leukocytosis weaned to NC 4l/min , tolerates reports feeling better less SOB, less anxiety no CP Objective Last 24 Hour Vital Signs Date Time Temp Pulse Resp B/P (MAP) Pulse Ox O2 Delivery O2 Flow Rate FiO2 11/08/19 12:30 137/80 (99) 11/08/19 12:00 99 11/08/19 10:06 Nasal Cannula 4.0 Nasal Cannula 4.0 11/08/19 09:17 104/66 11/08/19 08:00 96.4 89 20 104/66 (79) 96 11/08/19 08:00 98 11/08/19 04:00 96.4 82 20 123/62 (82) 97 11/08/19 04:00 86 11/08/19 00:00 97.0 85 22 117/67 (84) 98 11/08/19 00:00 85 11/07/19 21:00 Nasal Cannula 4.0 Nasal Cannula 4.0 11/07/19 20:00 101 11/07/19 20:00 97.0 92 22 122/76 (91) 97 11/07/19 16:00 93 11/07/19 16:00 98.1 90 19 139/88 (105) 97 Intake and Output 11/07/19 11/08/19 19:00 07:00 Intake Total 720 ml 240 ml Balance 720 ml 240 ml Intake Oral 720 ml Other 240 ml # Voids 3 Laboratory Tests Test 11/07/19 18:12 11/07/19 18:30 11/07/19 20:58 11/08/19 05:49 POC Whole Blood Glucose 360 MG/DL (74-106) H 302 MG/DL (74-106) H 210 MG/DL (74-106) H Urine Osmolality 668 mOsm/kg (429-449) H Urine Random Sodium 59 mmol/L (20-110) Test 11/08/19 06:00 Sodium Level 130 MMOL/L (136-145) L Potassium Level 5.0 MMOL/L (3.5-5.1) Chloride Level 97 MMOL/L (98-107) L Carbon Dioxide Level 26 MMOL/L (21-32) Anion Gap 7 mmol/L (5-15) Blood Urea Nitrogen 39 mg/dL (7-18) H Creatinine 1.3 MG/DL (0.55-1.30) Estimat Glomerular Filtration Rate > 60 mL/min (>60) Glucose Level 215 MG/DL (74-106) H Calcium Level 9.3 MG/DL (8.5-10.1) Microbiology Date/Time Source Procedure Growth Status 11/06/19 04:50 Nasopharynx Coronavirus COVID-19 PCR ([facility]) - Final Complete Objective per pulm PA Neck: non-tender, normal alignment, supple Respiratory/Chest: chest wall non-tender, no respiratory distress, no use of accessory muscle use, BS overall clear Cardiovascular/Chest: normal peripheral pulses, normal rate Abdomen: normal bowel sounds, non tender, soft Extremities: non-tender, no calf tenderness, normal capillary refill Al Emanuel MD Nov 08, 2019 13:45
--- NOTE | 2019-11-08 13:50 | Geriatric Progress Note ---
Assessment/Plan Problems: (1) Transaminasemia (2) SIRS (systemic inflammatory response syndrome) (3) Urinary tract infection (4) Chronic back pain (5) Cataract (6) Pneumonia due to COVID-19 virus (7) Diabetes type 2, uncontrolled (8) Diabetic neuropathy associated with type 2 diabetes mellitus (9) Chronic pain disorder (10) Anxiety disorder (11) Acute kidney injury (12) Rhabdomyolysis due to COVID-19 (13) Chronic rhinitis (14) Hypertension (15) Volume depletion (16) Nausea (17) SIADH (syndrome of inappropriate ADH production) Assessment/Plan Continued progress. Now on acceptable FiO2 at rest. Needs to demonstrate ability to mobilize sufficiently without desaturation to allow home discharge. Remains PCR +, ? cycle threshold. Serum osmolality OK, but urine osmolality, Na excretion on high side, Likely component of hyperglycemia with diuresis as well as borderline SIADH. Continue to monitor. Tolerating Solumedrol taper, continue as tolerated. Mobilize as tolerated. Continue current therapy otherwise. Discussed with: patient, hospital staff Subjective Interval Events Patient sitting on edge of bed, reports feeling better, attempting to mobilize. On 2l/m nc sat 90%, desaturates with standing. Tolerating 2-4 l/m. Reports no new issues, excepting needing to have b.m. Last night was anxious due to new COVID-19 patient placed in adjoining bed. Patient reassured over the phone that his current recovery makes his risk for current COVID-19 exposure very limited. Discussed with staff to reassure patient. Staff reports no new issues, tolerating current therapy well. Repeat Na 130, BUN/Cr 39/1.3. Serum osmo 309, urine osmo 668, Mishel 59. 11/06/19 SARS-CoV-2 PCR detected. Constitutional: Denies: chills, sweats, fever Respiratory: Denies: wheezing Cardiovascular: Denies: chest pain Gastrointestinal/Abdominal: Reports: other - good appetite; Denies: abdominal pain, constipation, diarrhea, nausea, vomiting Genitourinary: Denies: dysuria Sleep: Reports: sleeps well Geriatric Geriatric Last 24 Hour Vital Signs Date Time Temp Pulse Resp B/P (MAP) Pulse Ox O2 Delivery O2 Flow Rate FiO2 11/08/19 12:30 137/80 (99) 11/08/19 12:00 99 11/08/19 10:06 Nasal Cannula 4.0 Nasal Cannula 4.0 11/08/19 09:17 104/66 11/08/19 08:00 96.4 89 20 104/66 (79) 96 11/08/19 08:00 98 11/08/19 04:00 96.4 82 20 123/62 (82) 97 11/08/19 04:00 86 11/08/19 00:00 97.0 85 22 117/67 (84) 98 11/08/19 00:00 85 11/07/19 21:00 Nasal Cannula 4.0 Nasal Cannula 4.0 11/07/19 20:00 101 11/07/19 20:00 97.0 92 22 122/76 (91) 97 11/07/19 16:00 93 11/07/19 16:00 98.1 90 19 139/88 (105) 97 Intake and Output 11/07/19 11/08/19 19:00 07:00 Intake Total 720 ml 240 ml Balance 720 ml 240 ml Intake Oral 720 ml Other 240 ml # Voids 3 Laboratory Tests Test 11/07/19 18:12 11/07/19 18:30 11/07/19 20:58 11/08/19 05:49 POC Whole Blood Glucose 360 MG/DL (74-106) H 302 MG/DL (74-106) H 210 MG/DL (74-106) H Urine Osmolality 668 mOsm/kg (429-449) H Urine Random Sodium 59 mmol/L (20-110) Test 11/08/19 06:00 Sodium Level 130 MMOL/L (136-145) L Potassium Level 5.0 MMOL/L (3.5-5.1) Chloride Level 97 MMOL/L (98-107) L Carbon Dioxide Level 26 MMOL/L (21-32) Anion Gap 7 mmol/L (5-15) Blood Urea Nitrogen 39 mg/dL (7-18) H Creatinine 1.3 MG/DL (0.55-1.30) Estimat Glomerular Filtration Rate > 60 mL/min (>60) Glucose Level 215 MG/DL (74-106) H Calcium Level 9.3 MG/DL (8.5-10.1) Current Medications Medications (Trade) Dose Ordered Sig/Jenny Route PRN Reason Start Time Stop Time Status Last Admin Dose Admin Al Hydroxide/Mg Hydroxide (Mylanta) 30 ml Q6H PRN ORAL Abdominal cramps 11/03/19 17:00 12/03/19 16:59 11/08/19 06:29 Albuterol Sulfate (Proventil MDI) 2 puff Q4H PRN INH Shortness of Breath 10/23/19 18:00 01/21/20 17:59 Amlodipine Besylate (Norvasc) 2.5 mg DAILYPRN PRN ORAL For High Blood Pressure 10/26/19 19:45 11/25/19 19:44 10/27/19 20:26 Ascorbic Acid (Vitamin C) 500 mg BID ORAL 11/06/19 09:00 12/01/19 17:59 11/08/19 09:16 Dextrose (Dextrose 50%) 25 ml Q30M PRN IV Hypoglycemia 10/23/19 17:30 01/20/20 22:59 Dextrose (Dextrose 50%) 50 ml Q30M PRN IV Hypoglycemia 10/23/19 17:30 01/20/20 22:59 Duloxetine HCl (Cymbalta) 30 mg DAILY ORAL 11/06/19 09:00 02/04/20 08:59 11/08/19 09:17 Enoxaparin Sodium (Lovenox) 90 mg EVERY 12 HOURS SUBQ 10/28/19 23:00 01/26/20 22:59 11/08/19 09:19 Guaifenesin (Robitussin) 100 mg Q4H PRN ORAL For Cough 10/23/19 19:15 01/20/20 23:14 11/04/19 11:34 Insulin Aspart (NovoLOG) BEFORE MEALS AND HS SUBQ 11/03/19 16:30 01/21/20 06:29 11/08/19 11:30 Lorazepam (Ativan) 1 mg Q6H PRN ORAL For Anxiety 11/07/19 19:00 11/14/19 18:59 11/08/19 06:25 Losartan Potassium (Cozaar) 25 mg DAILY ORAL 11/01/19 09:00 12/01/19 08:59 11/08/19 09:17 Metformin HCl (Glucophage) 500 mg BID ORAL 10/23/19 18:00 11/22/19 08:59 11/08/19 09:16 Methylprednisolone Sodium Succinate (Solu-MEDROL) 20 mg Q12HR IVP 11/07/19 21:00 01/30/20 17:59 11/08/19 09:15 Mirtazapine (Remeron) 15 mg BEDTIME ORAL 10/29/19 21:00 01/24/20 20:59 11/07/19 22:00 Pantoprazole (Protonix) 40 mg DAILY ORAL 10/24/19 09:00 11/23/19 08:59 11/08/19 09:16 Polyethylene Glycol (Miralax) 17 gm BEDTIME ORAL 10/26/19 21:00 11/25/19 20:59 11/08/19 13:32 Thiamine HCl 200 mg/Dextrose 112 ml @ 220.087 mls/hr Q12HR IVPB 11/01/19 21:00 12/01/19 20:59 11/08/19 09:33 Height (Feet): 6 Height (Inches): 1.00 Weight (Pounds): 197 General Appearance: alert Head: normocephalic, atraumatic Eyes: bilateral anicteric ENT: normal voice Neck: full range of motion, no mass Respiratory: decreased breath sounds Cardiovascular: regular rate, rhythm Gastrointestinal: normal bowel sounds, non tender, soft, no mass, no organomegaly Musculoskeletal: no calf tenderness Edema: no edema noted Generalized Neurologic: alert, no new focality Jim Zee MD Nov 08, 2019 13:50
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
--- NOTE | 2019-11-08 19:35 | NUR ---
HAND OFF Report given to Glenda METCALF. Patient in stable condition. Endorsed plan of care.
--- NOTE | 2019-11-08 19:41 | NUR ---
NURSES NOTE Pt is A/O x4 and able to make needs known. Sitting up in bed. On 02 via NC at 1L/min. Pt shows no signs of SOB or acute distress noted. IV in place & patent on left AC 22 g NS lock. Bed in lowest position, side rails up x2, call light within reach, bed alarm on.
[2019-11-08 19:44] LABS: ALANINE AMINOTRANSFERASE 29 U/L (12-78); ALBUMIN 2.4 G/DL (3.4-5.0); ALBUMIN/GLOBULIN RATIO 0.5 (1.0-2.7); ALKALINE PHOSPHATASE 52 U/L (46-116); ANION GAP 9 mmol/L (5-15); ASPARTATE AMINO TRANSFERASE 12 U/L (15-37); BILIRUBIN,TOTAL 0.4 MG/DL (0.2-1.0); BLOOD UREA NITROGEN 36 mg/dL (7-18); CALCIUM 9.3 MG/DL (8.5-10.1); CARBON DIOXIDE 24 MMOL/L (21-32); CHLORIDE 95 MMOL/L (98-107); CREATININE 1.4 MG/DL (0.55-1.30); POTASSIUM 5.3 MMOL/L (3.5-5.1); SODIUM 127 MMOL/L (136-145)
[2019-11-09] VITALS: BP 103/63
[2019-11-09 04:00] VITALS: BP 106/60
[2019-11-09 04:30] LABS: ANION GAP 6 mmol/L (5-15); BLOOD UREA NITROGEN 32 mg/dL (7-18); CALCIUM 9.3 MG/DL (8.5-10.1); CARBON DIOXIDE 26 MMOL/L (21-32); CHLORIDE 96 MMOL/L (98-107); CREATININE 1.3 MG/DL (0.55-1.30); POTASSIUM 5.1 MMOL/L (3.5-5.1); SODIUM 128 MMOL/L (136-145)
[2019-11-09] MEDS: NovoLOG Insulin Flexpen SUBQ SCH ×4 (06:30→21:00)
--- NOTE | 2019-11-09 07:45 | NUR ---
NURSE NOTES: pt in bed the commode and had a soft bm. Pt has no complains of pain. pt on campus monitor no signs of cardiac distress. Pt on o2L sating 94-96 when resting. Bed locked and in lowest position , CALL light within reach, bed side rails up for safety. Will continue to monitor pt.
--- NOTE | 2019-11-09 07:53 | NUR ---
HAND-OFF: Report given to TEA Daniels.
[2019-11-09 08:00] VITALS: BP 113/70
--- NOTE | 2019-11-09 08:41 | NUR ---
CASE MANAGEMENT:REVIEW 11/09/19 SI: COVID PNA. SIRS. RHABDO SUSPECTED PULMONARY EMBOLI 97.4 101 20 113/70 97% ON 1L/NC NA-128 BUN+32 IS: IV THIAMINE Q12 IV SOLUMEDROL 20MG Q12HRS VIT C PO QID COZAAR PO QD LOVENOX SQ Q12 CYMBALTA PO QD PROTONIX PO QD METFORMIN PO BID : TELEMETRY STATUS DCP: PATIENT IS FROM HOME PLAN: CONTINUE TO TAPER STEROIDS AND OXYGEN
[2019-11-09] MEDS: Solu-MEDROL 40mg Inj IVP SCH (10:38)
[2019-11-09] MEDS: Ascorbic Acid 500mg tab ORAL SCH ×2 (10:39→18:24)
[2019-11-09] MEDS: DULoxetine 30mg cap ORAL SCH (10:39)
[2019-11-09] MEDS: Losartan 25mg tab ORAL SCH ×2 (10:40→11:55)
--- NOTE | 2019-11-09 10:43 | Pulmonology Progress Note ---
Valencia Medina PROFESSOR OF PRACTICE 11/09/19 1043: Subjective ROS Limited/Unobtainable: No Constitutional: Reports: fatigue; Denies: fever Gastrointestinal/Abdominal: Denies: nausea, vomiting, diarrhea Psychiatric: Denies: depression Skin: Denies: rash Musculoskeletal: Denies: pain Allergies: Coded Allergies: No Known Allergies (Unverified , 08/10/14) Subjective no fevers , no leukocytosis weaned to NC now 1 L/min, tolerates reports feeling better less SOB, less anxiety no CP Objective Last 24 Hour Vital Signs Date Time Temp Pulse Resp B/P (MAP) Pulse Ox O2 Delivery O2 Flow Rate FiO2 11/09/19 10:40 113/70 11/09/19 08:25 Nasal Cannula 1.0 Nasal Cannula 1.0 11/09/19 08:00 97.4 101 20 113/70 (84) 97 11/09/19 04:00 97.1 88 18 106/60 (75) 100 11/09/19 04:00 94 11/09/19 00:00 96.8 91 20 103/63 (76) 100 11/09/19 00:00 91 11/08/19 21:00 Nasal Cannula 1.0 Nasal Cannula 1.0 11/08/19 20:00 96.6 110/68 (82) 11/08/19 20:00 95 11/08/19 17:40 123/72 (89) 11/08/19 16:00 81 11/08/19 16:00 96.4 123/72 (89) 11/08/19 12:30 137/80 (99) 11/08/19 12:00 99 Intake and Output 11/08/19 11/09/19 19:00 07:00 Intake Total 480 ml 360 ml Balance 480 ml 360 ml Intake Oral 480 ml 360 ml # Voids 4 3 # Bowel Movements 1 Objective General Appearance: no apparent distress, alert , awake, responsive male in NAD , on NC Lines, tubes and drains: peripheral HEENT: normocephalic, atraumatic, anicteric, mucous membranes moist, PERRL, pharynx normal, supple, no JVD Neck: non-tender, normal alignment, supple Respiratory/Chest: chest wall non-tender, no respiratory distress, no use of accessory muscle use, BS overall clear Cardiovascular/Chest: normal peripheral pulses, normal rate Abdomen: normal bowel sounds, non tender, soft Extremities: non-tender, no calf tenderness, normal capillary refill Skin Exam: warm/dry Neurologic: no motor/sensory deficits, alert, oriented x 3, responsive, Musculoskeletal: normal muscle bulk Laboratory Tests 11/08/19 12:09: POC Whole Blood Glucose 206H 11/08/19 16:27: POC Whole Blood Glucose 273H 11/08/19 18:30: Sodium Level 127L, Potassium Level 5.3H, Chloride Level 95L, Carbon Dioxide Level 24, Anion Gap 9, Blood Urea Nitrogen 36H, Creatinine 1.4H, Estimat Glomerular Filtration Rate > 60, Glucose Level 285H, Calcium Level 9.3, Total Bilirubin 0.4, Aspartate Amino Transf (AST/SGOT) 12L, Alanine Aminotransferase ( ALT/SGPT) 29, Alkaline Phosphatase 52, Total Protein 7.0, Albumin 2.4L, Globulin 4.6, Albumin/Globulin Ratio 0.5L 11/08/19 20:35: POC Whole Blood Glucose 237H 11/09/19 04:00: Sodium Level 128L, Potassium Level 5.1, Chloride Level 96L, Carbon Dioxide Level 26, Anion Gap 6, Blood Urea Nitrogen 32H, Creatinine 1.3, Estimat Glomerular Filtration Rate > 60, Glucose Level 245H, Calcium Level 9.3 11/09/19 06:55: POC Whole Blood Glucose [Pending] Current Medications Medications (Trade) Dose Ordered Sig/Jenny Route PRN Reason Start Time Stop Time Status Last Admin Dose Admin Al Hydroxide/Mg Hydroxide (Mylanta) 30 ml Q6H PRN ORAL Abdominal cramps 11/03/19 17:00 12/03/19 16:59 11/08/19 06:29 Albuterol Sulfate (Proventil MDI) 2 puff Q4H PRN INH Shortness of Breath 10/23/19 18:00 01/21/20 17:59 Amlodipine Besylate (Norvasc) 2.5 mg DAILYPRN PRN ORAL For High Blood Pressure 10/26/19 19:45 11/25/19 19:44 10/27/19 20:26 Ascorbic Acid (Vitamin C) 500 mg BID ORAL 11/06/19 09:00 12/01/19 17:59 11/09/19 10:39 Dextrose (Dextrose 50%) 25 ml Q30M PRN IV Hypoglycemia 10/23/19 17:30 01/20/20 22:59 Dextrose (Dextrose 50%) 50 ml Q30M PRN IV Hypoglycemia 10/23/19 17:30 01/20/20 22:59 Duloxetine HCl (Cymbalta) 30 mg DAILY ORAL 11/06/19 09:00 02/04/20 08:59 11/09/19 10:39 Enoxaparin Sodium (Lovenox) 90 mg EVERY 12 HOURS SUBQ 10/28/19 23:00 01/26/20 22:59 11/08/19 21:48 Guaifenesin (Robitussin) 100 mg Q4H PRN ORAL For Cough 10/23/19 19:15 01/20/20 23:14 11/04/19 11:34 Insulin Aspart (NovoLOG) BEFORE MEALS AND HS SUBQ 11/03/19 16:30 01/21/20 06:29 11/08/19 21:49 Lorazepam (Ativan) 1 mg Q6H PRN ORAL For Anxiety 11/07/19 19:00 11/14/19 18:59 11/08/19 22:08 Losartan Potassium (Cozaar) 25 mg DAILY ORAL 11/01/19 09:00 12/01/19 08:59 11/09/19 10:40 Metformin HCl (Glucophage) 500 mg BID ORAL 10/23/19 18:00 11/22/19 08:59 11/08/19 17:16 Methylprednisolone Sodium Succinate (Solu-MEDROL) 20 mg Q12HR IVP 11/07/19 21:00 01/30/20 17:59 11/09/19 10:38 Mirtazapine (Remeron) 15 mg BEDTIME ORAL 10/29/19 21:00 01/24/20 20:59 11/08/19 21:45 Pantoprazole (Protonix) 40 mg DAILY ORAL 10/24/19 09:00 11/23/19 08:59 11/09/19 10:38 Polyethylene Glycol (Miralax) 17 gm BEDTIME ORAL 10/26/19 21:00 11/25/19 20:59 11/08/19 21:45 Thiamine HCl 200 mg/Dextrose 112 ml @ 220.087 mls/hr Q12HR IVPB 11/01/19 21:00 12/01/19 20:59 11/08/19 21:45 Assessment/Plan Assessment/Plan ASSESSMENT COVID 19 infection, recently diagnosed PNA, likely due to COVID 19 Acute hypoxemic resp failure, requiring NRM -resolving Minimally elevated troponin ( resolved already) CECI with proteinuria ? 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 Slight rightward tracheal deviation , upper mediastinal mass possible given persistent hypoxia, will proceed with CT chest CT chest 10/29 ->Moderate to severe patchy multifocal areas of airspace opacities bilateral lungs, may represent inflammatory, infectious process No mass was seen CXR 11/01 Unchanged bilateral infiltrates, c/w PNA repeat CXR 11/05 with Bilateral interstitial and airspace disease is again demonstrated, unchanged clinically slowly improving repeat CXR this am -pending s/p abx: Ceftriaxone ( completed 10/29) and Azithromycin ( completed 10/28) SCX if able ID follows completed 10 days of Remdesivir and steroid today, 10/31) , now on IV Solumedrol per primary, tapered to q 8 hrs with further tapering on LMW Lovenox treatment dose Venous Duplex BLE still pending repeat COVID 19 11/01 and 11/05 positive fup with inflammatory markers to access a risk for cytokine storm latest LDH 488 (trending down), CRP 4.6 ( trending down), ferritin 329 , IL 6 -15.6, repeated IL-6 10/31-55.5 fup with inflam markers a/tussive prn monitor volumes improving gradually prior was on full a/c, s/p heparin gtt, now on Lovenox treatment dose bid since 10/27 second troponin down to normal min elevation possibly due to CECI , hypoperfusion cardio on board ECHO with pEF 60%, mild diastolic dysfunction monitor renal parameters, avoid nephrotoxics, creat down UCX 7/2 NGTD UA+ pyuria, mod bacteria, completed Ceftriaxone BCX 7/2 NGTD BS management with metformin ( lactic acid down to normal) and SSI, HgA1c - 9.1 not at goal, trend CK, LFT CK and AST trending down , CK 176 BP management with CCB, now started on oral Lasix, monitor volumes e/lyte imbalances noted - per primary pain management dietary eval noted supportive care Thank you for this consultation! case discussed and evaluated by supervising physician Solomon Delong MD 11/09/19 1347: Subjective Allergies: Coded Allergies: No Known Allergies (Unverified , 08/10/14) Assessment/Plan Assessment/Plan Patient seen and examined with PROFESSOR OF PRACTICE. Agree with above A&P as it reflects our joint deliberations. Valencia Medina NP Nov 09, 2019 10:43 Solomon Delong MD Nov 09, 2019 13:47
[2019-11-09] MEDS: Enoxaparin 100mg Inj SUBQ SCH ×2 (10:51→21:36)
[2019-11-09] MEDS: metFORMIN 500mg tab ORAL SCH ×2 (10:53→18:24)
[2019-11-09] MEDS: D5W IVPB SCH (11:27)
[2019-11-09] MEDS: THIAMINE HCL IVPB SCH (11:27)
--- NOTE | 2019-11-09 11:33 | Diagnostic Imaging Report ---
Indication: Shortness of breath Technique: One view of the chest Comparison: 11/06/2019 Findings: Heart is enlarged. Bilateral infiltrates are unchanged. Impression: Unchanged, over 3 days, findings as above.
--- NOTE | 2019-11-09 11:59 | NUR ---
RD ASSESSMENT & RECOMMENDATIONS SEE CARE ACTIVITY FOR COMPLETE ASSESSMENT DAILY ESTIMATED NEEDS: Needs based on DM, pulmonary 88kg abw 25-30 kcals/kg 4244-2990 total kcals 1-1.5 g protein/kg 88-132 g total protein 25-30 mL/kg 6458-9689 total fluid mLs NUTRITION DIAGNOSIS: Altered nutrition related lab values r/t diabetes w/ steroidal med, clinical condition as evidenced by A1C 9.1, POC glu mostly in the 200's, pt on Solumedrol, u glu 2+ on adm, consistently elev K (5.1, 5.3, 5.0, 5.4, 5.4), low Na (128, 127) CURRENT DIET: KHANG/ CCHO LOW PO DIET RECOMMENDATIONS: CCHO MED + LOW K (texture as tolerated) ADDITIONAL RECOMMENDATIONS: * Obtain a standing weight as able * Monitor for continued good po intake * Consider additional hypoglycemics while on solumedrol for improved BG * Monitor need for fluid restriction (consistently low Na) * Monitor K- rec low K diet at this time. -> K consistently elev (or end of normal range)
[2019-11-09 12:00] VITALS: BP 118/68
--- NOTE | 2019-11-09 12:17 | NUR ---
NURSE NOTES: pt refused insulin after BS was checked, result was communicated to pt. BS 240, pt still refuses to get insulin. pt was educated on medication he is refusing.
--- NOTE | 2019-11-09 15:35 | NUR ---
DISCHARGE PLANNING LATE ENTRY1500 DISCHARGE PLAN DISCUSSED WITH DR TROY T: [phone] TROY,IF PATIENT IS ABLE TO AMBULATE WITHOUT BECOMING SOB HE CAN DISCHARGE HOME TODAY BILINGUAL ACCOUNT MANAGER DISCUSSED WITH CHARGE NURSE,NNEKA. PER NNEKA PATIENT HAS BEEN BEDBOUND SINCE ADMISSION BILINGUAL ACCOUNT MANAGER ORDERED URGENT PHYSICAL THERAPY EVALUATION SPOKE WITH SONALI THE PT WHO STATED THEY ARE UNABLE TO SEE PATIENT TODAY BUT WILL SEE PATIENT FIRST THING IN THE MORNING
[2019-11-09 16:00] VITALS: BP 139/72
[2019-11-09] MEDS: LORazepam 1mg tab ORAL PRN (18:32)
--- NOTE | 2019-11-09 18:52 | Geriatric Progress Note ---
Assessment/Plan Problems: (1) Transaminasemia (2) SIRS (systemic inflammatory response syndrome) (3) Urinary tract infection (4) Chronic back pain (5) Cataract (6) Pneumonia due to COVID-19 virus (7) Diabetes type 2, uncontrolled (8) Diabetic neuropathy associated with type 2 diabetes mellitus (9) Chronic pain disorder (10) Anxiety disorder (11) Acute kidney injury (12) Rhabdomyolysis due to COVID-19 (13) Chronic rhinitis (14) Hypertension (15) Volume depletion (16) Nausea (17) SIADH (syndrome of inappropriate ADH production) Assessment/Plan Further improvement. Close to discharge, able to go on O2 2l/m if sat and hr OK with limited mobilization necessary for self-care at home. Will convert Solumedrol to oral prednisone, IV to po thiamine. Will increase Metformin slightly to improve glucose control. Recheck labs. Discussed with: patient, hospital staff Subjective Interval Events Patient improving with O2 1l/m tolerated at rest, although hr is ~100. Does drop into 80s with mobilization, and patient reports feeling SOB. Patient expresses concern that medications are causing SOB. Reassured that POTTER is associated with residual lung dysfunction from COVID-19 pneumonia. Had two b.m. 's. No other new issues. Staff reports no new issues. Discussed need to have patient able to mobilize on 2l/m O2 at home for self care without sats<90% or tachycardia in order to safely d/c on O2. Additional P.T. instruction ordered. Labs still with element of hyponatremia, likely combination of hyperglycemia and early SSRI initiation effect. Constitutional: Denies: chills, sweats, fever Respiratory: Reports: shortness of breath Cardiovascular: Denies: chest pain, palpitations Gastrointestinal/Abdominal: Denies: abdominal pain, constipation, diarrhea, nausea, vomiting Genitourinary: Denies: dysuria Geriatric Geriatric Last 24 Hour Vital Signs Date Time Temp Pulse Resp B/P (MAP) Pulse Ox O2 Delivery O2 Flow Rate FiO2 11/09/19 16:00 107 11/09/19 12:00 105 11/09/19 11:55 113/70 11/09/19 10:40 113/70 11/09/19 08:25 Nasal Cannula 1.0 Nasal Cannula 1.0 11/09/19 08:00 102 11/09/19 08:00 97.4 101 20 113/70 (84) 97 11/09/19 04:00 97.1 88 18 106/60 (75) 100 11/09/19 04:00 94 11/09/19 00:00 96.8 91 20 103/63 (76) 100 11/09/19 00:00 91 11/08/19 21:00 Nasal Cannula 1.0 Nasal Cannula 1.0 11/08/19 20:00 96.6 110/68 (82) 11/08/19 20:00 95 Intake and Output 11/08/19 11/09/19 19:00 07:00 Intake Total 480 ml 360 ml Balance 480 ml 360 ml Intake Oral 480 ml 360 ml # Voids 4 3 # Bowel Movements 1 Laboratory Tests Test 11/08/19 20:35 11/09/19 04:00 11/09/19 06:55 11/09/19 12:12 POC Whole Blood Glucose 237 MG/DL (74-106) H Pending Pending Sodium Level 128 MMOL/L (136-145) L Potassium Level 5.1 MMOL/L (3.5-5.1) Chloride Level 96 MMOL/L (98-107) L Carbon Dioxide Level 26 MMOL/L (21-32) Anion Gap 6 mmol/L (5-15) Blood Urea Nitrogen 32 mg/dL (7-18) H Creatinine 1.3 MG/DL (0.55-1.30) Estimat Glomerular Filtration Rate > 60 mL/min (>60) Glucose Level 245 MG/DL (74-106) H Calcium Level 9.3 MG/DL (8.5-10.1) Current Medications Medications (Trade) Dose Ordered Sig/Jenny Route PRN Reason Start Time Stop Time Status Last Admin Dose Admin Al Hydroxide/Mg Hydroxide (Mylanta) 30 ml Q6H PRN ORAL Abdominal cramps 11/03/19 17:00 12/03/19 16:59 11/08/19 06:29 Albuterol Sulfate (Proventil MDI) 2 puff Q4H PRN INH Shortness of Breath 10/23/19 18:00 01/21/20 17:59 Amlodipine Besylate (Norvasc) 2.5 mg DAILYPRN PRN ORAL For High Blood Pressure 10/26/19 19:45 11/25/19 19:44 10/27/19 20:26 Ascorbic Acid (Vitamin C) 500 mg BID ORAL 11/06/19 09:00 12/01/19 17:59 11/09/19 18:24 Dextrose (Dextrose 50%) 25 ml Q30M PRN IV Hypoglycemia 10/23/19 17:30 01/20/20 22:59 Dextrose (Dextrose 50%) 50 ml Q30M PRN IV Hypoglycemia 10/23/19 17:30 01/20/20 22:59 Duloxetine HCl (Cymbalta) 30 mg DAILY ORAL 11/06/19 09:00 02/04/20 08:59 11/09/19 10:39 Enoxaparin Sodium (Lovenox) 90 mg EVERY 12 HOURS SUBQ 10/28/19 23:00 01/26/20 22:59 11/09/19 10:51 Guaifenesin (Robitussin) 100 mg Q4H PRN ORAL For Cough 10/23/19 19:15 01/20/20 23:14 11/04/19 11:34 Insulin Aspart (NovoLOG) BEFORE MEALS AND HS SUBQ 11/03/19 16:30 01/21/20 06:29 11/09/19 18:29 Lorazepam (Ativan) 1 mg Q6H PRN ORAL For Anxiety 11/07/19 19:00 11/14/19 18:59 11/09/19 18:32 Losartan Potassium (Cozaar) 25 mg DAILY ORAL 11/01/19 09:00 12/01/19 08:59 11/09/19 10:40 Metformin HCl (Glucophage) 500 mg BID ORAL 10/23/19 18:00 11/22/19 08:59 11/09/19 18:24 Methylprednisolone Sodium Succinate (Solu-MEDROL) 20 mg Q12HR IVP 11/07/19 21:00 01/30/20 17:59 11/09/19 10:38 Mirtazapine (Remeron) 15 mg BEDTIME ORAL 10/29/19 21:00 01/24/20 20:59 11/08/19 21:45 Pantoprazole (Protonix) 40 mg DAILY ORAL 10/24/19 09:00 11/23/19 08:59 11/09/19 10:38 Polyethylene Glycol (Miralax) 17 gm BEDTIME ORAL 10/26/19 21:00 11/25/19 20:59 11/08/19 21:45 Thiamine HCl 200 mg/Dextrose 112 ml @ 220.087 mls/hr Q12HR IVPB 11/01/19 21:00 12/01/19 20:59 11/09/19 11:27 Height (Feet): 6 Height (Inches): 1.00 Weight (Pounds): 197 General Appearance: alert, non-toxic Head: normocephalic, atraumatic Eyes: bilateral anicteric ENT: normal voice Neck: full range of motion, no mass Respiratory: lungs clear Cardiovascular: regular rate, rhythm Gastrointestinal: normal bowel sounds, non tender, soft, no mass, no organomegaly Musculoskeletal: no calf tenderness Edema: no edema noted Generalized Neurologic: alert, no new focality Jim Zee MD Nov 09, 2019 18:52
[2019-11-09 20:00] VITALS: BP 124/87
--- NOTE | 2019-11-09 20:13 | NUR ---
HAND-OFF: Report given to Yvette/eva pt in stable codition, endorsed plans of care.
--- NOTE | 2019-11-09 20:16 | NUR ---
NURSES NOTE Received pt from TEA Daniels. Pt is A/O x4 and able to make needs known. Sitting up in bed. On 02 via NC at 1L/min. Pt shows no signs of SOB or acute distress noted. IV in place & patent on left AC 22 g NS lock. Bed in lowest position, side rails up x2, call light within reach, bed alarm on.
[2019-11-09] MEDS ORDERED: Solu-MEDROL 40mg Inj IVP SCH (21:00)
[2019-11-09] MEDS: Miralax 17gm pkt ORAL SCH (21:35)
[2019-11-10] VITALS: BP 131/82
[2019-11-10 04:00] VITALS: BP 127/84
--- NOTE | 2019-11-10 06:10 | NUR ---
NURSE NOTES: Pt titrated off O2, sat at 97 % on room air
[2019-11-10] MEDS: NovoLOG Insulin Flexpen SUBQ SCH ×4 (06:30→21:28)
[2019-11-10 07:20] LABS: ANION GAP 7 mmol/L (5-15); BLOOD UREA NITROGEN 31 mg/dL (7-18); CALCIUM 8.9 MG/DL (8.5-10.1); CARBON DIOXIDE 26 MMOL/L (21-32); CHLORIDE 97 MMOL/L (98-107); CREATININE 1.2 MG/DL (0.55-1.30); POTASSIUM 5.5 MMOL/L (3.5-5.1); SODIUM 130 MMOL/L (136-145)
--- NOTE | 2019-11-10 07:24 | NUR ---
HAND-OFF: Report given to TEA Daniels.
[2019-11-10 08:00] VITALS: BP 113/78
--- NOTE | 2019-11-10 08:05 | NUR ---
NURSE NOTES: pt in bed at this time, he will do PT soon. pt is in room air now. monitoring coordinator on, pt has no signs of cardiac or respiratory distress at this time. Bed in lowest position and locked, call light within reach, bed side rails up x2 for safety. will continue to monitor.
[2019-11-10] MEDS: THIAMINE HCL IVPB SCH (09:50)
[2019-11-10] MEDS: D5W IVPB SCH (09:50)
[2019-11-10] MEDS: Ascorbic Acid 500mg tab ORAL SCH ×2 (09:52→18:02)
[2019-11-10] MEDS: metFORMIN 500mg tab ORAL SCH ×2 (09:54→18:01)
[2019-11-10] MEDS: Thiamine 100mg tab ORAL SCH ×2 (09:55→18:02)
[2019-11-10] MEDS: DULoxetine 30mg cap ORAL SCH (09:55)
[2019-11-10] MEDS: Losartan 25mg tab ORAL SCH (09:55)
[2019-11-10] MEDS: Enoxaparin 100mg Inj SUBQ SCH (09:56)
--- NOTE | 2019-11-10 10:05 | Pulmonology Progress Note ---
Valencia Medina DEPARTMENT STORE SALESPERSON 11/10/19 1005: Subjective ROS Limited/Unobtainable: No Constitutional: Reports: fatigue; Denies: fever Gastrointestinal/Abdominal: Denies: nausea, vomiting, diarrhea Psychiatric: Denies: depression Skin: Denies: rash Musculoskeletal: Denies: pain Allergies: Coded Allergies: No Known Allergies (Unverified , 08/10/14) Subjective no fevers , no leukocytosis weaned to NC now 1 L/min, tolerates reports feeling better less SOB, less anxiety no CP worked with PT this am, walked in the room, pulse ox dropped to 89% only , per PT doing much better Objective Last 24 Hour Vital Signs Date Time Temp Pulse Resp B/P (MAP) Pulse Ox O2 Delivery O2 Flow Rate FiO2 11/10/19 09:55 113/78 11/10/19 08:52 Room Air 1.0 Room Air 11/10/19 08:00 97.7 89 20 113/78 (90) 95 11/10/19 04:00 94 11/10/19 04:00 97.5 90 18 127/84 (98) 98 11/10/19 00:00 91 11/10/19 00:00 97.2 97 18 131/82 (98) 99 11/09/19 21:00 Nasal Cannula 4.0 Nasal Cannula 4.0 11/09/19 20:06 98 Nasal Cannula 1.0 24 11/09/19 20:00 96.7 95 20 124/87 (99) 99 11/09/19 20:00 94 11/09/19 16:00 97.6 106 20 139/72 (94) 98 11/09/19 16:00 107 11/09/19 12:00 98.0 99 20 118/68 (85) 97 11/09/19 12:00 105 11/09/19 11:55 113/70 11/09/19 10:40 113/70 Intake and Output 11/09/19 11/10/19 19:00 07:00 Intake Total 480 ml 240 ml Balance 480 ml 240 ml Intake Oral 480 ml 240 ml # Voids 3 3 # Bowel Movements 2 Objective General Appearance: no apparent distress, alert , awake, responsive male in NAD , on NC Lines, tubes and drains: peripheral HEENT: normocephalic, atraumatic, anicteric, mucous membranes moist, PERRL, pharynx normal, supple, no JVD Neck: non-tender, normal alignment, supple Respiratory/Chest: chest wall non-tender, no respiratory distress, no use of accessory muscle use, BS overall clear Cardiovascular/Chest: normal peripheral pulses, normal rate Abdomen: normal bowel sounds, non tender, soft Extremities: non-tender, no calf tenderness, normal capillary refill Skin Exam: warm/dry Neurologic: no motor/sensory deficits, alert, oriented x 3, responsive, Musculoskeletal: normal muscle bulk Laboratory Tests 11/09/19 12:12: POC Whole Blood Glucose [Pending] 11/09/19 22:29: POC Whole Blood Glucose 171H 11/10/19 04:00: D-Dimer < 0.19, Sodium Level 130L, Potassium Level 5.5H, Chloride Level 97L, Carbon Dioxide Level 26, Anion Gap 7, Blood Urea Nitrogen 31H, Creatinine 1.2, Estimat Glomerular Filtration Rate > 60, Glucose Level 232H, Calcium Level 8.9, Ferritin 376, Lactate Dehydrogenase 254H, C-Reactive Protein, Quantitative 0.4 11/10/19 07:05: POC Whole Blood Glucose 206H Current Medications Medications (Trade) Dose Ordered Sig/Jenny Route PRN Reason Start Time Stop Time Status Last Admin Dose Admin Al Hydroxide/Mg Hydroxide (Mylanta) 30 ml Q6H PRN ORAL Abdominal cramps 11/03/19 17:00 12/03/19 16:59 11/08/19 06:29 Albuterol Sulfate (Proventil MDI) 2 puff Q4H PRN INH Shortness of Breath 10/23/19 18:00 01/21/20 17:59 Amlodipine Besylate (Norvasc) 2.5 mg DAILYPRN PRN ORAL For High Blood Pressure 10/26/19 19:45 11/25/19 19:44 10/27/19 20:26 Ascorbic Acid (Vitamin C) 500 mg BID ORAL 11/06/19 09:00 12/01/19 17:59 11/10/19 09:52 Dextrose (Dextrose 50%) 25 ml Q30M PRN IV Hypoglycemia 10/23/19 17:30 01/20/20 22:59 Dextrose (Dextrose 50%) 50 ml Q30M PRN IV Hypoglycemia 10/23/19 17:30 01/20/20 22:59 Duloxetine HCl (Cymbalta) 30 mg DAILY ORAL 11/06/19 09:00 02/04/20 08:59 11/10/19 09:55 Enoxaparin Sodium (Lovenox) 90 mg EVERY 12 HOURS SUBQ 10/28/19 23:00 01/26/20 22:59 11/10/19 09:56 Guaifenesin (Robitussin) 100 mg Q4H PRN ORAL For Cough 10/23/19 19:15 01/20/20 23:14 11/04/19 11:34 Insulin Aspart (NovoLOG) BEFORE MEALS AND HS SUBQ 11/03/19 16:30 01/21/20 06:29 11/09/19 18:29 Lorazepam (Ativan) 1 mg Q6H PRN ORAL For Anxiety 11/07/19 19:00 11/14/19 18:59 11/09/19 18:32 Losartan Potassium (Cozaar) 25 mg DAILY ORAL 11/01/19 09:00 12/01/19 08:59 11/10/19 09:55 Metformin HCl (Glucophage) 750 mg BID ORAL 11/10/19 09:00 11/22/19 08:59 11/10/19 09:54 Mirtazapine (Remeron) 15 mg BEDTIME ORAL 10/29/19 21:00 01/24/20 20:59 11/09/19 21:36 Pantoprazole (Protonix) 40 mg DAILY ORAL 10/24/19 09:00 11/23/19 08:59 11/10/19 09:55 Polyethylene Glycol (Miralax) 17 gm BEDTIME ORAL 10/26/19 21:00 11/25/19 20:59 11/08/19 21:45 Prednisone (predniSONE) 10 mg Q24H ORAL 11/10/19 15:00 12/10/19 14:59 Prednisone (predniSONE) 40 mg DAILY ORAL 11/10/19 09:00 12/10/19 08:59 11/10/19 09:55 Thiamine HCl (Vitamin B1) 100 mg BID ORAL 11/10/19 09:00 12/10/19 08:59 11/10/19 09:55 Assessment/Plan Assessment/Plan ASSESSMENT COVID 19 infection, recently diagnosed PNA, likely due to COVID 19 Acute hypoxemic resp failure, requiring NRM -resolving Minimally elevated troponin ( resolved already) CECI with proteinuria ? 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 Slight rightward tracheal deviation , upper mediastinal mass possible given persistent hypoxia, will proceed with CT chest CT chest 10/29 ->Moderate to severe patchy multifocal areas of airspace opacities bilateral lungs, may represent inflammatory, infectious process No mass was seen CXR 11/01 Unchanged bilateral infiltrates, c/w PNA repeat CXR 11/05 with Bilateral interstitial and airspace disease is again demonstrated, unchanged clinically slowly improving repeat CXR 11/08 unchanged bilateral infiltrates - s/p abx: Ceftriaxone ( completed 10/29) and Azithromycin ( completed 10/28) SCX if able ID follows completed 10 days of Remdesivir and steroid 10/31) , now on IV Solumedrol per primary, tapered to q 12 hrs with further tapering , now on oral prednisone-taper slwoly on LMW Lovenox treatment dose will changed to once daily since D dimer normalized Venous Duplex BLE still pending repeat COVID 19 11/01 and 11/05 positive fup with inflammatory markers to access a risk for cytokine storm latest LDH 488 (trending down), CRP 4.6 ( trending down), ferritin 329 , IL 6 -15.6, repeated IL-6 10/31-55.5 all inflammatory markers trended down: LDH 254, CRP 0.4, ferritin 37, D dimer < 0.19 a/tussive prn monitor volumes improving gradually prior was on full a/c, s/p heparin gtt, now on Lovenox treatment dose bid since 10/27 second troponin down to normal min elevation possibly due to CECI , hypoperfusion cardio on board ECHO with pEF 60%, mild diastolic dysfunction monitor renal parameters, avoid nephrotoxics, creat down UCX 7/2 NGTD UA+ pyuria, mod bacteria, completed Ceftriaxone BCX / NGTD BS management with metformin ( lactic acid down to normal) and SSI, HgA1c - 9.1 not at goal, trend CK, LFT CK and AST trending down , CK 176 BP management with CCB, now started on oral Lasix, monitor volumes e/lyte imbalances noted - per primary pain management dietary eval noted supportive care Thank you for this consultation! case discussed and evaluated by supervising physician Solomon Delong MD 11/10/19 9267: Subjective Allergies: Coded Allergies: No Known Allergies (Unverified , 08/10/14) Assessment/Plan Assessment/Plan Patient seen and examined with DEPARTMENT STORE SALESPERSON. Agree with above A&P as it reflects our joint deliberations. Valencia Medina NP Nov 10, 2019 10:05 Solomon Delong MD Nov 10, 2019 18:17
--- NOTE | 2019-11-10 11:50 | NUR ---
NURSE NOTES: L/M to notified pCP pt potassium is 5.5.
[2019-11-10 12:00] VITALS: BP 129/81
--- NOTE | 2019-11-10 13:12 | Cardiology Progress Note ---
Assessment/Plan Assessment/Plan 1. COVID-19 infection / pneumonia . 2. Premature atrial contractions with some nonconducted. 3. Pneumonia. 4. Diastolic dysfunction mild 5. Diabetes mellitus is poor control. 6. Resolved acute renal failure. 7. Resolved transaminitis. 8. Rhabdomyolysis, improved. 9. Hyponatremia cxr 11/08 Bilateral interstitial and airspace disease is again demonstrated, probably unchanged bp seem ok afebrile is on full anticoagulation with full dose of lovenox consider xarelto 10 mg daily for 31-39 days post dc course of remdesivir and now tapering steroids tele personally reviewed sinus / pacs only no pauses qt interval ok hr better now on 1 liter improved pcr is still + a 2nd time agree with dc plan of dr gupta Subjective Subjective remains in pulm isolation per pulm pa no fevers , no leukocytosis weaned to NC now 1 L/min, tolerates reports feeling better less SOB, less anxiety no CP worked with PT this am, walked in the room, pulse ox dropped to 89% only , per PT doing much better Objective Last 24 Hour Vital Signs Date Time Temp Pulse Resp B/P (MAP) Pulse Ox O2 Delivery O2 Flow Rate FiO2 11/10/19 09:55 113/78 11/10/19 08:52 Room Air 1.0 Room Air 11/10/19 08:00 97.7 89 20 113/78 (90) 95 11/10/19 04:00 94 11/10/19 04:00 97.5 90 18 127/84 (98) 98 11/10/19 00:00 91 11/10/19 00:00 97.2 97 18 131/82 (98) 99 11/09/19 21:00 Nasal Cannula 4.0 Nasal Cannula 4.0 11/09/19 20:06 98 Nasal Cannula 1.0 24 11/09/19 20:00 96.7 95 20 124/87 (99) 99 11/09/19 20:00 94 11/09/19 16:00 97.6 106 20 139/72 (94) 98 11/09/19 16:00 107 Intake and Output 11/09/19 11/10/19 19:00 07:00 Intake Total 480 ml 240 ml Balance 480 ml 240 ml Intake Oral 480 ml 240 ml # Voids 3 3 # Bowel Movements 2 Laboratory Tests Test 11/09/19 22:29 11/10/19 04:00 11/10/19 07:05 11/10/19 12:39 POC Whole Blood Glucose 171 MG/DL (74-106) H 206 MG/DL (74-106) H 225 MG/DL (74-106) H D-Dimer < 0.19 mg/L FEU Sodium Level 130 MMOL/L (136-145) L Potassium Level 5.5 MMOL/L (3.5-5.1) H Chloride Level 97 MMOL/L (98-107) L Carbon Dioxide Level 26 MMOL/L (21-32) Anion Gap 7 mmol/L (5-15) Blood Urea Nitrogen 31 mg/dL (7-18) H Creatinine 1.2 MG/DL (0.55-1.30) Estimat Glomerular Filtration Rate > 60 mL/min (>60) Glucose Level 232 MG/DL (74-106) H Calcium Level 8.9 MG/DL (8.5-10.1) Ferritin 376 NG/ML (8-388) Lactate Dehydrogenase 254 U/L (81-234) H C-Reactive Protein, Quantitative 0.4 mg/dL (0.00-0.90) Objective per pulm PA Respiratory/Chest: chest wall non-tender, no respiratory distress, no use of accessory muscle use, BS overall clear Cardiovascular/Chest: normal peripheral pulses, normal rate Abdomen: normal bowel sounds, non tender, soft Extremities: non-tender, no calf tenderness, normal capillary refill Al Emanuel MD Nov 10, 2019 13:12
--- NOTE | 2019-11-10 14:50 | NUR ---
DISCHARGE PLANNING PATIENT HAS BEEN ON ROOM AIR ALL DAY SEEN BY PHYSICAL THERAPY THIS MORNING AND TOLERATED ACTIVITY ~ SEE NOTES WAITING FOR DR TROY TO SEE PATIENT AND GIVE DISCHARGE ORDER
--- NOTE | 2019-11-10 15:35 | NUR ---
NURSE NOTES: While pt gets up to use bathroom O2 at room at is 88. pt was put on 2L O2, and his O2 sat is 92-94.
[2019-11-10 16:00] VITALS: BP 131/78
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
--- NOTE | 2019-11-10 19:31 | Geriatric Progress Note ---
Assessment/Plan Problems: (1) Transaminasemia (2) SIRS (systemic inflammatory response syndrome) (3) Urinary tract infection (4) Chronic back pain (5) Cataract (6) Pneumonia due to COVID-19 virus (7) Diabetes type 2, uncontrolled (8) Diabetic neuropathy associated with type 2 diabetes mellitus (9) Chronic pain disorder (10) Anxiety disorder (11) Acute kidney injury (12) Rhabdomyolysis due to COVID-19 (13) Chronic rhinitis (14) Hypertension (15) Volume depletion (16) Nausea (17) SIADH (syndrome of inappropriate ADH production) Assessment/Plan Patient should be stable for d/c in am with O2 because of persistent borderline tachycardia and desaturation with ambulation. Substitute Xarelto for outpatient antithromotic therapy. Discussed with Dr. Emanuel. Will need home health through prior [facility], [facility]. Continue other therapy. D/c if stable overnight. Discussed with: patient, hospital staff Subjective Interval Events Continues to improve. Sats OK on RA at rest, although hr is running 100+. Desats to 88% on RA on ambulating, OK with 2l/m. Patient reports he is feeling better. No new issues. Staff reports patient tolerating therapy. K 5.5, Na 130. CXR about the same. Constitutional: Denies: chills, sweats, fever Respiratory: Reports: shortness of breath; Denies: wheezing Cardiovascular: Denies: chest pain Gastrointestinal/Abdominal: Denies: abdominal pain, constipation, diarrhea, nausea, vomiting Genitourinary: Denies: dysuria Geriatric Geriatric Last 24 Hour Vital Signs Date Time Temp Pulse Resp B/P (MAP) Pulse Ox O2 Delivery O2 Flow Rate FiO2 11/10/19 12:00 94 11/10/19 09:55 113/78 11/10/19 08:52 Room Air 1.0 Room Air 11/10/19 08:00 103 11/10/19 08:00 97.7 89 20 113/78 (90) 95 11/10/19 04:00 94 11/10/19 04:00 97.5 90 18 127/84 (98) 98 11/10/19 00:00 91 11/10/19 00:00 97.2 97 18 131/82 (98) 99 11/09/19 21:00 Nasal Cannula 4.0 Nasal Cannula 4.0 11/09/19 20:06 98 Nasal Cannula 1.0 24 11/09/19 20:00 96.7 95 20 124/87 (99) 99 11/09/19 20:00 94 Intake and Output 11/09/19 11/10/19 19:00 07:00 Intake Total 480 ml 240 ml Balance 480 ml 240 ml Intake Oral 480 ml 240 ml # Voids 3 3 # Bowel Movements 2 Laboratory Tests Test 11/09/19 22:29 11/10/19 04:00 11/10/19 07:05 11/10/19 12:39 POC Whole Blood Glucose 171 MG/DL (74-106) H 206 MG/DL (74-106) H 225 MG/DL (74-106) H D-Dimer < 0.19 mg/L FEU Sodium Level 130 MMOL/L (136-145) L Potassium Level 5.5 MMOL/L (3.5-5.1) H Chloride Level 97 MMOL/L (98-107) L Carbon Dioxide Level 26 MMOL/L (21-32) Anion Gap 7 mmol/L (5-15) Blood Urea Nitrogen 31 mg/dL (7-18) H Creatinine 1.2 MG/DL (0.55-1.30) Estimat Glomerular Filtration Rate > 60 mL/min (>60) Glucose Level 232 MG/DL (74-106) H Calcium Level 8.9 MG/DL (8.5-10.1) Ferritin 376 NG/ML (8-388) Lactate Dehydrogenase 254 U/L (81-234) H C-Reactive Protein, Quantitative 0.4 mg/dL (0.00-0.90) Current Medications Medications (Trade) Dose Ordered Sig/Jenny Route PRN Reason Start Time Stop Time Status Last Admin Dose Admin Al Hydroxide/Mg Hydroxide (Mylanta) 30 ml Q6H PRN ORAL Abdominal cramps 11/03/19 17:00 12/03/19 16:59 11/08/19 06:29 Albuterol Sulfate (Proventil MDI) 2 puff Q4H PRN INH Shortness of Breath 10/23/19 18:00 01/21/20 17:59 Amlodipine Besylate (Norvasc) 2.5 mg DAILYPRN PRN ORAL For High Blood Pressure 10/26/19 19:45 11/25/19 19:44 10/27/19 20:26 Ascorbic Acid (Vitamin C) 500 mg BID ORAL 11/06/19 09:00 12/01/19 17:59 11/10/19 18:02 Dextrose (Dextrose 50%) 25 ml Q30M PRN IV Hypoglycemia 10/23/19 17:30 01/20/20 22:59 Dextrose (Dextrose 50%) 50 ml Q30M PRN IV Hypoglycemia 10/23/19 17:30 01/20/20 22:59 Duloxetine HCl (Cymbalta) 30 mg DAILY ORAL 11/06/19 09:00 02/04/20 08:59 11/10/19 09:55 Enoxaparin Sodium (Lovenox) 40 mg DAILY SUBQ 11/11/19 09:00 02/09/20 08:59 Guaifenesin (Robitussin) 100 mg Q4H PRN ORAL For Cough 10/23/19 19:15 01/20/20 23:14 11/04/19 11:34 Insulin Aspart (NovoLOG) BEFORE MEALS AND HS SUBQ 11/03/19 16:30 01/21/20 06:29 11/10/19 18:05 Lorazepam (Ativan) 1 mg Q6H PRN ORAL For Anxiety 11/07/19 19:00 11/14/19 18:59 11/09/19 18:32 Losartan Potassium (Cozaar) 25 mg DAILY ORAL 11/01/19 09:00 12/01/19 08:59 11/10/19 09:55 Metformin HCl (Glucophage) 750 mg BID ORAL 11/10/19 09:00 11/22/19 08:59 11/10/19 18:01 Mirtazapine (Remeron) 15 mg BEDTIME ORAL 10/29/19 21:00 01/24/20 20:59 11/09/19 21:36 Pantoprazole (Protonix) 40 mg DAILY ORAL 10/24/19 09:00 11/23/19 08:59 11/10/19 09:55 Polyethylene Glycol (Miralax) 17 gm BEDTIME ORAL 10/26/19 21:00 11/25/19 20:59 11/08/19 21:45 Prednisone (predniSONE) 10 mg Q24H ORAL 11/10/19 15:00 12/10/19 14:59 11/10/19 15:37 Prednisone (predniSONE) 40 mg DAILY ORAL 11/10/19 09:00 12/10/19 08:59 11/10/19 09:55 Thiamine HCl (Vitamin B1) 100 mg BID ORAL 11/10/19 09:00 12/10/19 08:59 11/10/19 18:02 Height (Feet): 6 Height (Inches): 1.00 Weight (Pounds): 197 General Appearance: alert, non-toxic Head: normocephalic, atraumatic Eyes: bilateral anicteric ENT: normal voice Neck: full range of motion, no mass Respiratory: lungs clear Cardiovascular: regular rate, rhythm Gastrointestinal: normal bowel sounds, non tender, soft, no mass, no organomegaly Musculoskeletal: no calf tenderness Edema: no edema noted Generalized Neurologic: alert, no new focality Jim Zee MD Nov 10, 2019 19:31
[2019-11-10 20:00] VITALS: BP 117/77
--- NOTE | 2019-11-10 20:24 | NUR ---
HAND-OFF: Report given to Yonas/RN pt in stable condition, endorsed plan of care.
--- NOTE | 2019-11-10 20:25 | NUR ---
NURSE NOTES: Got report from Frances METCALF. Pt is fully oriented and able to make needs known. Pt resting in bed comfortably. Pt shows no signs of SOB or acute distress noted. Pt denies any pain. Pt denies any n/v. Pt has L AC 22g Slocked. Bed in low and locked position, call light within reach, bedside table within reach. Continue to monitor.
[2019-11-10] MEDS: Miralax 17gm pkt ORAL SCH (21:00)
[2019-11-10] MEDS: LORazepam 1mg tab ORAL PRN (21:20)
[2019-11-11] VITALS: BP 133/83
[2019-11-11 04:00] VITALS: BP 140/85
[2019-11-11] MEDS: NovoLOG Insulin Flexpen SUBQ SCH ×2 (06:28→12:01)
[2019-11-11 06:43] LABS: BASOPHILS % (AUTO) 1.8 % (0.0-2.0); EOSINOPHILS % (AUTO) 1.8 % (0.0-3.0); HEMATOCRIT 39.4 % (42.0-52.0); HEMOGLOBIN 12.7 G/DL (14.2-18.0); LYMPHOCYTES % (AUTO) 37.5 % (20.0-45.0); MEAN CORPUSCULAR VOLUME 87 FL (80-99); MONOCYTES % (AUTO) 5.9 % (1.0-10.0); PLATELET COUNT 285 K/UL (150-450); RED BLOOD COUNT 4.51 M/UL (4.70-6.10); RED CELL DISTRIBUTION WIDTH 12.4 % (11.6-14.8); WHITE BLOOD COUNT 8.6 K/UL (4.8-10.8)
--- NOTE | 2019-11-11 07:25 | NUR ---
HAND-OFF: Report given to Jeny METCALF.
[2019-11-11 07:28] LABS: ALANINE AMINOTRANSFERASE 42 U/L (12-78); ALBUMIN 2.5 G/DL (3.4-5.0); ALBUMIN/GLOBULIN RATIO 0.5 (1.0-2.7); ALKALINE PHOSPHATASE 50 U/L (46-116); ANION GAP 7 mmol/L (5-15); ASPARTATE AMINO TRANSFERASE 15 U/L (15-37); BILIRUBIN,TOTAL 0.5 MG/DL (0.2-1.0); BLOOD UREA NITROGEN 27 mg/dL (7-18); CALCIUM 9.2 MG/DL (8.5-10.1); CARBON DIOXIDE 26 MMOL/L (21-32); CHLORIDE 98 MMOL/L (98-107); CREATININE 1.1 MG/DL (0.55-1.30); POTASSIUM 4.7 MMOL/L (3.5-5.1); SODIUM 131 MMOL/L (136-145)
--- NOTE | 2019-11-11 07:39 | NUR ---
NURSE NOTES: Received report from [place]/RN. Patient awake and eating breakfast. Patient is on room air. No acute distress or SOB noted. IV on left AC 22G, intact and patent. Able to make need know, denied pain at this time. Call light within reach, encouraged to use call light when needed. bed in low position and locked. Will continue plan of care.
[2019-11-11 08:00] VITALS: BP 110/68
[2019-11-11] MEDS: Ascorbic Acid 500mg tab ORAL SCH (08:59)
[2019-11-11] MEDS: DULoxetine 30mg cap ORAL SCH (09:00)
[2019-11-11] MEDS ORDERED: Xarelto 10mg tab ORAL SCH (09:00)
[2019-11-11] MEDS: metFORMIN 500mg tab ORAL SCH (09:00)
[2019-11-11] MEDS ORDERED: Enoxaparin 40mg Inj SUBQ SCH (09:00)
[2019-11-11] MEDS: Thiamine 100mg tab ORAL SCH (09:07)
[2019-11-11] MEDS: LORazepam 1mg tab ORAL PRN (09:07)
--- NOTE | 2019-11-11 09:28 | NUR ---
DISCHARGE PLANNING PATIENT'S SATURATION DROPPED TO 88% ON ROOM AIR HOME OXYGEN NEEDED. 2L/NC CONTINUOUS, PORTABLE AND STATIONARY PLAN TO DISCHARGE HOME TODAY ONCE OXYGEN HAS BEEN DELIVERED
--- NOTE | 2019-11-11 09:42 | NUR ---
DISCHARGE PLANNING OXYGEN ORDERED TO BE DELIVERED TO BED SIDE FAXED REQUEST TO [facility] T: [phone] F: [phone]
[2019-11-11] MEDS ORDERED: PREDNISONE20 MG ORAL (10:09)
[2019-11-11] MEDS ORDERED: ASCORBIC ACID500 M4 ORAL (10:09)
[2019-11-11] MEDS ORDERED: XARELTO10 MG ORAL (10:09)
[2019-11-11] MEDS ORDERED: VITAMIN B-1100 M2 ORAL (10:09)
[2019-11-11] MEDS ORDERED: CYMBALTA30 MG ORAL (10:09)
[2019-11-11] MEDS ORDERED: MIRALAX119 GM ORAL (10:09)
[2019-11-11] MEDS ORDERED: MYLANTA30 M1 ORAL (10:09)
[2019-11-11] MEDS ORDERED: PANTOPRAZOLE SO40 MG ORAL (10:09)
[2019-11-11] MEDS ORDERED: ATIVAN1 MG ORAL (10:09)
[2019-11-11] MEDS ORDERED: MIRTAZAPINE15 M3 ORAL (10:09)
[2019-11-11] MEDS ORDERED: GLUCOPHAGE500 MG ORAL (10:09)
[2019-11-11] MEDS ORDERED: LOSARTAN POTASS25 MG ORAL (10:09)
--- NOTE | 2019-11-11 10:31 | Pulmonology Progress Note ---
Valencia Medina SCREW MACHINE OPERATOR 11/11/19 1031: Subjective ROS Limited/Unobtainable: No Constitutional: Denies: fever Gastrointestinal/Abdominal: Denies: nausea, vomiting, diarrhea Psychiatric: Denies: depression Skin: Denies: rash Musculoskeletal: Denies: pain Allergies: Coded Allergies: No Known Allergies (Unverified , 08/10/14) Subjective no fevers , no leukocytosis weaned to NC now 1 L/min, tolerates reports feeling better less SOB, less anxiety no CP worked with PT this am, walked in the room, pulse ox dropped to 89% only , per PT doing much better dc plan pending Objective Last 24 Hour Vital Signs Date Time Temp Pulse Resp B/P (MAP) Pulse Ox O2 Delivery O2 Flow Rate FiO2 11/11/19 09:00 Room Air 1.0 Room Air 11/11/19 08:00 97.5 97 20 110/68 (82) 95 11/11/19 08:00 100 11/11/19 04:00 90 11/11/19 04:00 98.6 89 20 140/85 (103) 98 11/11/19 00:00 98.3 98 20 133/83 (100) 95 11/11/19 00:00 90 11/10/19 23:00 Room Air 1.0 Room Air 11/10/19 20:03 98 Nasal Cannula 1.0 24 11/10/19 20:00 100 11/10/19 20:00 97.8 102 18 117/77 (90) 96 11/10/19 16:00 104 11/10/19 16:00 96.3 95 20 131/78 (95) 96 11/10/19 12:00 99.0 97 20 129/81 (97) 98 11/10/19 12:00 94 Intake and Output 11/10/19 11/11/19 18:59 06:59 Intake Total 850 ml 360 ml Output Total 1000 ml 800 ml Balance -150 ml -440 ml Intake Oral 850 ml 360 ml Output Urine Total 1000 ml 800 ml # Voids 4 # Bowel Movements 2 1 Objective General Appearance: no apparent distress, alert , awake, responsive male in NAD , on NC Lines, tubes and drains: peripheral HEENT: normocephalic, atraumatic, anicteric, mucous membranes moist, PERRL, pharynx normal, supple, no JVD Neck: non-tender, normal alignment, supple Respiratory/Chest: chest wall non-tender, no respiratory distress, no use of accessory muscle use, BS overall clear Cardiovascular/Chest: normal peripheral pulses, normal rate Abdomen: normal bowel sounds, non tender, soft Extremities: non-tender, no calf tenderness, normal capillary refill Skin Exam: warm/dry Neurologic: no motor/sensory deficits, alert, oriented x 3, responsive, Musculoskeletal: normal muscle bulk Laboratory Tests 11/10/19 12:39: POC Whole Blood Glucose 225H 11/11/19 06:26: White Blood Count 8.6, Red Blood Count 4.51L, Hemoglobin 12.7L, Hematocrit 39.4L , Mean Corpuscular Volume 87, Mean Corpuscular Hemoglobin 28.1, Mean Corpuscular Hemoglobin Concent 32.2, Red Cell Distribution Width 12.4, Platelet Count 285, Mean Platelet Volume 6.1L, Neutrophils (%) (Auto) 53.0, Lymphocytes ( %) (Auto) 37.5, Monocytes (%) (Auto) 5.9, Eosinophils (%) (Auto) 1.8, Basophils (%) (Auto) 1.8, Sodium Level 131L, Potassium Level 4.7, Chloride Level 98, Carbon Dioxide Level 26, Anion Gap 7, Blood Urea Nitrogen 27H, Creatinine 1.1, Estimat Glomerular Filtration Rate > 60, Glucose Level 148H, Calcium Level 9.2, Total Bilirubin 0.5, Aspartate Amino Transf (AST/SGOT) 15, Alanine Aminotransferase (ALT/SGPT) 42, Alkaline Phosphatase 50, Total Protein 7.1, Albumin 2.5L, Globulin 4.6, Albumin/Globulin Ratio 0.5L Current Medications Medications (Trade) Dose Ordered Sig/Jenny Route PRN Reason Start Time Stop Time Status Last Admin Dose Admin Al Hydroxide/Mg Hydroxide (Mylanta) 30 ml Q6H PRN ORAL Abdominal cramps 11/03/19 17:00 12/03/19 16:59 11/08/19 06:29 Albuterol Sulfate (Proventil MDI) 2 puff Q4H PRN INH Shortness of Breath 10/23/19 18:00 01/21/20 17:59 Amlodipine Besylate (Norvasc) 2.5 mg DAILYPRN PRN ORAL For High Blood Pressure 10/26/19 19:45 8/20 19:44 10/27/19 20:26 Ascorbic Acid (Vitamin C) 500 mg BID ORAL 11/06/19 09:00 12/01/19 17:59 11/11/19 08:59 Dextrose (Dextrose 50%) 25 ml Q30M PRN IV Hypoglycemia 10/23/19 17:30 01/20/20 22:59 Dextrose (Dextrose 50%) 50 ml Q30M PRN IV Hypoglycemia 10/23/19 17:30 01/20/20 22:59 Duloxetine HCl (Cymbalta) 30 mg DAILY ORAL 11/06/19 09:00 02/04/20 08:59 11/11/19 09:00 Guaifenesin (Robitussin) 100 mg Q4H PRN ORAL For Cough 10/23/19 19:15 01/20/20 23:14 11/04/19 11:34 Insulin Aspart (NovoLOG) BEFORE MEALS AND HS SUBQ 11/03/19 16:30 01/21/20 06:29 11/10/19 21:28 Lorazepam (Ativan) 1 mg Q6H PRN ORAL For Anxiety 11/07/19 19:00 11/14/19 18:59 11/11/19 09:07 Losartan Potassium (Cozaar) 25 mg DAILY ORAL 11/01/19 09:00 12/01/19 08:59 11/10/19 09:55 Metformin HCl (Glucophage) 750 mg BID ORAL 11/10/19 09:00 11/22/19 08:59 11/11/19 09:00 Mirtazapine (Remeron) 15 mg BEDTIME ORAL 10/29/19 21:00 01/24/20 20:59 11/10/19 21:20 Pantoprazole (Protonix) 40 mg DAILY ORAL 10/24/19 09:00 11/23/19 08:59 11/11/19 08:59 Polyethylene Glycol (Miralax) 17 gm BEDTIME ORAL 10/26/19 21:00 11/25/19 20:59 11/08/19 21:45 Prednisone (predniSONE) 5 mg Q24H ORAL 11/11/19 15:00 12/10/19 14:59 Prednisone (predniSONE) 40 mg DAILY ORAL 11/10/19 09:00 12/10/19 08:59 11/11/19 08:59 Rivaroxaban (Xarelto) 10 mg DAILY ORAL 11/11/19 09:00 02/09/20 08:59 11/11/19 08:59 Thiamine HCl (Vitamin B1) 100 mg BID ORAL 11/10/19 09:00 12/10/19 08:59 11/11/19 09:07 Assessment/Plan Assessment/Plan ASSESSMENT COVID 19 infection, recently diagnosed PNA, likely due to COVID 19 Acute hypoxemic resp failure, requiring NRM -resolving Minimally elevated troponin ( resolved already) CECI with proteinuria ? diabetic nephropathy DM OOC with diabetic neuropathy Pyuria, possible UTI Hypo Na Hx of HTN Transaminitis Low albumin, possible malnutrition Chronic pain PLAN OF CARE tele isolation titrate O2 to keep sat > 90 was attempted HF record center specialist MDI Albuterol prn now weaned from simple mask to NC, tolerates 1L drop to 89% while walking with PT COVID 19 11/01 and 11/05 detected CXR 10/28 -> Worsening bilateral infiltrates. Slight rightward tracheal deviation , upper mediastinal mass possible given persistent hypoxia, will proceed with CT chest CT chest 10/29 ->Moderate to severe patchy multifocal areas of airspace opacities bilateral lungs, may represent inflammatory, infectious process No mass was seen CXR 11/01 Unchanged bilateral infiltrates, c/w PNA repeat CXR 11/05 with Bilateral interstitial and airspace disease is again demonstrated, unchanged clinically slowly improving repeat CXR 11/08 unchanged bilateral infiltrates - s/p abx: Ceftriaxone ( completed 10/29) and Azithromycin ( completed 10/28) SCX if able ID follows completed 10 days of Remdesivir and steroid 10/31) , now on IV Solumedrol per primary, tapered to q 12 hrs with further tapering , now on oral prednisone-taper slwoly on LMW Lovenox treatment dose will changed to once daily since D dimer normalized , will be dc on Xarelto per cardio recs Venous Duplex BLE still pending repeat COVID 19 11/01 and 11/05 positive fup with inflammatory markers to access a risk for cytokine storm latest LDH 488 (trending down), CRP 4.6 ( trending down), ferritin 329 , IL 6 -15.6, repeated IL-6 10/31-55.5 all inflammatory markers trended down: LDH 254, CRP 0.4, ferritin 37, D dimer < 0.19 a/tussive prn monitor volumes improving gradually prior was on full a/c, s/p heparin gtt, now on Lovenox treatment dose bid since 10/27 second troponin down to normal min elevation possibly due to CECI , hypoperfusion cardio on board ECHO with pEF 60%, mild diastolic dysfunction monitor renal parameters, avoid nephrotoxics, creat down UCX / NGTD UA+ pyuria, mod bacteria, completed Ceftriaxone BCX 10/21 NGTD BS management with metformin ( lactic acid down to normal) and SSI, HgA1c - 9.1 not at goal, trend CK, LFT CK and AST trending down , CK 176 BP management with CCB, now started on oral Lasix, monitor volumes e/lyte imbalances noted - per primary pain management dietary eval noted supportive care dc plan pending -> home with [facility] Thank you for this consultation! case discussed and evaluated by supervising physician Solomon Delong MD 11/11/19 1147: Subjective Allergies: Coded Allergies: No Known Allergies (Unverified , 08/10/14) Assessment/Plan Assessment/Plan Patient seen and examined with SCREW MACHINE OPERATOR. Agree with A&P as it reflects our joint deliberation. Valencia Medina NP Nov 11, 2019 10:31 Solomon Delong MD Nov 11, 2019 11:47
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
[2019-11-11 12:00] VITALS: BP 112/75
[2019-11-11] MEDS ORDERED: NS 275ml ONE (14:15)
--- NOTE | 2019-11-11 14:16 | NUR ---
NURSE NOTES: Patient discharged home in stable condition, discharged instructions given, patient verbalized understanding. IV and patient monitor removed, no bleeding or distress noted. Belongings check list done and no items missing and signed by patient. Oxygen tank given to patient. Escorted downstairs via wheelchair, patient left with daughter via private vehicle.
--- NOTE | 2019-11-11 15:49 | NUR ---
*-*DISCHARGE PLANNED*-* PATIENT HAS BEEN ACCEPTED WITH: [facility] P: [phone] S/W JOSE G, WHO STATED THEY WILL SERVICE PATIENT UPON DISCHARGE.
== END 2019-11-11 14:16 | disposition home health service (06) | DRG 177 ==
LOC: EMR 18:31 → 2W 18:36 → EDBEDREQ 20:24 → 2E 10-23 17:10
DX: U07.1 COVID-19 (principal); J12.89 Other viral pneumonia; D65 Disseminated intravascular coagulation [defibrination syndrome]; J96.91 Respiratory failure, unspecified with hypoxia; R65.11 Systemic inflammatory response syndrome (SIRS) of non-infectious origin with acute organ dysfunction; N39.0 Urinary tract infection, site not specified; N17.9 Acute kidney failure, unspecified; M62.82 Rhabdomyolysis; E87.1 Hypo-osmolality and hyponatremia; E46 Unspecified protein-calorie malnutrition; I50.30 Unspecified diastolic (congestive) heart failure; E22.2 Syndrome of inappropriate secretion of antidiuretic hormone; I10 Essential (primary) hypertension; Z03.818 Encounter for observation for suspected exposure to other biological agents ruled out; E11.21 Type 2 diabetes mellitus with diabetic nephropathy; E11.40 Type 2 diabetes mellitus with diabetic neuropathy, unspecified; F41.9 Anxiety disorder, unspecified; E11.65 Type 2 diabetes mellitus with hyperglycemia; R74.0 Nonspecific elevation of levels of transaminase and lactic acid dehydrogenase [LDH]; M19.90 Unspecified osteoarthritis, unspecified site; Z91.14 Patient's other noncompliance with medication regimen; Z90.49 Acquired absence of other specified parts of digestive tract; Z79.84 Long term (current) use of oral hypoglycemic drugs; I49.1 Atrial premature depolarization; G89.29 Other chronic pain; M54.9 Dorsalgia, unspecified
CPT/HCPCS: 36415; 36600; 71045; 71250; 80048; 80053; 81001; 81003; 82248; 82550; 82553; 82728; 82803; 82962; 83036; 83520; 83605; 83615; 83735; 83880; 83930; 83935; 84100; 84300; 84484; 85025; 85379; 85610; 85730; 86140; 87040; 87086; 93005; 93306; 96361; 96365; 96367; 96375; 97802; 99285; J1815; J7030